=== PATIENT | male | born 1940 | race Caucasian/White ===

== ENCOUNTER 2017-04-14 10:21 | Inpatient (IN) | payer MEDICARE ==
[2017-04-14] VITALS (10 sets, daily range): BP systolic 83–154; BP diastolic 54–81; PULSE 60–87; RESP 16–18; TEMP 97.7–98.2; O2SAT 92–98
[~2017-04-14] VITALS: Ht 185.4 cm; Wt 84.9 kg
[~2017-04-14 10:21] MED LIST: AMLO5TAB96 PO; ATEN25 PO; CHLO10 PO; COMMODE 3:1; COUM2.5T PO; DRON2.5C PO; FLUD.1 PO; FOLI1 PO; LISI-363 PO; LOVA1TAB47 PO; MAGN400 PO; MVI PO; THIA100T PO; Z.0.WALKERFRONT
[2017-04-14] MEDS ORDERED: SODIUM CHLOR 0.9% 1000 ML INJ 1,000 ML IV ONE (10:36)
[2017-04-14] MEDS ORDERED: SODIUM CHLORIDE 0.9% FLUSH 10 ML FLUSH IVF PRN (10:45)
--- NOTE | 2017-04-14 10:58 | PD ---
HPI Chief Complaint: Fall Time Seen by Provider: 10:36 Travel History International Travel<30 days: No Contact w/Intl Traveler<30days: No Traveled to known affect area: No History of Present Illness HPI 77-year-old male with history of atrial fibrillation and hypertension, presents to the ER today because he states that he had stepped down to the family room which was at a different level and his legs gave out and he fell. He fell onto his lower back area. He is complaining of back pain which he states has been going on for several weeks. He also states that recently he has noticed dyspnea on exertion. He denies any chest pains, fevers, vomiting, or any other symptoms. Back pain is currently a 6 out of 10 although it gets to a 10 out 10 when he moves. He states he has had some problems with stool incontinence intermittently but that has been going on for several months. He denies any urinary incontinence. Patient states he did hit his head but had no loss of consciousness. Modifying Factors: None Associated Signs & Symptoms: Fall on back, back pain, leg weakness, dyspnea on exertion Risk Factors: Elderly PFSH Past Medical History Hx Anticoagulant Therapy: Yes Atrial Fibrillation: Yes Blood Disorders: No Heart Rhythm Problems: Yes Cancer: No Cardiovascular Problems: Yes (AFIB) High Cholesterol: Yes Diminished Hearing: No Endocrine: No Gout: Yes Genitourinary: No Hypertension: Yes Immune Disorder: No Implanted Vascular Access Dvce: No Musculoskeletal: No Neurologic: No Psychiatric: No Reproductive: No Respiratory: No Triglycerides - High: Yes Past Surgical History Other Surgery: Yes Social History Alcohol Use: Yes (OCC) Tobacco Use: No Substance Use: No Allergies-Medications (Allergen,Severity, Reaction): Coded Allergies: No Known Allergies (Verified , 12/05/15) Reported Meds & Prescriptions Reported Meds & Active Scripts Active Commode 3:1 (Device) Device 1 Ea Librium 10 mg Cap (Chlordiazepoxide) 10 Mg Cap 10 Mg PO DAILY 3 Days Start on 12/13/15. Atenolol 25 Mg Tab 25 Mg PO DAILY 30 Days Lisinopril 20 mg (Lisinopril) 20 Mg Tab 1 Tab PO DAILY 30 Days Vitamin B1 (Thiamine HCl) 100 Mg Tab 100 Mg PO DAILY Folate 1 Mg Tab (Folic Acid) 1 Mg Tab 1 Mg PO DAILY Theragran (Multivitamins) 1 Tab Tab 1 Tab PO DAILY Mag-Ox 400 Mg Tab (Magnesium Oxide) 400 Mg Tab 400 Mg PO BID@,18 Dronabinol 2.5 Mg Cap 2.5 Mg PO BIDAC Florinef (Fludrocortisone Acetate) 0.1 Mg Tab 0.1 Mg PO DAILY Walker Front Wheel (Walkerfront) Device 1 Unit Use as directed Reported Coumadin 2.5 mg (Warfarin Sodium) Warfarin Sodium 2.5 mg Tab 2.5 Mg PO DAILY Mevacor (Lovastatin) 20 Mg Tab 20 Mg PO DAILY Norvasc (Amlodipine Besylate) 5 Mg Tab 5 Mg PO DAILY Review of Systems Except as stated in HPI: all other systems reviewed are Neg Physical Exam Narrative GENERAL: Well-developed elderly white male patient in moderate distress. Awake and oriented 3. SKIN: Focused skin assessment warm/dry. HEAD: Atraumatic. Normocephalic. EYES: Pupils equal and round. No scleral icterus. No injection or drainage. ENT: No nasal bleeding or discharge. Mucous membranes pink and moist. NECK: Trachea midline. No JVD. CARDIOVASCULAR: Regular rate and rhythm. No murmur appreciated. RESPIRATORY: No accessory muscle use. Clear to auscultation. Breath sounds equal bilaterally. GASTROINTESTINAL: Abdomen soft, non-tender, nondistended. Hepatic and splenic margins not palpable. MUSCULOSKELETAL: No obvious deformities. No clubbing. No cyanosis. No edema. BACK: No CVA tenderness. No rash. Tenderness around the mid spine area on palpation with no point tenderness or deformities identified. NEUROLOGICAL: Awake and alert. No obvious cranial nerve deficits. Motor grossly within normal limits. Normal speech. PSYCHIATRIC: Appropriate mood and affect; insight and judgment normal. Data Data Last Documented VS Vital Signs Date Time Temp Pulse Resp B/P Pulse Ox O2 Delivery O2 Flow Rate FiO2 04/14/17 11:32 72 18 126/76 98 Room Air 04/14/17 10:39 98.1 Orders Electrocardiogram (04/14/17 10:36) Complete Blood Count With Diff (04/14/17 10:36) Comprehensive Metabolic Panel (04/14/17 10:36) Magnesium (Mg) (04/14/17 10:36) Ckmb (Isoenzyme) Profile (04/14/17 10:36) Troponin I (04/14/17 10:36) Act Partial Throm Time (Ptt) (04/14/17 10:36) Prothrombin Time / Inr (Pt) (04/14/17 10:36) Urinalysis - C+S If Indicated (04/14/17 10:36) Chest, Single Ap (04/14/17 10:36) Ct Brain W/O Iv Contrast(Rout) (04/14/17 10:36) Ct Cerv Spine W/O Contrast (04/14/17 10:36) Ecg Monitoring (04/14/17 10:36) Iv Access Insert/Monitor (04/14/17 10:36) Oximetry (04/14/17 10:36) Sodium Chloride 0.9% Flush (Ns Flush) (04/14/17 10:45) Sodium Chlor 0.9% 1000 Ml Inj (Ns 1000 M (04/14/17 10:36) Ct Thor Spine W/O Contrast (04/14/17 10:36) Ct Lumb Spine W/O Contrast (04/14/17 10:36) Ns + Kcl 20 Meq Inj (Ns + Kcl 20 Meq Inj (04/14/17 11:45) Admit Order (Ed Use Only) (04/14/17 13:10) Labs Laboratory Tests Test 04/14/17 04/14/17 10:45 12:30 White Blood Count 12.0 TH/MM3 Red Blood Count 4.71 MIL/MM3 Hemoglobin 14.7 GM/DL Hematocrit 43.9 % Mean Corpuscular Volume 93.2 FL Mean Corpuscular Hemoglobin 31.1 PG Mean Corpuscular Hemoglobin 33.3 % Concent Red Cell Distribution Width 12.2 % Platelet Count 389 TH/MM3 Mean Platelet Volume 9.4 FL Neutrophils (%) (Auto) 75.2 % Lymphocytes (%) (Auto) 11.8 % Monocytes (%) (Auto) 10.3 % Eosinophils (%) (Auto) 2.3 % Basophils (%) (Auto) 0.4 % Neutrophils # (Auto) 9.0 TH/MM3 Lymphocytes # (Auto) 1.4 TH/MM3 Monocytes # (Auto) 1.2 TH/MM3 Eosinophils # (Auto) 0.3 TH/MM3 Basophils # (Auto) 0.1 TH/MM3 CBC Comment DIFF FINAL Differential Comment Prothrombin Time 12.2 SEC Prothromb Time International 1.1 RATIO Ratio Activated Partial 26.0 SEC Thromboplast Time Sodium Level 133 MEQ/L Potassium Level 3.0 MEQ/L Chloride Level 94 MEQ/L Carbon Dioxide Level 24.2 MEQ/L Anion Gap 15 MEQ/L Blood Urea Nitrogen 14 MG/DL Creatinine 1.13 MG/DL Estimat Glomerular Filtration 63 ML/MIN Rate Random Glucose 123 MG/DL Calcium Level 9.9 MG/DL Magnesium Level 1.6 MG/DL Total Bilirubin 0.8 MG/DL Aspartate Amino Transf 66 U/L (AST/SGOT) Alanine Aminotransferase 49 U/L (ALT/SGPT) Alkaline Phosphatase 280 U/L Total Creatine Kinase 33 U/L Troponin I LESS THAN 0.02 NG/ML Total Protein 7.5 GM/DL Albumin 3.4 GM/DL Urine Color YELLOW Urine Turbidity CLEAR Urine pH 5.5 Urine Specific [place] 1.012 Urine Protein NEG mg/dL Urine Glucose (UA) NEG mg/dL Urine Ketones NEG mg/dL Urine Occult Blood NEG Urine Nitrite NEG Urine Bilirubin NEG Urine Urobilinogen 2.0 MG/DL Urine Leukocyte Esterase NEG Urine RBC 1 /hpf Urine WBC 4 /hpf Urine Squamous Epithelial <1 /hpf Cells Urine Hyaline Casts 7 /lpf Microscopic Urinalysis Comment CULT NOT INDICATED MDM Medical Decision Making Medical Screen Exam Complete: Yes Emergency Medical Condition: Yes Medical Record Reviewed: Yes Interpretation(s) EKG shows A. fib at a rate of 70 bpm, no ST elevation or depression, and no arrhythmias. No significant T-wave inversions. Laboratory Tests Test 04/14/17 10:45 White Blood Count 12.0 TH/MM3 (4.0-11.0) Neutrophils (%) (Auto) 75.2 % (16.0-70.0) Monocytes (%) (Auto) 10.3 % (0.0-8.0) Neutrophils # (Auto) 9.0 TH/MM3 (1.8-7.7) Monocytes # (Auto) 1.2 TH/MM3 (0-0.9) Prothrombin Time 12.2 SEC (9.8-11.6) Sodium Level 133 MEQ/L (136-145) Potassium Level 3.0 MEQ/L (3.5-5.1) Chloride Level 94 MEQ/L (98-107) Estimat Glomerular Filtration 63 ML/MIN (>89) Rate Random Glucose 123 MG/DL (74-106) Aspartate Amino Transf 66 U/L (15-37) (AST/SGOT) Alkaline Phosphatase 280 U/L (45-117) Total Creatine Kinase 33 U/L (39-308) Troponin I LESS THAN 0.02 NG/ML (0.02-0.05) Last [address] 04/14/17 1036 Signed Impressions: Service Date/Time: Friday, April 14, 2017 11:08 - CONCLUSION: No acute disease. Monty Jaime MD Chest X-Ray 04/14/17 1036 Signed Impressions: Service Date/Time: Friday, April 14, 2017 10:44 - CONCLUSION: Left basilar subsegmental atelectasis versus scarring. Status post CABG. Jose Stern MD Cervical Spine CT 04/14/17 1036 Signed Impressions: Service Date/Time: Friday, April 14, 2017 11:08 - CONCLUSION: 1. No fracture or subluxation. 2. Degenerative changes. Jose Stern MD Differential Diagnosis Fall, back pain, leg weakness, dyspnea on exertionmetabolic issues versus dehydration versus spinal fractures versus intracranial injuries versus sepsis versus pneumonia Narrative Course CTs did not show any signs of acute intracranial injuries. He does have lower thoracic and lumbar or which fractures as well as retropulse fragment which could be causing some of his back pain symptoms. None of which appear to be new. Lab work shows hypokalemia and potassium was given in the ER. IV fluids were given for hypotension. At this point, my plan would be to admit the patient for further evaluation and treatment. Case was discussed with family practice residents for admission. Diagnosis Primary Impression: Muscle weakness (generalized) Additional Impressions: Fall (on) (from) unspecified stairs and steps, initial encounter Back pain Hypokalemia Admitting Information Admitting Physician Requests: Admit Naomi Kirk MD April 14, 2017 10:58
--- NOTE | 2017-04-14 11:04 | RADRPT ---
EXAM DATE/TIME: 04/14/2017 10:44 [facility] COMPARISON: CHEST SINGLE AP, December 05, 2015, 19:21. INDICATIONS : Posterior chest pain. Evaluate lung status. MEDICAL HISTORY : Hypertension. SURGICAL HISTORY : CABG. ENCOUNTER: Initial ACUITY: 2 days PAIN SCORE: 10/10 LOCATION: Bilateral chest FINDINGS: A single view of the chest demonstrates left basilar atelectasis. Previous median sternotomy. Diminis hed lung volumes. Osseous structures are intact. CONCLUSION: Left basilar subsegmental atelectasis versus scarring. Status post CABG. Jose Stern MD on April 14, 2017 at 11:02 Board Certified Radiologist. This report was verified electronically.
[2017-04-14 11:12] LABS: BASOPHIL # 0.1 TH/MM3 (0-0.2); BASOPHIL % 0.4 % (0.0-2.0); EOSINOPHIL # 0.3 TH/MM3 (0-0.4); EOSINOPHIL % 2.3 % (0.0-4.0); HEMATOCRIT 43.9 % (39.0-51.0); HEMO FLAGS DIFF FINAL; LYMPH % 11.8 % (9.0-44.0); LYMPHOCYTE # 1.4 TH/MM3 (1.0-4.8); MEAN CELL VOLUME 93.2 FL (80.0-100.0); MEAN CORPUSCULAR HEMOGLOBIN 31.1 PG (27.0-34.0); MEAN CORPUSCULAR HGB CONC 33.3 % (32.0-36.0); MONO % 10.3 % (0.0-8.0); NEUT % 75.2 % (16.0-70.0); PLATELET COUNT 389 TH/MM3 (150-450); RED BLOOD COUNT 4.71 MIL/MM3 (4.50-5.90); RED CELL DISTRIBUTION WIDTH 12.2 % (11.6-17.2)
[2017-04-14 11:18] LABS: INTERNATIONAL NORMALIZED RATIO 1.1 RATIO; PROTHROMBIN TIME - PATIENT 12.2 SEC (9.8-11.6)
--- NOTE | 2017-04-14 11:20 | RADRPT ---
EXAM DATE/TIME: 04/14/2017 11:08 [facility] COMPARISON: CT BRAIN W/O CONTRAST, December 05, 2015, 21:19. INDICATIONS : Fall, severe back pain RADIATION DOSE: 69.60 CTDIvol (mGy) MEDICAL HISTORY : Cardiovascular disease. Hypertension. SURGICAL HISTORY : None. ENCOUNTER: Initial ACUITY: 1 day PAIN SCALE: 0/10 LOCATION: cranial TECHNIQUE: Multiple contiguous axial images were obtained of the head. Using automated exposure control and adj ustment of the mA and/or kV according to patient size, radiation dose was kept as low as reasonably a chievable to obtain optimal diagnostic quality images. FINDINGS: There is diffuse atrophy. 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 There is mild periventricular white matter disease. No signs of acute infarct, hemorrhage or mass. No fractures. CONCLUSION: No acute disease. Monty Jaime MD on April 14, 2017 at 11:18 Board Certified Radiologist. This report was verified electronically.
[2017-04-14 11:23] LABS: ALT (GPT) 49 U/L (12-78); ANION GAP 15 MEQ/L (5-15); AST (GOT) 66 U/L (15-37); BICARBONATE 24.2 MEQ/L (21.0-32.0); BLOOD UREA NITROGEN 14 MG/DL (7-18); CHLORIDE 94 MEQ/L (98-107); GLOMERULAR FILTRATION RATE 63 ML/MIN (>89); MAGNESIUM 1.6 MG/DL (1.5-2.5); SODIUM (NA) 133 MEQ/L (136-145)
[2017-04-14 11:26] LABS: ALKALINE PHOSPHATASE 280 U/L (45-117); TOTAL BILIRUBIN ADULT 0.8 MG/DL (0.2-1.0)
[2017-04-14 11:45] LABS: CREATINE KINASE 33 U/L (39-308)
[2017-04-14] MEDS ORDERED: NS + KCL 20 MEQ INJ 1,000 ML IV ONE (11:45)
--- NOTE | 2017-04-14 11:52 | RADRPT ---
EXAM DATE/TIME: 04/14/2017 11:08 [facility] COMPARISON: No previous studies available for comparison. INDICATIONS : Fall, severe back pain RADIATION DOSE: 19.05 CTDIvol (mGy) MEDICAL HISTORY : Cardiovascular disease. Hypertension. SURGICAL HISTORY : None. ENCOUNTER: Initial ACUITY: 1 day PAIN SCALE: 10/10 LOCATION: Paraspinal TECHNIQUE: Volumetric scanning of the cervical spine was performed. Multiplanar reconstructions in the sagittal, coronal and oblique axial planes were performed. Using automated exposure control and adjustment o f the mA and/or kV according to patient size, radiation dose was kept as low as reasonably achievable to obtain optimal diagnostic quality images. FINDINGS: VERTEBRAE: Normal vertebral body height. Advanced multilevel degenerative changes. ALIGNMENT: No evidence of subluxation. There is kyphosis of the upper thoracic spine. C2-C3: The bony spinal canal is normal in size. No evidence of disc bulge or herniation. The neural forami na are bilaterally patent. C3-C4: Mild broad-based protrusion abuts the ventral thecal sac with extruded component extending inferiorly . No canal stenosis. Moderate bilateral neural foraminal narrowing. The neural foramina are bilatera lly patent. C4-C5: Mild broad-based disc bulge abuts the ventral thecal sac without canal stenosis. Moderate bilateral n eural foraminal narrowing. C5-C6: The bony spinal canal is normal in size. No evidence of disc bulge or herniation. The neural forami na are bilaterally patent. C6-C7: The bony spinal canal is normal in size. No evidence of disc bulge or herniation. The neural forami na are bilaterally patent. C7-T1: The bony spinal canal is normal in size. No evidence of disc bulge or herniation. The neural forami na are bilaterally patent. CONCLUSION: 1. No fracture or subluxation. 2. Degenerative changes. Jose Stern MD on April 14, 2017 at 11:45 Board Certified Radiologist. This report was verified electronically.
--- NOTE | 2017-04-14 12:57 | RADRPT ---
EXAM DATE/TIME: 04/14/2017 11:13 [facility] COMPARISON: No previous studies available for comparison. INDICATIONS : Fall, severe back pain RADIATION DOSE: 35.53 CTDIvol (mGy) ; Combined studies MEDICAL HISTORY : Cardiovascular disease. Hypertension. SURGICAL HISTORY : None. ENCOUNTER: Initial ACUITY: 1 day PAIN SCALE: 10/10 LOCATION: Bilateral Paraspinal TECHNIQUE: Volumetric scanning of the thoracic spine was performed. Multiplanar reconstructions in the sagittal , coronal and oblique axial planes were performed. Using automated exposure control and adjustment o f the mA and/or kV according to patient size, radiation dose was kept as low as reasonably achievable to obtain optimal diagnostic quality images. FINDINGS: Sagittal and coronal reconstruction show multilevel degenerative disc disease throughout the thoracol umbar spine. There are compression fractures involving T2, T10 and most severely at L1 where there i s a vertebral plana and severe wedge deformity. However, these all appear to be somewhat chronic. T here is a retropulsed component at the T12-L1 level. I do not see an obvious acute fracture. Despit e the retropulsion at T12-L1, the spinal canal appears to be adequate throughout. Bridging anterior osteophytes are seen at multiple dorsal levels. There is a small right-sided effus ion with some common atelectactic changes. Atelectactic changes are also seen in the left lung base. Old healed rib fracture involving the posterior aspect of number 12 on the right. CONCLUSION: 1. Exaggerated kyphotic curvature with multilevel degenerative disc disease. 2. Multiple chronic appearing fractures involving T2, T10 and most severely at L1 where there is a w edge deformity and a retropulsed fragment. Again, these all appear to be chronic. 3. Old healed fracture deformity of the posterior right twelfth rib. 4. Bibasilar dependent atelectactic changes with a small right-sided effusion. Natanael Marr MD on April 14, 2017 at 12:25 Board Certified Radiologist. This report was verified electronically.
[2017-04-14 13:01] LABS: BLOOD, URINE NEG (NEG); GLUCOSE,URINE NEG (NEG); HYALINE CAST, URINE 7 /lpf (RARE); KETONE, URINE NEG (NEG); NITRITE,URINE NEG (NEG); PH, URINE 5.5 (5.0-8.5); SQUAMOUS EPITHELIAL CELL URINE <1 /hpf (0-5); URINE COLOR YELLOW (YELLW/STRAW)
[2017-04-14 13:02] LABS: COMMENT (UR) CULT NOT INDICATED; CULTURE IF INDICATED CULT NOT INDICATED
--- NOTE | 2017-04-14 13:04 | RADRPT ---
EXAM DATE/TIME: 04/14/2017 11:13 [facility] COMPARISON: No previous studies available for comparison. INDICATIONS : Fall, severe back pain RADIATION DOSE: 35.53 CTDIvol (mGy) ; Combined studies MEDICAL HISTORY : Cardiovascular disease. Hypertension. SURGICAL HISTORY : None. ENCOUNTER: Initial ACUITY: 1 day PAIN SCALE: 10/10 LOCATION: Bilateral Paraspinal TECHNIQUE: Volumetric scanning of the lumbar spine was performed. Multiplanar reconstructions in the sagittal, coronal and oblique axial planes were performed. Using automated exposure control and adjustment of the mA and/or kV according to patient size, radiation dose was kept as low as reasonably achievable t o obtain optimal diagnostic quality images. FINDINGS: Sagittal and coronal reconstruction show diffuse osseous demineralization with severe compression fra ctures at both L1 and L5. There is a wedge deformity with vertebral plana at L1 and a 9 mm retropuls ed fragment. Despite the retropulsion, I believe the spinal canal is adequate at the thoracolumbar j unction. There is some central concavity involving the right side of the L3 vertebral body which als o appears to be chronic. Vacuum disc phenomenon is seen at L2-3, L4-5 and L5-S1. I do not see CT fi ndings of an acute fracture or significant listhesis. On the axial images, the combination of a diffuse disc bulge with facet hypertrophy at L4-5 results i n significant central spinal stenosis which may compromise central nerve root. Spinal canal and neur al foramina appear to be adequate at all remaining levels. There is dense atherosclerotic calcificat ion of the regional vasculature. CONCLUSION: 1. Severe compression fractures at both L1 and L5. Both appears chronic and there is a 9 mm retropu lsed component of the superior end plate of L1. 2. There is also some central concavity on the right side of the L3 vertebral body which may represe nt a prominent Schmorl's node but also appears to be chronic. I do not see an acute fracture or list hesis. 3. Despite the retropulsed fragment at L1, the spinal canal appears to be adequate at this level. 4. However, there is moderately severely central spinal stenosis at L4-5 due to a combination of dif fuse disc bulge and marked facet hypertrophy. Spinal canal is adequate at all remaining levels. Natanael Marr MD on April 14, 2017 at 12:49 Board Certified Radiologist. This report was verified electronically.
--- NOTE | 2017-04-14 13:15 | HHI.HP ---
[facility] Service Family Medicine Primary Care Physician Vita Cooper MD Admission Diagnosis Diagnoses: International Travel<30 Days: No Contact w/Intl Traveler<30days: No Known Affected Area: No History of Present Illness 77-year-old male with history of chronic back pain presents after falling this morning at 7 AM. There is a step between the living room and dining room. The patient was moving from the living room and stepping down, he placed his hand on the wall and slipped backwards. He fell on his bottom. The patient states "more of sitting down and then a fall." The patient has been in 8 out of 10 mid back pain. This is nonradiating. In the hospital, his pain has improved to 4 out of 10. While moving to the CT scanner his pain was a 10 out of 10. Prior to 2 months ago, the patient was driving and walking. He has had worsening back issues over the last 2 months. He has needed to either sit in a recliner to relieve his pain or he walks hunched over his walker. His dependence on his walker is getting worse over the last 2 months. Additionally , he has been having bowel incontinence. He has had 2-3 episodes of losing loose stool when he tries to get up. He denies any loss of bladder function. When he moves, the pain gets worse. Reclining makes the pain feel better. He has not been able to sleep in bed for the last 2 months. He has been sleeping in a chair because of the pain. Not been taking his medications for the last 3 weeks except for 800 mg ibuprofen twice a day. He states he has quit taking medications because "he feels like a pharmacist." (Jama Johnson MD R2) Review of Systems Constitutional: DENIES: Fever, Chills Eyes: DENIES: Blurred vision, Diplopia Ears, nose, mouth, throat: DENIES: Tinnitus, Hearing loss Respiratory: DENIES: Cough, Shortness of breath Cardiovascular: DENIES: Chest pain, Dyspnea on Exertion Gastrointestinal: DENIES: Abdominal pain, Black stools, Bloody stools, Nausea, Vomiting Genitourinary: DENIES: Urinary incontinence, Hematuria Neurologic: COMPLAINS OF: Abnormal gait, Poor Balance Psychiatric: DENIES: Anxiety, Confusion (Jama Johnson MD R2) Past Family Social History Past Medical History Hypertension Atrial fibrillation Hyperlipidemia cards: Dr. Torres Past Surgical History Tonsillectomy Cyst of left shoulder Reported Medications Diltiazem xr are 180 mg daily Mirtazapine 15 mg by mouth at bedtime Famotidine 20 mg daily Folic acid 1 mg daily Potassium 20 mg daily Amlodipine gram daily Lovastatin 20 mg daily Warfarin 5 mg daily Commode 3:1 (Device) Device 1 Ea Walker Front Wheel (Walkerfront) Device 1 Unit Use as directed (Jama oJhnson MD R2) Allergies: Coded Allergies: No Known Allergies (Verified , 12/05/15) Active Ordered Medications Active Medications Potassium Chloride/Sodium Chloride (NS + KCl 20 Meq Inj) 1,000 ml @ 250 mls/hr Q4H ONCE IV Last administered on 04/14/17t 12:19; Admin Dose 250 MLS/HR; Start 04/14/17 at 11:45; Stop 04/14/17 at 15:44 Sodium Chloride 1,000 ml @ 1,000 mls/hr Q1H ONCE IV Last administered on t 10:54; Admin Dose 1,000 MLS/HR; Start 04/14/17 at 10:36; Stop 04/14/17 at 11:35; Status DC Sodium Chloride 2 ml 2 ml UNSCH PRN IVF; Start 04/14/17 at 10:45 Family History Patient was adopted. Social History Tobacco: 17 years; [id number]; 1ppd Alcohol: none recent Illicit: none Lives with and dog. Hasn't driven since . cooks. He bathes , scared to shower for last month. (Jama Johnson MD R2) Physical Exam Vital Signs Vital Signs Date Time Temp Pulse Resp B/P Pulse Ox O2 Delivery O2 Flow Rate FiO2 04/14/17 11:32 72 18 126/76 98 Room Air 04/14/17 11:12 18 97 Room Air 04/14/17 11:12 18 97 Room Air 04/14/17 10:39 98.1 70 18 83/54 96 Room Air 04/14/17 10:30 79 16 83/54 97 04/14/17 10:22 97.7 87 18 92 Room Air Physical Exam GENERAL: This is a pleasant elderly male lying comfortably in bed. No acute distress. SKIN: No rashes, ecchymoses or lesions. Cool and dry. HEAD: Atraumatic. Normocephalic. No temporal or scalp tenderness. EYES: Pupils equal round and reactive. Extraocular motions intact. No scleral icterus. No injection or drainage. ENT: Nose without bleeding, purulent drainage or septal hematoma. Throat without erythema, tonsillar hypertrophy or exudate. Uvula midline. Airway patent. NECK: Trachea midline. No JVD or lymphadenopathy. Supple, nontender, no meningeal signs. CARDIOVASCULAR: Regular rate and rhythm without murmurs, gallops, or rubs. RESPIRATORY: Clear to auscultation. Breath sounds equal bilaterally. No wheezes , rales, or rhonchi. GASTROINTESTINAL: Abdomen soft, non-tender, nondistended. No hepato-splenomegaly , or palpable masses. No guarding. Rectal: Good tone MUSCULOSKELETAL: Low back around L1 tender to palpation. NEUROLOGICAL: Awake and alert. Cranial nerves II through XII intact. Motor and sensory grossly within normal limits. Five out of 5 muscle strength in all muscle groups. Normal speech. Laboratory Laboratory Tests Test 04/14/17 04/14/17 10:45 12:30 White Blood Count 12.0 Red Blood Count 4.71 Hemoglobin 14.7 Hematocrit 43.9 Mean Corpuscular Volume 93.2 Mean Corpuscular Hemoglobin 31.1 Mean Corpuscular Hemoglobin 33.3 Concent Red Cell Distribution Width 12.2 Platelet Count 389 Mean Platelet Volume 9.4 Neutrophils (%) (Auto) 75.2 Lymphocytes (%) (Auto) 11.8 Monocytes (%) (Auto) 10.3 Eosinophils (%) (Auto) 2.3 Basophils (%) (Auto) 0.4 Neutrophils # (Auto) 9.0 Lymphocytes # (Auto) 1.4 Monocytes # (Auto) 1.2 Eosinophils # (Auto) 0.3 Basophils # (Auto) 0.1 CBC Comment DIFF FINAL Differential Comment Prothrombin Time 12.2 Prothromb Time International 1.1 Ratio Activated Partial 26.0 Thromboplast Time Sodium Level 133 Potassium Level 3.0 Chloride Level 94 Carbon Dioxide Level 24.2 Anion Gap 15 Blood Urea Nitrogen 14 Creatinine 1.13 Estimat Glomerular Filtration 63 Rate Random Glucose 123 Calcium Level 9.9 Magnesium Level 1.6 Total Bilirubin 0.8 Aspartate Amino Transf 66 (AST/SGOT) Alanine Aminotransferase 49 (ALT/SGPT) Alkaline Phosphatase 280 Total Creatine Kinase 33 Troponin I LESS THAN 0.02 Total Protein 7.5 Albumin 3.4 Urine Color YELLOW Urine Turbidity CLEAR Urine pH 5.5 Urine Specific [place] 1.012 Urine Protein NEG Urine Glucose (UA) NEG Urine Ketones NEG Urine Occult Blood NEG Urine Nitrite NEG Urine Bilirubin NEG Urine Urobilinogen 2.0 Urine Leukocyte Esterase NEG Urine RBC 1 Urine WBC 4 Urine Squamous Epithelial <1 Cells Urine Hyaline Casts 7 Microscopic Urinalysis Comment CULT NOT INDICATED (Jama Johnson MD R2) Result Diagram: 04/14/17 1045 04/14/17 1045 Imaging Last Impressions Head CT 04/14/17 1036 Signed Impressions: Service Date/Time: Friday, April 14, 2017 11:08 - CONCLUSION: No acute disease. Monty Jaime MD Chest X-Ray 04/14/17 1036 Signed Impressions: Service Date/Time: Friday, April 14, 2017 10:44 - CONCLUSION: Left basilar subsegmental atelectasis versus scarring. Status post CABG. Jose Stern MD Cervical Spine CT 04/14/17 1036 Signed Impressions: Service Date/Time: Friday, April 14, 2017 11:08 - CONCLUSION: 1. No fracture or subluxation. 2. Degenerative changes. Jose Stern MD (Jama Johnson MD R2) Assessment and Plan Assessment and Plan 77-year-old male with history of chronic low back pain and known fractures presents after a fall; CT concerning for severe spinal stenosis at L4-L5. Plan as below. Code Status Full (Jama Johnson MD R2) Attending Attestation Patient seen and examined, discussed with resident team. I agree with assessment and management as documented and discussed with me. The patient has been seen and examined. The chart and all resident notes have been reviewed. I agree that inpatient care is appropriate and that a two midnight stay is expected for the reasons documented in the resident history and physical. I have discussed this with the resident and certify the resident s order for inpatient admission. Bear Gibson is a 77 yo gentleman with medical history significant for A fib and compression fractures admitted for worsening back pain after a fall. Imaging at admission reveals acute lumbar compression fracture and spinal stenosis. Neurosurgery has been consulted; anticipate possible neurosurgical intervention for acute lumbar compression fracture and spinal stenosis. Additionally, patient has stopped all of his medications 3 weeks ago because he was frustrated with taking so many medications. He is amenable to restarting some of these medications postoperatively, including coumadin. Will reevaluate the need for various medications postoperatively. (Janny Lazcano MD) Problem List: (1) Spinal stenosis at L4-L5 level Status: Acute Plan: Neurosurgery consult Case discussed with neurosurgery judicial assistant MRI lumbar spine with and without contrast ordered Nothing by mouth at midnight for possible surgery. (2) Fracture, thoracic vertebra, compression Status: Acute Plan: Neurosurgery consult Pain control morphine 2 mg IV pain 3-5, 4 mg pain 6-10 (3) Fracture, lumbar vertebra, compression Status: Acute Plan: Neurosurgery consult Pain control Vitamin D pending (4) Atrial fibrillation Status: Acute Plan: Patient has not been taking Coumadin for 3 weeks. INR 1.1 Holding Coumadin for possible surgery Heparin as below Diltiazem 180 daily. (5) Hyperlipidemia Status: Acute Plan: Continue statin (6) FEN/PPX Status: Acute Plan: Fluids: Normal saline at 120 mL's per hour Electrolytes: Monitor and replace as needed Nutrition: Regular diet. Nothing by mouth after midnight for possible surgery Prophylaxis: Heparin 5000 units twice a day, bilateral SCDs. (Jama Johnson MD R2) Physician Certification 2 Midnight Certification Type: Admission for Inpatient Services Order for Inpatient Services The services are ordered in accordance with Medicare regulations or non- Medicare payer requirements, as applicable. In the case of services not specified as inpatient-only, they are appropriately provided as inpatient services in accordance with the 2-midnight benchmark. Estimated LOS (days): 2 days is the estimated time the patient will need to remain in the hospital, assuming treatment plan goals are met and no additional complications. Post-Hospital Plan: Not yet determined (Jama Johnson MD R2) Jama Johnson MD R2 April 14, 2017 13:15 Janny Lazcano MD April 14, 2017 20:36
[2017-04-14] MEDS: HEPARIN SODIUM - SQ 10,000 UNITS/ML VIAL SQ SCH (14:30)
[2017-04-14] MEDS ORDERED: MAGNESIUM HYDROXIDE SUSP 30 ML CUP PO PRN (14:30)
[2017-04-14] MEDS ORDERED: BISACODYL 10 MG SUPP RECTAL PRN (14:30)
[2017-04-14] MEDS ORDERED: LACTULOSE SYRUP 20 GM/30 ML CUP PO PRN (14:30)
[2017-04-14] MEDS ORDERED: ACETAMINOPHEN 325 MG TAB PO PRN (14:30)
[2017-04-14] MEDS ORDERED: SENNOSIDES 8.6 MG TAB PO PRN (14:30)
[2017-04-14] MEDS ORDERED: SODIUM CHLORIDE 0.9% FLUSH 10 ML FLUSH IV FLUSH PRN (14:30)
[2017-04-14] MEDS ORDERED: NALOXONE HCL 0.4 MG/ML AMP IV PRN ×2 (14:30→15:30)
[2017-04-14] MEDS ORDERED: ONDANSETRON HCL 4 MG/2 ML VIAL IVP PRN (14:30)
[2017-04-14] MEDS ORDERED: FAMOTIDINE 20 MG TAB PO ONE (15:15)
[2017-04-14] MEDS ORDERED: MORPHINE SULFATE 4 MG/ML INJ IV PUSH ONE (15:15)
[2017-04-14] MEDS ORDERED: MORPHINE SULFATE 4 MG/ML INJ IV PRN (15:30)
--- NOTE | 2017-04-14 16:11 | PD.CONS ---
(Rita Villatoro) [facility] Service Neurosurgery Consult Requested By Dr. Johnson Reason for Consult severe spinal stenosis, loosing bowel function Primary Care Physician Vita Cooper MD History of Present Illness Mr. Gibson is a 77-year-old male who presents to [facility] today with complaints of intractable back pain. Mr. Gibson reports he has suffered from chronic lumbar pain however has gotten progressively worse over the past couple weeks. He reports today his legs gave out and he fell down. His pain is located in the upper lumbar region. He denies any radiating pain, paresthesias , sensory loss, urine incontinence. There is also report of bowel incontinence. The patient says he has sudden urges to move his bowels which then will leak before making it to the bathroom. He complains his legs are also becoming weaker compared to his arms, and he has had more difficulty walking. He rates the pains as a 10/10. A CT of the lumbar spine shows severe fractures at L1 and L5, there is retropulsion of L1 causing severe canal stenosis. A neurosurgical evaluation was requested. (Rita Villatoro) Review of Systems Constitutional: DENIES: Fever, Chills Eyes: DENIES: Diplopia, Vision loss Ears, nose, mouth, throat: DENIES: Vertigo Respiratory: DENIES: Cough, Hemoptysis, Shortness of breath Cardiovascular: DENIES: Chest pain Gastrointestinal: DENIES: Abdominal pain Genitourinary: DENIES: Urinary incontinence Musculoskeletal: COMPLAINS OF: Stiffness, Back pain, DENIES: Neck pain Neurologic: COMPLAINS OF: Abnormal gait, Localized weakness, Poor Balance, DENIES: Headache, Paresthesias Psychiatric: DENIES: Confusion, Hallucinations (Rita Villatoro) Past Family Social History Allergies: Coded Allergies: No Known Allergies (Verified , 12/05/15) Past Medical History Atrial fibrillation Hypertension Hyperlipidemia Past Surgical History Tonsillectomy Reported Medications reviewed in EMR Active Ordered Medications Current Medications Medications (Trade) Dose Ordered Sig/Curt Route PRN Reason Start Time Stop Time Status Last Admin Dose Admin Sodium Chloride 2 ml 2 ml UNSCH PRN IVF FLUSH AFTER USING IV ACCESS 04/14/17 10:45 Sodium Chloride (NS 1000 ml Inj) 1,000 ml @ 120 mls/hr Q8H20M IV 04/14/17 14:23 Sodium Chloride (NS Flush) 2 ml UNSCH PRN IV FLUSH FLUSH AFTER USING IV ACCESS 04/14/17 14:30 Sodium Chloride (NS Flush) 2 ml BID IV FLUSH 04/14/17 21:00 Acetaminophen (Tylenol) 650 mg Q4H PRN PO TEMP > 100.4 04/14/17 14:30 Ondansetron HCl (Zofran Inj) 4 mg Q6H PRN IVP NAUSEA OR VOMITING 04/14/17 14:30 Heparin Sodium (Porcine) (Heparin Inj) 5,000 units Q12H SQ 04/14/17 14:30 Naloxone HCl (Narcan Inj) 0.4 mg UNSCH PRN IV SEE LABEL COMMENTS 04/14/17 14:30 Senna/Docusate Sodium (Teresa-Colace) 1 tab BID PO 04/14/17 21:00 Magnesium Hydroxide (Milk Of Magnesia Liq) 30 ml Q12H PRN PO MILD - MODERATE CONSTIPATION 04/14/17 14:30 Sennosides (Senokot) 17.2 mg Q12H PRN PO MODERATE - SEVERE CONSTIPATION 04/14/17 14:30 Bisacodyl (Dulcolax Supp) 10 mg DAILY PRN RECTAL SEVERE CONSITIPATION 04/14/17 14:30 Lactulose (Lactulose Liq) 30 ml DAILY PRN PO SEVERE CONSITIPATION 04/14/17 14:30 Mirtazapine (Remeron) 15 mg HS PO 04/14/17 21:00 Atorvastatin Calcium (Lipitor) 20 mg HS PO 04/14/17 21:00 Morphine Sulfate (Morphine Inj) 2 mg Q3H PRN IV Pain 3-5; if unable to take PO 04/14/17 15:30 Morphine Sulfate (Morphine Inj) 4 mg Q3H PRN IV Pain 6-10;if unable to take PO 04/14/17 15:30 Diltiazem HCl (Cardizem Cd) 180 mg DAILY PO 04/15/17 09:00 Family History Adopted Social History Denies etoh abuse or illicit drug use. Remote tobacco use of 1 ppd for 17 years. (Rita Villatoro) Physical Exam Vital Signs Vital Signs Date Time Temp Pulse Resp B/P Pulse Ox O2 Delivery O2 Flow Rate FiO2 04/14/17 15:24 69 19 154/81 97 04/14/17 13:52 16 98 Room Air 04/14/17 13:25 60 16 134/69 98 Room Air 04/14/17 11:32 72 18 126/76 98 Room Air 04/14/17 11:12 18 97 Room Air 04/14/17 11:12 18 97 Room Air 04/14/17 10:39 98.1 70 18 83/54 96 Room Air 04/14/17 10:30 79 16 83/54 97 04/14/17 10:22 97.7 87 18 92 Room Air Physical Exam Mr. Gibson is alert, awake and oriented to time, place and person. Speech is fluent. Follows commands well. Cranial nerve examination demonstrates the pupils to be equal, round, and reactive to light. Extra-ocular movements are intact. Facial motor and sensory function are normal and symmetrical. The uvula is midline and elevates symmetrically with the soft palate. Sternocleidomastoid and trapezius muscles have normal and symmetrical strength. Other cranial nerves are intact. Neck is soft and supple. Cervical spine has a full range of motion in anterior flexion, extension, lateral bending, and rotation without pain. Muscle strength is 5/5 in all muscle groups of both upper extremities including deltoid, biceps, triceps and lamp cleaner street light. In the lower extremities, strength is 5/5 in both iliopsoas, quadriceps, hamstrings, plantar flexion, dorsiflexion, and extensor hallicus longus. Sensory examination is intact to light touch in both the upper and lower extremities, symmetrically. Deep tendon reflexes are 2+ and symmetrical in the biceps, triceps, and brachioradialis, bilaterally, in the upper extremities. In the lower extremities , the patellar and Achilles are 1+, bilaterally. There is a bilateral plantar flexion response. Hoffmanns sign is negative. There is no ankle clonus. Pain to palpation over the upper lumbar region. Cerebellar examination is intact to [id number] test Laboratory Laboratory Tests Test 04/14/17 04/14/17 10:45 12:30 White Blood Count 12.0 Red Blood Count 4.71 Hemoglobin 14.7 Hematocrit 43.9 Mean Corpuscular Volume 93.2 Mean Corpuscular Hemoglobin 31.1 Mean Corpuscular Hemoglobin 33.3 Concent Red Cell Distribution Width 12.2 Platelet Count 389 Mean Platelet Volume 9.4 Neutrophils (%) (Auto) 75.2 Lymphocytes (%) (Auto) 11.8 Monocytes (%) (Auto) 10.3 Eosinophils (%) (Auto) 2.3 Basophils (%) (Auto) 0.4 Neutrophils # (Auto) 9.0 Lymphocytes # (Auto) 1.4 Monocytes # (Auto) 1.2 Eosinophils # (Auto) 0.3 Basophils # (Auto) 0.1 CBC Comment DIFF FINAL Differential Comment Prothrombin Time 12.2 Prothromb Time International 1.1 Ratio Activated Partial 26.0 Thromboplast Time Sodium Level 133 Potassium Level 3.0 Chloride Level 94 Carbon Dioxide Level 24.2 Anion Gap 15 Blood Urea Nitrogen 14 Creatinine 1.13 Estimat Glomerular Filtration 63 Rate Random Glucose 123 Calcium Level 9.9 Magnesium Level 1.6 Total Bilirubin 0.8 Aspartate Amino Transf 66 (AST/SGOT) Alanine Aminotransferase 49 (ALT/SGPT) Alkaline Phosphatase 280 Total Creatine Kinase 33 Troponin I LESS THAN 0.02 Total Protein 7.5 Albumin 3.4 Urine Color YELLOW Urine Turbidity CLEAR Urine pH 5.5 Urine Specific [place] 1.012 Urine Protein NEG Urine Glucose (UA) NEG Urine Ketones NEG Urine Occult Blood NEG Urine Nitrite NEG Urine Bilirubin NEG Urine Urobilinogen 2.0 Urine Leukocyte Esterase NEG Urine RBC 1 Urine WBC 4 Urine Squamous Epithelial <1 Cells Urine Hyaline Casts 7 Microscopic Urinalysis Comment CULT NOT INDICATED (Rita Villatoro) Result Diagram: 04/14/17 1045 04/14/17 1045 Imaging Last Impressions Head CT 04/14/17 1036 Signed Impressions: Service Date/Time: Friday, April 14, 2017 11:08 - CONCLUSION: No acute disease. Monty Jaime MD Chest X-Ray 04/14/17 1036 Signed Impressions: Service Date/Time: Friday, April 14, 2017 10:44 - CONCLUSION: Left basilar subsegmental atelectasis versus scarring. Status post CABG. Jose Stern MD Cervical Spine CT 04/14/17 1036 Signed Impressions: Service Date/Time: Friday, April 14, 2017 11:08 - CONCLUSION: 1. No fracture or subluxation. 2. Degenerative changes. Jose Stern MD (Rita Villatoro) Attending Statement L1 fracture. Unstable, retropulsion and cord compression. recommend MRI. He will likely need surgery with an ORIF. We have discussed the details including the [id number] details of the surgical procedure, its indications, alternatives, risks, and potential complications. Risks and potential complications include, but are not limited to, infection, blood loss, CSF leak, partial or complete loss of sight in one or both eyes, paresis, paralysis, permanent pain or difficulty swallowing, loss of bowel or bladder function, complications from anesthesia, blood clot, stroke, myocardial infarction, or even . PT and OT evaluation Nutrition. diet Renal. monitor closely urine output, BUN and creatinine Endocrine. Monitor serial Acu checks and SSI as needed in detail ID monitor for signs of infection Renal. slight acute kidney injury. She again has acute kidney injury with elevated Cr above baseline.. Monitor urine output BUN and creatinine and creatinine Protonix for stress ulcer prophylaxis Thiago hose and SCD's for DVT prophylaxis The exam, history, and the medical decision-making described in the above note were completed with the assistance of the mid-level provider. I reviewed and agree with the findings presented. I attest that I had a [id number] encounter with the patient on the same day, and personally performed and documented my assessment and findings in the medical record. (Hardik Lieberman MD) Rita Villatoro April 14, 2017 16:11 Hardik Lieberman MD April 14, 2017 17:35
[2017-04-14] MEDS ORDERED: AMLO5TAB2 PO (16:22)
[2017-04-14] MEDS ORDERED: LOVA20TA PO (16:22)
[2017-04-14] MEDS ORDERED: BLACK CHERRY PO (16:22)
[2017-04-14] MEDS ORDERED: MULT1TAB PO (16:22)
[2017-04-14] MEDS ORDERED: DILT180C36 PO (16:22)
[2017-04-14] MEDS ORDERED: DRON2.5 PO (16:22)
[2017-04-14] MEDS ORDERED: MAGN400T2 PO (16:22)
[2017-04-14] MEDS ORDERED: COUM2.5T PO (16:22)
[2017-04-14] MEDS ORDERED: FOLI1TAB4 PO (16:22)
[2017-04-14] MEDS ORDERED: POTA1TAB4 PO (16:22)
[2017-04-14] MEDS ORDERED: FAMO1TAB37 PO (16:22)
[2017-04-14] MEDS ORDERED: VITACAP7 PO (16:23)
--- NOTE | 2017-04-14 17:18 | RADRPT ---
EXAM DATE/TIME: 04/14/2017 16:42 [facility] COMPARISON: CT LUMBAR SPINE W/O CONTRAST, April 14, 2017, 11:13. MRI LUMBAR SPINE W/O CONTRAST, December 01, 2014, 7:54. INDICATIONS : HNP. Back pain. MEDICAL HISTORY : Hypertension. Hypercholesterolemia. Gout. A-fib. SURGICAL HISTORY : CABG Tonsillectomy. Cataracts. ENCOUNTER: Subsequent ACUITY: 1 day PAIN SCORE: 7/10 LOCATION: back. TECHNIQUE: Multiplanar multisequence MRI of the lumbar spine was performed without contrast. FINDINGS: The most caudal appearing lumbar vertebra is numbered as L5. There is a remote severe wedge compressi on fracture of L1 again seen with retropulsion unchanged. Conus unremarkable. A severe compression fr acture of the L5 vertebral body is noted. There is bone marrow edema consistent with an acute or suba cute fracture deformity. Diffuse disc desiccation. T12-L1: Mild Canal narrowing secondary to retropulsion of the posterior-superior aspect of L1. L1-L2: The thecal sac has a normal diameter. No evidence of disc bulge or protrusion. The neural foramina are patent bilaterally. L2-L3: Minimal diffuse disc bulge and mild facet hypertrophy. No canal or foraminal narrowing. There is an i ndeterminate T1 hypointense, T2 hyperintense lesion of the L2 vertebral body identified. L3-L4: Mild diffuse disc bulge abuts the L4 nerve roots. Mild foraminal encroachment. No canal stenosis. L4-L5: Diffuse disc bulge impinges upon the L5 nerve roots and abuts the L4 exiting nerves. Mild foraminal e ncroachment. Mild canal narrowing. L5-S1: The diffuse disc bulge is present with mild bilateral foraminal narrowing. Grade 1 anterolisthesis of L5 on S1. CONCLUSION: 1. Non-acute L1 compression fracture. 2. Acute/subacute L5 compression fracture identified with severe loss of vertebral body height. 3. Indeterminate L2 vertebral body lesion. Monty Jaime MD on April 14, 2017 at 17:12 Board Certified Radiologist. This report was verified electronically.
[2017-04-14] MEDS ORDERED: DILTIAZEM HCL 30 MG TAB PO SCH (18:00)
--- NOTE | 2017-04-14 19:18 | EKG ---
Date Performed: 04/14/2017 Time Performed: 10:36:21 PTAGE: 77 years EKG: ATRIAL FIBRILLATION NS ST CHANGES ABNORMAL ECG PREVIOUS TRACING : 12/05/2015 19.01 Compared to prior tracing no significant change DOCTOR: Charley Spann Interpretating Date/Time 04/14/2017 19:17:18
[2017-04-14] MEDS: DOCUSATE SODIUM 50 MG/SENNA 8.6 MG TAB PO SCH (20:33)
[2017-04-14] MEDS: ATORVASTATIN 20 MG TAB PO SCH (20:33)
[2017-04-14] MEDS: MIRTAZAPINE 15 MG TAB PO SCH (20:33)
[2017-04-14] MEDS: SODIUM CHLOR 0.9% 1000 ML INJ 1,000 ML IV SCH (20:34)
[2017-04-14] MEDS: SODIUM CHLORIDE 0.9% FLUSH 10 ML FLUSH IV FLUSH SCH (20:35)
[2017-04-14] MEDS: MORPHINE SULFATE 4 MG/ML INJ IV PRN (20:36)
[2017-04-15] MEDS: HEPARIN SODIUM - SQ 10,000 UNITS/ML VIAL SQ SCH (02:30)
[2017-04-15 07:47] LABS: AUTOMATED NEUTROPHIL # 4.8 TH/MM3 (1.8-7.7); BASOPHIL # 0.1 TH/MM3 (0-0.2); BASOPHIL % 1.1 % (0.0-2.0); EOSINOPHIL # 0.3 TH/MM3 (0-0.4); EOSINOPHIL % 4.1 % (0.0-4.0); HEMATOCRIT 39.2 % (39.0-51.0); HEMO FLAGS DIFF FINAL; LYMPH % 13.9 % (9.0-44.0); MEAN CELL VOLUME 92.9 FL (80.0-100.0); MEAN CORPUSCULAR HEMOGLOBIN 31.5 PG (27.0-34.0); MEAN CORPUSCULAR HGB CONC 33.9 % (32.0-36.0); MONO % 13.8 % (0.0-8.0); NEUT % 67.1 % (16.0-70.0); PLATELET COUNT 272 TH/MM3 (150-450); RED BLOOD COUNT 4.22 MIL/MM3 (4.50-5.90); RED CELL DISTRIBUTION WIDTH 12.1 % (11.6-17.2); WHITE BLOOD COUNT 7.1 TH/MM3 (4.0-11.0)
[2017-04-15 08:23] LABS: ALKALINE PHOSPHATASE 215 U/L (45-117); ALT (GPT) 35 U/L (12-78); ANION GAP 9 MEQ/L (5-15); AST (GOT) 47 U/L (15-37); BICARBONATE 25.9 MEQ/L (21.0-32.0); BLOOD UREA NITROGEN 9 MG/DL (7-18); CHLORIDE 103 MEQ/L (98-107); GLOMERULAR FILTRATION RATE 133 ML/MIN (>89); POTASSIUM 3.4 MEQ/L (3.5-5.1); SODIUM (NA) 138 MEQ/L (136-145); TOTAL BILIRUBIN ADULT 1.1 MG/DL (0.2-1.0)
[2017-04-15 08:25] VITALS: BP 180/101; PULSE 91; RESP 19; TEMP 98.2; O2SAT 97
[2017-04-15] MEDS: SODIUM CHLORIDE 0.9% FLUSH 10 ML FLUSH IV FLUSH SCH ×2 (08:41→21:18)
[2017-04-15] MEDS: DOCUSATE SODIUM 50 MG/SENNA 8.6 MG TAB PO SCH ×2 (08:41→21:19)
[2017-04-15] MEDS: DILTIAZEM-CD 180 MG CAP ER PO SCH (08:41)
[2017-04-15] MEDS: POTASSIUM CHLORIDE 20 MEQ CONTROLLED RELEASE TAB PO SCH ×2 (08:41→21:19)
[2017-04-15] MEDS: SODIUM CHLOR 0.9% 1000 ML INJ 1,000 ML IV SCH ×3 (08:41→23:33)
[2017-04-15] MEDS ORDERED: cloNIDine HCL 0.1 MG TAB PO PRN (08:45)
[2017-04-15] MEDS ORDERED: hydrALAZINE HCL 10 MG TAB PO PRN (08:45)
[2017-04-15] MEDS ORDERED: DILTIAZEM-CD 180 MG CAP ER PO SCH (09:00)
[2017-04-15] MEDS: MAGNESIUM OXIDE 400 MG TAB PO SCH (09:42)
[2017-04-15] MEDS: amLODIPine BESYLATE 5 MG TAB PO SCH (09:42)
[2017-04-15] MEDS ORDERED: VANCOMYCIN INJ 1,000 MG in SODIUM CHLOR 0.9% 250 ML INJ 250 ML IV ONE (10:00)
[2017-04-15] MEDS ORDERED: ceFAZolin 2 GM PREMIX 50 ML IV ONE (10:00)
[2017-04-15] MEDS: MORPHINE SULFATE 4 MG/ML INJ IV PRN ×3 (10:29→18:07)
--- NOTE | 2017-04-15 11:51 | HHI.NSPN ---
(Rita Villatoro) Note Status Status: Progress Note (Rita Villatoro) Interval History Interval History Mr. Gibson is a 77-year-old male who presents to [facility] today with complaints of intractable back pain. Mr. Gibson reports he has suffered from chronic lumbar pain however has gotten progressively worse over the past couple weeks. He reports today his legs gave out and he fell down. His pain is located in the upper lumbar region. He denies any radiating pain, paresthesias , sensory loss, urine incontinence. There is also report of bowel incontinence. The patient says he has sudden urges to move his bowels which then will leak before making it to the bathroom. He complains his legs are also becoming weaker compared to his arms, and he has had more difficulty walking. He rates the pains as a 10/10. A CT of the lumbar spine shows severe fractures at L1 and L5, there is retropulsion of L1 causing severe canal stenosis. A neurosurgical evaluation was requested 04/15: no new complaints, cardiology eval pending. (Rita Villatoro) Labs, Micro, & Vital Signs Results Date Time Temp Pulse Resp B/P Pulse Ox O2 Delivery O2 Flow Rate FiO2 04/15/17 08:25 98.2 91 19 180/101 97 04/14/17 23:51 98.0 74 18 141/77 97 04/14/17 20:11 97.8 72 18 144/81 97 04/14/17 16:10 98.2 68 16 123/75 97 04/14/17 15:24 69 19 154/81 97 04/14/17 13:52 16 98 Room Air 04/14/17 13:25 60 16 134/69 98 Room Air 04/15/17 07:00 Intake Total 1000 ml Balance 1000 ml Constitutional Vital Signs Date Time Temp Pulse Resp B/P Pulse Ox O2 Delivery O2 Flow Rate FiO2 04/15/17 08:25 98.2 91 19 180/101 97 04/14/17 23:51 98.0 74 18 141/77 97 04/14/17 20:11 97.8 72 18 144/81 97 04/14/17 16:10 98.2 68 16 123/75 97 04/14/17 15:24 69 19 154/81 97 04/14/17 13:52 16 98 Room Air 04/14/17 13:25 60 16 134/69 98 Room Air 04/15/17 07:00 Intake Total 1000 ml Balance 1000 ml (Rita Villatoro) Review of Systems/Exam Exam Mr. Gibson is alert, awake and oriented to time, place and person. Speech is fluent. Follows commands well. Cranial nerve examination demonstrates the pupils to be equal, round, and reactive to light. Extra-ocular movements are intact. Facial motor are normal and symmetrical. Neck is soft and supple. Muscle strength is 5/5 in all muscle groups of both upper extremities including deltoid, biceps, triceps and sensory scientist. In the lower extremities, strength is 5/5 in both iliopsoas, quadriceps, hamstrings, plantar flexion, dorsiflexion, and extensor hallicus longus. Sensory examination is intact to light touch in lower extremities, symmetrically. There is a bilateral plantar flexion response. Hoffmanns sign is negative. There is no ankle clonus. Pain to palpation over the upper lumbar region. Cerebellar examination is intact to [id number] test (Rita Villatoro) Medications Current Medications Current Medications Medications (Trade) Dose Ordered Sig/Curt Route PRN Reason Start Time Stop Time Status Last Admin Dose Admin Sodium Chloride 2 ml 2 ml UNSCH PRN IVF FLUSH AFTER USING IV ACCESS 04/14/17 10:45 Sodium Chloride (NS 1000 ml Inj) 1,000 ml @ 120 mls/hr Q8H20M IV 04/14/17 14:23 04/15/17 08:41 Sodium Chloride (NS Flush) 2 ml UNSCH PRN IV FLUSH FLUSH AFTER USING IV ACCESS 04/14/17 14:30 Sodium Chloride (NS Flush) 2 ml BID IV FLUSH 04/14/17 21:00 04/15/17 08:41 Acetaminophen (Tylenol) 650 mg Q4H PRN PO TEMP > 100.4 04/14/17 14:30 Ondansetron HCl (Zofran Inj) 4 mg Q6H PRN IVP NAUSEA OR VOMITING 04/14/17 14:30 Heparin Sodium (Porcine) (Heparin Inj) 5,000 units Q12H SQ 04/14/17 14:30 Hold Naloxone HCl (Narcan Inj) 0.4 mg UNSCH PRN IV SEE LABEL COMMENTS 04/14/17 14:30 Senna/Docusate Sodium (Teresa-Colace) 1 tab BID PO 04/14/17 21:00 04/15/17 08:41 Magnesium Hydroxide (Milk Of Magnesia Liq) 30 ml Q12H PRN PO MILD - MODERATE CONSTIPATION 04/14/17 14:30 Sennosides (Senokot) 17.2 mg Q12H PRN PO MODERATE - SEVERE CONSTIPATION 04/14/17 14:30 Bisacodyl (Dulcolax Supp) 10 mg DAILY PRN RECTAL SEVERE CONSITIPATION 04/14/17 14:30 Lactulose (Lactulose Liq) 30 ml DAILY PRN PO SEVERE CONSITIPATION 04/14/17 14:30 Mirtazapine (Remeron) 15 mg HS PO 04/14/17 21:00 04/14/17 20:33 Atorvastatin Calcium (Lipitor) 20 mg HS PO 04/14/17 21:00 04/14/17 20:33 Morphine Sulfate (Morphine Inj) 2 mg Q3H PRN IV Pain 3-5; if unable to take PO 04/14/17 15:30 Morphine Sulfate (Morphine Inj) 4 mg Q3H PRN IV Pain 6-10;if unable to take PO 04/14/17 15:30 04/15/17 10:29 Diltiazem HCl (Cardizem Cd) 180 mg DAILY PO 04/15/17 09:00 04/15/17 08:41 Magnesium Oxide (Mag-Ox) 400 mg DAILY PO 04/15/17 09:00 04/15/17 09:42 Potassium Chloride (KCl) 20 meq BID PO 04/15/17 09:00 04/15/17 08:41 Amlodipine Besylate (Norvasc) 5 mg DAILY PO 04/15/17 09:00 04/15/17 09:42 Clonidine (Catapres) 0.1 mg Q4H PRN PO SBP> OR = 180, DBP> OR = 100 04/15/17 08:45 Hydralazine HCl 10 mg 10 mg Q4H PRN PO SBP>160, DBP>90 04/15/17 08:45 Sodium Chloride 1,000 ml @ 100 mls/hr Q10H IV 04/16/17 06:00 Cefazolin Sodium/ Dextrose 50 ml @ 100 mls/hr ONCE IV 04/16/17 06:00 04/18/17 05:59 Vancomycin HCl/ Sodium Chloride (Vancomycin Inj/ NS 250 ml Inj) 250 ml @ 250 mls/hr ONCE IV 04/16/17 06:00 04/18/17 05:59 Chlorhexidine Gluconate (Hibiclens 4% Top Soln) 1 applic HS TOP 04/16/17 21:00 04/17/17 21:01 (Rita Villatoro) Medical Decision Making MDM Remarks 77 y/o male with intractable upper lumbar pain and progressive lower extremity weakness MRI with severe L1 fracture with canal retropulsion and cord compression (Rita Villatoro) Plan Plan Remarks to OR tomorrow for ORIF L1 fracture, Cardiology clearance hold anticoagulants, SCDs and TEDs for DVT prophylaxis NPO tonight (Rita Villatoro) Attending Statement I dorothy discussed the details including the [id number] details of the surgical procedure, its indications, alternatives, risks, and potential complications. Risks and potential complications include, but are not limited to, infection, blood loss, CSF leak, partial or complete loss of sight in one or both eyes, paresis, paralysis, permanent pain or difficulty swallowing, loss of bowel or bladder function, complications from anesthesia, blood clot, stroke, myocardial infarction, or even . The exam, history, and the medical decision-making described in the above note were completed with the assistance of the mid-level provider. I reviewed and agree with the findings presented. I attest that I had a [id number] encounter with the patient on the same day, and personally performed and documented my assessment and findings in the medical record. (Hardik Lieberman MD) Rita Villatoro April 15, 2017 11:51 Hardik Lieberman MD April 15, 2017 17:40
[2017-04-15 11:56] VITALS: BP 171/91; PULSE 91; RESP 18; TEMP 98.5; O2SAT 93
--- NOTE | 2017-04-15 12:49 | HHI.FPPN ---
Subjective Remarks Patient is doing well this morning. Has been having intermittent pain on and off. Otherwise he is comfortable. No fever, chills, nausea, vomiting, shortness of breath (Jama Johnson MD R2) Objective Vitals Vital Signs Date Time Temp Pulse Resp B/P Pulse Ox O2 Delivery O2 Flow Rate FiO2 04/15/17 11:56 98.5 91 18 171/91 93 04/15/17 08:25 98.2 91 19 180/101 97 04/14/17 23:51 98.0 74 18 141/77 97 04/14/17 20:11 97.8 72 18 144/81 97 04/14/17 16:10 98.2 68 16 123/75 97 04/14/17 15:24 69 19 154/81 97 04/14/17 13:52 16 98 Room Air 04/14/17 13:25 60 16 134/69 98 Room Air I/O 04/14/17 04/14/17 04/14/17 04/15/17 04/15/17 04/15/17 07:00 15:00 23:00 07:00 15:00 23:00 Intake Total 1000 ml Balance 1000 ml Intake IV Total 1000 ml # Voids 2 (Jama Johnson MD R2) Result Diagram: 04/15/17 0710 04/15/17 0710 Imaging Last Impressions Thoracic Spine CT 04/14/17 1036 Signed Impressions: Service Date/Time: Friday, April 14, 2017 11:13 - CONCLUSION: 1. Exaggerated kyphotic curvature with multilevel degenerative disc disease. 2. Multiple chronic appearing fractures involving T2, T10 and most severely at L1 where there is a wedge deformity and a retropulsed fragment. Again, these all appear to be chronic. 3. Old healed fracture deformity of the posterior right twelfth rib. 4. Bibasilar dependent atelectactic changes with a small right-sided effusion. Natanael Marr MD Lumbar Spine CT 04/14/17 1036 Signed Impressions: Service Date/Time: Friday, April 14, 2017 11:13 - CONCLUSION: 1. Severe compression fractures at both L1 and L5. Both appears chronic and there is a 9 mm retropulsed component of the superior end plate of L1. 2. There is also some central concavity on the right side of the L3 vertebral body which may represent a prominent Schmorl's node but also appears to be chronic. I do not see an acute fracture or listhesis. 3. Despite the retropulsed fragment at L1, the spinal canal appears to be adequate at this level. 4. However, there is moderately severely central spinal stenosis at L4-5 due to a combination of diffuse disc bulge and marked facet hypertrophy. Spinal canal is adequate at all remaining levels. Natanael Marr MD Head CT 04/14/17 1036 Signed Impressions: Service Date/Time: Friday, April 14, 2017 11:08 - CONCLUSION: No acute disease. Monty Jaime MD Chest X-Ray 04/14/171035 Signed Impressions: Service Date/Time: Friday, April 14, 2017 10:44 - CONCLUSION: Left basilar subsegmental atelectasis versus scarring. Status post CABG. Jose Stern MD Cervical Spine CT 04/14/17 1036 Signed Impressions: Service Date/Time: Friday, April 14, 2017 11:08 - CONCLUSION: 1. No fracture or subluxation. 2. Degenerative changes. Jose Stern MD Lumbar Spine MRI 04/14/17 0000 Signed Impressions: Service Date/Time: Friday, April 14, 2017 16:42 - CONCLUSION: 1. Non-acute L1 compression fracture. 2. Acute/subacute L5 compression fracture identified with severe loss of vertebral body height. 3. Indeterminate L2 vertebral body lesion. Monty Jaime MD Objective Remarks GENERAL: This is a pleasant elderly male lying comfortably in bed. No acute distress. SKIN: No rashes, ecchymoses or lesions. Cool and dry. HEAD: Atraumatic. Normocephalic. No temporal or scalp tenderness. EYES: Pupils equal round and reactive. Extraocular motions intact. No scleral icterus. No injection or drainage. ENT: Nose without bleeding, purulent drainage or septal hematoma. Throat without erythema, tonsillar hypertrophy or exudate. Uvula midline. Airway patent. NECK: Trachea midline. No JVD or lymphadenopathy. Supple, nontender, no meningeal signs. CARDIOVASCULAR: Regular rate and rhythm without murmurs, gallops, or rubs. RESPIRATORY: Clear to auscultation. Breath sounds equal bilaterally. No wheezes , rales, or rhonchi. GASTROINTESTINAL: Abdomen soft, non-tender, nondistended. No hepato-splenomegaly , or palpable masses. No guarding. MUSCULOSKELETAL: Low back around L1 tender to palpation. NEUROLOGICAL: Awake and alert. Cranial nerves II through XII intact. Motor and sensory grossly within normal limits. Five out of 5 muscle strength in all muscle groups. Normal speech. (Jama Johnson MD R2) A/P Assessment and Plan 77-year-old male with history of chronic low back pain and known fractures presents after a fall; imaging concerning for fractures at L1, L5. Severe spinal stenosis. Neurosurgery consulted Discharge Planning Pending neurosurgery (Jama Johnson MD R2) Attending Attestation Patient seen, examined, and discussed with resident team. I agree with assessment and management as documented and discussed with me. Await cardiac preop evaluation by cardiology prior to surgery. Anticipate surgery tomorrow. (Janny Lazcano MD) Problem List: (1) Fracture, thoracic vertebra, compression Status: Acute Plan: Neurosurgery consult OR tomorrow for ORIF L1 fracture Cardiology consulted for clearance Hold anticoagulants; SCDs for DVT prophylaxis. Nothing by mouth after midnight Pain control morphine 2 mg IV pain 3-5, 4 mg pain 6-10 Vitamin D low. (2) Spinal stenosis at L4-L5 level Status: Acute Plan: Neurosurgery consult (3) Fracture, lumbar vertebra, compression Status: Acute Plan: Neurosurgery consult Pain control (4) Atrial fibrillation Status: Acute Plan: Patient has not been taking Coumadin for 3 weeks. INR 1.1 Holding Coumadin/anticoagulation for possible surgery Diltiazem 180 daily. (5) Hyperlipidemia Status: Acute Plan: Continue statin (6) Vitamin D deficiency Status: Acute Plan: Treat with cholecalciferol 5000 units daily. (7) FEN/PPX Status: Acute Plan: Fluids: Normal saline at 120 mL's per hour Electrolytes: Monitor and replace as needed Nutrition: Heart healthy diet. Nothing by mouth after midnight for surgery Prophylaxis: Holding DVT prophylaxis in anticipation for surgery., bilateral SCDs. (Jama Johnson MD R2) Jama Johnson MD R2 April 15, 2017 12:49 Janny Lazcano MD April 16, 2017 10:41
[2017-04-15] MEDS ORDERED: POTASSIUM CHLORIDE 10 MEQ CONTROLLED RELEASE TAB PO ONE (13:00)
[2017-04-15] MEDS: CHOLECALCIFEROL (VIT D3) 5000 UNIT CAP PO SCH (14:14)
[2017-04-15 15:12] VITALS: BP 139/82; PULSE 84; RESP 16; TEMP 97.8; O2SAT 95
[2017-04-15 15:45] VITALS: BP 139/79; PULSE 71; RESP 17; TEMP 98.6; O2SAT 95
[2017-04-15 20:04] VITALS: BP 130/86; PULSE 82; RESP 16; TEMP 97.6; O2SAT 96
[2017-04-15] MEDS: MIRTAZAPINE 15 MG TAB PO SCH (21:19)
[2017-04-15] MEDS: ATORVASTATIN 20 MG TAB PO SCH (21:19)
[2017-04-16] VITALS (7 sets, daily range): BP systolic 111–162; BP diastolic 75–95; PULSE 71–98; RESP 13–18; TEMP 95.5–98.6; O2SAT 94–97
[2017-04-16] MEDS: MORPHINE SULFATE 4 MG/ML INJ IV PRN (00:17)
[2017-04-16] MEDS ORDERED: INSULIN HUMAN REGULAR 1,000 UNITS/10 ML VIAL SQ PRN (00:30)
[2017-04-16] MEDS ORDERED: SODIUM CHLORID 0.9% 500 ML IV PRN (00:30)
[2017-04-16] MEDS ORDERED: METOPROLOL TARTRATE 25 MG TAB PO PRN (00:30)
[2017-04-16] MEDS ORDERED: CHLORHEXIDINE GLUCONATE 2 % 1 PACK (2 CLOTHS) TOPICAL PRN (00:30)
[2017-04-16] MEDS ORDERED: LACTATED RINGER'S 1000 ML IV PRN (00:30)
[2017-04-16] MEDS ORDERED: POVIDONE IODINE 5% (ANTISEPSIS KIT) 4 APPLICATIONS EACH NARE PRN (00:30)
[2017-04-16] MEDS ORDERED: SODIUM CHLOR 0.9% 1000 ML INJ 1,000 ML IV SCH (06:00)
[2017-04-16] MEDS ORDERED: BUPIVACAINE/EPINEPHRINE 0.5% PF 30 ML VIAL ONE (07:30)
[2017-04-16] MEDS ORDERED: THROMBIN (TOPICAL) 5,000 UNIT VIAL ONE (07:30)
[2017-04-16] MEDS ORDERED: GELFOAM SIZE 100 ONE (07:30)
[2017-04-16] MEDS ORDERED: GENTAMICIN SULFATE 80 MG/2 ML VIAL ONE (07:30)
[2017-04-16] MEDS ORDERED: GELATIN POWDER 1 GM PACKET ONE (07:30)
[2017-04-16] MEDS: DILTIAZEM-CD 180 MG CAP ER PO SCH (08:38)
[2017-04-16] MEDS: amLODIPine BESYLATE 5 MG TAB PO SCH (08:38)
[2017-04-16] MEDS: SODIUM CHLORIDE 0.9% FLUSH 10 ML FLUSH IV FLUSH SCH (08:39)
[2017-04-16] MEDS: MAGNESIUM OXIDE 400 MG TAB PO SCH (08:39)
[2017-04-16] MEDS: POTASSIUM CHLORIDE 20 MEQ CONTROLLED RELEASE TAB PO SCH ×2 (08:39→21:00)
[2017-04-16] MEDS: SODIUM CHLOR 0.9% 1000 ML INJ 1,000 ML IV SCH (08:39)
[2017-04-16] MEDS: CHOLECALCIFEROL (VIT D3) 5000 UNIT CAP PO SCH (08:40)
[2017-04-16] MEDS: DOCUSATE SODIUM 50 MG/SENNA 8.6 MG TAB PO SCH ×2 (08:40→21:00)
[2017-04-16 11:11] LABS: AUTOMATED NEUTROPHIL # 8.1 TH/MM3 (1.8-7.7); BASOPHIL % 0.3 % (0.0-2.0); EOSINOPHIL # 0.2 TH/MM3 (0-0.4); EOSINOPHIL % 2.2 % (0.0-4.0); HEMATOCRIT 38.4 % (39.0-51.0); HEMO FLAGS DIFF FINAL; LYMPH % 7.4 % (9.0-44.0); LYMPHOCYTE # 0.7 TH/MM3 (1.0-4.8); MEAN CELL VOLUME 93.3 FL (80.0-100.0); MEAN CORPUSCULAR HEMOGLOBIN 32.6 PG (27.0-34.0); MEAN CORPUSCULAR HGB CONC 34.9 % (32.0-36.0); NEUT % 80.1 % (16.0-70.0); PLATELET COUNT 287 TH/MM3 (150-450); RED BLOOD COUNT 4.11 MIL/MM3 (4.50-5.90); RED CELL DISTRIBUTION WIDTH 12.2 % (11.6-17.2); WHITE BLOOD COUNT 10.1 TH/MM3 (4.0-11.0)
--- NOTE | 2017-04-16 11:16 | ECHLIM ---
Study Study Date:04/15/2017 STUDY CONCLUSIONS SUMMARY - Left ventricle: The cavity size was normal. Wall thickness was increased in a pattern of mild LVH. Systolic function was probably normal. The estimated ejection fraction was in the range of 55% to 60%. Wall motion was normal; there were no regional wall motion abnormalities. Features are consistent with a pseudonormal left ventricular filling pattern, with concomitant abnormal relaxation and increased filling pressure (grade 2 diastolic dysfunction). - Aortic valve: Transvalvular velocity was increased less than expected. There was mild stenosis. Valve area: 1.67cm^2(VTI). Valve area: 1.94cm^2 (Vmax). - Mitral valve: Calcified annulus. - Left atrium: The atrium was moderately dilated. - Right atrium: The atrium was moderately dilated. If LV function is below 40, please consider prescribing an ACEI or ARB or document rationale for non-use. PROCEDURE DATA STUDY STATUS: Elective. Procedure: Transthoracic echocardiography. Image quality was suboptimal. The study was technically limited due to poor acoustic window availability. Scanning was performed from the parasternal, apical, and subcostal acoustic windows. Study completion: The patient tolerated the procedure well. Transthoracic echocardiography. M-mode, complete 2D, complete spectral Doppler, and color Doppler. Height: Height: 73in. Weight: Weight: 174.6lb. Body mass index: BMI: 23.1kg/m^2. Body surface area: BSA: 2.03m^2. Patient status: Inpatient. CARDIAC ANATOMY LEFT VENTRICLE: The cavity size was normal. Wall thickness was increased in a pattern of mild LVH. Systolic function was probably normal. The estimated ejection fraction was in the range of 55% to 60%. Wall motion was normal; there were no regional wall motion abnormalities. Features are consistent with a pseudonormal left ventricular filling pattern, with concomitant abnormal relaxation and increased filling pressure (grade 2 diastolic dysfunction). AORTIC VALVE: Poorly visualized. Probably trileaflet; mildly thickened, moderately calcified leaflets. Doppler: Transvalvular velocity was increased less than expected. There was mild stenosis. No regurgitation. Valve area: 1.67cm^2(VTI). Indexed valve area: 0.82cm^2/m^2 (VTI). Valve area: 1.94cm^2 (Vmax). Indexed valve area: 0.96cm^2/m^2 (Vmax). Mean gradient: 3mm Hg (S). AORTA: Aortic root: The aortic root was normal in size. MITRAL VALVE: Calcified annulus. Doppler: Transvalvular velocity was within the normal range. There was no evidence for stenosis. Trace to mild regurgitation. Peak gradient: 6mm Hg (D). LEFT ATRIUM: The atrium was moderately dilated. RIGHT VENTRICLE: The cavity size was normal. Wall thickness was normal. PULMONIC VALVE: Doppler: Transvalvular velocity was within the normal range. There was no evidence for stenosis. No regurgitation. TRICUSPID VALVE: Structurally normal valve. Doppler: Transvalvular velocity was within the normal range. Trace to mild regurgitation. PULMONARY ARTERY: Systolic pressure could not be accurately estimated. RIGHT ATRIUM: The atrium was moderately dilated. PERICARDIUM: There was no pericardial effusion. SYSTEMIC VEINS: Inferior vena cava: The vessel was normal in size. Patient weight: 174.6lb _Ejection fraction:_ 65-75% _Fractional shortening:_ 32% up to 5Kg 5-11.5Kg 11.6-22.9Kg 23-45Kg 45-57Kg Aortic Root 7-13 <17 13-22 17-27 17-27 LA diam 6-13 <23 24-38 33-47 37-40 RVID 10-17 7-15 7-15 7-18 8-17 LVIDd 12-22 <32 24-38 33-47 37-40 LVPW 2-4 3-6 5-7 6-8 7-8 IVS 2-4 3-6 5-7 6-8 7-8 BASIC MEASUREMENTS ADULT NORMAL Left ventricle LV internal dimension, ED, chordal 44.3 mm 43-52 level, PLAX LV internal dimension, ES, chordal 30 mm 23-38 level, PLAX Fractional shortening, chordal level, 32 % >29 PLAX LV posterior wall thickness, ED 10.6 mm IVS/LVPW ratio, ED 0.9 <1.3 Ventricular septum Septal thickness, ED 9.54 mm Aorta Root diameter, ED 26 mm Left atrium Anterior-posterior dimension 40 mm Anterior-posterior dimension index 1.97 cm/m^2 <2.2 DOPPLER MEASUREMENTS ADULT NORMAL Aortic valve Peak velocity, S 126 cm/s Mean velocity, S 79.8 cm/s VTI, S 17.5 cm Mean gradient, S 3 mm Hg Valve area, VTI 1.67 cm^2 Valve area index, VTI 0.82 cm^2/m^2 Valve area, Vmax 1.94 cm^2 Valve area index, Vmax 0.96 cm^2/m^2 Mitral valve Peak E-wave velocity 118 cm/s Deceleration time *99 ms 150-230 Peak gradient, D 6 mm Hg Pulmonic valve Peak velocity, S 53.4 cm/s LEGEND: Mean values are shown as u=mean value. Asterisk (*) king values outside specified normal range. Prepared and signed by Arsalan Flowers [id number]
[2017-04-16] MEDS: ceFAZolin 2 GM PREMIX 50 ML IV SCH ×3 (11:45→20:00)
[2017-04-16 11:47] LABS: ALKALINE PHOSPHATASE 208 U/L (45-117); ALT (GPT) 33 U/L (12-78); ANION GAP 10 MEQ/L (5-15); AST (GOT) 40 U/L (15-37); BICARBONATE 23.8 MEQ/L (21.0-32.0); BLOOD UREA NITROGEN 7 MG/DL (7-18); CHLORIDE 103 MEQ/L (98-107); GLOMERULAR FILTRATION RATE 178 ML/MIN (>89); POTASSIUM 4.2 MEQ/L (3.5-5.1); SODIUM (NA) 137 MEQ/L (136-145); TOTAL BILIRUBIN ADULT 1.7 MG/DL (0.2-1.0)
--- NOTE | 2017-04-16 11:59 | MB ---
cc: JESSICA ANTHONY DATE OF CONSULTATION: 04/16/2017 HISTORY OF PRESENT ILLNESS Mr. Gibson is a 77-year-old white male with a history of chronic back pain, who presented after he tripped and fell backwards in his house. He developed severe midback pain. He has had worsening back issues over the last several months with difficulty walking and stool incontinence. He was seen by neurosurgery and is scheduled for surgical intervention. He had been taking ibuprofen for pain recently. He has a previous history of coronary disease and had coronary bypass last year. He has not had any recent angina. He has no heart failure symptoms. He denies exertional dyspnea or peripheral edema. PAST MEDICAL HISTORY 1. Hypertension. 2. Atrial fibrillation. 3. Dyslipidemia. 4. Coronary artery disease. 5. Coronary bypass last year. PAST SURGICAL HISTORY 1. Tonsillectomy. 2. Left shoulder cyst surgery. MEDICATIONS Medications at home include: 1. Diltiazem. 2. Mirtazapine. 3. Famotidine. 4. Folic acid. 5. Potassium. 6. Amlodipine. 7. Lovastatin. 8. Warfarin. The patient has apparently not been taking his medications recently with exception of the ibuprofen. ALLERGIES None. SOCIAL HISTORY The patient quit smoking in 1973. He does not drink alcohol recently. He lives with his . FAMILY HISTORY Unknown since the patient was adopted. REVIEW OF SYSTEMS Otherwise negative. PHYSICAL EXAMINATION VITAL SIGNS: Blood pressure 160/90, pulse 86 and irregular. HEENT: Negative. NECK: 2+ carotid upstrokes. No bruits. LUNGS: Clear. HEART: Irregularly irregular with no murmur or gallop. ABDOMEN: Soft. No bruit. EXTREMITIES: Without edema. 2+ distal pulses. NEUROLOGIC: Grossly nonfocal. EKG EKG was reviewed and showed atrial fibrillation with controlled ventricular response and mild nonspecific ST changes. LABORATORY Hemoglobin 13.3. Potassium 3.4. Creatinine 0.6. AST 47, ALT 35. Troponin less than 0.02. INR 1.1. DIAGNOSIS 1. Compression fracture of thoracic and lumbar vertebrae. 2. Recent fall. 3. Spinal stenosis. 4. Chronic atrial fibrillation. 5. Coronary artery disease with history of coronary bypass. 6. Dyslipidemia. DISPOSITION Mr. Gibson has not had any recent angina. He has no heart failure symptoms. He has been stable since his bypass last year. He can be cleared for surgery from a cardiac standpoint. I recommend to resume full anticoagulation after his procedure as soon as it is okay with neurosurgery. I also recommend to resume all his cardiac medications including lipid-lowering therapy. This was discussed with the patient and his family. He will follow-up with Dr. Torres, his primary theoretical physicist, in his office after discharge. MD MARIO Guardado/BRIAN /11:12 AM /11:37 AM MEHRAN
[2017-04-16] MEDS ORDERED: NEOSTIGMINE 3 MG/3 ML SYR IV ONE (12:00)
[2017-04-16] MEDS ORDERED: PROPOFOL 200 MG/20 ML AMP IV ONE (12:00)
[2017-04-16] MEDS ORDERED: LACTATED RINGER'S 1000 ML INJ 1,000 ML IV ONE (12:00)
[2017-04-16] MEDS ORDERED: PHENYLEPH/NS 1000 MCG/10 ML SYR IV ONE (12:00)
[2017-04-16] MEDS ORDERED: ONDANSETRON HCL 4 MG/2 ML VIAL IV PUSH ONE (12:00)
[2017-04-16] MEDS: VANCOMYCIN INJ 1,000 MG in SODIUM CHLOR 0.9% 250 ML INJ 250 ML IV SCH ×2 (12:11→12:16)
[2017-04-16] MEDS ORDERED: MORPHINE SULFATE 4 MG/ML INJ IV PUSH PRN ×2 (14:00)
[2017-04-16] MEDS ORDERED: NALOXONE HCL 0.4 MG/ML AMP IV PRN (14:00)
[2017-04-16] MEDS ORDERED: SODIUM CHLORIDE 0.9% FLUSH 5 ML FLUSH IVF PRN (14:00)
[2017-04-16] MEDS ORDERED: ACETAMINOPHEN 325 MG TAB PO PRN (14:00)
[2017-04-16] MEDS ORDERED: diphenhydrAMINE HCL 50 MG/ML VIAL IV PRN (14:00)
[2017-04-16] MEDS ORDERED: HEPARIN SODIUM - SQ 10,000 UNITS/ML VIAL OTHER ONE (14:52)
--- NOTE | 2017-04-16 17:52 | PD.OP ---
Operative Report Date of Surgery: April 16, 2017 Preoperative Diagnosis: L1 burst fracture Postoperative Diagnosis: L1 burst fracture Procedure: Open reduction of L1 burst fracture, T11 to L3 posterolateral fusion using autologous illiac crest bone graft, T11 to L3 segmental istrrumental fixation using transpedicular screws and rods, microsurgical dissection Anesthesia: general Surgeon: Hardik Lieberman Nuclear Control Operator(s): Hayley Labm Operation and Findings: INDICATIONS FOR THE SURGICAL PROCEDURE Mr Gibson is a 77 year-old male who presented with severe mechanical back pain related to an unstable L1 burst spinal fracture. He failed medical nonsurgical management. A surgical decompression with reduction of the fracture and arthrodhesis were indicated as the most appropriate treatment as there was severe bone retropulsion and instability. The [id number] details of the procedure, indications, alternatives, risks and potential complications were fully discussed with the patient. The patient fully understood. All questions were answered. No guarantees were given. The patient voiced requesting the procedure and provided informed consents. The patient had been offered the alternative of delaying the procedure and continuing with nonsurgical management. DETAILS OF THE SURGICAL PROCEDURE Prior to the procedure,the surgical incision was marked in the preoperative surgical holding room, and the procedure, risks, and potential complications revisited with the patient. Placement of electrodes for intraoperative neurophysiological monitoring was completed. The patient was taken to the operative room, and following induction of general anesthesia, endotracheal intubation was performed. A Linares catheter bilateral Thiago and sequential compression devices were placed and kept throughout the procedure. The patient was carefully rolled into the prone position over a Manuel table with a gell rolls. All pressure points were carefully padded with eggcrate mattress. The eyes were tapped shut after ointment was applied by the anesthesiologist to prevent corneal abrasion. A Barron hugger was placed over the expossed lower body to maintain control of the core body temperature. The electrophysiological team placed the needles and electrodes in their proper location and baseline SSEP's and motor evoked potentials were registered. The thoracic lumbar region was prepped and draped in the usual sterile fashion. A localizing X-ray was performed with the C-arm and the fracture was localized. Two paramedian skin incisions were outlined from the spinous process of T11 down to L3. This was started with a Giamshetti needle followed by the use of a louis wire. A tap was used to create the threads for the screws. Finally, bilateral transpedicular screws were carefully placed bilaterally at T11 down to L3 under fluoroscopic visualization. It was possibe to place a solid screw at L1. An appropriate purchase was achieved with all other screws. The position of each screw was assessed anatomically with an AP, lateral, oblique Xrays. An intraoperative scan view of the spine was then performed using the iso-centric c -arm. Each lumbar screw was then assessed electrophysiologically with a nerve stimulator. Open reduction of the fracture Once all screws were in position, the operative microscope was draped in the usual sterile fashion and brought to the field. The rest of the surgical procedure was performed using microdissection technique with the exception of the closure. Under the operative microscope, a laminectomy was performed at L1. It was necessary to drill the facet entrance to the pedicle in order to allow access to the anterior surface of the thecal sac without retraction on the spinal cord. E pidural veins were coagulated with the bipolar and incised with the microscissors. The retropulsed bones were assessed with an nerve hook. They were causing significant compression of the dural sac. A shoe impactor was placed on the anterior epidural space and the bone fragments were impacted back into the vertebral body under fluoroscopic guidance. An excellent decompression was achieved using this technique. HARVESTING OF ILLIAC CREST BONE An incision was then made over the patient's right posterior iliac crest. The fascia was carefully opened with a Bovie and the posterior iliac crest was exposed. A small cortical window was created with an osteotome. Cancellous bone was then harvested, to be used during the interbody arthrodesis and the posterolateral fusion. Once an appropriate amount of bone was obtained, the incision was irrigated with antibiotic solution and hemostasis secured by packing the iliac crest with Surgicel. The cortical window was then repositioned and secured using 0 Vicryl sutures. The incision was irrigated and the fascia was closed with interrupted 0 Vicryl sutures. The subcutaneous tissue was approximated with 3-0 Vicryl sutures. Posterolateral fusion Then, the lateral gutters of the spine, facets and transverse processes were carefully decorticated with a TPS drill in preparation for the posterior lateral fusion. The incision was thoroughly irrigated with antibiotic solution. The posterolateral fusion was performed by carefully packing the gutters of the spine at T11-T12, T12-L1, L1-L2, and L2-L3 with a autologous iliac crest bone graft combined with demineralized bone matrix. Completion of the Procedure The rods were brought to the field. Sequential application of the cap was achieved which allowed for further correction of the kyphosis. Final tightening of all screws was achieved with a torque wrench. The incision was thoroughly irrigated with several liters of antibiotic solution. The decompression was reassessed with an nerve hook and found to be appropriate. Seven mm Manuel-Puri drain was left on the epidural space and was then externalized through a separate stab incision. The incision was then closed in layers. 0 Vicryl with interrupted sutures were used to close the thoracolumbar fascia. The superficial fascia was closed with 0 Vicryl sutures. Three-0 Vicryl was used to close the subcutaneous tissue. The skin was closed with 4-0 running subcuticular Vicryl. Dermabond was applied to the skin. The drain was secured 3-0 nylon. At the end of the procedure the sponges, needles, and instrument counts were all correct. Estimated blood loss was 300 cc's. No complications occurred. The patient received prophylactic antibiotics. The patient was then extubated and transferred to the recovery room in stable condition. The entire procedure was performed using electrophysiological monitor of the electromyogram, evoked potential and sphincters. No intraoperative abnormalities were detected. Hardik Lieberman MD April 16, 2017 17:52 appropriate. Seven mm Manuel-Puri drain was left on the epidural space and was then externalized through a separate stab incision. The incision was then closed in layers. 0 Vicryl with interrupted sutures were used to close the thoracolumbar fascia. The superficial fascia was closed with 0 Vicryl sutures. Three-0 Vicryl was used to close the subcutaneous tissue. The skin was closed with 4-0 running subcuticular Vicryl. Dermabond was applied to the skin. The drain was secured 3-0 nylon. At the end of the procedure the sponges, needles, and instrument counts were all correct. Estimated blood loss was 300 cc's. No complications occurred. The patient received prophylactic antibiotics. The patient was then extubated and transferred to the recovery room in stable condition. The entire procedure was performed using electrophysiological monitor of the electromyogram, evoked potential and sphincters. No intraoperative abnormalities were detected. Hardik Lieberman MD April 16, 2017 17:52
[2017-04-16] MEDS ORDERED: DO NOT ADM ANY ANTICOAGULANT DRUGS PRN (17:57)
[2017-04-16] MEDS: NS + KCL 20 MEQ INJ 1,000 ML IV SCH ×2 (18:00→23:30)
[2017-04-16] MEDS ORDERED: fentaNYL CITRATE 250 MCG/5 ML AMP ONE (18:08)
--- NOTE | 2017-04-16 18:17 | RADRPT ---
EXAM DATE/TIME: 04/16/2017 13:52 [facility] COMPARISON: MRI LUMBAR SPINE W/O CONTRAST, April 14, 2017, 16:42. INDICATIONS : L1 fusion screws and rods from T11 to L3. MEDICAL HISTORY : Hypertension. Hypercholesterolemia. Gout. A-fib. SURGICAL HISTORY : CABG Tonsillectomy. Cataracts. ENCOUNTER: Subsequent ACUITY: 3 days PAIN SCORE: Non-responsive. LOCATION: Thoracolumbar. FINDINGS: 4 magnified C-arm spot views are centered over the thoracolumbar junction. Bilateral transpedicular s crews are seen involving 3 levels spanning a compression deformity. The anchoring screws are felt to be at T11, T12, L2, and L3. The compression deformity is L1. A surgical drain is noted within the isai kolton soft tissues. CONCLUSION: Limited images as detailed above. Khurram Martinez Jr., MD on April 16, 2017 at 18:13 Board Certified Radiologist. This report was verified electronically.
[2017-04-16] MEDS: HYDROmorphone HCL PCA 6 MG/30 ML IV SCH (18:40)
[2017-04-16] MEDS ORDERED: *morphine SULFATE 8 MG/ML PERIprocedure ONLY ONE (18:41)
[2017-04-16 19:04] LABS: AUTOMATED NEUTROPHIL # 11.6 TH/MM3 (1.8-7.7); BASOPHIL % 0.2 % (0.0-2.0); EOSINOPHIL # 0.1 TH/MM3 (0-0.4); EOSINOPHIL % 0.9 % (0.0-4.0); HEMATOCRIT 34.9 % (39.0-51.0); HEMO FLAGS DIFF FINAL; LYMPH % 2.8 % (9.0-44.0); LYMPHOCYTE # 0.4 TH/MM3 (1.0-4.8); MEAN CELL VOLUME 93.6 FL (80.0-100.0); MEAN CORPUSCULAR HEMOGLOBIN 30.8 PG (27.0-34.0); MEAN CORPUSCULAR HGB CONC 32.9 % (32.0-36.0); MONO % 5.4 % (0.0-8.0); NEUT % 90.7 % (16.0-70.0); PLATELET COUNT 247 TH/MM3 (150-450); RED BLOOD COUNT 3.73 MIL/MM3 (4.50-5.90); WHITE BLOOD COUNT 12.8 TH/MM3 (4.0-11.0)
--- NOTE | 2017-04-16 19:10 | PD.CONS ---
HPI Service Critical Care Medicine Consult Requested By Neurosurgery Service Reason for Consult Critical Care Management Primary Care Physician Vita Cooper MD History of Present Illness 77 y/o man immediately s/p lumbar spine surgery for spinal stenosis and acute L1 fracture following a fall. (He fell to a sitting position at home.) I have met him in the PACU where he controls his airway well, has good bilateral air movement, and is warm and well perfused. Morning labs were acceptable, post-op labs are pending. Review of Systems ROS No chest pain or SOB. Still sleepy. No family. Past Family Social History Allergies: Coded Allergies: No Known Allergies (Verified , 12/05/15) Past Medical History Past Medical History Hypertension Atrial fibrillation Hyperlipidemia cards: Dr. Torres Past Surgical History Tonsillectomy Cyst of left shoulder Reported Medications Diltiazem xr are 180 mg daily Mirtazapine 15 mg by mouth at bedtime Famotidine 20 mg daily Folic acid 1 mg daily Potassium 20 mg daily Amlodipine gram daily Lovastatin 20 mg daily Warfarin 5 mg daily Commode 3:1 (Device) Device 1 Ea Walker Front Wheel (Walker-front) Device 1 Unit Use as directed Allergies: Coded Allergies: No Known Allergies (Verified , 12/05/15) Active Ordered Medications Physical Exam Vital Signs Vital Signs Date Time Temp Pulse Resp B/P Pulse Ox O2 Delivery O2 Flow Rate FiO2 04/16/17 11:20 98.1 98 18 162/95 97 04/16/17 08:00 98.6 86 18 161/88 97 04/16/17 04:05 97.0 73 18 147/88 96 04/16/17 00:01 04/16/17 00:00 97.0 86 18 142/90 96 04/15/17 20:04 97.6 82 16 130/86 96 Physical Exam Gen: Lethargic. Head: Normal. Neck: Supple. Airway widely patent. No obstruction. Lungs: Clear, no wheezes or crackles. Good meme air movement. Heart: Irreg Irreg at 72-86. Neck veins are full. Abdomen: Soft, no guarding, BS active, benign. Extremities: Warm, well perfused. Neuro: Sleepy but responsive. Moves 4 limbs to command. Protects airway. Laboratory . Laboratory Tests Test 04/16/17 04/16/17 04/16/17 10:46 13:18 13:19 White Blood Count 10.1 Red Blood Count 4.11 Hemoglobin 13.4 Hematocrit 38.4 Mean Corpuscular Volume 93.3 Mean Corpuscular Hemoglobin 32.6 Mean Corpuscular Hemoglobin 34.9 Concent Red Cell Distribution Width 12.2 Platelet Count 287 Mean Platelet Volume 9.1 Neutrophils (%) (Auto) 80.1 Lymphocytes (%) (Auto) 7.4 Monocytes (%) (Auto) 10.0 Eosinophils (%) (Auto) 2.2 Basophils (%) (Auto) 0.3 Neutrophils # (Auto) 8.1 Lymphocytes # (Auto) 0.7 Monocytes # (Auto) 1.0 Eosinophils # (Auto) 0.2 Basophils # (Auto) 0.0 CBC Comment DIFF FINAL Differential Comment Sodium Level 137 Potassium Level 4.2 Chloride Level 103 Carbon Dioxide Level 23.8 Anion Gap 10 Blood Urea Nitrogen 7 Creatinine 0.46 Estimat Glomerular Filtration 178 Rate Random Glucose 95 Calcium Level 8.9 Total Bilirubin 1.7 Aspartate Amino Transf 40 (AST/SGOT) Alanine Aminotransferase 33 (ALT/SGPT) Alkaline Phosphatase 208 Total Protein 6.6 Albumin 2.8 Blood Type O POSITIVE O POSITIVE Antibody Screen NEGATIVE Crossmatch Leukocyte-Reduced Red Blood Cells Blood Bank Comment Result Diagram: 04/16/17 1046 04/16/17 1046 Assessment and Plan Assessment and Plan Assessment: 1. S/P lumbar spine surgery for acute L1 fracture and spinal stenosis. 2. Atrial fibrillation, permanent. Plan: 1. Continue diltiazem as ordered for rate control. 2. Gentle with fluids - neck veins are full. 3. Hold chemical DVT px until approved by NS Service. 4. IS. Overall impression: Stable respiratory and hemodynamic function s/p lumbar surgery. Volume status may be a little full, watch carefully. Lungs are presently clear. Will follow. Pedro Roy MD April 16, 2017 19:10
[2017-04-16 19:59] LABS: BICARBONATE 20.7 MEQ/L (21.0-32.0); POTASSIUM 3.9 MEQ/L (3.5-5.1)
[2017-04-16] MEDS: CHLORHEXIDINE GLUCONATE 4% SOLN 120 ML BTL TOP SCH (21:00)
[2017-04-16] MEDS: MIRTAZAPINE 15 MG TAB PO SCH (21:00)
[2017-04-16] MEDS: ATORVASTATIN 20 MG TAB PO SCH (21:00)
[2017-04-16] MEDS: SODIUM CHLORIDE 0.9% FLUSH 5 ML FLUSH IVF SCH (21:47)
[2017-04-16] MEDS: PCA - TOTAL MG DILAUDID DELIVERED PER SHIFT SCH (21:57)
[2017-04-17] VITALS (14 sets, daily range): BP systolic 96–134; BP diastolic 54–71; PULSE 64–97; RESP 12–14; TEMP 97.5–98.6; O2SAT 96–100
[2017-04-17] MEDS ORDERED: SODIUM CHLOR 0.9% 1000 ML INJ 1,000 ML IV ONE (03:15)
[2017-04-17] MEDS: ceFAZolin 2 GM PREMIX 50 ML IV SCH ×2 (03:53→11:47)
--- NOTE | 2017-04-17 07:42 | HHI.FPPN ---
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 He had slowed mentation this AM, however seemed to improve throughout the examination and was AOx3. RN had concern that his UOP has not been adequate. Otherwise without concerns. Patient has been afebrile, vitals are stable. Able to move all extremities. Denies fevers or chest pain. (Eugene Campbell MD R1) Objective Vitals Vital Signs Date Time Temp Pulse Resp B/P Pulse Ox O2 Delivery O2 Flow Rate FiO2 04/17/17 06:00 64 04/17/17 04:00 97.5 67 14 98/54 98 04/17/17 04:00 64 04/17/17 02:00 64 04/17/17 00:00 64 04/17/17 00:00 97.5 67 14 96/61 98 04/16/17 22:00 71 04/16/17 21:57 14 04/16/17 20:45 97.3 86 13 111/75 97 04/16/17 20:00 79 17 125/71 99 Nasal Cannula 4 Humidified 04/16/17 19:00 76 12 103/65 94 Nasal Cannula 4 Humidified 04/16/17 18:45 90 13 116/79 94 Nasal Cannula 4 Humidified 04/16/17 18:40 14 04/16/17 18:30 91 16 119/83 97 Blow By 5 Nasal Cannula 04/16/17 18:15 89 16 106/69 96 Blow By 5 Nasal Cannula 04/16/17 18:00 95 12 101/70 95 Blow By 5 Nasal Cannula 04/16/17 17:57 97.6 92 10 106/70 94 T-Piece 04/16/17 11:20 98.1 98 18 162/95 97 04/16/17 08:00 98.6 86 18 161/88 97 I/O 04/16/17 04/16/17 04/16/17 04/17/17 04/17/17 04/17/17 07:00 15:00 23:00 07:00 15:00 23:00 Intake Total 0 ml 3209 ml 1800 ml Output Total 350 ml 1105 ml 120 ml Balance -350 ml 2104 ml 1680 ml Intake Oral 0 ml 0 ml 100 ml IV Total 1109 ml 1700 ml Other 2100 ml Output Urine Total 350 ml 875 ml 120 ml Drainage Total 80 ml Estimated Blood Loss 150 ml # Bowel Movements 0 1 (Eugene Campbell MD R1) Result Diagram: 04/16/17182104/16/171821 Objective Remarks GENERAL: This is a pleasant elderly male lying comfortably in bed. No acute distress. MANJU draining serosanguineous fluid SKIN: No rashes, ecchymoses or lesions. Cool and dry. HEAD: Atraumatic. Normocephalic. No temporal or scalp tenderness. EYES: Extraocular motions intact. No scleral icterus. No injection or drainage. ENT: Nose without bleeding, purulent drainage or septal hematoma. Uvula midline. Airway patent. NECK: Trachea midline. No JVD. Supple, nontender, no meningeal signs. CARDIOVASCULAR: Regular rate and rhythm without murmurs, gallops, or rubs. RESPIRATORY: Clear to auscultation. Breath sounds equal bilaterally. No wheezes , rales, or rhonchi. GASTROINTESTINAL: Abdomen soft, non-tender, nondistended. No hepato-splenomegaly , or palpable masses. No guarding. : Urine slightly concentrated in Linares bag MUSCULOSKELETAL: No edema, cyanosis. NEUROLOGICAL: Awake and alert. Oriented x 3. Cranial nerves II through XII intact. Motor and sensory grossly within normal limits. 4/5 strength throughout. Normal speech. (Eugene Campbell MD R1) A/P Assessment and Plan 77-year-old male with history of chronic low back pain and known fractures presents after a fall; imaging concerning for fractures at L1, L5. Severe spinal stenosis. Neurosurgery consulted Discharge Planning Per neurosurgery recommendations (Eugene Campbell MD R1) Attending Attestation Patient seen, examined, and discussed with Dr. Campbell. I agree with assessment and management as documented and discussed with me. Pt reports some back pain. He is in [facility] for postop management. Monitor UOP closely. Start clear liquid diet - advance as tolerated. (Janny Lazcano MD) Problem List: (1) Fracture, thoracic vertebra, compression Status: Acute Plan: Neurosurgery consult Taken to OR on 04/16 s/p lumbar spine surgery for acute L1 fracture and spinal stenosis Cardiology consulted, cleared patient for surgery Hold anticoagulants; SCDs for DVT prophylaxis. Restart chemical anticoagulation per neurosurgery recommendations Resume CLD and advance as tolerated to heart healthy diet Pain control with SALES AND RETAIL MANAGEMENT RECRUITER vitamin D level low Continue vitamin D3 5000 units daily (2) Spinal stenosis at L4-L5 level Status: Acute Plan: Neurosurgery consult (3) Fracture, lumbar vertebra, compression Status: Acute Plan: Neurosurgery consult Pain control (4) Atrial fibrillation Status: Acute Plan: Patient has not been taking Coumadin for 3 weeks. INR 1.1 Holding Coumadin/anticoagulation for possible surgery Diltiazem 180 daily. (5) Hyperlipidemia Status: Acute Plan: Continue statin (6) Vitamin D deficiency Status: Acute Plan: Treat with cholecalciferol 5000 units daily. (7) FEN/PPX Status: Acute Plan: Fluids: NS at 100 cc/hr Electrolytes: Monitor and replace as needed Nutrition: Advance to HHD if tolerated CLD Prophylaxis: b/l SCDs. Chemical anticoagulation per neurosurgery recs (Eugene Campbell MD R1) Eugene Campbell MD R1 April 17, 2017 07:42 Janny Lazcano MD April 17, 2017 17:24
[2017-04-17] MEDS: PANTOPRAZOLE SODIUM 40 MG VIAL IVP SCH (08:38)
[2017-04-17] MEDS: DOCUSATE SODIUM 50 MG/SENNA 8.6 MG TAB PO SCH ×2 (08:39→21:17)
[2017-04-17] MEDS: POTASSIUM CHLORIDE 20 MEQ CONTROLLED RELEASE TAB PO SCH ×2 (08:39→21:23)
[2017-04-17] MEDS: MAGNESIUM OXIDE 400 MG TAB PO SCH (08:39)
[2017-04-17] MEDS: SODIUM CHLORIDE 0.9% FLUSH 5 ML FLUSH IVF SCH ×2 (08:39→21:00)
[2017-04-17] MEDS: DILTIAZEM-CD 180 MG CAP ER PO SCH (08:39)
[2017-04-17] MEDS: amLODIPine BESYLATE 5 MG TAB PO SCH (09:00)
[2017-04-17] MEDS: CHOLECALCIFEROL (VIT D3) 5000 UNIT CAP PO SCH (09:45)
[2017-04-17] MEDS: NS + KCL 20 MEQ INJ 1,000 ML IV SCH ×3 (09:46→21:24)
[2017-04-17] MEDS: HYDROmorphone HCL PCA 6 MG/30 ML IV SCH (13:33)
[2017-04-17] MEDS: PCA - TOTAL MG DILAUDID DELIVERED PER SHIFT SCH ×2 (14:26→22:00)
[2017-04-17] MEDS ORDERED: SODIUM CHLOR 0.9% 250 ML INJ 250 ML IV ONE (14:30)
--- NOTE | 2017-04-17 15:22 | HHI.CCPN ---
Subjective Remarks/Hospital Course 77 y/o man immediately s/p lumbar spine surgery for spinal stenosis and acute L1 fracture following a fall. (He fell to a sitting position at home.) I have met him in the PACU where he controls his airway well, has good bilateral air movement, and is warm and well perfused. 04/17: Breathing comfortably. 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 Urine low but he' s well perfused and normotensive. Appears adequately hydrated. Renal labs look diluted, further indicating adequate hydration. Objective Vital Signs Date Time Temp Pulse Resp B/P Pulse Ox O2 Delivery O2 Flow Rate FiO2 04/17/17 14:26 20 04/17/17 14:00 84 04/17/17 12:00 98.6 104/65 97 04/17/17 08:43 Nasal Cannula 2.00 Intake and Output 04/16/17 04/16/17 04/17/17 08:00 16:00 00:00 Intake Total 0 ml 3209 ml Output Total 350 ml 300 ml 805 ml Balance -350 ml -300 ml 2404 ml Result Diagram: 04/16/17182104/16/171821 Objective Remarks Gen: Lethargic. Head: Normal. Neck: Supple. Airway widely patent. No obstruction. Lungs: Clear, no wheezes or crackles. Good meme air movement. Few mobile secretions. Heart: Irreg Irreg at 75-88. No JVD. Abdomen: Soft, no guarding, BS active, benign. Extremities: Warm, well perfused. Neuro: Alert, responsive. Moves 4 limbs to command. Protects airway. O X 3 but rambles off point when talking. A/P Assessment and Plan Assessment: 1. S/P lumbar spine surgery for acute L1 fracture and spinal stenosis -> s/p decompression/fixation. 2. Atrial fibrillation, permanent. Plan: 1. Continue diltiazem as ordered for rate control. 2. Gentle with fluids. 3. Hold chemical DVT px until approved by NS Service. 4. IS. 5. Up with assistance. Overall impression: Stable respiratory and hemodynamic function s/p lumbar surgery. Pedro Roy MD April 17, 2017 15:22
[2017-04-17 15:41] LABS: AUTOMATED NEUTROPHIL # 10.2 TH/MM3 (1.8-7.7); BASOPHIL % 0.4 % (0.0-2.0); HEMATOCRIT 32.8 % (39.0-51.0); HEMO FLAGS DIFF FINAL; LYMPH % 3.8 % (9.0-44.0); LYMPHOCYTE # 0.5 TH/MM3 (1.0-4.8); MEAN CELL VOLUME 94.1 FL (80.0-100.0); MEAN CORPUSCULAR HEMOGLOBIN 31.2 PG (27.0-34.0); MEAN CORPUSCULAR HGB CONC 33.2 % (32.0-36.0); MONO % 10.6 % (0.0-8.0); NEUT % 85.2 % (16.0-70.0); PLATELET COUNT 288 TH/MM3 (150-450); RED BLOOD COUNT 3.48 MIL/MM3 (4.50-5.90); RED CELL DISTRIBUTION WIDTH 12.2 % (11.6-17.2)
[2017-04-17 15:59] LABS: ALKALINE PHOSPHATASE 146 U/L (45-117); ALT (GPT) 33 U/L (12-78); ANION GAP 12 MEQ/L (5-15); AST (GOT) 116 U/L (15-37); BICARBONATE 20.7 MEQ/L (21.0-32.0); BLOOD UREA NITROGEN 12 MG/DL (7-18); CHLORIDE 105 MEQ/L (98-107); GLOMERULAR FILTRATION RATE 101 ML/MIN (>89); POTASSIUM 4.8 MEQ/L (3.5-5.1); SODIUM (NA) 138 MEQ/L (136-145); TOTAL BILIRUBIN ADULT 1.1 MG/DL (0.2-1.0)
[2017-04-17] MEDS ORDERED: FUROSEMIDE 20 MG/2 ML VIAL IV PUSH ONE (18:15)
[2017-04-17] MEDS: CHLORHEXIDINE GLUCONATE 4% SOLN 120 ML BTL TOP SCH (21:00)
[2017-04-17] MEDS: MIRTAZAPINE 15 MG TAB PO SCH (21:17)
[2017-04-17] MEDS: ATORVASTATIN 20 MG TAB PO SCH (21:23)
--- NOTE | 2017-04-17 21:51 | HHI.NSPN ---
History Chief Complaint: back pain Interval History 77-year-old male status post ORIF 04/16/17 for L1 fracture. Exam Results Vital Signs Date Time Temp Pulse Resp B/P Pulse Ox O2 Delivery O2 Flow Rate FiO2 04/17/17 20:08 100 Nasal Cannula 2.00 04/17/17 18:00 74 04/17/17 16:00 98.3 12 118/71 Intake and Output 04/16/17 04/16/17 04/17/17 08:00 16:00 00:00 Intake Total 0 ml 3209 ml Output Total 350 ml 300 ml 805 ml Balance -350 ml -300 ml 2404 ml Physical Examination Mr. Gibson is alert, awake and oriented to time, place and person. Speech is fluent. Follows commands well. Cranial nerve examination demonstrates Extra-ocular movements are intact. Facial motor are normal and symmetrical. Muscle strength is 5/5 in all muscle groups of both upper extremities including deltoid, biceps, triceps and vegetables cook. In the lower extremities, strength is 5/5 in both iliopsoas, quadriceps, hamstrings, plantar flexion, dorsiflexion, and extensor hallicus longus. Sensory examination is intact to light touch in lower extremities, symmetrically. There is a bilateral plantar flexion response.There is no ankle clonus. Lumbar drain is in place with moderate output Lab, Micro, Other Results Laboratory Tests Test 04/17/17 04/17/17 15:20 17:20 White Blood Count 12.0 TH/MM3 Red Blood Count 3.48 MIL/MM3 Hemoglobin 10.9 GM/DL Hematocrit 32.8 % Mean Corpuscular Volume 94.1 FL Mean Corpuscular Hemoglobin 31.2 PG Mean Corpuscular Hemoglobin 33.2 % Concent Red Cell Distribution Width 12.2 % Platelet Count 288 TH/MM3 Mean Platelet Volume 9.2 FL Neutrophils (%) (Auto) 85.2 % Lymphocytes (%) (Auto) 3.8 % Monocytes (%) (Auto) 10.6 % Eosinophils (%) (Auto) 0.0 % Basophils (%) (Auto) 0.4 % Neutrophils # (Auto) 10.2 TH/MM3 Lymphocytes # (Auto) 0.5 TH/MM3 Monocytes # (Auto) 1.3 TH/MM3 Eosinophils # (Auto) 0.0 TH/MM3 Basophils # (Auto) 0.0 TH/MM3 CBC Comment DIFF FINAL Differential Comment Sodium Level 138 MEQ/L Potassium Level 4.8 MEQ/L Chloride Level 105 MEQ/L Carbon Dioxide Level 20.7 MEQ/L Anion Gap 12 MEQ/L Blood Urea Nitrogen 12 MG/DL Creatinine 0.75 MG/DL Estimat Glomerular Filtration 101 ML/MIN Rate Random Glucose 141 MG/DL Calcium Level 8.1 MG/DL Total Bilirubin 1.1 MG/DL Aspartate Amino Transf 116 U/L (AST/SGOT) Alanine Aminotransferase 33 U/L (ALT/SGPT) Alkaline Phosphatase 146 U/L Total Protein 5.7 GM/DL Albumin 2.4 GM/DL Urine Random Creatinine 153.6 MG/DL Urine Random Sodium 39 MEQ/L Medical Decision Making Impression and Plan Impression: 1. Stable neurologic exam status post ORIF for L1 fracture. 2. Chronic atrial fibrillation Plan: Discussed with patient and his in the room. Continue close ISC vital signs and neuro checks. Did not do very well trying to mobilize out of bed today. 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 Bear Daniel MD April 17, 2017 21:50
[2017-04-18] VITALS (12 sets, daily range): BP systolic 115–148; BP diastolic 71–94; PULSE 64–100; RESP 10–28; TEMP 97.6–98.3; O2SAT 97–99
[2017-04-18] MEDS: KETOROLAC TROMETHAMINE 30 MG/ML (IVP) VIAL IV PUSH SCH ×5 (00:34→23:39)
[2017-04-18 04:53] LABS: AUTOMATED NEUTROPHIL # 8.1 TH/MM3 (1.8-7.7); BASOPHIL # 0.1 TH/MM3 (0-0.2); BASOPHIL % 0.6 % (0.0-2.0); EOSINOPHIL # 0.1 TH/MM3 (0-0.4); EOSINOPHIL % 0.6 % (0.0-4.0); HEMATOCRIT 34.7 % (39.0-51.0); HEMO FLAGS DIFF FINAL; LYMPH % 8.2 % (9.0-44.0); LYMPHOCYTE # 0.9 TH/MM3 (1.0-4.8); MEAN CELL VOLUME 93.6 FL (80.0-100.0); MEAN CORPUSCULAR HEMOGLOBIN 32.1 PG (27.0-34.0); MEAN CORPUSCULAR HGB CONC 34.3 % (32.0-36.0); MONO % 13.2 % (0.0-8.0); NEUT % 77.4 % (16.0-70.0); PLATELET COUNT 249 TH/MM3 (150-450); RED BLOOD COUNT 3.71 MIL/MM3 (4.50-5.90); RED CELL DISTRIBUTION WIDTH 12.6 % (11.6-17.2)
[2017-04-18 04:54] LABS: WHITE BLOOD COUNT 10.5 TH/MM3 (4.0-11.0)
[2017-04-18] MEDS: PCA - TOTAL MG DILAUDID DELIVERED PER SHIFT SCH ×2 (06:00→14:00)
--- NOTE | 2017-04-18 08:41 | HHI.FPPN ---
Subjective Remarks Patient is doing okay this morning. MEDICAL STENOGRAPHER pump at the bedside. Denies fever, chills, nausea, vomiting. (Jama Johnson MD R2) Objective Vitals Vital Signs Date Time Temp Pulse Resp B/P Pulse Ox O2 Delivery O2 Flow Rate FiO2 04/18/17 07:00 16 04/18/17 06:00 64 04/18/17 06:00 16 04/18/17 04:00 98.2 65 14 141/84 98 04/18/17 04:00 76 04/18/17 02:00 76 04/18/17 00:00 98.0 99 18 99 04/18/17 00:00 76 04/17/17 22:00 22 04/17/17 22:00 76 04/17/17 20:08 100 Nasal Cannula 2.00 04/17/17 20:00 85 04/17/17 20:00 98 Nasal Cannula 3.00 04/17/17 20:00 97.5 97 12 134/69 97 04/17/17 19:00 98 Nasal Cannula 3.00 04/17/17 18:00 74 04/17/17 16:00 80 04/17/17 16:00 98.3 80 12 118/71 100 04/17/17 14:26 20 04/17/17 14:03 20 04/17/17 14:00 84 04/17/17 13:33 15 04/17/17 12:00 98.6 87 14 104/65 97 04/17/17 12:00 87 04/17/17 10:00 89 04/17/17 08:43 97 Nasal Cannula 2.00 I/O 04/17/17 04/17/17 04/17/17 04/18/17 04/18/17 04/18/17 07:00 15:00 23:00 07:00 15:00 23:00 Intake Total 1800 ml 848 ml 1423 ml 1173 ml Output Total 120 ml 190 ml 595 ml 450 ml Balance 1680 ml 658 ml 828 ml 723 ml Intake Oral 100 ml 200 ml 200 ml IV Total 1700 ml 848 ml 1223 ml 973 ml Output Urine Total 120 ml 140 ml 550 ml 400 ml Drainage Total 50 ml 45 ml 50 ml # Bowel Movements 0 0 (Jama Johnson MD R2) Result Diagram: 04/18/17 0411 04/17/17 1520 Objective Remarks GENERAL: This is a pleasant elderly male lying comfortably in bed. No acute distress. MANJU draining serosanguineous fluid SKIN: No rashes, ecchymoses or lesions. Cool and dry. HEAD: Atraumatic. Normocephalic. No temporal or scalp tenderness. EYES: Extraocular motions intact. No scleral icterus. No injection or drainage. ENT: Nose without bleeding, purulent drainage or septal hematoma. Uvula midline. Airway patent. NECK: Trachea midline. No JVD. Supple, nontender, no meningeal signs. CARDIOVASCULAR: Regular rate and rhythm without murmurs, gallops, or rubs. RESPIRATORY: Clear to auscultation. Breath sounds equal bilaterally. No wheezes , rales, or rhonchi. GASTROINTESTINAL: Abdomen soft, non-tender, nondistended. No hepato-splenomegaly , or palpable masses. No guarding. : Urine slightly concentrated in [place] bag MUSCULOSKELETAL: No edema, cyanosis. NEUROLOGICAL: Awake and alert. Oriented x 3. Cranial nerves II through XII intact. Motor and sensory grossly within normal limits. 4/5 strength throughout. Normal speech. Very talkative (Jama Johnson MD R2) A/P Assessment and Plan 77-year-old male with history of chronic low back pain and known fractures presents after a fall; imaging concerning for fractures at L1, L5 and severe spinal stenosis. Neurosurgery consulted Discharge Planning Per neurosurgery recommendations (Jama Johnson MD R2) Attending Attestation Patient seen and examined, discussed with resident team. I agree with assessment and management as documented and discussed with me. Pt seen with at bedside. He reports some confusion overnight which was attributed to pain medication. Encouraged patient to eat to maintain his strength. Hyperkalemia: Potassium elevated today. D/C potassium supplementation. Check EKG. (Janny Lazcano MD) Problem List: (1) Fracture, lumbar vertebra, compression Status: Acute Plan: Neurosurgery consult Taken to OR on 04/16 s/p lumbar spine surgery for acute L1 fracture and spinal stenosis Hold anticoagulants; SCDs for DVT prophylaxis. Restart chemical anticoagulation per neurosurgery recommendations Resume CLD and advance as tolerated to heart healthy diet Pain control with MEDICAL STENOGRAPHER vitamin D level low; treatment as below History: Cardiology consulted, cleared patient for surgery (2) Spinal stenosis at L4-L5 level Status: Acute Plan: Neurosurgery consult (3) Fracture, thoracic vertebra, compression Status: Acute Plan: Neurosurgery consult Pain management (4) Atrial fibrillation Status: Acute Plan: Patient has not been taking Coumadin for 3 weeks. INR 1.1 Anticoagulation per neurosurgery. Diltiazem 180 daily. (5) Hyperlipidemia Status: Acute Plan: Continue statin (6) Vitamin D deficiency Status: Acute Plan: Treat with cholecalciferol 5000 units daily. (7) FEN/PPX Status: Acute Plan: Fluids: NS at 120 mL per hour Electrolytes: Monitor and replace as needed Nutrition: Advance to HHD if tolerated CLD Prophylaxis: b/l SCDs. Chemical anticoagulation per neurosurgery recs (Jama Johnson MD R2) Jama Johnson MD R2 April 18, 2017 08:41 Janny Lazcano MD April 18, 2017 12:22
[2017-04-18] MEDS: DOCUSATE SODIUM 50 MG/SENNA 8.6 MG TAB PO SCH ×2 (09:15→20:24)
[2017-04-18] MEDS: PANTOPRAZOLE SODIUM 40 MG VIAL IVP SCH (09:15)
[2017-04-18] MEDS: CHOLECALCIFEROL (VIT D3) 5000 UNIT CAP PO SCH (09:15)
[2017-04-18] MEDS: POTASSIUM CHLORIDE 20 MEQ CONTROLLED RELEASE TAB PO SCH (09:15)
[2017-04-18] MEDS: MAGNESIUM OXIDE 400 MG TAB PO SCH (09:15)
[2017-04-18] MEDS: amLODIPine BESYLATE 5 MG TAB PO SCH (09:15)
[2017-04-18] MEDS: DILTIAZEM-CD 180 MG CAP ER PO SCH (09:17)
[2017-04-18] MEDS: HYDROmorphone HCL PCA 6 MG/30 ML IV SCH (09:17)
[2017-04-18] MEDS: SODIUM CHLORIDE 0.9% FLUSH 5 ML FLUSH IVF SCH ×2 (09:17→20:33)
[2017-04-18 09:58] LABS: BICARBONATE 17.2 MEQ/L (21.0-32.0); POTASSIUM 6.3 MEQ/L (3.5-5.1)
[2017-04-18] MEDS ORDERED: FUROSEMIDE 20 MG/2 ML VIAL IV ONE (10:20)
--- NOTE | 2017-04-18 14:52 | EKG ---
Date Performed: 04/18/2017 Time Performed: 13:39:15 PTAGE: 77 years EKG: ATRIAL FIBRILLATION LOW QRS VOLTAGE IN EXTREMITY LEADS ABNORMAL RHYTHM ECG NO SIGNIFICANT C HANGE FROM PRIOR ELECTROCARDIOGRAM. PREVIOUS TRACING : 04/14/2017 10.36 DOCTOR: Gianluca Arboleda Interpretating Date/Time 04/18/2017 14:50:16
--- NOTE | 2017-04-18 16:08 | HHI.CCPN ---
Subjective Remarks/Hospital Course 77 y/o man immediately s/p lumbar spine surgery for spinal stenosis and acute L1 fracture following a fall. (He fell to a sitting position at home.) I have met him in the PACU where he controls his airway well, has good bilateral air movement, and is warm and well perfused. 04/17: Breathing comfortably. Some back pain, on dilaudid MOLDER CLOSED MOLDS. Urine low but he' s well perfused and normotensive. Appears adequately hydrated. Renal labs look diluted, further indicating adequate hydration. 04/18: Breathing comfortably. Conversant but pleasantly confused at times. Objective Vital Signs Date Time Temp Pulse Resp B/P Pulse Ox O2 Delivery O2 Flow Rate FiO2 04/18/17 14:00 88 04/18/17 12:00 97.6 26 126/73 98 04/18/17 08:00 Nasal Cannula 3.00 Intake and Output 04/17/17 04/17/17 04/18/17 08:00 16:00 00:00 Intake Total 1800 ml 848 ml 1423 ml Output Total 120 ml 190 ml 595 ml Balance 1680 ml 658 ml 828 ml Result Diagram: 04/18/17 0411 04/18/17 0710 Objective Remarks Gen: Alert, cooperative Head: Normal. Neck: Supple. Airway widely patent. No obstruction. Lungs: Clear, no wheezes or crackles. Good meme air movement. Few mobile secretions. Heart: Irreg Irreg at 75-88. No JVD. Abdomen: Soft, no guarding, BS active, benign. Extremities: Warm, well perfused. Neuro: Alert, responsive. Moves 4 limbs to command. Protects airway. O X 3 but loses track of thoughts. A/P Assessment and Plan Assessment: 1. S/P lumbar spine surgery for acute L1 fracture and spinal stenosis -> s/p decompression/fixation. 2. Atrial fibrillation, permanent. 3. Mild confusion. Plan: 1. Continue diltiazem as ordered for rate control. 2. Gentle with fluids. 3. Hold chemical DVT px until approved by NS Service. 4. IS. 5. Up with assistance. 6. Diuretics. Overall impression: Stable respiratory and hemodynamic function s/p lumbar surgery. Pedro Roy MD April 18, 2017 16:07
--- NOTE | 2017-04-18 16:12 | HHI.NSPN ---
History Chief Complaint: back pain Interval History 77-year-old male status post ORIF 04/16/17 for L1 fracture. System Review Comments Complains of confusion last night. Thought he was back in [place]. Exam Results Vital Signs Date Time Temp Pulse Resp B/P Pulse Ox O2 Delivery O2 Flow Rate FiO2 04/18/17 16:00 98.2 66 10 115/71 99 04/18/17 08:00 Nasal Cannula 3.00 Intake and Output 04/17/17 04/17/17 04/18/17 08:00 16:00 00:00 Intake Total 1800 ml 848 ml 1423 ml Output Total 120 ml 190 ml 595 ml Balance 1680 ml 658 ml 828 ml Physical Examination Respirations clear to auscultation Cardiac exam reveals irregular rhythm without murmur Abdomen is soft without tenderness Mr. Gibson is alert, awake and oriented to time, place and person. Speech is fluent. Follows commands well. Cranial nerve examination demonstrates Extra-ocular movements are intact. Facial motor are normal and symmetrical. Muscle strength is 5/5 in all muscle groups of both upper extremities including deltoid, biceps, triceps and industry segment specialist. In the lower extremities, strength is 5/5 in both iliopsoas, quadriceps, hamstrings, plantar flexion, dorsiflexion, and extensor hallicus longus. Sensory examination is intact to light touch in lower extremities, symmetrically. There is a bilateral plantar flexion response.There is no ankle clonus. Lumbar drain is in place with mild output Medical Decision Making Impression and Plan Impression: 1. Stable neurologic exam status post ORIF for L1 fracture. 2. Chronic atrial fibrillation Plan: Discussed with patient and his in the room again today. Stable for transfer to regular floor from neurosurgery standpoint. Positive hyperkalemia being managed by medicine service. He was able to stand at the bedside today. Continue physical therapy Okay for Lovenox from neurosurgery standpoint Discontinue drain Discontinue [employer] and IV fluids. Adjust pain medications Bear Daniel MD April 18, 2017 16:12
[2017-04-18] MEDS ORDERED: HYDROmorphone HCL PF 1 MG/ML VIAL IV PRN (16:15)
[2017-04-18] MEDS ORDERED: HYDROmorphone HCL 2 MG TAB PO PRN (16:15)
[2017-04-18] MEDS ORDERED: ACETAMINOPHEN/HYDROcodone 325 MG/5 MG TAB PO PRN (16:15)
[2017-04-18] MEDS ORDERED: NALOXONE HCL 0.4 MG/ML AMP IV PRN (16:15)
[2017-04-18] MEDS: ENOXAPARIN SODIUM 40 MG/0.4 ML SYRINGE SQ SCH (20:24)
[2017-04-18] MEDS: ATORVASTATIN 20 MG TAB PO SCH (20:24)
[2017-04-18] MEDS: MIRTAZAPINE 15 MG TAB PO SCH (20:26)
[2017-04-19] VITALS (12 sets, daily range): BP systolic 112–149; BP diastolic 69–94; PULSE 78–100; RESP 15–21; TEMP 98–98.7; O2SAT 93–97
[2017-04-19 05:02] LABS: AUTOMATED NEUTROPHIL # 6.8 TH/MM3 (1.8-7.7); BASOPHIL % 0.4 % (0.0-2.0); EOSINOPHIL # 0.5 TH/MM3 (0-0.4); EOSINOPHIL % 5.6 % (0.0-4.0); HEMATOCRIT 33.6 % (39.0-51.0); HEMO FLAGS DIFF FINAL; LYMPH % 10.3 % (9.0-44.0); MEAN CELL VOLUME 93.3 FL (80.0-100.0); MEAN CORPUSCULAR HEMOGLOBIN 31.6 PG (27.0-34.0); MEAN CORPUSCULAR HGB CONC 33.9 % (32.0-36.0); MONO % 11.3 % (0.0-8.0); NEUT % 72.4 % (16.0-70.0); PLATELET COUNT 311 TH/MM3 (150-450); RED BLOOD COUNT 3.61 MIL/MM3 (4.50-5.90); RED CELL DISTRIBUTION WIDTH 12.4 % (11.6-17.2); WHITE BLOOD COUNT 9.4 TH/MM3 (4.0-11.0)
[2017-04-19 05:29] LABS: ALKALINE PHOSPHATASE 189 U/L (45-117); ALT (GPT) 29 U/L (12-78); ANION GAP 8 MEQ/L (5-15); AST (GOT) 64 U/L (15-37); BICARBONATE 26.2 MEQ/L (21.0-32.0); BLOOD UREA NITROGEN 9 MG/DL (7-18); CHLORIDE 103 MEQ/L (98-107); GLOMERULAR FILTRATION RATE 133 ML/MIN (>89); SODIUM (NA) 137 MEQ/L (136-145); TOTAL BILIRUBIN ADULT 1.4 MG/DL (0.2-1.0)
[2017-04-19] MEDS: KETOROLAC TROMETHAMINE 30 MG/ML (IVP) VIAL IV PUSH SCH (06:11)
[2017-04-19] MEDS: PANTOPRAZOLE SODIUM 40 MG VIAL IVP SCH (08:34)
[2017-04-19] MEDS: MAGNESIUM OXIDE 400 MG TAB PO SCH (08:35)
[2017-04-19] MEDS: CHOLECALCIFEROL (VIT D3) 5000 UNIT CAP PO SCH (08:35)
[2017-04-19] MEDS: amLODIPine BESYLATE 5 MG TAB PO SCH (08:35)
[2017-04-19] MEDS: DOCUSATE SODIUM 50 MG/SENNA 8.6 MG TAB PO SCH ×2 (08:35→20:10)
[2017-04-19] MEDS: DILTIAZEM-CD 180 MG CAP ER PO SCH (08:36)
[2017-04-19] MEDS: SODIUM CHLORIDE 0.9% FLUSH 5 ML FLUSH IVF SCH ×2 (08:36→20:21)
--- NOTE | 2017-04-19 09:31 | HHI.NSPN ---
History Chief Complaint: back pain Interval History 77-year-old male status post ORIF 04/16/17 for L1 fracture 04/19/17: Pt awake and alert. Complains up upper lumbar area back pain. No radiculopathy or paresthesias in LEs. Review of Systems General: Negative for: fever, chills, insomnia Respiratory: Negative for: shortness of breath, cough, sputum Cardiovascular: Negative for: chest pain Gastrointestinal: Negative for: nausea, vomitting, diarrhea, constipation Exam Results Vital Signs Date Time Temp Pulse Resp B/P Pulse Ox O2 Delivery O2 Flow Rate FiO2 04/19/17 08:00 96 04/19/17 08:00 96 04/19/17 08:00 98.1 21 149/94 04/18/17 20:00 Room Air Nasal Cannula 04/18/17 08:00 3.00 Intake and Output 04/18/17 04/18/17 04/19/17 08:00 16:00 00:00 Intake Total 1173 ml 1024 ml 600 ml Output Total 450 ml 615 ml 1200 ml Balance 723 ml 409 ml -600 ml Physical Examination Resp: CTA bilaterally Heart: NSR no murmurs Abd: Soft positive bs Skin: No cyanosis or erythema Muscle: Moves LEs with good strength. Neuro: Pt awake and alert. Follows commands well. Speech clear and appropriate. Lab, Micro, Other Results Last Impressions Thoracolumbar Spine 04/16/17 0000 Signed Impressions: Service Date/Time: Sunday, April 16, 2017 13:52 - CONCLUSION: Limited images as detailed above. Khurram Martinez Jr., MD Thoracic Spine CT 04/14/17 1036 Signed Impressions: Service Date/Time: Friday, April 14, 2017 11:13 - CONCLUSION: 1. Exaggerated kyphotic curvature with multilevel degenerative disc disease. 2. Multiple chronic appearing fractures involving T2, T10 and most severely at L1 where there is a wedge deformity and a retropulsed fragment. Again, these all appear to be chronic. 3. Old healed fracture deformity of the posterior right twelfth rib. 4. Bibasilar dependent atelectactic changes with a small right-sided effusion. Natanael Marr MD Lumbar Spine CT 04/14/171035 Signed Impressions: Service Date/Time: Friday, April 14, 2017 11:13 - CONCLUSION: 1. Severe compression fractures at both L1 and L5. Both appears chronic and there is a 9 mm retropulsed component of the superior end plate of L1. 2. There is also some central concavity on the right side of the L3 vertebral body which may represent a prominent Schmorl's node but also appears to be chronic. I do not see an acute fracture or listhesis. 3. Despite the retropulsed fragment at L1, the spinal canal appears to be adequate at this level. 4. However, there is moderately severely central spinal stenosis at L4-5 due to a combination of diffuse disc bulge and marked facet hypertrophy. Spinal canal is adequate at all remaining levels. Natanael Marr MD Head CT 04/14/171035 Signed Impressions: Service Date/Time: Friday, April 14, 2017 11:08 - CONCLUSION: No acute disease. Monty Jaime MD Chest X-Ray 04/14/171035 Signed Impressions: Service Date/Time: Friday, April 14, 2017 10:44 - CONCLUSION: Left basilar subsegmental atelectasis versus scarring. Status post CABG. Jose Stern MD Cervical Spine CT 04/14/171035 Signed Impressions: Service Date/Time: Friday, April 14, 2017 11:08 - CONCLUSION: 1. No fracture or subluxation. 2. Degenerative changes. Jose Stern MD Lumbar Spine MRI 04/14/17 0000 Signed Impressions: Service Date/Time: Friday, April 14, 2017 16:42 - CONCLUSION: 1. Non-acute L1 compression fracture. 2. Acute/subacute L5 compression fracture identified with severe loss of vertebral body height. 3. Indeterminate L2 vertebral body lesion. Monty Jaime MD Laboratory Tests Test 04/18/17 04/19/17 15:06 03:39 Potassium Level 4.8 MEQ/L 4.0 MEQ/L White Blood Count 9.4 TH/MM3 Red Blood Count 3.61 MIL/MM3 Hemoglobin 11.4 GM/DL Hematocrit 33.6 % Mean Corpuscular Volume 93.3 FL Mean Corpuscular Hemoglobin 31.6 PG Mean Corpuscular Hemoglobin 33.9 % Concent Red Cell Distribution Width 12.4 % Platelet Count 311 TH/MM3 Mean Platelet Volume 9.3 FL Neutrophils (%) (Auto) 72.4 % Lymphocytes (%) (Auto) 10.3 % Monocytes (%) (Auto) 11.3 % Eosinophils (%) (Auto) 5.6 % Basophils (%) (Auto) 0.4 % Neutrophils # (Auto) 6.8 TH/MM3 Lymphocytes # (Auto) 1.0 TH/MM3 Monocytes # (Auto) 1.1 TH/MM3 Eosinophils # (Auto) 0.5 TH/MM3 Basophils # (Auto) 0.0 TH/MM3 CBC Comment DIFF FINAL Differential Comment Sodium Level 137 MEQ/L Chloride Level 103 MEQ/L Carbon Dioxide Level 26.2 MEQ/L Anion Gap 8 MEQ/L Blood Urea Nitrogen 9 MG/DL Creatinine 0.59 MG/DL Estimat Glomerular Filtration 133 ML/MIN Rate Random Glucose 101 MG/DL Calcium Level 8.2 MG/DL Total Bilirubin 1.4 MG/DL Aspartate Amino Transf 64 U/L (AST/SGOT) Alanine Aminotransferase 29 U/L (ALT/SGPT) Alkaline Phosphatase 189 U/L Total Protein 6.0 GM/DL Albumin 2.5 GM/DL 04/18/17 04/18/17 04/19/17 15:00 23:00 07:00 Intake Total 1024 ml 600 ml 350 ml Output Total 615 ml 1200 ml 700 ml Balance 409 ml -600 ml -350 ml Intake Oral 660 ml 600 ml 350 ml IV Total 364 ml Output Urine Total 600 ml 1200 ml 700 ml Drainage Total 15 ml # Bowel Movements 0 Medical Decision Making Impression and Plan A: 77y/o M S/p L1 Fx s/p ORIF. P: Continue with pain control Continue with rehab efforts. Jose Metcalf April 19, 2017 09:31
--- NOTE | 2017-04-19 09:44 | HHI.FPPN ---
Subjective Remarks Patient seen and examined this morning. at bedside. States he is in pain this morning. He just received Morphine IV. He says the pain is "right at the surgery site". Describes it as a sharp shooting pain at 8-9/10 at it's worst, and is in "one place". Sometimes comes down to 5/10 but then goes back up. He says he is not able to adjust the chair at bedside. He states he "was not able to sleep at all last night due to the pain. Denies chest pain or pain anywhere other than the center of the back at surgery site. Denies numbness or tingling of the extremities. Denies fever, chills, nausea, vomiting. Denies confusion. (Elena Sousa MD) Objective Vitals Vital Signs Date Time Temp Pulse Resp B/P Pulse Ox O2 Delivery O2 Flow Rate FiO2 04/19/17 08:00 96 04/19/17 08:00 96 04/19/17 08:00 98.1 96 21 149/94 96 04/19/17 07:11 16 04/19/17 06:00 100 04/19/17 04:00 92 04/19/17 04:00 98.0 97 17 144/75 04/19/17 02:00 85 04/19/17 00:00 84 04/19/17 00:00 98.7 84 16 143/76 95 04/18/17 22:00 88 04/18/17 20:00 78 04/18/17 20:00 97 Room Air Nasal Cannula 04/18/17 20:00 98.0 81 20 98 04/18/17 18:00 86 04/18/17 16:00 98.2 66 10 115/71 99 04/18/17 16:00 66 04/18/17 14:00 88 04/18/17 12:00 92 04/18/17 12:00 97.6 92 26 126/73 98 04/18/17 10:00 100 I/O 04/18/17 04/18/17 04/18/17 04/19/17 04/19/17 04/19/17 07:00 15:00 23:00 07:00 15:00 23:00 Intake Total 1173 ml 1024 ml 600 ml 350 ml Output Total 450 ml 615 ml 1200 ml 700 ml Balance 723 ml 409 ml -600 ml -350 ml Intake Oral 200 ml 660 ml 600 ml 350 ml IV Total 973 ml 364 ml Output Urine Total 400 ml 600 ml 1200 ml 700 ml Drainage Total 50 ml 15 ml # Bowel Movements 0 (Elena Sousa MD) Result Diagram: 04/19/179 04/19/17338 Imaging Last Impressions Thoracolumbar Spine 04/16/17 0000 Signed Impressions: Service Date/Time: Sunday, April 16, 2017 13:52 - CONCLUSION: Limited images as detailed above. Khurram Martinez Jr., MD Thoracic Spine CT 04/14/171035 Signed Impressions: Service Date/Time: Friday, April 14, 2017 11:13 - CONCLUSION: 1. Exaggerated kyphotic curvature with multilevel degenerative disc disease. 2. Multiple chronic appearing fractures involving T2, T10 and most severely at L1 where there is a wedge deformity and a retropulsed fragment. Again, these all appear to be chronic. 3. Old healed fracture deformity of the posterior right twelfth rib. 4. Bibasilar dependent atelectactic changes with a small right-sided effusion. Natanael Marr MD Lumbar Spine CT 04/14/171035 Signed Impressions: Service Date/Time: Friday, April 14, 2017 11:13 - CONCLUSION: 1. Severe compression fractures at both L1 and L5. Both appears chronic and there is a 9 mm retropulsed component of the superior end plate of L1. 2. There is also some central concavity on the right side of the L3 vertebral body which may represent a prominent Schmorl's node but also appears to be chronic. I do not see an acute fracture or listhesis. 3. Despite the retropulsed fragment at L1, the spinal canal appears to be adequate at this level. 4. However, there is moderately severely central spinal stenosis at L4-5 due to a combination of diffuse disc bulge and marked facet hypertrophy. Spinal canal is adequate at all remaining levels. Natanael Marr MD Head CT 04/14/171035 Signed Impressions: Service Date/Time: Friday, April 14, 2017 11:08 - CONCLUSION: No acute disease. Monty Jaime MD Chest X-Ray 04/14/171035 Signed Impressions: Service Date/Time: Friday, April 14, 2017 10:44 - CONCLUSION: Left basilar subsegmental atelectasis versus scarring. Status post CABG. Jose Stern MD Cervical Spine CT 04/14/17 1036 Signed Impressions: Service Date/Time: Friday, April 14, 2017 11:08 - CONCLUSION: 1. No fracture or subluxation. 2. Degenerative changes. Jose Stern MD Lumbar Spine MRI 04/14/17 0000 Signed Impressions: Service Date/Time: Friday, April 14, 2017 16:42 - CONCLUSION: 1. Non-acute L1 compression fracture. 2. Acute/subacute L5 compression fracture identified with severe loss of vertebral body height. 3. Indeterminate L2 vertebral body lesion. Monty Jaime MD Objective Remarks GENERAL: This is a pleasant elderly male lying comfortably in bed. No acute distress. SKIN: No rashes, ecchymoses or lesions. Cool and dry. NECK: Trachea midline. CARDIOVASCULAR: Regular rate and rhythm without murmurs, gallops or rubs. RESPIRATORY: Clear to auscultation. Breath sounds equal bilaterally. No wheezes , rales, or rhonchi. GASTROINTESTINAL: Abdomen soft, non-tender, nondistended. No hepato-splenomegaly , or palpable masses. No guarding. : Urine slightly concentrated in [place] bag MUSCULOSKELETAL: No edema, cyanosis. NEUROLOGICAL: Awake and alert. Oriented x 3. Motor and sensory grossly within normal limits. Normal speech. Very talkative (Elena Sousa MD) A/P Assessment and Plan 77-year-old male with history of chronic low back pain and known fractures presents after a fall found to have fractures at L1, L5 and severe spinal stenosis. Neurosurgery was consulted now POD 3 ORIF on 04/16/17 for L1 fracture. Discharge Planning Per neurosurgery recommendations (Elena Sousa MD) Attending Attestation Patient seen, examined, and discussed with resident team. I agree with assessment and management as documented and discussed with me. pt complains of back pain at incision site - medication changes as documented and ordered. Encouraged patient to eat to maintain strength and be able to participate in PT. (Janny Lazcano MD) Problem List: (1) Fracture, lumbar vertebra, compression Status: Acute Plan: Neurosurgery consulted POD #3 (OR on 04/16) from lumbar spine surgery for acute L1 fracture and spinal stenosis Pain control with [place], changed from PRN to scheduled q4hr to help with better pain control. Continue Morphine IV PRN. D/c'd Dilaudid- patient reported confusion after taking Dilaudid. However was just coming out of anesthesia as well. MANJU drain was d/c'd yesterday Vitamin D level low; treatment as below History: Cardiology consulted, cleared patient for surgery (2) Fracture, thoracic vertebra, compression Status: Acute Plan: Neurosurgery consulted Pain management as above (3) Spinal stenosis at L4-L5 level Status: Acute Plan: Neurosurgery consulted (4) Vitamin D deficiency Status: Acute Plan: Treat with cholecalciferol 5000 units daily. (5) Atrial fibrillation Status: Chronic Plan: Patient has not been taking Coumadin for 3 weeks. INR 1.1 Anticoagulation per neurosurgery. Diltiazem 180 daily. (6) Hyperlipidemia Status: Chronic Plan: Continue statin (7) FEN/PPX Status: Acute Plan: Fluids: SLIV, tolerating PO Electrolytes: WNL. Monitor and replace as needed. K+ was elevated yesterday, normal on BMP today Nutrition: Heart Healthy Diet Prophylaxis: b/l SCDs. Lovenox 40 units SQ daily started 04/18, okay per Neurosurgery (Elena Sousa MD) Problem Qualifiers (1) Fracture, lumbar vertebra, compression: Qualified Code: S32.000A - Fracture, lumbar vertebra, compression, closed, initial encounter (2) Fracture, thoracic vertebra, compression: Qualified Code: S22.000A - Fracture, thoracic vertebra, compression, closed, initial encounter (3) Atrial fibrillation: Qualified Code: I48.91 - Atrial fibrillation, unspecified type (4) Hyperlipidemia: Qualified Code: E78.4 - Other hyperlipidemia Elena Sousa MD April 19, 2017 09:44 Janny Lazcano MD April 19, 2017 12:40
[2017-04-19] MEDS: ACETAMINOPHEN/HYDROcodone 325 MG/5 MG TAB PO SCH ×3 (13:15→21:00)
[2017-04-19] MEDS: MIRTAZAPINE 15 MG TAB PO SCH (20:19)
[2017-04-19] MEDS: ENOXAPARIN SODIUM 40 MG/0.4 ML SYRINGE SQ SCH (20:19)
[2017-04-19] MEDS: ATORVASTATIN 20 MG TAB PO SCH (20:19)
[2017-04-20] VITALS (7 sets, daily range): BP systolic 117–131; BP diastolic 69–99; PULSE 78–92; RESP 14–17; TEMP 98–98.6; O2SAT 94–97
[2017-04-20] MEDS: ACETAMINOPHEN/HYDROcodone 325 MG/5 MG TAB PO SCH ×3 (00:41→10:32)
[2017-04-20 04:39] LABS: AUTOMATED NEUTROPHIL # 6.4 TH/MM3 (1.8-7.7); BASOPHIL % 0.5 % (0.0-2.0); EOSINOPHIL # 0.6 TH/MM3 (0-0.4); EOSINOPHIL % 6.3 % (0.0-4.0); HEMATOCRIT 32.7 % (39.0-51.0); HEMO FLAGS DIFF FINAL; LYMPHOCYTE # 1.2 TH/MM3 (1.0-4.8); MEAN CELL VOLUME 92.7 FL (80.0-100.0); MEAN CORPUSCULAR HEMOGLOBIN 31.9 PG (27.0-34.0); MEAN CORPUSCULAR HGB CONC 34.4 % (32.0-36.0); MONO % 9.9 % (0.0-8.0); NEUT % 70.3 % (16.0-70.0); PLATELET COUNT 261 TH/MM3 (150-450); RED BLOOD COUNT 3.53 MIL/MM3 (4.50-5.90); RED CELL DISTRIBUTION WIDTH 12.4 % (11.6-17.2)
[2017-04-20 04:56] LABS: ALKALINE PHOSPHATASE 188 U/L (45-117); ALT (GPT) 27 U/L (12-78); ANION GAP 8 MEQ/L (5-15); AST (GOT) 51 U/L (15-37); BICARBONATE 24.9 MEQ/L (21.0-32.0); BLOOD UREA NITROGEN 6 MG/DL (7-18); CHLORIDE 103 MEQ/L (98-107); GLOMERULAR FILTRATION RATE 236 ML/MIN (>89); POTASSIUM 3.6 MEQ/L (3.5-5.1); SODIUM (NA) 136 MEQ/L (136-145); TOTAL BILIRUBIN ADULT 1.5 MG/DL (0.2-1.0)
[2017-04-20] MEDS: SODIUM CHLORIDE 0.9% FLUSH 5 ML FLUSH IVF SCH (09:00)
[2017-04-20] MEDS: DOCUSATE SODIUM 50 MG/SENNA 8.6 MG TAB PO SCH (09:00)
[2017-04-20] MEDS: PANTOPRAZOLE SODIUM 40 MG VIAL IVP SCH (09:12)
[2017-04-20] MEDS: POTASSIUM CHLORIDE 20 MEQ CONTROLLED RELEASE TAB PO SCH (09:13)
[2017-04-20] MEDS: amLODIPine BESYLATE 5 MG TAB PO SCH (09:13)
[2017-04-20] MEDS: CHOLECALCIFEROL (VIT D3) 5000 UNIT CAP PO SCH (09:13)
[2017-04-20] MEDS: MAGNESIUM OXIDE 400 MG TAB PO SCH (09:14)
[2017-04-20] MEDS: DILTIAZEM-CD 180 MG CAP ER PO SCH (09:15)
[2017-04-20] MEDS ORDERED: HYDR-3516 PO (09:37)
[2017-04-20] MEDS ORDERED: SENN1TAB PO (09:37)
[2017-04-20] MEDS ORDERED: CHOL5000 PO (09:37)
--- NOTE | 2017-04-20 09:37 | HHI.DCPOC ---
Discharge Care Plan Diagnosis: (1) Fracture, lumbar vertebra, compression (2) Spinal stenosis at L4-L5 level (3) Fracture, thoracic vertebra, compression (4) Vitamin D deficiency Goals to Promote Your Health * To prevent worsening of your condition and complications * To maintain your health at the optimal level Directions to Meet Your Goals Take your medications as prescribed Follow your dietary instruction Follow activity as directed Keep your appointments as scheduled Take your immunizations and boosters as scheduled If your symptoms worsen call your PCP, if no PCP go to Urgent Care Center or Emergency Room Smoking is Dangerous to Your Health. Avoid second hand smoke Call the 24-hour hour crisis hotline for domestic abuse at Jama Johnson MD R2 April 20, 2017 09:37
[2017-04-20] MEDS ORDERED: MIRTA15 PO (09:43)
--- NOTE | 2017-04-20 09:45 | HHI.FPPN ---
Subjective Remarks Case discussed with Dr. Lieberman. Okay from neurosurgery to discharged to [facility]. Patient is doing well this morning. Had a bowel movement without difficulty. His pain is controlled with by mouth medications. Denies fever, chills, nausea, vomiting. (Jama Johnson MD R2) Objective Vitals Vital Signs Date Time Temp Pulse Resp B/P Pulse Ox O2 Delivery O2 Flow Rate FiO2 04/20/17 08:00 98.2 92 14 131/99 96 04/20/17 07:32 14 04/20/17 07:00 94 Room Air Nasal Cannula 04/20/17 06:00 85 04/20/17 04:00 98.0 82 17 121/76 94 04/20/17 04:00 88 04/20/17 02:00 84 04/20/17 00:00 78 04/20/17 00:00 98.3 78 15 122/69 97 04/19/17 22:00 78 04/19/17 20:00 98.3 78 15 112/69 97 04/19/17 20:00 82 04/19/17 19:00 97 Room Air Nasal Cannula 04/19/17 18:00 81 04/19/17 16:00 89 04/19/17 16:00 98.1 89 21 130/82 93 04/19/17 14:00 81 04/19/17 12:00 98.1 79 17 121/80 96 04/19/17 12:00 79 04/19/17 10:09 18 04/19/17 10:00 82 I/O 04/19/17 04/19/17 04/19/17 04/20/17 04/20/17 04/20/17 07:00 15:00 23:00 07:00 15:00 23:00 Intake Total 350 ml 660 ml 500 ml 100 ml Output Total 700 ml 1650 ml 600 ml 650 ml Balance -350 ml -990 ml -100 ml -550 ml Intake Oral 350 ml 660 ml 500 ml 100 ml Output Urine Total 700 ml 1650 ml 600 ml 650 ml # Bowel Movements 1 1 (Jama Johnson MD R2) Result Diagram: 04/20/17 0322 04/20/17 0322 Objective Remarks GENERAL: This is a pleasant elderly male lying comfortably in bed. No acute distress. SKIN: No rashes, ecchymoses or lesions. Cool and dry. NECK: Trachea midline. CARDIOVASCULAR: Regular rate and rhythm without murmurs, gallops or rubs. RESPIRATORY: Clear to auscultation. Breath sounds equal bilaterally. No wheezes , rales, or rhonchi. GASTROINTESTINAL: Abdomen soft, non-tender, nondistended. No hepato-splenomegaly , or palpable masses. No guarding. MUSCULOSKELETAL: No edema, cyanosis. NEUROLOGICAL: Awake and alert. Oriented x 3. Motor and sensory grossly within normal limits. Normal speech. Very talkative (Jama Johnson MD R2) A/P Assessment and Plan 77-year-old male with history of chronic low back pain and known fractures presents after a fall found to have fractures at L1, L5 and severe spinal stenosis. Neurosurgery was consulted now POD 3 ORIF on 04/16/17 for L1 fracture. Discharge Planning Discharged today to [facility]. (Jama Johnson MD R2) Attending Attestation Patient seen and examined, discussed with resident team. I agree with assessment and management as documented and discussed with me. Pt reports pain is better controlled with scheduled pain medication. Discharge to [place] today. Greater than 30 minutes spent personally counselling and coordinating care at discharge. (Janny Lazcano MD) Problem List: (1) Fracture, lumbar vertebra, compression Status: Acute Plan: Neurosurgery consulted Cleared from neurosurgery to be discharged to [place] rehabilitation. POD #4 (OR on 04/16) from lumbar spine surgery for acute L1 fracture and spinal stenosis Pain: [place] one tab by mouth every 4 hours. Vitamin D level low; treatment as below History: Cardiology consulted, cleared patient for surgery (2) Fracture, thoracic vertebra, compression Status: Acute Plan: Neurosurgery consulted Pain management as above (3) Spinal stenosis at L4-L5 level Status: Acute Plan: Neurosurgery consulted Follow-up as an outpatient (4) Vitamin D deficiency Status: Acute Plan: Treat with cholecalciferol 5000 units daily. (5) Atrial fibrillation Status: Chronic Plan: Patient has not been taking Coumadin for 3 weeks. INR 1.1 on admission Will resume Coumadin 2.5 mg daily at 1600 Follow INR and bridge with Lovenox until INR becomes therapeutic 2.0-2.5 Diltiazem 180 daily. (6) Hyperlipidemia Status: Chronic Plan: Continue statin (7) FEN/PPX Status: Acute Plan: Fluids: SLIV, tolerating PO Electrolytes: WNL. Monitor and replace as needed. Continue home potassium 20 mEq twice a day Nutrition: Heart Healthy Diet Prophylaxis: b/l SCDs. Lovenox 40 units SQ; bridge to Coumadin, follow INR (Jama Johnson MD R2) Problem Qualifiers (1) Fracture, lumbar vertebra, compression: Qualified Code: S32.000A - Fracture, lumbar vertebra, compression, closed, initial encounter (2) Fracture, thoracic vertebra, compression: Qualified Code: S22.000A - Fracture, thoracic vertebra, compression, closed, initial encounter (3) Atrial fibrillation: Qualified Code: I48.91 - Atrial fibrillation, unspecified type (4) Hyperlipidemia: Qualified Code: E78.4 - Other hyperlipidemia Jama Johnson MD R2 April 20, 2017 09:45 Janny Lazcano MD April 20, 2017 12:32
[2017-04-20] MEDS ORDERED: ENOX40P SQ (09:51)
--- NOTE | 2017-04-20 10:31 | HHI.NSPN ---
(Rita Villatoro) Note Status Status: Progress Note (Hardik Lieberman MD) Interval History Interval History Mr. Gibson is a 77-year-old male who presents to [place] ED today with complaints of intractable back pain. Mr. Gibson reports he has suffered from chronic lumbar pain however has gotten progressively worse over the past couple weeks. He reports today his legs gave out and he fell down. His pain is located in the upper lumbar region. He denies any radiating pain, paresthesias , sensory loss, urine incontinence. There is also report of bowel incontinence. The patient says he has sudden urges to move his bowels which then will leak before making it to the bathroom. He complains his legs are also becoming weaker compared to his arms, and he has had more difficulty walking. He rates the pains as a 10/10. A CT of the lumbar spine shows severe fractures at L1 and L5, there is retropulsion of L1 causing severe canal stenosis. A neurosurgical evaluation was requested 04/15: no new complaints, cardiology eval pending. (Rita Villatoro) Labs, Micro, & Vital Signs Results Date Time Temp Pulse Resp B/P Pulse Ox O2 Delivery O2 Flow Rate FiO2 04/20/17 08:00 98.2 92 14 131/99 96 04/20/17 08:00 92 04/20/17 07:32 14 04/20/17 07:00 94 Room Air Nasal Cannula 04/20/17 06:00 85 04/20/17 04:00 98.0 82 17 121/76 94 04/20/17 04:00 88 04/20/17 02:00 84 04/20/17 00:00 78 04/20/17 00:00 98.3 78 15 122/69 97 04/19/17 22:00 78 04/19/17 20:00 98.3 78 15 112/69 97 04/19/17 20:00 82 04/19/17 19:00 97 Room Air Nasal Cannula 04/19/17 18:00 81 04/19/17 16:00 89 04/19/17 16:00 98.1 89 21 130/82 93 04/19/17 14:00 81 04/19/17 12:00 98.1 79 17 121/80 96 04/19/17 12:00 79 04/20/17 07:00 Intake Total 1260 ml Output Total 2900 ml Balance -1640 ml Constitutional Vital Signs Date Time Temp Pulse Resp B/P Pulse Ox O2 Delivery O2 Flow Rate FiO2 04/20/17 08:00 98.2 92 14 131/99 96 04/20/17 08:00 92 04/20/17 07:32 14 04/20/17 07:00 94 Room Air Nasal Cannula 04/20/17 06:00 85 04/20/17 04:00 98.0 82 17 121/76 94 04/20/17 04:00 88 04/20/17 02:00 84 04/20/17 00:00 78 04/20/17 00:00 98.3 78 15 122/69 97 04/19/17 22:00 78 04/19/17 20:00 98.3 78 15 112/69 97 04/19/17 20:00 82 04/19/17 19:00 97 Room Air Nasal Cannula 04/19/17 18:00 81 04/19/17 16:00 89 04/19/17 16:00 98.1 89 21 130/82 93 04/19/17 14:00 81 04/19/17 12:00 98.1 79 17 121/80 96 04/19/17 12:00 79 04/20/17 07:00 Intake Total 1260 ml Output Total 2900 ml Balance -1640 ml (Rita Villatoro) Review of Systems/Exam Exam Alert and oriented. CN: pupils equal Motor: moves lower extremities 5/5 Sensory: intact to light touch in LE's Plantars downgoing b/l (Rita Villatoro) Medications Current Medications Current Medications Medications (Trade) Dose Ordered Sig/Curt Route PRN Reason Start Time Stop Time Status Last Admin Dose Admin Ondansetron HCl (Zofran Inj) 4 mg Q6H PRN IVP NAUSEA OR VOMITING 04/14/17 14:30 04/15/17 19:45 Senna/Docusate Sodium (Teresa-Colace) 1 tab BID PO 04/14/17 21:00 04/19/17 08:35 Magnesium Hydroxide (Milk Of Magnesia Liq) 30 ml Q12H PRN PO MILD - MODERATE CONSTIPATION 04/14/17 14:30 Sennosides (Senokot) 17.2 mg Q12H PRN PO MODERATE - SEVERE CONSTIPATION 04/14/17 14:30 Bisacodyl (Dulcolax Supp) 10 mg DAILY PRN RECTAL SEVERE CONSITIPATION 04/14/17 14:30 Lactulose (Lactulose Liq) 30 ml DAILY PRN PO SEVERE CONSITIPATION 04/14/17 14:30 Mirtazapine (Remeron) 15 mg HS PO 04/14/17 21:00 04/19/17 20:19 Atorvastatin Calcium (Lipitor) 20 mg HS PO 04/14/17 21:00 04/19/17 20:19 Diltiazem HCl (Cardizem Cd) 180 mg DAILY PO 04/15/17 09:00 04/20/17 09:15 Magnesium Oxide (Mag-Ox) 400 mg DAILY PO 04/15/17 09:00 04/20/17 09:14 Potassium Chloride (KCl) 20 meq BID PO 04/15/17 09:00 04/20/17 09:13 Amlodipine Besylate (Norvasc) 5 mg DAILY PO 04/15/17 09:00 04/20/17 09:13 Clonidine (Catapres) 0.1 mg Q4H PRN PO SBP> OR = 180, DBP> OR = 100 04/15/17 08:45 Hydralazine HCl (Apresoline) 10 mg Q4H PRN PO SBP>160, DBP>90 04/15/17 08:45 Cholecalciferol (Vitamin D3) 5,000 units DAILY PO 04/15/17 14:00 04/20/17 09:13 IV Flush (NS Flush) 2 ml UNSCH PRN IVF FLUSH AFTER USING IV ACCESS 04/16/17 14:00 IV Flush (NS Flush) 2 ml BID IVF 04/16/17 21:00 04/20/17 09:00 Pantoprazole Sodium (Protonix Inj) 40 mg DAILY IVP 04/17/17 09:00 04/20/17 09:12 Acetaminophen (Tylenol) 650 mg Q4H PRN PO TEMPERATURE > 101.5 F 04/16/17 14:00 Naloxone HCl (Narcan Inj) 0.4 mg UNSCH PRN IV SEE LABEL COMMENTS 04/18/17 16:15 Enoxaparin Sodium (Lovenox Inj) 40 mg Q24H SQ 04/18/17 20:00 04/19/17 20:19 Acetaminophen/ Hydrocodone Bitart ([place] 5-325 Mg) 1 tab Q4H PO 04/19/17 13:00 04/20/17 06:32 Warfarin Sodium (Coumadin) 2.5 mg DAILY@1600 PO 04/20/17 16:00 UNV (Rita Villatoro) Medical Decision Making MDM Remarks 77 y/o male with intractable upper lumbar pain and progressive lower extremity weakness MRI with severe L1 fracture with canal retropulsion and cord compression (Rita Villatoro) Plan Plan Remarks cont pain control with oral pain medications, cont therapy, TLSO when out of bed clear to dc to [facility] re[facility] (Rita Villatoro) Attending Statement I discussed with him the details including the [id number] details of the surgical procedure, its indications, alternatives, risks, and potential complications. Risks and potential complications include, but are not limited to, infection, blood loss, CSF leak, partial or complete loss of sight in one or both eyes, paresis, paralysis, permanent pain or difficulty swallowing, loss of bowel or bladder function, complications from anesthesia, blood clot, stroke , myocardial infarction, or even . The exam, history, and the medical decision-making described in the above note were completed with the assistance of the mid-level provider. I reviewed and agree with the findings presented. I attest that I had a [id number] encounter with the patient on the same day, and personally performed and documented my assessment and findings in the medical record. (Hardik Lieberman MD) Rita Villatoro April 20, 2017 10:31 Hardik Lieberman MD April 20, 2017 16:48
[2017-04-20 11:00] LABS: INTERNATIONAL NORMALIZED RATIO 1.9 RATIO; PROTHROMBIN TIME - PATIENT 21.8 SEC (9.8-11.6)
--- NOTE | 2017-04-20 12:03 | HHI.DS ---
Discharge Summary Admission Date April 14, 2017 at 13:12 Discharge Date: April 20, 2017 Admitting Diagnosis Severe L1, L5 compression fracture Spinal stenosis (1) Fracture, lumbar vertebra, compression Plan: Neurosurgery consulted Cleared from neurosurgery to be discharged to [facility]. POD #4 (OR on 04/16) from lumbar spine surgery for acute L1 fracture and spinal stenosis Pain: [place] one tab by mouth every 4 hours. Vitamin D level low; treatment as below History: Cardiology consulted, cleared patient for surgery (2) Fracture, thoracic vertebra, compression Diagnosis: Principal Plan: Neurosurgery consulted Pain management as above (3) Spinal stenosis at L4-L5 level Diagnosis: Principal Plan: Neurosurgery consulted Follow-up as an outpatient (4) Vitamin D deficiency Diagnosis: Secondary Plan: Treat with cholecalciferol 5000 units daily. (5) Atrial fibrillation Diagnosis: Secondary Plan: Patient has not been taking Coumadin for 3 weeks. INR 1.1 on admission Will resume Coumadin 2.5 mg daily at 1600 Follow INR and bridge with Lovenox until INR becomes therapeutic 2.0-2.5 Diltiazem 180 daily. (6) Hyperlipidemia Diagnosis: Secondary Plan: Continue statin (7) FEN/PPX Diagnosis: Secondary Plan: Fluids: SLIV, tolerating PO Electrolytes: WNL. Monitor and replace as needed. Continue home potassium 20 mEq twice a day Nutrition: Heart Healthy Diet Prophylaxis: b/l SCDs. Lovenox 40 units SQ; bridge to Coumadin, follow INR Consultants Neurosurgery Critical care Procedures L1 ORIF Brief History 77-year-old male with history of chronic back pain presents after falling this morning at 7 AM. There is a step between the living room and dining room. The patient was moving from the living room and stepping down, he placed his hand on the wall and slipped backwards. He fell on his bottom. The patient states "more of sitting down and then a fall." The patient has been in 8 out of 10 mid back pain. This is nonradiating. In the hospital, his pain has improved to 4 out of 10. While moving to the CT scanner his pain was a 10 out of 10. Prior to 2 months ago, the patient was driving and walking. He has had worsening back issues over the last 2 months. He has needed to either sit in a recliner to relieve his pain or he walks hunched over his walker. His dependence on his walker is getting worse over the last 2 months. Additionally , he has been having bowel incontinence. He has had 2-3 episodes of losing loose stool when he tries to get up. He denies any loss of bladder function. When he moves, the pain gets worse. Reclining makes the pain feel better. He has not been able to sleep in bed for the last 2 months. He has been sleeping in a chair because of the pain. Not been taking his medications for the last 3 weeks except for 800 mg ibuprofen twice a day. He states he has quit taking medications because "he feels like a pharmacist. CBC/BMP: 04/20/17 0322 04/20/17 0322 Significant Findings Laboratory Tests Test 04/17/17 04/18/17 04/18/17 04/19/17 15:20 04:11 07:10 03:39 White Blood Count 12.0 TH/MM3 (4.0-11.0) Red Blood Count 3.48 MIL/MM3 3.71 MIL/MM3 3.61 MIL/MM3 (4.50-5.90) (4.50-5.90) (4.50-5.90) Hemoglobin 10.9 GM/DL 11.9 GM/DL 11.4 GM/DL (13.0-17.0) (13.0-17.0) (13.0-17.0) Hematocrit 32.8 % 34.7 % 33.6 % (39.0-51.0) (39.0-51.0) (39.0-51.0) Neutrophils (%) (Auto) 85.2 % 77.4 % 72.4 % (16.0-70.0) (16.0-70.0) (16.0-70.0) Lymphocytes (%) (Auto) 3.8 % 8.2 % (9.0-44.0) (9.0-44.0) Monocytes (%) (Auto) 10.6 % 13.2 % 11.3 % (0.0-8.0) (0.0-8.0) (0.0-8.0) Neutrophils # (Auto) 10.2 TH/MM3 8.1 TH/MM3 (1.8-7.7) (1.8-7.7) Lymphocytes # (Auto) 0.5 TH/MM3 0.9 TH/MM3 (1.0-4.8) (1.0-4.8) Monocytes # (Auto) 1.3 TH/MM3 1.4 TH/MM3 1.1 TH/MM3 (0-0.9) (0-0.9) (0-0.9) Carbon Dioxide Level 20.7 MEQ/L 17.2 MEQ/L (21.0-32.0) (21.0-32.0) Random Glucose 141 MG/DL 128 MG/DL (74-106) (74-106) Calcium Level 8.1 MG/DL 8.2 MG/DL (8.5-10.1) (8.5-10.1) Total Bilirubin 1.1 MG/DL 1.4 MG/DL (0.2-1.0) (0.2-1.0) Aspartate Amino Transf 116 U/L (15-37) 64 U/L (15-37) (AST/SGOT) Alkaline Phosphatase 146 U/L 189 U/L (45-117) (45-117) Total Protein 5.7 GM/DL 6.0 GM/DL (6.4-8.2) (6.4-8.2) Albumin 2.4 GM/DL 2.5 GM/DL (3.4-5.0) (3.4-5.0) Potassium Level 6.3 MEQ/L (3.5-5.1) Chloride Level 110 MEQ/L (98-107) Creatinine 0.59 MG/DL 0.59 MG/DL (0.60-1.30) (0.60-1.30) Eosinophils (%) (Auto) 5.6 % (0.0-4.0) Eosinophils # (Auto) 0.5 TH/MM3 (0-0.4) Test 04/20/17 04/20/17 03:22 10:12 Red Blood Count 3.53 MIL/MM3 (4.50-5.90) Hemoglobin 11.2 GM/DL (13.0-17.0) Hematocrit 32.7 % (39.0-51.0) Neutrophils (%) (Auto) 70.3 % (16.0-70.0) Monocytes (%) (Auto) 9.9 % (0.0-8.0) Eosinophils (%) (Auto) 6.3 % (0.0-4.0) Eosinophils # (Auto) 0.6 TH/MM3 (0-0.4) Blood Urea Nitrogen 6 MG/DL (7-18) Creatinine 0.36 MG/DL (0.60-1.30) Calcium Level 8.0 MG/DL (8.5-10.1) Total Bilirubin 1.5 MG/DL (0.2-1.0) Aspartate Amino Transf 51 U/L (15-37) (AST/SGOT) Alkaline Phosphatase 188 U/L (45-117) Total Protein 5.4 GM/DL (6.4-8.2) Albumin 2.2 GM/DL (3.4-5.0) Prothrombin Time 21.8 SEC (9.8-11.6) Imaging Last Impressions Thoracolumbar Spine 04/16/17 0000 Signed Impressions: Service Date/Time: Sunday, April 16, 2017 13:52 - CONCLUSION: Limited images as detailed above. Khurram Martinez Jr., MD Thoracic Spine CT 04/14/17 1036 Signed Impressions: Service Date/Time: Friday, April 14, 2017 11:13 - CONCLUSION: 1. Exaggerated kyphotic curvature with multilevel degenerative disc disease. 2. Multiple chronic appearing fractures involving T2, T10 and most severely at L1 where there is a wedge deformity and a retropulsed fragment. Again, these all appear to be chronic. 3. Old healed fracture deformity of the posterior right twelfth rib. 4. Bibasilar dependent atelectactic changes with a small right-sided effusion. Natanael Marr MD Lumbar Spine CT 04/14/17 1036 Signed Impressions: Service Date/Time: Friday, April 14, 2017 11:13 - CONCLUSION: 1. Severe compression fractures at both L1 and L5. Both appears chronic and there is a 9 mm retropulsed component of the superior end plate of L1. 2. There is also some central concavity on the right side of the L3 vertebral body which may represent a prominent Schmorl's node but also appears to be chronic. I do not see an acute fracture or listhesis. 3. Despite the retropulsed fragment at L1, the spinal canal appears to be adequate at this level. 4. However, there is moderately severely central spinal stenosis at L4-5 due to a combination of diffuse disc bulge and marked facet hypertrophy. Spinal canal is adequate at all remaining levels. Natanael Marr MD Head CT 04/14/17 1036 Signed Impressions: Service Date/Time: Friday, April 14, 2017 11:08 - CONCLUSION: No acute disease. Monty Jaime MD Chest X-Ray 04/14/17 1036 Signed Impressions: Service Date/Time: Friday, April 14, 2017 10:44 - CONCLUSION: Left basilar subsegmental atelectasis versus scarring. Status post CABG. Jose Stern MD Cervical Spine CT 04/14/17 1036 Signed Impressions: Service Date/Time: Friday, April 14, 2017 11:08 - CONCLUSION: 1. No fracture or subluxation. 2. Degenerative changes. Jose Stern MD Lumbar Spine MRI 04/14/17 0000 Signed Impressions: Service Date/Time: Friday, April 14, 2017 16:42 - CONCLUSION: 1. Non-acute L1 compression fracture. 2. Acute/subacute L5 compression fracture identified with severe loss of vertebral body height. 3. Indeterminate L2 vertebral body lesion. Monty Jaime MD PE at Discharge GENERAL: This is a pleasant elderly male lying comfortably in bed. No acute distress. SKIN: No rashes, ecchymoses or lesions. Cool and dry. NECK: Trachea midline. CARDIOVASCULAR: Regular rate and rhythm without murmurs, gallops or rubs. RESPIRATORY: Clear to auscultation. Breath sounds equal bilaterally. No wheezes , rales, or rhonchi. GASTROINTESTINAL: Abdomen soft, non-tender, nondistended. No hepato-splenomegaly , or palpable masses. No guarding. MUSCULOSKELETAL: No edema, cyanosis. NEUROLOGICAL: Awake and alert. Oriented x 3. Motor and sensory grossly within normal limits. Normal speech. Very talkative Hospital Course Neurosurgery was consulted for lumbar fractures and spinal stenosis. Patient was medically cleared by cardiology to undergo procedure. He underwent ORIF for his L1 fracture on 04/[address] Lieberman. Patient recovered well postoperatively. His pain was controlled with by mouth [place]. He worked with physical therapy and was determined to be appropriate for inpatient [facility] rehabilitation. Incidentally, the patient had not taken his medications 3 weeks prior to admission. He has chronic atrial fibrillation, on Coumadin, his INR was 1.1 on admission. Coumadin was restarted on the day of discharge at 2.5 mg daily. He will need a Lovenox bridge while in the rehabilitation facility until his INR is therapeutic, 2.0-2.5. Patient was also found to have vitamin D deficiency. He was started on cholecalciferol 5000 units daily. Pt Condition on Discharge: Fair Discharge Disposition: Rehab Inpatient Discharge Instructions DIET: Follow Instructions for: As Tolerated, No Restrictions Activities you can perform: See Additionl Instruction Other Activity Instructions: Per PT Follow up Referrals: Neurosurgery - 2 Weeks with Hardik Lieberman MD PCP Follow-up - 1 Week New Orders: PT/INR - Next Day PT/INR - 04/25/17 PT/INR - 04/28/17 New Medications: Cholecalciferol (Vitamin D3) 5,000 Unit Cap 5000 UNITS PO DAILY #30 CAP Enoxaparin Inj (Lovenox Inj) 40 Mg/0.4 Ml Syr 40 MG SQ Q24H #1 INJECTION Hydrocodone-Acetaminophen (Hydrocodone-Acetaminophen) 5-325 mg Tab 1 TAB PO Q4H #30 TAB Mirtazapine (Mirtazapine) 15 Mg Tab 15 MG PO HS #30 TAB Sennosides-Docusate Sodium (Senna Plus 8.6-50 mg) 1 Tab Tab 1 TAB PO BID #30 TAB Continued Medications: Amlodipine (Amlodipine) 5 Mg Tab 5 MG PO DAILY Blood Pressure Management #30 Ref 0 TAB B-Complex Vitamins (B Complex) 1 Cap 1 CAP PO DAILY Nutritional Supplement #30 Ref 0 CAP Diltiazem ER 24 HR (Dilt-Xr) 180 Mg Caper 180 MG PO DAILY #30 Ref 0 CAP Dronabinol (Marinol) 2.5 Mg Cap 2.5 MG PO BIDAC Ref 0 CAP Famotidine (Pepcid) 20 Mg Tab 20 MG PO BID #60 Ref 0 TAB Folic Acid (Folate) 1 Mg Tab 1 MG PO DAILY Nutritional Supplement Ref 0 TAB Lovastatin (Lovastatin) 20 Mg Tab 20 MG PO DAILY Cholesterol Management #30 Ref 0 TAB Magnesium Oxide (Magnesium Oxide) 400 Mg Tab 400 MG PO DAILY Nutritional Supplement Ref 0 TAB Multiple Vitamins W/ Minerals (Centrum Silver Adult 50+) 1 Tab Tab 1 TAB PO DAILY Potassium Chloride ER (K-Tab) 20 Meq Tab 20 MEQ PO BID Electrolyte Replacement #60 Ref 0 TAB Warfarin (Coumadin) 2.5 Mg Tab 2.5 MG PO DAILY@1600 Prevent Blood Clot #30 Ref 0 TAB ([Black [place] Tabs]) 1000 MG PO DAILY Jama Johnson MD R2 April 20, 2017 12:03
[2017-04-20] MEDS ORDERED: FOLI400T PO (14:49)
[2017-04-20] MEDS ORDERED: FAMO20TA2 PO (14:49)
[2017-04-20] MEDS ORDERED: WARFARIN SOD 2.5 MG TAB PO SCH (16:00)
[2017-05-06] MEDS ORDERED: ALLBC PO (14:03)
[2017-05-06] MEDS ORDERED: FOLI1TAB6 PO (14:03)
[2017-05-06] MEDS ORDERED: LACT PO (14:03)
[2017-05-06] MEDS ORDERED: AMLO5 PO (14:03)
[2017-05-06] MEDS ORDERED: HYDR-3583 PO (14:03)
[2017-05-06] MEDS ORDERED: CHOL5000 PO (14:03)
[2017-05-06] MEDS ORDERED: CARD180C5 PO (14:03)
[2017-05-06] MEDS ORDERED: ZINC20OI TOPICAL (14:03)
[2017-05-06] MEDS ORDERED: MIRTA15 PO (14:03)
[2017-05-06] MEDS ORDERED: THERM PO (14:03)
[2017-05-06] MEDS ORDERED: FAMO20TA2 PO (14:03)
[2017-05-06] MEDS ORDERED: PRAV20TA PO (14:03)
[2017-05-06] MEDS ORDERED: ACET1TAB86 PO (14:03)
[2017-05-06] MEDS ORDERED: COUM2TAB PO (14:03)
[2017-05-06] MEDS ORDERED: MAGN400T3 PO (14:03)
[2017-05-06] MEDS ORDERED: SENN1TAB PO (14:03)
[2017-05-06] MEDS ORDERED: ZOSY4.5P IV (14:05)
== END 2017-04-20 14:15 | DRG 460 ==
LOC: NEPE 10:21 → NEDA 13:12 → NEPGCP 15:49 → N06A 04-16 00:01 → UNDODISIN 04-16 15:43 → N03B 04-16 18:22 → N03A 04-16 20:38
PROVIDERS: ADMIT Family Medicine; ATTEND Family Medicine
PROC: 0QS004Z Reposition Lumbar Vertebra with Internal Fixation Device, Open Approach (ICD-10-PCS; principal; 2017-04-17)
PROC: 0RG Upper Joints, Fusion (ICD-10-PCS; 2017-04-17)
PROC: 0SG1371 Fusion of 2 or more Lumbar Vertebral Joints with Autologous Tissue Substitute, Posterior Approach, Posterior Column, Percutaneous Approach (ICD-10-PCS; 2017-04-17)
PROC: 0QB20ZZ Excision of Right Pelvic Bone, Open Approach (ICD-10-PCS; 2017-04-17)
DX: S32.011A Stable burst fracture of first lumbar vertebra, initial encounter for closed fracture (principal); S22.081A Stable burst fracture of T11-T12 vertebra, initial encounter for closed fracture; I48.2 Chronic atrial fibrillation; M48.56XA Collapsed vertebra, not elsewhere classified, lumbar region, initial encounter for fracture; I25.810 Atherosclerosis of coronary artery bypass graft(s) without angina pectoris; E55.9 Vitamin D deficiency, unspecified; I10 Essential (primary) hypertension; M79.1 Myalgia; W01.0XXA Fall on same level from slipping, tripping and stumbling without subsequent striking against object, initial encounter; E78.5 Hyperlipidemia, unspecified; E87.6 Hypokalemia; M10.9 Gout, unspecified; M48.06 Spinal stenosis, lumbar region; Z79.01 Long term (current) use of anticoagulants; Z87.891 Personal history of nicotine dependence; Z95.1 Presence of aortocoronary bypass graft
CPT/HCPCS: 70450; 71010; 72070; 72125; 72128; 72131; 72148; 76000; 80048; 80053; 81001; 82306; 82550; 82570; 82652; 83735; 84132; 84300; 84484; 85025; 85610; 85730; 86850; 86900; 86901; 86920; 87641; 93005; 93308; 94150; 96361; 96365; C1713; C9113; J0690; J1170; J1580; J1644; J1650; J1885; J1940; J2270; J2370; J2405; J2710; J3010; J3370; J3480; J7030; J7050; J7120; L0200; L0484

== ENCOUNTER 2017-05-06 17:51 | Inpatient (IN) | payer MEDICARE ==
[~2017-05-06] VITALS: Ht 180.3 cm; Wt 75.1 kg
[~2017-05-06 17:51] MED LIST changes: +ACET1TAB86 PO; +ALLBC PO; +AMLO5 PO; +AMLO5TAB2 PO; -AMLO5TAB96 PO; -ATEN25 PO; +BLACK CHERRY PO; +CARD180C5 PO; -CHLO10 PO; +CHOL5000 PO; -COMMODE 3:1; +COUM2TAB PO; +DILT180C36 PO; +DRON2.5 PO; -DRON2.5C PO; +ENOX40P SQ; +FAMO20TA2 PO; -FLUD.1 PO; -FOLI1 PO; +FOLI1TAB6 PO; +FOLI400T PO; +HYDR-3516 PO; +HYDR-3583 PO; +LACT PO; -LISI-363 PO; -LOVA1TAB47 PO; +LOVA20TA PO; -MAGN400 PO; +MAGN400T2 PO; +MAGN400T3 PO; +MIRTA15 PO; +MULT1TAB PO; -MVI PO; +POTA1TAB4 PO; +PRAV20TA PO; +SENN1TAB PO; +THERM PO; -THIA100T PO; +VITACAP7 PO; -Z.0.WALKERFRONT; +ZINC20OI TOPICAL; +ZOSY4.5P IV
[2017-05-06 20:00] VITALS: BP 111/69; PULSE 79; RESP 20; TEMP 96.6; O2SAT 98
[2017-05-06] MEDS ORDERED: SENNOSIDES 8.6 MG TAB PO PRN (20:15)
[2017-05-06] MEDS ORDERED: NALOXONE HCL 0.4 MG/ML AMP IV PRN (20:15)
[2017-05-06] MEDS ORDERED: MAGNESIUM HYDROXIDE SUSP 30 ML CUP PO PRN (20:15)
[2017-05-06] MEDS ORDERED: SODIUM CHLORIDE 0.9% FLUSH 10 ML FLUSH IV FLUSH PRN (20:15)
[2017-05-06] MEDS ORDERED: ONDANSETRON HCL 4 MG/2 ML VIAL IVP PRN (20:15)
[2017-05-06] MEDS ORDERED: ACETAMINOPHEN 325 MG TAB PO PRN (20:15)
[2017-05-06] MEDS ORDERED: [UNRECOGNIZED DRUG - CODE] IV (20:19)
[2017-05-06] MEDS ORDERED: SENN8.6T81 PO (20:19)
[2017-05-06] MEDS ORDERED: VANC1000P IV (20:19)
[2017-05-06] MEDS ORDERED: [UNRECOGNIZED DRUG - CODE] IV (20:19)
[2017-05-06] MEDS: LACTOBACILLUS ACIDOPHILUS TAB PO SCH (20:51)
[2017-05-06] MEDS: ACETAMINOPHEN/HYDROcodone 325 MG/10 MG TAB PO PRN (20:51)
[2017-05-06] MEDS: FAMOTIDINE 20 MG TAB PO SCH (20:52)
[2017-05-06] MEDS: MIRTAZAPINE 15 MG TAB PO SCH (20:52)
[2017-05-06] MEDS: SODIUM CHLORIDE 0.9% FLUSH 10 ML FLUSH IV FLUSH SCH (20:56)
[2017-05-06] MEDS: DOCUSATE SODIUM 50 MG/SENNA 8.6 MG TAB PO SCH (21:13)
[2017-05-06] MEDS: PIPERACIL-TAZO 4.5 GM PREMIX 100 ML IV SCH (21:13)
[2017-05-06] MEDS: DRONABINOL 2.5 MG CAP PO SCH (21:16)
[2017-05-06] MEDS ORDERED: diphenhydrAMINE HCL 25 MG CAP PO ONE (23:45)
[2017-05-07] VITALS (8 sets, daily range): BP systolic 104–125; BP diastolic 68–76; PULSE 68–80; RESP 18–20; TEMP 95.8–98; O2SAT 95–99
[2017-05-07] MEDS: ACETAMINOPHEN/HYDROcodone 325 MG/10 MG TAB PO PRN ×4 (00:37→23:07)
[2017-05-07] MEDS: PIPERACIL-TAZO 4.5 GM PREMIX 100 ML IV SCH ×4 (03:45→22:07)
[2017-05-07] MEDS ORDERED: CHLORHEXIDINE GLUCONATE 2 % 1 PACK (2 CLOTHS) TOPICAL PRN (05:30)
[2017-05-07] MEDS ORDERED: INSULIN HUMAN REGULAR 1,000 UNITS/10 ML VIAL SQ PRN (05:30)
[2017-05-07] MEDS ORDERED: LACTATED RINGER'S 1000 ML IV PRN (05:30)
[2017-05-07] MEDS ORDERED: POVIDONE IODINE 5% (ANTISEPSIS KIT) 4 APPLICATIONS EACH NARE PRN (05:30)
[2017-05-07] MEDS ORDERED: PROPOFOL 200 MG/20 ML AMP IV ONE (08:37)
[2017-05-07] MEDS ORDERED: ePHEDrine/NS 25 MG/5 ML SYR IV ONE (08:37)
[2017-05-07] MEDS ORDERED: LACTATED RINGER'S 1000 ML INJ 1,000 ML IV ONE (08:38)
[2017-05-07] MEDS ORDERED: ONDANSETRON HCL 4 MG/2 ML VIAL IV PUSH ONE (08:38)
[2017-05-07] MEDS ORDERED: PHENYLEPH/NS 1000 MCG/10 ML SYR IV ONE (08:38)
[2017-05-07] MEDS: amLODIPine BESYLATE 5 MG TAB PO SCH (09:00)
[2017-05-07] MEDS: ZINC OXIDE 20% OINT 30 GM TUBE TOPICAL SCH (09:00)
[2017-05-07] MEDS: SODIUM CHLORIDE 0.9% FLUSH 10 ML FLUSH IV FLUSH SCH (09:00)
[2017-05-07] MEDS: PRAVASTATIN SOD 20 MG TAB PO SCH (09:00)
[2017-05-07] MEDS: VITAMIN B COMPLEX/VIT C TAB PO SCH (09:06)
[2017-05-07] MEDS: MULTIVITAMINS/MINERALS THERAPEUTIC TAB PO SCH (09:06)
[2017-05-07] MEDS: FAMOTIDINE 20 MG TAB PO SCH ×2 (09:06→21:30)
[2017-05-07] MEDS: DOCUSATE SODIUM 50 MG/SENNA 8.6 MG TAB PO SCH ×2 (09:06→21:00)
[2017-05-07] MEDS: CHOLECALCIFEROL (VIT D3) 5000 UNIT CAP PO SCH (09:06)
[2017-05-07] MEDS: LACTOBACILLUS ACIDOPHILUS TAB PO SCH ×2 (09:06→21:26)
[2017-05-07] MEDS: DILTIAZEM-CD 180 MG CAP ER PO SCH (09:06)
[2017-05-07] MEDS: FOLIC ACID 1 MG TAB PO SCH (09:06)
--- NOTE | 2017-05-07 09:31 | HHI.HP ---
HPI Service [facility] Hospitalists Primary Care Physician No Primary Care Physician Admission Diagnosis Diagnoses: Chief Complaint: Pseudomonas wound infection. Travel History International Travel<30 Days: No Contact w/Intl Traveler <30 Da: No Traveled to Known Affected Are: No History of Present Illness 77 Y/O male with a medical history significant for atrial fibrillation, HTN, CAD s/p CABG admitted back to the hospital for thoracolumbar wound infection. The patient was receiving comprehensive rehabilitation at [facility]. He was initially admitted to [facility] after sustaining lumbar compression fractures from a fall. He underwent open reduction of L1 fracture, T11-L3 posterolateral fusion with autologous iliac crest bone graft. T11 - L3 fixation. His surgical wound appear to be infected. Neurosurgery reconsulted on the patient and recommended readmission to the hospital for debridement and IV antibiotics. Patient was seen by infectious disease. He is seen in his room. States he is doing okay except for significant back pain. No fevers or chills. Review of Systems Constitutional: DENIES: Fever, Chills Cardiovascular: DENIES: Chest pain, Palpitations Gastrointestinal: DENIES: Abdominal pain Musculoskeletal: COMPLAINS OF: Joint pain, Back pain Except as stated in HPI: all other systems reviewed are Neg Past Family Social History Past Medical History Atrial fibrillation HTN CAD s/p CABG Past Surgical History CABG ORIF L1, T11-L3 Fixation and fusion Reported Medications Reported Meds & Active Scripts Active Zosyn Inj (Piperacillin Sod/Tazobactam Sod) 4.5 Gm Inj 4.5 Gm IV Q6HR 1 Days Zinc Oxide (Zinc Oxide (Topical)) 20 % Oin 1 Applic TOPICAL DAILY 1 Days Coumadin (Warfarin) 2 Mg Tab 2 Mg PO DAILY@1600 1 Days Total B/C (Vitamin B Complex/Vit C) 1 Tab Tab 1 Tab PO DAILY 1 Days Senna Plus 8.6-50 mg (Sennosides-Docusate Sodium) 1 Tab Tab 1 Tab PO BID 1 Days Pravachol (Pravastatin) 20 Mg Tab 20 Mg PO DAILY 1 Days Thera M Plus (Multivitamins/Minerals Therapeutic) 1 Tab 1 Tab PO DAILY 1 Days Mirtazapine 15 Mg Tab 15 Mg PO HS 1 Days Magnesium Oxide 241.3 Mg Tab 400 Mg PO DAILY@11 1 Days Acidophilus/l-Sporogenes (Lactobacillus Acidophilus) 1 Tab Tab 1 Tab PO Q12HR 1 Days Hydrocodone-Acetaminophen 10-325 mg Tab 1 Tab PO Q4H PRN Folic Acid 1 Mg Tablet 1 Mg PO DAILY 1 Days Famotidine 20 Mg Tab 20 Mg PO BID 1 Days Cardizem CD 24 HR (Diltiazem CD 24 HR) 180 Mg Caper 180 Mg PO DAILY 1 Days Vitamin D3 (Cholecalciferol) 5,000 Unit Cap 5,000 Units PO DAILY 1 Days Norvasc (Amlodipine Besylate) 5 Mg Tab 5 Mg PO DAILY 1 Days Eq Acetaminophen (Acetaminophen) 325 Mg Tab 650 Mg PO Q4H PRN 1 Days Lovenox Inj (Enoxaparin Sodium) 40 Mg/0.4 Ml Syr 40 Mg SQ Q24H Senna Plus 8.6-50 mg (Sennosides-Docusate Sodium) 1 Tab Tab 1 Tab PO BID Hydrocodone-Acetaminophen 5-325 mg Tab 1 Tab PO Q4H Reported Sennosides 8.6 Mg Tab 17.2 Mg PO Q12HR PRN Metronidazole in NaCl Inj 500 Mg/100 Ml Bag 500 Mg IV Q8HR Ceftazidime Inj (Ceftazidime/Dextrose) 2 Gm/50 Ml Bagp 2 Gm IV Q8H Vancomycin Inj (Vancomycin HCl) 1,000 Mg Inj 1,000 Mg IV Q12HR Marinol (Dronabinol) 2.5 Mg Cap 2.5 Mg PO BIDAC Coumadin (Warfarin) 2.5 Mg Tab 2.5 Mg PO DAILY@1600 [Black [place] Tabs] 1,000 Mg PO DAILY K-Tab (Potassium Chloride) 20 Meq Tab 20 Meq PO BID Allergies: Coded Allergies: No Known Allergies (Verified , 12/05/15) Family History Patient was adopted. Social History No alcohol or tobacco use. Patient lives with his . Physical Exam Vital Signs Vital Signs Date Time Temp Pulse Resp B/P Pulse Ox O2 Delivery O2 Flow Rate FiO2 05/07/17 08:11 97.1 75 20 104/70 95 05/07/17 04:00 98.0 72 18 109/70 95 05/07/17 04:00 98.0 72 18 109/70 95 05/07/17 01:37 18 05/07/17 01:00 80 18 125/76 98 05/06/17 20:00 96.6 79 20 111/69 98 Physical Exam GENERAL: Elderly and frail male. Significant back discomfort with movement in the bed. SKIN: Paraspinal incisions dehiscence noted HEAD: Atraumatic. Normocephalic. No temporal or scalp tenderness. EYES: Pupils equal round and reactive. Extraocular motions intact. No scleral icterus. No injection or drainage. ENT: Nose without bleeding, purulent drainage or septal hematoma. Throat without erythema, tonsillar hypertrophy or exudate. Uvula midline. Airway patent. NECK: Trachea midline. No JVD or lymphadenopathy. Supple, nontender, no meningeal signs. CARDIOVASCULAR: Regular rate and rhythm without murmurs, gallops, or rubs. RESPIRATORY: Clear to auscultation. Breath sounds equal bilaterally. No wheezes , rales, or rhonchi. GASTROINTESTINAL: Abdomen soft, non-tender, nondistended. No hepato-splenomegaly , or palpable masses. No guarding. MUSCULOSKELETAL: Extremities without clubbing, cyanosis, or edema. No joint tenderness, effusion, or edema noted. No calf tenderness. Negative Homans sign bilaterally. NEUROLOGICAL: Awake and alert. Normal speech. Generalized weakness. Assessment and Plan Assessment and Plan 77 Y/O male Status post L1 Open reduction, T11-L3 internal fixation and fusion by Dr. Lieberman on 04/16/17. Surgical wound infection. MRI negative for epidural abscess. Possible superficial fluid collection. - Wound culture grew pseudomonas and group D enterococcus. - Neurosurgery planning for washout today. - ID was following. Reconsult. Continue Zosyn. Atrial fibrillation: Permanent. Rate controlled - Continue oral Cardizem - Continue Coumadin post op once cleared by surgery HTN: Controlled -Continue Amlodipine Bowel incontinence: Neurogenic - Bowel regimen. DVT PPx: On Coumadin. SCDs Discussed Condition With Patient and his family at bedside. Physician Certification 2 Midnight Certification Type: Admission for Inpatient Services Order for Inpatient Services The services are ordered in accordance with Medicare regulations or non- Medicare payer requirements, as applicable. In the case of services not specified as inpatient-only, they are appropriately provided as inpatient services in accordance with the 2-midnight benchmark. Estimated LOS (days): 5 days is the estimated time the patient will need to remain in the hospital, assuming treatment plan goals are met and no additional complications. Post-Hospital Plan: Not yet determined Desire Moore MD May 07, 2017 09:31
[2017-05-07] MEDS: MAGNESIUM OXIDE 400 MG TAB PO SCH (10:30)
[2017-05-07] MEDS: DRONABINOL 2.5 MG CAP PO SCH ×2 (10:31→21:31)
[2017-05-07] MEDS ORDERED: MIDAZOLAM HCL 2 MG/2 ML VIAL ONE (10:58)
[2017-05-07] MEDS ORDERED: ceFAZolin INJ 1,000 MG VIAL IV ONE (11:01)
[2017-05-07] MEDS ORDERED: VANCOMYCIN HCL 1000 MG VIAL OTHER ONE (11:05)
[2017-05-07] MEDS ORDERED: THROMBIN (TOPICAL) 5,000 UNIT VIAL ONE (12:00)
[2017-05-07] MEDS ORDERED: GELFOAM SIZE 100 OTHER ONE (12:00)
[2017-05-07] MEDS ORDERED: GENTAMICIN SULFATE 80 MG/2 ML VIAL IRRIGATION ONE (12:00)
[2017-05-07] MEDS ORDERED: DO NOT ADM ANY ANTICOAGULANT DRUGS PRN (12:30)
[2017-05-07] MEDS ORDERED: KETAMINE HCL 500 MG/5 ML VIAL ONE (12:42)
[2017-05-07] MEDS ORDERED: SODIUM CHLORIDE 0.9% FLUSH 5 ML FLUSH IVF PRN (13:45)
[2017-05-07] MEDS: SODIUM CHLORIDE 0.9% FLUSH 5 ML FLUSH IVF SCH ×2 (14:00→21:28)
[2017-05-07] MEDS: MORPHINE SULFATE 4 MG/ML INJ IV PUSH PRN ×2 (15:56→21:28)
[2017-05-07 16:14] LABS: INTERNATIONAL NORMALIZED RATIO 1.8 RATIO; PROTHROMBIN TIME - PATIENT 20.4 SEC (9.8-11.6)
[2017-05-07 16:15] LABS: AUTOMATED NEUTROPHIL # 5.7 TH/MM3 (1.8-7.7); BASOPHIL % 0.4 % (0.0-2.0); EOSINOPHIL # 0.5 TH/MM3 (0-0.4); EOSINOPHIL % 6.5 % (0.0-4.0); HEMATOCRIT 32.3 % (39.0-51.0); HEMO FLAGS DIFF FINAL; LYMPH % 13.7 % (9.0-44.0); LYMPHOCYTE # 1.1 TH/MM3 (1.0-4.8); MEAN CELL VOLUME 93.6 FL (80.0-100.0); MEAN CORPUSCULAR HEMOGLOBIN 31.4 PG (27.0-34.0); MEAN CORPUSCULAR HGB CONC 33.6 % (32.0-36.0); MONO % 11.2 % (0.0-8.0); NEUT % 68.2 % (16.0-70.0); PLATELET COUNT 452 TH/MM3 (150-450); RED BLOOD COUNT 3.45 MIL/MM3 (4.50-5.90); RED CELL DISTRIBUTION WIDTH 13.3 % (11.6-17.2); WHITE BLOOD COUNT 8.3 TH/MM3 (4.0-11.0)
[2017-05-07 16:19] LABS: ALT (GPT) 26 U/L (12-78); ANION GAP 9 MEQ/L (5-15); AST (GOT) 58 U/L (15-37); BICARBONATE 26.4 MEQ/L (21.0-32.0); BLOOD UREA NITROGEN 4 MG/DL (7-18); CHLORIDE 102 MEQ/L (98-107); GLOMERULAR FILTRATION RATE 165 ML/MIN (>89); POTASSIUM 3.2 MEQ/L (3.5-5.1); SODIUM (NA) 137 MEQ/L (136-145)
[2017-05-07 16:21] LABS: ALKALINE PHOSPHATASE 575 U/L (45-117); TOTAL BILIRUBIN ADULT 1.3 MG/DL (0.2-1.0)
--- NOTE | 2017-05-07 16:21 | HHI.IDPN ---
Subjective Subjective Remarks Patient is a 77-year-old male, who has had problem with chronic back pain, he fell and had worsening back pain and presented to the hospital on April 14, 2017. He was found to have some chronic compression fracture, and a more subacute fracture and L5 with severe loss of vertebral body height. Neurosurgery saw the patient, and he underwent open reduction of L1 burst fracture, T11 to L3 posterolateral fusion using an iliac crest bone graft, instrumentation fixation with screws and rods, and microsurgical dissection. He had an unremarkable postoperative course, and was transferred to [facility] inpatient rehabilitation one April 20. Patient has been progressing with his physical therapy. His main complain is pain along his surgical incision whenever he wears his brace which is usually when his doing physical therapy, upright, doing transfers and any kind of ambulation. About several days ago, he was noted to have some drainage from his wound. Cultures were obtained from the wound and it is growing enterococcus and Pseudomonas. Patient has not had any fever. He has no GI or urinary complaints. Patient was initially seen May 06 for evaluation due to positive wound culture with Pseudomonas and enterococcus. He had an MRI of the lumbar spine which showed a small fluid collection in the soft tissue posterior to the right L2 screw. I started him on IV Zosyn yesterday. The neurosurgery decided to admit the patient to the hospital today and the patient underwent debridement of the wound. The operative note is not available for review at this time. Patient is being seen postoperatively, and he is complaining of pain at the surgical site. He has not had any fever or chills or sweats. Review of Systems: Constitutional: Denies fever, chills or night sweats Eyes, Ears, Nose, Mouth, Throat: No eye pain, no ear pain. Denies nasal discharge, oral lesions. No sore throat. No sinus pain. Respiratory: Denies cough or shortness of breath Cardiovascular: Has some dyspnea on exertion. Denies chest pain or palpitation. Gastrointestinal: Denies abdominal pain, diarrhea, nausea or vomiting. Denies difficulty swallowing Genitourinary: No dysuria or hematuria. Musculoskeletal: Complains of back pain. No joint pain or swelling or neck pain. INtegumentary: No rash or itching Neurologic: Denies any headache or paresthesia Psychiatric: No hallucination Antibiotics Ancef Vancomycin Zosyn Lines Peripheral IV Past Medical History Hypertension Atrial fibrillation Hyperlipidemia Past Surgical History Tonsillectomy Cyst of left shoulder Social History: Ex-smoker quit years ago No recent alcohol use No illicit drugs Family History: Non contributory to currend ID problem Allergies: Coded Allergies: No Known Allergies (Verified , 12/05/15) Objective . Vital Signs Date Time Temp Pulse Resp B/P Pulse Ox O2 Delivery O2 Flow Rate FiO2 05/07/17 15:31 99 Nasal Cannula 4.00 05/07/17 14:00 97.4 78 16 112/64 100 Nasal Cannula 2 05/07/17 13:45 78 16 112/64 100 Nasal Cannula 2 05/07/17 13:30 65 16 126/62 100 Nasal Cannula 2 05/07/17 13:15 66 16 122/76 100 Nasal Cannula 2 05/07/17 13:00 77 16 131/76 99 Nasal Cannula 2 05/07/17 12:45 79 16 148/75 98 Nasal Cannula 2 05/07/17 12:34 97.7 89 16 135/80 97 Nasal Cannula 2 05/07/17 11:43 69 05/07/17 08:11 97.1 75 20 104/70 95 05/07/17 04:00 98.0 72 18 109/70 95 05/07/17 04:00 98.0 72 18 109/70 95 05/07/17 01:37 18 05/07/17 01:00 80 18 125/76 98 05/06/17 20:00 96.6 79 20 111/69 98 05/06/17 05/06/17 05/07/17 15:00 23:00 07:00 Output Total 800 ml Balance -800 ml Output Urine Total 800 ml . Microbiology Date/Time Procedure Status Source Growth 05/07/17 12:00 Gram Stain Received Wound Other Pending 05/07/17 12:00 Wound Culture Received Wound Other Pending 05/07/17 12:00 Fungal Smear Received Wound Other Pending 05/07/17 12:00 Fungal Culture Received Wound Other Pending 05/07/17 12:00 Gram Stain Received Wound Other Pending 05/07/17 12:00 Wound Culture Received Wound Other Pending 05/07/17 12:00 Fungal Smear Received Wound Other Pending 05/07/17 12:00 Fungal Culture Received Wound Other Pending Imaging Imaging studies done during his stay in [facility] has been reviewed Physical Exam GENERAL: Patient is a well-nourished, well-developed CM, awake and alert, not in respiratory distress. Complaining of pain in his back. SKIN: Warm and dry. No generalized rash, no ecchymoses and no evidence of embolic lesions. HEAD: Atraumatic. Normocephalic. No temporal wasting, or tenderness. EYES: [place] conjunctiva. No petechia or hemorrhage. Pupils equal, round and reactive to light. Extraocular movements full and intact. No scleral icterus. No injection or drainage. EARS, NOSE AND THROAT: Nose without bleeding or purulent nasal discharge. No sinus tenderness. Mucous membranes pink and moist. No oral lesions noted. No exudate. No oral thrush. NECK: Trachea midline. Supple and not tender, no meningeal signs CARDIOVASCULAR: Regular rate and rhythm. No murmurs, rubs or gallops heard RESPIRATORY: Clear to auscultation. Breath sounds equal bilaterally. No rales , wheezing or rhonchi ABDOMEN: Soft, non-tender, nondistended. Bowel sounds present and normoactive. No guarding. No rebound. No organomegaly. EXTREMITIES: No clubbing, cyanosis, or edema. No joint effusion, has good ROM. No calf tenderness. Well perfused and warm. BACK: Has an intact dry dressing to his wound attached to vac dressing. NEUROLOGICAL: Awake and alert. Cranial nerves grossly intact. Motor grossly within normal limits. PSYCHIATRIC: Normal affect, calm and cooperative. LINE: No evidence of infection. Assessment & Plan Remarks IMPRESSION Lumbar wound infection, S/P laminectomy, C/S with PSAE and Enterococcus - has fluid collection in soft tissue, no deeper infection seen on MRI - S/P wound debridement Has multiple compression fractures in L spine, with chronic back pain RECOMMENDATION Get baseline ESR and CRP Continue Zosyn - will cover PSAE and Enterococcus Patient also on Vanco and Ancef - periop prophylaxis Follow new C/S Will determine course of Abx once work-up completed and after discussion with neurosurgery Will likely need longer course of Abx because of proximity of fluid collection to one of the screws Monitor progress I will follow along with you Explained plan to he patient and Mraia G Nuno MD May 07, 2017 16:21
[2017-05-07] MEDS: MIRTAZAPINE 15 MG TAB PO SCH (21:27)
[2017-05-07] MEDS: ceFAZolin 2 GM PREMIX 50 ML IV SCH (21:30)
[2017-05-07] MEDS ORDERED: POTASSIUM CHLORIDE 25 MEQ EFFERVESCENT TAB PO ONE (23:00)
[2017-05-08] VITALS (11 sets, daily range): BP systolic 100–130; BP diastolic 64–73; PULSE 57–83; RESP 16–22; TEMP 95.8–97.5; O2SAT 93–97
[2017-05-08 00:39] LABS: MAGNESIUM 1.5 MG/DL (1.5-2.5); POTASSIUM 3.1 MEQ/L (3.5-5.1)
--- NOTE | 2017-05-08 00:57 | HHI.PR ---
Addendum to Inpatient Note Addendum Reason: Additional Documentation Additional Information At 2250, Mr. Gibson had a 10 beat run of V. tach that was completely asymptomatic with stable vital signs. Hypokalemia was noted on a.m. labs at 3.2 , by mouth potassium 50 mEq was ordered. Potassium was rechecked and resulted at 3.1, will also add IV replacement. Troponin I was negative at less than 0.02. Magnesium was on the low end of normal at 1.5 and will order IV replacement. . Tanesha Richey May 08, 2017 00:57
[2017-05-08] MEDS ORDERED: MAGNESIUM SULFATE 1 GM PREMIX 100 ML IV ONE (01:00)
[2017-05-08] MEDS: POTASSIUM CHLOR 10 MEQ PREMIX 100 ML IV SCH ×3 (02:28→08:00)
[2017-05-08] MEDS: PIPERACIL-TAZO 4.5 GM PREMIX 100 ML IV SCH ×4 (02:28→20:52)
[2017-05-08] MEDS: ACETAMINOPHEN/HYDROcodone 325 MG/10 MG TAB PO PRN ×4 (03:41→20:52)
[2017-05-08] MEDS: ceFAZolin 2 GM PREMIX 50 ML IV SCH ×2 (04:30→12:23)
[2017-05-08] MEDS: SODIUM CHLORIDE 0.9% FLUSH 5 ML FLUSH IVF SCH ×2 (09:00→20:52)
[2017-05-08] MEDS: amLODIPine BESYLATE 5 MG TAB PO SCH (09:00)
[2017-05-08] MEDS: ZINC OXIDE 20% OINT 30 GM TUBE TOPICAL SCH (09:28)
[2017-05-08] MEDS: LACTOBACILLUS ACIDOPHILUS TAB PO SCH ×2 (09:28→20:53)
[2017-05-08] MEDS: FOLIC ACID 1 MG TAB PO SCH (09:29)
[2017-05-08] MEDS: CHOLECALCIFEROL (VIT D3) 5000 UNIT CAP PO SCH (09:30)
[2017-05-08] MEDS: DOCUSATE SODIUM 50 MG/SENNA 8.6 MG TAB PO SCH ×2 (09:30→20:52)
[2017-05-08] MEDS: DILTIAZEM-CD 180 MG CAP ER PO SCH (09:30)
[2017-05-08] MEDS: PRAVASTATIN SOD 20 MG TAB PO SCH (09:30)
[2017-05-08] MEDS: VITAMIN B COMPLEX/VIT C TAB PO SCH (09:30)
[2017-05-08] MEDS: MULTIVITAMINS/MINERALS THERAPEUTIC TAB PO SCH (09:31)
[2017-05-08] MEDS: FAMOTIDINE 20 MG TAB PO SCH ×2 (09:31→20:52)
[2017-05-08 10:50] LABS: HEMATOCRIT 34.7 % (39.0-51.0); MEAN CELL VOLUME 93.7 FL (80.0-100.0); MEAN CORPUSCULAR HEMOGLOBIN 30.5 PG (27.0-34.0); MEAN CORPUSCULAR HGB CONC 32.6 % (32.0-36.0); PLATELET COUNT 443 TH/MM3 (150-450); RED CELL DISTRIBUTION WIDTH 13.1 % (11.6-17.2); REVIEW FLAG FINAL; WHITE BLOOD COUNT 6.9 TH/MM3 (4.0-11.0)
[2017-05-08 10:52] LABS: INTERNATIONAL NORMALIZED RATIO 1.6 RATIO; PROTHROMBIN TIME - PATIENT 18.2 SEC (9.8-11.6)
[2017-05-08] MEDS: MAGNESIUM OXIDE 400 MG TAB PO SCH (11:00)
[2017-05-08 11:15] LABS: BICARBONATE 28.7 MEQ/L (21.0-32.0)
--- NOTE | 2017-05-08 11:23 | HHI.PR ---
Subjective Remarks Patient reports he is feeling better today. He is eating better and his pain is better controlled. He wants clearance from neurosurgery before starting PT. Objective Vitals Vital Signs Date Time Temp Pulse Resp B/P Pulse Ox O2 Delivery O2 Flow Rate FiO2 05/08/17 11:06 93 21 05/08/17 09:01 95.8 67 16 113/73 94 05/08/17 04:00 97.0 65 22 115/65 94 05/08/17 03:45 83 05/08/17 00:07 18 05/08/17 00:00 97.0 80 20 111/66 95 05/07/17 21:06 96.7 71 20 112/70 95 05/07/17 19:19 99 Nasal Cannula 2.00 05/07/17 16:54 95.8 68 20 106/68 99 05/07/17 15:31 99 Nasal Cannula 4.00 05/07/17 14:00 97.4 78 16 112/64 100 Nasal Cannula 2 05/07/17 13:45 78 16 112/64 100 Nasal Cannula 2 05/07/17 13:30 65 16 126/62 100 Nasal Cannula 2 05/07/17 13:15 66 16 122/76 100 Nasal Cannula 2 05/07/17 13:00 77 16 131/76 99 Nasal Cannula 2 05/07/17 12:45 79 16 148/75 98 Nasal Cannula 2 05/07/17 12:34 97.7 89 16 135/80 97 Nasal Cannula 2 05/07/17 11:43 69 I/O 05/07/17 05/07/17 05/07/17 05/08/17 05/08/17 05/08/17 07:00 15:00 23:00 07:00 15:00 23:00 Intake Total 1000 ml 220 ml Output Total 800 ml 575 ml 500 ml 450 ml Balance -800 ml 425 ml -500 ml -230 ml Intake Oral 220 ml IV Total 100 ml Other 900 ml Output Urine Total 800 ml 175 ml 500 ml 450 ml Other 400 ml # Bowel Movements 1 0 Result Diagram: 05/08/1752 05/08/17951 Objective Remarks GENERAL: Elderly male in no acute distress. SKIN: Back postsurgical dressing appear intact. CARDIOVASCULAR: Regular rate and rhythm without murmurs, gallops, or rubs. RESPIRATORY: Clear to auscultation. Breath sounds equal bilaterally. No wheezes , rales, or rhonchi. GASTROINTESTINAL: Abdomen soft, non-tender, nondistended. No hepato-splenomegaly , or palpable masses. No guarding. MUSCULOSKELETAL: Extremities without clubbing, cyanosis, or edema. NEUROLOGICAL: Awake and alert. Normal speech. Generalized weakness. A/P Assessment and Plan 77 Y/O male Status post L1 Open reduction, T11-L3 internal fixation and fusion by Dr. Lieberman on 04/16/17. Patient readmitted for Surgical wound infection. MRI negative for epidural abscess. - Wound culture grew pseudomonas and group D enterococcus. - Patient is status post wound debridement by Neurosurgery on 05/07/17 - ID following. Continue Zosyn. Atrial fibrillation: Permanent. Rate controlled - Continue oral Cardizem - Plan to resume Coumadin tomorrow if no objection from Surgery HTN: Controlled -Continue Amlodipine Bowel incontinence: Neurogenic - Bowel regimen. DVT PPx: On Coumadin. SCDs Desire Moore MD May 08, 2017 11:23
[2017-05-08] MEDS: MORPHINE SULFATE 4 MG/ML INJ IV PUSH PRN (15:10)
--- NOTE | 2017-05-08 15:35 | HHI.NSPN ---
History Chief Complaint: back pain Interval History 77-year-old male previously presented to [facility] by 11/03/17 with progressive back pain. Found to have L1 fracture for which he underwent ORIF per Dr. Lieberman Subsequently discharged to [facility] 04/20/17. More recently readmitted due to drainage from the wound site, and her crock as an Pseudomonas and initial cultures. 05/07/17 underwent debridement of the wound overlying the L2 screw. Exam Results Vital Signs Date Time Temp Pulse Resp B/P Pulse Ox O2 Delivery O2 Flow Rate FiO2 05/08/17 12:53 95.9 65 16 104/64 95 05/08/17 11:06 21 05/07/17 19:19 Nasal Cannula 2.00 Intake and Output 05/07/17 05/07/17 05/08/17 08:00 16:00 00:00 Intake Total 1000 ml Output Total 800 ml 1075 ml Balance -800 ml -75 ml Physical Examination Extremities sensation to light touch and motor strength intact. Lumbar wound dressing dry and intact Lab, Micro, Other Results Microbiology Date/Time Procedure Status Source Growth 05/07/17 12:00 Gram Stain - Final Resulted Wound Other 05/07/17 12:00 Wound Culture - Preliminary Resulted Wound Other NO GROWTH IN 24 HOURS. 05/07/17 12:00 Fungal Smear - Final Resulted Wound Other NO FUNGAL ELEMENTS SEEN. 05/07/17 12:00 Fungal Culture Resulted Wound Other Pending 05/07/17 12:00 Gram Stain - Final Resulted Wound Other 05/07/17 12:00 Wound Culture - Preliminary Resulted Pseudomonas Species 05/07/17 12:00 Fungal Smear - Final Resulted Wound Other NO FUNGAL ELEMENTS SEEN. 05/07/17 12:00 Fungal Culture Resulted Wound Other Pending Medical Decision Making Impression and Plan Impression: 1. Neurologic exam stable following debridement wound site overlying the L2 pedicle screw. Initial follow-up cultures 05/07/17 no growth to date Plan: Discussed with the patient Continuing regular dressing changes. Patient advised to stay off of his back as much as possible Mobilized out of bed with brace Infectious disease following Bear Daniel MD May 08, 2017 15:35
[2017-05-08] MEDS: DRONABINOL 2.5 MG CAP PO SCH (16:00)
[2017-05-08] MEDS: MIRTAZAPINE 15 MG TAB PO SCH (20:53)
[2017-05-09] VITALS (9 sets, daily range): BP systolic 117–145; BP diastolic 67–83; PULSE 68–100; RESP 16–18; TEMP 97.3–98.6; O2SAT 93–99
[2017-05-09] MEDS: PIPERACIL-TAZO 4.5 GM PREMIX 100 ML IV SCH ×4 (03:00→21:42)
[2017-05-09] MEDS: DRONABINOL 2.5 MG CAP PO SCH ×2 (06:09→16:00)
[2017-05-09] MEDS: FAMOTIDINE 20 MG TAB PO SCH ×2 (08:19→21:43)
[2017-05-09] MEDS: LACTOBACILLUS ACIDOPHILUS TAB PO SCH ×2 (08:19→21:43)
[2017-05-09] MEDS: DILTIAZEM-CD 180 MG CAP ER PO SCH (08:20)
[2017-05-09] MEDS: FOLIC ACID 1 MG TAB PO SCH (08:21)
[2017-05-09] MEDS: CHOLECALCIFEROL (VIT D3) 5000 UNIT CAP PO SCH (08:22)
[2017-05-09] MEDS: DOCUSATE SODIUM 50 MG/SENNA 8.6 MG TAB PO SCH ×2 (08:23→21:43)
[2017-05-09] MEDS: PRAVASTATIN SOD 20 MG TAB PO SCH (08:23)
[2017-05-09] MEDS: MULTIVITAMINS/MINERALS THERAPEUTIC TAB PO SCH (08:23)
[2017-05-09] MEDS: VITAMIN B COMPLEX/VIT C TAB PO SCH (08:23)
[2017-05-09] MEDS: SODIUM CHLORIDE 0.9% FLUSH 5 ML FLUSH IVF SCH ×2 (08:24→21:00)
[2017-05-09] MEDS: ZINC OXIDE 20% OINT 30 GM TUBE TOPICAL SCH (08:30)
[2017-05-09] MEDS: amLODIPine BESYLATE 5 MG TAB PO SCH (08:30)
--- NOTE | 2017-05-09 09:03 | HHI.PR ---
Subjective Remarks Patient reports is feeling better. Pain is controlled. He worked with physical therapy yesterday. He is eating well. Objective Vitals Vital Signs Date Time Temp Pulse Resp B/P Pulse Ox O2 Delivery O2 Flow Rate FiO2 05/09/17 08:00 97.4 68 16 122/70 93 05/09/17 04:00 97.7 75 18 132/67 96 05/09/17 00:30 97.5 100 18 145/75 96 05/08/17 21:15 97.5 79 19 130/70 97 05/08/17 21:06 96 21 05/08/17 19:00 80 05/08/17 17:43 57 05/08/17 16:18 97.0 62 16 100/67 97 05/08/17 12:53 95.9 65 16 104/64 95 05/08/17 11:06 93 21 I/O 05/08/17 05/08/17 05/08/17 05/09/17 05/09/17 05/09/17 07:00 15:00 23:00 07:00 15:00 23:00 Intake Total 220 ml 1036 ml 975 ml Output Total 450 ml 900 ml 550 ml Balance -230 ml 136 ml 425 ml Intake Oral 220 ml 1036 ml 975 ml Output Urine Total 450 ml 900 ml 550 ml # Bowel Movements 0 0 0 Result Diagram: 05/08/17 0952 05/08/17 0952 Objective Remarks GENERAL: Elderly male in no acute distress. SKIN: Back postsurgical dressing appear intact. CARDIOVASCULAR: Regular rate and rhythm without murmurs, gallops, or rubs. RESPIRATORY: Clear to auscultation. Breath sounds equal bilaterally. No wheezes , rales, or rhonchi. GASTROINTESTINAL: Abdomen soft, non-tender, nondistended. No hepato-splenomegaly , or palpable masses. No guarding. MUSCULOSKELETAL: Extremities without clubbing, cyanosis, or edema. NEUROLOGICAL: Awake and alert. Normal speech. Generalized weakness. A/P Assessment and Plan 77 Y/O male Status post L1 Open reduction, T11-L3 internal fixation and fusion by Dr. Lieberman on 04/16/17. Patient readmitted for Surgical wound infection. MRI negative for epidural abscess. - Wound culture grew pseudomonas and group D enterococcus. - Patient is status post wound debridement by Neurosurgery on 6/16/17 - ID following. Continue Zosyn. Further plans per infectious disease regarding long-term antibiotics. Atrial fibrillation: Permanent. Rate controlled - Continue oral Cardizem - Resume Coumadin. Follow INR HTN: Controlled -Continue Amlodipine Bowel incontinence: Neurogenic - Bowel regimen. DVT PPx: On Coumadin. Desire Hall MD May 09, 2017 09:03
[2017-05-09 09:21] LABS: HEMATOCRIT 34.5 % (39.0-51.0); MEAN CELL VOLUME 92.2 FL (80.0-100.0); MEAN CORPUSCULAR HEMOGLOBIN 31.3 PG (27.0-34.0); PLATELET COUNT 409 TH/MM3 (150-450); RED BLOOD COUNT 3.74 MIL/MM3 (4.50-5.90); RED CELL DISTRIBUTION WIDTH 13.2 % (11.6-17.2); REVIEW FLAG FINAL; WHITE BLOOD COUNT 6.9 TH/MM3 (4.0-11.0)
[2017-05-09 09:29] LABS: INTERNATIONAL NORMALIZED RATIO 1.7 RATIO; PROTHROMBIN TIME - PATIENT 19.4 SEC (9.8-11.6)
[2017-05-09 09:51] LABS: BICARBONATE 25.6 MEQ/L (21.0-32.0); POTASSIUM 3.6 MEQ/L (3.5-5.1)
[2017-05-09] MEDS: MAGNESIUM OXIDE 400 MG TAB PO SCH (11:00)
[2017-05-09] MEDS: WARFARIN SOD 2 MG TAB PO SCH (17:10)
[2017-05-09] MEDS: MIRTAZAPINE 15 MG TAB PO SCH (21:42)
[2017-05-09] MEDS: ACETAMINOPHEN/HYDROcodone 325 MG/10 MG TAB PO PRN (21:43)
[2017-05-10] VITALS (8 sets, daily range): BP systolic 112–151; BP diastolic 69–92; PULSE 78–96; RESP 18–20; TEMP 96.2–97.6; O2SAT 92–97
[2017-05-10] MEDS: PIPERACIL-TAZO 4.5 GM PREMIX 100 ML IV SCH ×4 (03:18→21:24)
[2017-05-10] MEDS: DRONABINOL 2.5 MG CAP PO SCH ×3 (05:45→19:34)
[2017-05-10] MEDS: FOLIC ACID 1 MG TAB PO SCH (08:36)
[2017-05-10] MEDS: LACTOBACILLUS ACIDOPHILUS TAB PO SCH ×2 (08:36→21:24)
[2017-05-10] MEDS: CHOLECALCIFEROL (VIT D3) 5000 UNIT CAP PO SCH (08:36)
[2017-05-10] MEDS: PRAVASTATIN SOD 20 MG TAB PO SCH (08:37)
[2017-05-10] MEDS: MULTIVITAMINS/MINERALS THERAPEUTIC TAB PO SCH (08:37)
[2017-05-10] MEDS: VITAMIN B COMPLEX/VIT C TAB PO SCH (08:37)
[2017-05-10] MEDS: DILTIAZEM-CD 180 MG CAP ER PO SCH (08:38)
[2017-05-10] MEDS: amLODIPine BESYLATE 5 MG TAB PO SCH (08:39)
[2017-05-10] MEDS: FAMOTIDINE 20 MG TAB PO SCH ×2 (08:40→21:24)
[2017-05-10] MEDS: SODIUM CHLORIDE 0.9% FLUSH 5 ML FLUSH IVF SCH ×2 (08:40→21:00)
[2017-05-10] MEDS: DOCUSATE SODIUM 50 MG/SENNA 8.6 MG TAB PO SCH ×2 (08:40→21:24)
[2017-05-10] MEDS: ZINC OXIDE 20% OINT 30 GM TUBE TOPICAL SCH (08:41)
[2017-05-10 09:45] LABS: HEMATOCRIT 35.9 % (39.0-51.0); MEAN CELL VOLUME 93.8 FL (80.0-100.0); MEAN CORPUSCULAR HEMOGLOBIN 30.2 PG (27.0-34.0); MEAN CORPUSCULAR HGB CONC 32.2 % (32.0-36.0); PLATELET COUNT 385 TH/MM3 (150-450); RED BLOOD COUNT 3.83 MIL/MM3 (4.50-5.90); RED CELL DISTRIBUTION WIDTH 13.2 % (11.6-17.2); REVIEW FLAG FINAL; WHITE BLOOD COUNT 6.8 TH/MM3 (4.0-11.0)
[2017-05-10 09:51] LABS: INTERNATIONAL NORMALIZED RATIO 1.8 RATIO; PROTHROMBIN TIME - PATIENT 20.7 SEC (9.8-11.6)
[2017-05-10 10:09] LABS: BICARBONATE 26.1 MEQ/L (21.0-32.0); POTASSIUM 3.4 MEQ/L (3.5-5.1)
[2017-05-10] MEDS: MAGNESIUM OXIDE 400 MG TAB PO SCH (11:00)
--- NOTE | 2017-05-10 14:22 | HHI.PR ---
Subjective Remarks Patient reports he is feeling ok today. Pain is controlled. Wondering when he can go back to rehab. Objective Vitals Vital Signs Date Time Temp Pulse Resp B/P Pulse Ox O2 Delivery O2 Flow Rate FiO2 05/10/17 12:37 96.2 96 18 112/69 95 05/10/17 09:55 93 21 05/10/17 08:39 96.7 94 18 151/92 96 05/10/17 04:00 97.6 86 18 139/72 96 05/09/17 20:00 98.6 95 18 117/79 99 05/09/17 19:00 82 05/09/17 16:00 98.4 84 16 122/83 93 I/O 05/09/17 05/09/17 05/09/17 05/10/17 05/10/17 05/10/17 07:00 15:00 23:00 07:00 15:00 23:00 Intake Total 975 ml 700 ml 240 ml 340 ml Output Total 550 ml 1275 ml 200 ml 100 ml Balance 425 ml -575 ml 40 ml 240 ml Intake Oral 975 ml 700 ml 240 ml 340 ml Output Urine Total 550 ml 1275 ml 200 ml 100 ml # Bowel Movements 0 Result Diagram: 05/10/1790505/10/17905 Objective Remarks GENERAL: Elderly male in no acute distress. SKIN: Back postsurgical dressing appear intact. CARDIOVASCULAR: Regular rate and rhythm without murmurs, gallops, or rubs. RESPIRATORY: Clear to auscultation. Breath sounds equal bilaterally. No wheezes , rales, or rhonchi. GASTROINTESTINAL: Abdomen soft, non-tender, nondistended. No hepato-splenomegaly , or palpable masses. No guarding. MUSCULOSKELETAL: Extremities without clubbing, cyanosis, or edema. NEUROLOGICAL: Awake and alert. Normal speech. Generalized weakness. A/P Assessment and Plan 77 Y/O male Status post L1 Open reduction, T11-L3 internal fixation and fusion by Dr. Lieberman on 04/16/17. Patient readmitted for Surgical wound infection. MRI negative for epidural abscess. - Wound culture grew pseudomonas and group D enterococcus. - Patient is status post wound debridement by Neurosurgery on 05/07/17 - ID following. Continue Zosyn. DW with ID, PICC ordered for antibiotics Atrial fibrillation: Permanent. Rate controlled - Continue oral Cardizem - Continue Coumadin. Follow INR HTN: Controlled -Continue Amlodipine Bowel incontinence: Neurogenic - Bowel regimen. DVT PPx: On Coumadin. SCDs Discharge Planning Planning for DC to [facility] tomorrow. Appreciate input from Neurosurgery. Desire Moore MD May 10, 2017 14:22
[2017-05-10] MEDS: WARFARIN SOD 2 MG TAB PO SCH (15:49)
[2017-05-10] MEDS ORDERED: POTASSIUM CHLORIDE 10 MEQ CONTROLLED RELEASE TAB PO ONE (16:15)
--- NOTE | 2017-05-10 17:37 | HHI.IDPN ---
Subjective Subjective Remarks Patient is a 77-year-old male, who has had problem with chronic back pain, he fell and had worsening back pain and presented to the hospital on April 14, 2017. He was found to have some chronic compression fracture, and a more subacute fracture and L5 with severe loss of vertebral body height. Neurosurgery saw the patient, and he underwent open reduction of L1 burst fracture, T11 to L3 posterolateral fusion using an iliac crest bone graft, instrumentation fixation with screws and rods, and microsurgical dissection. He had an unremarkable postoperative course, and was transferred to [place] inpatient rehabilitation one April 20. Patient has been progressing with his physical therapy. His main complain is pain along his surgical incision whenever he wears his brace which is usually when his doing physical therapy, upright, doing transfers and any kind of ambulation. About several days ago, he was noted to have some drainage from his wound. Cultures were obtained from the wound and it is growing enterococcus and Pseudomonas. Patient has not had any fever. He has no GI or urinary complaints. Patient was initially seen May 06 for evaluation due to positive wound culture with Pseudomonas and enterococcus. He had an MRI of the lumbar spine which showed a small fluid collection in the soft tissue posterior to the right L2 screw. I started him on IV Zosyn yesterday. The neurosurgery decided to admit the patient to the hospital today and the patient underwent debridement of the wound. The operative note is not available for review at this time. Patient is being seen postoperatively, and he is complaining of pain at the surgical site. He has not had any fever or chills or sweats. Notes reviewed S/P surgery to the back Infection right where L2 screw is located OR C/S PSAE and Enterococcus ESR 38 CRP 2.8 Patient to go back to [address] Having PICC placement Antibiotics Zosyn Lines Peripheral IV Past Medical History Hypertension Atrial fibrillation Hyperlipidemia Past Surgical History Tonsillectomy Cyst of left shoulder Social History: Ex-smoker quit years ago No recent alcohol use No illicit drugs Family History: Non contributory to currend ID problem Allergies: Coded Allergies: No Known Allergies (Verified , 12/05/15) Objective . Vital Signs Date Time Temp Pulse Resp B/P Pulse Ox O2 Delivery O2 Flow Rate FiO2 05/10/17 17:19 97.1 78 20 114/72 97 05/10/17 12:37 96.2 96 18 112/69 95 05/10/17 09:55 93 21 05/10/17 08:39 96.7 94 18 151/92 96 05/10/17 04:00 97.6 86 18 139/72 96 05/09/17 20:00 98.6 95 18 117/79 99 05/09/17 19:00 82 05/09/17 05/09/17 05/10/17 15:00 23:00 07:00 Intake Total 700 ml 240 ml 340 ml Output Total 1275 ml 200 ml 100 ml Balance -575 ml 40 ml 240 ml Intake Oral 700 ml 240 ml 340 ml Output Urine Total 1275 ml 200 ml 100 ml . Laboratory Tests Test 05/09/17 05/10/17 08:09 09:06 White Blood Count 6.9 TH/MM3 6.8 TH/MM3 Red Blood Count 3.74 MIL/MM3 3.83 MIL/MM3 Hemoglobin 11.7 GM/DL 11.6 GM/DL Hematocrit 34.5 % 35.9 % Mean Corpuscular Volume 92.2 FL 93.8 FL Mean Corpuscular Hemoglobin 31.3 PG 30.2 PG Mean Corpuscular Hemoglobin 34.0 % 32.2 % Concent Red Cell Distribution Width 13.2 % 13.2 % Platelet Count 409 TH/MM3 385 TH/MM3 Mean Platelet Volume 8.6 FL 8.3 FL Laboratory Tests Test 05/09/17 05/10/17 08:09 09:06 Sodium Level 136 MEQ/L 135 MEQ/L Potassium Level 3.6 MEQ/L 3.4 MEQ/L Chloride Level 100 MEQ/L 98 MEQ/L Carbon Dioxide Level 25.6 MEQ/L 26.1 MEQ/L Anion Gap 10 MEQ/L 11 MEQ/L Blood Urea Nitrogen 6 MG/DL 7 MG/DL Creatinine 0.50 MG/DL 0.49 MG/DL Estimat Glomerular Filtration 161 ML/MIN 165 ML/MIN Rate Random Glucose 96 MG/DL 105 MG/DL Calcium Level 8.6 MG/DL 9.0 MG/DL Imaging Imaging studies done during his stay in [facility] has been reviewed Physical Exam GENERAL: awake and alert, not in respiratory distress. SKIN: Warm and dry. No generalized rash, no ecchymoses and no evidence of embolic lesions. HEENT: [place] conjunctiva. No petechia or hemorrhage. No scleral icterus. No injection or drainage. Mucous membranes pink and moist. No oral lesions noted. No exudate. No oral thrush. NECK: Trachea midline. Supple and not tender, no meningeal signs CARDIOVASCULAR: Regular rate and rhythm. No murmurs, rubs or gallops heard RESPIRATORY: Clear to auscultation. Breath sounds equal bilaterally. No rales , wheezing or rhonchi ABDOMEN: Soft, non-tender, nondistended. Bowel sounds present and normoactive. No guarding. No rebound. No organomegaly. EXTREMITIES: No clubbing, cyanosis, or edema. No joint effusion, has good ROM. No calf tenderness. Well perfused and warm. BACK: Has an intact dry dressing to his wound NEUROLOGICAL: Non-focal. PSYCHIATRIC: Normal affect, calm and cooperative. LINE: No evidence of infection. Assessment & Plan Remarks IMPRESSION Lumbar wound infection, S/P laminectomy, C/S with PSAE and Enterococcus - has fluid collection in soft tissue, no deeper infection seen on MRI - S/P wound debridement, infection right on top of his L2 screw, very worrisome that the screw could be involved Has multiple compression fractures in L spine, with chronic back pain RECOMMENDATION Continue Zosyn - will cover PSAE and Enterococcus PICC Will Rx longer 6-8 weeks - follow ESR and CRP during Rx Monitor labs weekly while on IV Abx: CBC, creat and LFT Monitor progress D/W Maria G Parham MD May 10, 2017 17:36
[2017-05-10] MEDS: ACETAMINOPHEN/HYDROcodone 325 MG/10 MG TAB PO PRN ×2 (18:04→23:20)
--- NOTE | 2017-05-10 18:34 | RADRPT ---
EXAM DATE/TIME: 05/10/2017 18:01 [facility] COMPARISON: CHEST SINGLE AP, April 14, 2017, 10:44. INDICATIONS : PICC line placement. MEDICAL HISTORY : None. SURGICAL HISTORY : CABG. ENCOUNTER: Initial ACUITY: 1 day PAIN SCORE: 0/10 LOCATION: Bilateral chest FINDINGS: Portable AP view of the chest demonstrates a normal-sized cardiac silhouette in this patient post med brigido sternotomy. Right upper cavity PICC distal tip is in the SVC. Lungs are underinflated. There is a moderate size right pleural-parenchymal opacity. There is retrocardiac opacity on the left. No pneum othorax is visualized. Thoracolumbar spine hardware is present. CONCLUSION: 1. Right upper extremity PICC distal tip is in appropriate position in the SVC. 2. Moderate size right pleural effusion with associated volume loss and/or consolidation. 3. Small left retrocardiac opacity could represent atelectasis, consolidation, and/or effusion. Arjun Montenegro MD on May 10, 2017 at 18:31 Board Certified Radiologist. This report was verified electronically.
[2017-05-10] MEDS ORDERED: SODIUM CHLORIDE 0.9% FLUSH 10 ML FLUSH IV FLUSH PRN (21:00)
[2017-05-10] MEDS: MIRTAZAPINE 15 MG TAB PO SCH (21:24)
[2017-05-11 00:09] VITALS: BP 146/92; PULSE 92; RESP 18; TEMP 96.4; O2SAT 96
[2017-05-11] MEDS: PIPERACIL-TAZO 4.5 GM PREMIX 100 ML IV SCH ×2 (03:00→09:13)
[2017-05-11 04:49] VITALS: BP 118/73; PULSE 95; RESP 18; TEMP 96.3; O2SAT 96
[2017-05-11 04:51] VITALS: BP 120/74; PULSE 85; RESP 18; TEMP 96.5; O2SAT 94
[2017-05-11 05:54] VITALS: PULSE 70
[2017-05-11 08:15] VITALS: BP 129/78; PULSE 86; RESP 18; TEMP 96.2; O2SAT 94
[2017-05-11 08:30] VITALS: O2SAT 94
[2017-05-11] MEDS: SODIUM CHLORIDE 0.9% FLUSH 5 ML FLUSH IVF SCH (09:00)
[2017-05-11] MEDS ORDERED: SODIUM CHLORIDE 0.9% FLUSH 10 ML FLUSH IV FLUSH SCH (09:00)
[2017-05-11] MEDS: LACTOBACILLUS ACIDOPHILUS TAB PO SCH (09:14)
[2017-05-11] MEDS: DOCUSATE SODIUM 50 MG/SENNA 8.6 MG TAB PO SCH (09:14)
[2017-05-11] MEDS: CHOLECALCIFEROL (VIT D3) 5000 UNIT CAP PO SCH (09:14)
[2017-05-11] MEDS: FOLIC ACID 1 MG TAB PO SCH (09:14)
[2017-05-11] MEDS: MULTIVITAMINS/MINERALS THERAPEUTIC TAB PO SCH (09:14)
[2017-05-11] MEDS: PRAVASTATIN SOD 20 MG TAB PO SCH (09:15)
[2017-05-11] MEDS: DILTIAZEM-CD 180 MG CAP ER PO SCH (09:15)
[2017-05-11] MEDS: FAMOTIDINE 20 MG TAB PO SCH (09:15)
[2017-05-11] MEDS: VITAMIN B COMPLEX/VIT C TAB PO SCH (09:15)
[2017-05-11] MEDS: amLODIPine BESYLATE 5 MG TAB PO SCH (09:15)
[2017-05-11] MEDS: ZINC OXIDE 20% OINT 30 GM TUBE TOPICAL SCH (09:17)
[2017-05-11] MEDS: ACETAMINOPHEN/HYDROcodone 325 MG/10 MG TAB PO PRN (09:31)
[2017-05-11] MEDS: MAGNESIUM OXIDE 400 MG TAB PO SCH (11:00)
--- NOTE | 2017-05-11 11:26 | HHI.DS ---
Discharge Summary Admission Date May 06, 2017 at 19:17 Discharge Date: May 11, 2017 Admitting Diagnosis (1) Compression fracture of L1 lumbar vertebra ICD Code: S32.010A (2) Compression fracture of L5 lumbar vertebra ICD Code: S32.050A (3) Wound infection after surgery ICD Code: T81.4XXA (4) Anticoagulation goal of INR 2.0 to 2.5 ICD Code: Z51.81 (5) Atrial fibrillation ICD Code: I48.91 Procedures Irrigation and debridement of postsurgical wound lumbar/thoracic spine Brief History - From Admission 77 Y/O male with a medical history significant for atrial fibrillation, HTN, CAD s/p CABG admitted back to the hospital for thoracolumbar wound infection. The patient was receiving comprehensive rehabilitation at [facility]. He was initially admitted to [place] after sustaining lumbar compression fractures from a fall. He underwent open reduction of L1 fracture, T11-L3 posterolateral fusion with autologous iliac crest bone graft. T11 - L3 fixation. His surgical wound appear to be infected. Neurosurgery reconsulted on the patient and recommended readmission to the hospital for debridement and IV antibiotics. Patient was seen by infectious disease. He is seen in his room. States he is doing okay except for significant back pain. No fevers or chills. CBC/BMP: 05/10/17 0906 05/10/17 0906 Significant Findings Laboratory Tests Test 05/09/17 05/10/17 08:09 09:06 Red Blood Count 3.74 MIL/MM3 3.83 MIL/MM3 (4.50-5.90) (4.50-5.90) Hemoglobin 11.7 GM/DL 11.6 GM/DL (13.0-17.0) (13.0-17.0) Hematocrit 34.5 % 35.9 % (39.0-51.0) (39.0-51.0) Prothrombin Time 19.4 SEC 20.7 SEC (9.8-11.6) (9.8-11.6) Blood Urea Nitrogen 6 MG/DL (7-18) Creatinine 0.50 MG/DL 0.49 MG/DL (0.60-1.30) (0.60-1.30) Sodium Level 135 MEQ/L (136-145) Potassium Level 3.4 MEQ/L (3.5-5.1) Imaging Last Impressions Chest X-Ray 05/10/17 0000 Signed Impressions: Service Date/Time: Wednesday, May 10, 2017 18:01 - CONCLUSION: 1. Right upper extremity PICC distal tip is in appropriate position in the SVC. 2. Moderate size right pleural effusion with associated volume loss and/or consolidation. 3. Small left retrocardiac opacity could represent atelectasis, consolidation, and/or effusion. Arjun Montenegor MD PE at Discharge GENERAL: Elderly male in no acute distress. SKIN: Back postsurgical dressing appear intact. CARDIOVASCULAR: Regular rate and rhythm without murmurs, gallops, or rubs. RESPIRATORY: Clear to auscultation. Breath sounds equal bilaterally. No wheezes , rales, or rhonchi. GASTROINTESTINAL: Abdomen soft, non-tender, nondistended. No hepato-splenomegaly , or palpable masses. No guarding. MUSCULOSKELETAL: Extremities without clubbing, cyanosis, or edema. NEUROLOGICAL: Awake and alert. Normal speech. Generalized weakness. Pt update on day of discharge Patient reports is feeling great. He is anxious to go to rehabilitation. Pain is controlled. Hospital Course 77 Y/O male readmitted to the hospital for surgical wound infection. Patient underwent irrigation and debridement of wound. He is to remain on antibiotics. He will return to inpatient rehabilitation. Evaluation and treatment course detailed below: Status post L1 Open reduction, T11-L3 internal fixation and fusion by Dr. Lieberman on 04/16/17. Patient readmitted for Surgical wound infection. MRI negative for epidural abscess. - Wound culture grew pseudomonas and group D enterococcus. - Patient is status post wound debridement by Neurosurgery on 05/07/17 - ID following. Continue Zosyn for 6-8 weeks[address] PICC [address] for antibiotics. Infectious disease will follow in rehab. Atrial fibrillation: Permanent. Rate controlled - Continue oral Cardizem - Continue Coumadin. Follow INR HTN: Controlled -Continue Amlodipine Bowel incontinence: Neurogenic - Bowel regimen. Patient needs follow up with ID and Neurosurgery at [place]. Discussed with Dr. Silver. Pt Condition on Discharge: Good Discharge Disposition: Rehab Inpatient Discharge Time: > 30 minutes Discharge Instructions DIET: Follow Instructions for: Heart Healthy Diet Activities you can perform: See Additionl Instruction Other Activity Instructions: Per Neurosurgery and PT New Medications: Piperacillin-Tazobactam Inj (Zosyn Inj) 4.5 Gm Inj 4.5 GM IV Q6HR Infection Days 56 Ref 0 BAG Continued Medications: Amlodipine (Norvasc) 5 Mg Tab 5 MG PO DAILY Days 1 TAB Cholecalciferol (Vitamin D3) 5,000 Unit Cap 5000 UNITS PO DAILY Days 1 CAP Diltiazem CD 24 HR (Cardizem CD 24 HR) 180 Mg Caper 180 MG PO DAILY Days 1 CAP Dronabinol (Marinol) 2.5 Mg Cap 2.5 MG PO BIDAC Ref 0 CAP Famotidine (Famotidine) 20 Mg Tab 20 MG PO BID Days 1 TAB Folic Acid (Folic Acid) 1 Mg Tablet 1 MG PO DAILY Days 1 Hydrocodone-Acetaminophen (Hydrocodone-Acetaminophen) 10-325 mg Tab 1 TAB PO Q4H PRN pain 6-10 #1 TAB Lactobacillus Acidophilus (Acidophilus/l-Sporogenes) 1 Tab Tab 1 TAB PO Q12HR Days 1 TAB Magnesium Oxide (Magnesium Oxide) 241.3 Mg Tab 400 MG PO DAILY@11 Days 1 TAB Mirtazapine (Mirtazapine) 15 Mg Tab 15 MG PO HS Days 1 TAB Multiple Vitamins W/ Minerals (Thera M Plus) 1 Tab 1 TAB PO DAILY Days 1 TAB Pravastatin (Pravachol) 20 Mg Tab 20 MG PO DAILY Days 1 TAB Sennosides (Sennosides) 8.6 Mg Tab 17.2 MG PO Q12HR PRN Constipation TAB Sennosides-Docusate Sodium (Senna Plus 8.6-50 mg) 1 Tab Tab 1 TAB PO BID #30 TAB Vitamin B Complex/Vit C (Total B/C) 1 Tab Tab 1 TAB PO DAILY Days 1 TAB Warfarin (Coumadin) 2.5 Mg Tab 2.5 MG PO DAILY@1600 Prevent Blood Clot #30 Ref 0 TAB Warfarin (Coumadin) 2 Mg Tab 2 MG PO DAILY@1600 Days 1 TAB Zinc Oxide (Topical) (Zinc Oxide) 20 % Oin 1 APPLIC TOPICAL DAILY Days 1 TUBE ([Black Arredondo Tabs]) 1000 MG PO DAILY Discontinued Medications: Acetaminophen (Eq Acetaminophen) 325 Mg Tab 650 MG PO Q4H PRN pain 1-5 Days 1 TAB Ceftazidime Inj (Ceftazidime Inj) 2 Gm/50 Ml Bagp 2 GM IV Q8H Infection Ref 0 BAG Enoxaparin Inj (Lovenox Inj) 40 Mg/0.4 Ml Syr 40 MG SQ Q24H #1 INJECTION Hydrocodone-Acetaminophen (Hydrocodone-Acetaminophen) 5-325 mg Tab 1 TAB PO Q4H #30 TAB Metronidazole in NaCl Inj (Metronidazole in NaCl Inj) 500 Mg/100 Ml Bag 500 MG IV Q8HR BAG Piperacillin-Tazobactam Inj (Zosyn Inj) 4.5 Gm Inj 4.5 GM IV Q6HR Infection Days 1 Ref 0 BAG Potassium Chloride ER (K-Tab) 20 Meq Tab 20 MEQ PO BID Electrolyte Replacement #60 Ref 0 TAB Sennosides-Docusate Sodium (Senna Plus 8.6-50 mg) 1 Tab Tab 1 TAB PO BID Days 1 TAB Vancomycin Inj (Vancomycin Inj) 1,000 Mg Inj 1000 MG IV Q12HR Infection Ref 0 BAG Desire Moore MD May 11, 2017 11:26
[2017-05-11] MEDS ORDERED: ZOSY4.5P IV (12:05)
--- NOTE | 2017-05-26 15:53 | PD.OP ---
Operative Report Date of Surgery: May 13, 2017 Preoperative Diagnosis: superficial wound dehiscence Postoperative Diagnosis: superficial wound dehiscence Procedure: Irrigation and debridement of superficial wound Anesthesia: mac Surgeon: Hardik Lieberman Certified Nurse Practitioner(s): Hayley Operation and Findings: INDICATIONS FOR THE PROCEDURE mr cavazos is a 77 year old male who underwent a laminectomy and posterolateral fusion. he did well postoperatively and lumbar incision was examined and healing without complications. He went to rehab. No proper wound care in rehab. he developed a superficial dehiscence. A surgical irrigation and debridement were indicated. The [id number] details of the procedure, indications, alternatives, risks and potential complications were fully discussed with the patient. The patient fully understood. All her questions were answered. No guarantees were given. She voiced requesting the procedure and provided informed consents. The patient was offered the alternative of delaying the procedure and continuing with nonsurgical management. DETAILS OF THE PROCEDURE After the induction of anesthesia, he was positioned prone on a Manuel table over a Serafin frame. All pressure points were carefully padded with eggcrate mattress. The eyes were tapped shut after ointment was applied by the anesthesiologist to prevent corneal abrasion. A Barron hugger was placed over the exposed lower body to maintain control of the core body temperature. The lower lumbar region was prepped and draped in the usual sterile fashion. The wound was irrigated with double basic ortho solution The white granulation tissue was debrided using curettes. cultures were sent to the lab. The incision was then packed open using a glen wound vac. At the end of the procedure, the sponge, needle and instrument counts were all correct. The estimated blood loss was minimal. No intraoperative complications occurred. The patient received prophylactic antibiotics. The patient was then extubated and transferred to the recovery room in stable condition. Hardik Lieberman MD May 26, 2017 15:53
--- NOTE | 2017-05-26 15:55 | PD.OP ---
Operative Report Date of Surgery: May 13, 2017 Preoperative Diagnosis: superficial wound dehiscence Postoperative Diagnosis: superficial wound dehiscence Procedure: Irrigation and debridement of superficial wound Anesthesia: general Surgeon: Hardik Lieberman Timber Buyer(s): Hayley Operation and Findings: INDICATIONS FOR THE PROCEDURE mr cavazos is a 77 year old male who underwent a laminectomy and posterolateral fusion. he did well postoperatively and lumbar incision was examined and healing without complications. He went to rehab. No proper wound care in rehab. he developed a superficial dehiscence. A surgical irrigation and debridement were indicated. The [id number] details of the procedure, indications, alternatives, risks and potential complications were fully discussed with the patient. The patient fully understood. All her questions were answered. No guarantees were given. She voiced requesting the procedure and provided informed consents. The patient was offered the alternative of delaying the procedure and continuing with nonsurgical management. DETAILS OF THE PROCEDURE After the induction of anesthesia, he was positioned prone on a Manuel table over a Serafin frame. All pressure points were carefully padded with eggcrate mattress. The eyes were tapped shut after ointment was applied by the anesthesiologist to prevent corneal abrasion. A Barron hugger was placed over the exposed lower body to maintain control of the core body temperature. The lower lumbar region was prepped and draped in the usual sterile fashion. The wound was irrigated with double basic ortho solution The white granulation tissue was debrided using curettes. cultures were sent to the lab. The incision was then packed open using a glen wound vac. At the end of the procedure, the sponge, needle and instrument counts were all correct. The estimated blood loss was minimal. No intraoperative complications occurred. The patient received prophylactic antibiotics. The patient was then extubated and transferred to the recovery room in stable condition. Hardik Lieberman MD May 26, 2017 15:55
== END 2017-05-11 13:59 | DRG 863 ==
LOC: N05B 19:17
PROVIDERS: ADMIT Family Medicine; ATTEND Family Medicine
PROC: 0HD6XZZ Extraction of Back Skin, External Approach (ICD-10-PCS; principal; 2017-05-07 11:02)
PROC: 02HV33Z Insertion of Infusion Device into Superior Vena Cava, Percutaneous Approach (ICD-10-PCS; 2017-05-10)
DX: T81.4XXA Infection following a procedure, initial encounter (principal); I47.2 Ventricular tachycardia; I48.2 Chronic atrial fibrillation; I10 Essential (primary) hypertension; Y83.8 Other surgical procedures as the cause of abnormal reaction of the patient, or of later complication, without mention of misadventure at the time of the procedure; B95.2 Enterococcus as the cause of diseases classified elsewhere; I25.10 Atherosclerotic heart disease of native coronary artery without angina pectoris; R15.9 Full incontinence of feces; E87.6 Hypokalemia; E78.5 Hyperlipidemia, unspecified; Z79.01 Long term (current) use of anticoagulants; Z95.1 Presence of aortocoronary bypass graft; Z98.1 Arthrodesis status; Z87.891 Personal history of nicotine dependence
CPT/HCPCS: 36569; 71010; 76937; 80048; 80053; 83735; 84132; 84484; 85025; 85027; 85610; 85652; 86140; 87070; 87077; 87102; 87186; 87205; 87206; 94150; J0690; J1580; J1642; J2250; J2270; J2370; J2405; J2543; J3010; J3370; J3475; J3480; J7120

== ENCOUNTER 2017-06-14 02:57 | Inpatient (IN) | payer MEDICARE ==
[2017-06-14] VITALS (26 sets, daily range): BP systolic 64–115; BP diastolic 45–73; PULSE 73–111; RESP 20–24; TEMP 98.9–100.4; O2SAT 0–100
[~2017-06-14] VITALS: Ht 182.9 cm; Wt 95.8 kg
[~2017-06-14 02:57] MED LIST changes: -AMLO5TAB2 PO; +BISA10R RECTAL; -DILT180C36 PO; -DRON2.5 PO; -ENOX40P SQ; -FOLI400T PO; +GNP5TAB6 PO; -HYDR-3516 PO; -HYDR-3583 PO; -LOVA20TA PO; +MAGN400S PO; -MAGN400T2 PO; +METR-1 PO; -MIRTA15 PO; -MULT1TAB PO; +OXYC-392 PO; -POTA1TAB4 PO; -SENN1TAB PO; +SENN8.6T81 PO; +SENS113T TOPICAL; +VANC1000P IV; -VITACAP7 PO; -ZINC20OI TOPICAL; -ZOSY4.5P IV; +[UNRECOGNIZED DRUG - CODE] IV
[2017-06-14] MEDS ORDERED: ETOMIDATE 20 MG/10 ML VIAL ONE (03:04)
[2017-06-14] MEDS ORDERED: fentaNYL DRIP 250 ML ONE (03:24)
[2017-06-14] MEDS ORDERED: MIDAZOLAM 100 MG/ML INJ 100 ML ONE (03:24)
[2017-06-14] MEDS ORDERED: SODIUM CHLOR 0.9% 1000 ML INJ 1,000 ML IV SCH (03:29)
[2017-06-14] MEDS ORDERED: SODIUM CHLORIDE 0.9% FLUSH 10 ML FLUSH IVF PRN (03:30)
[2017-06-14] MEDS ORDERED: SENNOSIDES 8.6 MG TAB PO PRN (03:30)
[2017-06-14] MEDS ORDERED: SODIUM CHLOR 0.9% 1000 ML INJ 1,000 ML IV ONE ×3 (03:30→10:45)
[2017-06-14] MEDS ORDERED: MIDAZOLAM 100 MG/ML INJ 100 ML IV SCH (03:30)
[2017-06-14] MEDS ORDERED: MIDAZOLAM HCL 2 MG/2 ML VIAL IV PRN (03:30)
[2017-06-14] MEDS ORDERED: BISACODYL 10 MG SUPP RECTAL PRN (03:30)
[2017-06-14] MEDS ORDERED: RESP: ALBUTEROL 2.5 MG/IPRATROPIUM 0.5 MG NEB (PRN) INH (03:30)
[2017-06-14] MEDS ORDERED: CHLORHEXIDINE GLUCONATE 2 % 1 PACK (2 CLOTHS) TOP PRN (03:30)
[2017-06-14] MEDS ORDERED: MORPHINE SULFATE 4 MG/ML INJ IV PRN (03:30)
[2017-06-14] MEDS ORDERED: ACETAMINOPHEN 325 MG TAB PO PRN ×2 (03:30)
[2017-06-14] MEDS ORDERED: Vancomycin Consult Pharmacy 1 EA OTHER SCH (03:30)
[2017-06-14] MEDS ORDERED: ONDANSETRON HCL 4 MG/2 ML VIAL IV PRN (03:30)
[2017-06-14] MEDS ORDERED: LACTULOSE SYRUP 20 GM/30 ML CUP PO PRN (03:30)
[2017-06-14] MEDS ORDERED: MAGNESIUM HYDROXIDE SUSP 30 ML CUP PO PRN (03:30)
[2017-06-14] MEDS ORDERED: SODIUM CHLORIDE 0.9% FLUSH 10 ML FLUSH PRN (03:30)
[2017-06-14] MEDS ORDERED: MISCELLANEOUS NURSING INFORMATION XX SCH (03:30)
[2017-06-14 03:47] LABS: AUTOMATED NEUTROPHIL # 10.6 TH/MM3 (1.8-7.7); BASOPHIL # 0.1 TH/MM3 (0-0.2); BASOPHIL % 0.5 % (0.0-2.0); EOSINOPHIL # 0.1 TH/MM3 (0-0.4); EOSINOPHIL % 0.5 % (0.0-4.0); HEMATOCRIT 34.2 % (39.0-51.0); HEMO FLAGS DIFF FINAL; LYMPH % 5.7 % (9.0-44.0); LYMPHOCYTE # 0.7 TH/MM3 (1.0-4.8); MEAN CELL VOLUME 98.3 FL (80.0-100.0); MEAN CORPUSCULAR HEMOGLOBIN 31.9 PG (27.0-34.0); MEAN CORPUSCULAR HGB CONC 32.5 % (32.0-36.0); MONO % 9.2 % (0.0-8.0); NEUT % 84.1 % (16.0-70.0); PLATELET COUNT 465 TH/MM3 (150-450); RED BLOOD COUNT 3.48 MIL/MM3 (4.50-5.90); WHITE BLOOD COUNT 12.6 TH/MM3 (4.0-11.0)
[2017-06-14] MEDS: CHLORHEXIDINE GLUCONATE 2 % 1 PACK (2 CLOTHS) TOP SCH (04:00)
[2017-06-14 04:02] LABS: APTT (PATIENT) 43.1 SEC (24.3-30.1); INTERNATIONAL NORMALIZED RATIO 3.1 RATIO; PROTHROMBIN TIME - PATIENT 35.8 SEC (9.8-11.6)
[2017-06-14] MEDS: RESP: ALBUTEROL 2.5 MG/IPRATROPIUM 0.5 MG NEB (SCH) INH ×4 (04:10→23:11)
[2017-06-14] MEDS: fentaNYL DRIP 250 ML IV SCH ×2 (04:13→21:03)
[2017-06-14] MEDS: AZTREONAM INJ 2,000 MG in SODIUM CHLORIDE 0.9% INJ 100 ML IV SCH ×3 (04:29→21:04)
[2017-06-14] MEDS ORDERED: ETOMIDATE 20 MG/10 ML VIAL IV PUSH ONE (04:30)
[2017-06-14] MEDS ORDERED: SUCCINYLCHOLINE CHLORIDE 200 MG/10 ML VIAL IV PUSH ONE (04:30)
--- NOTE | 2017-06-14 04:35 | RADRPT ---
EXAM DATE/TIME: 06/14/2017 03:22 [facility] COMPARISON: CHEST SINGLE AP, May 24, 2017, 15:17. INDICATIONS : Shortness of breath. MEDICAL HISTORY : Cardiovascular disease SURGICAL HISTORY : Lumbar. ENCOUNTER: Initial ACUITY: 1 day PAIN SCORE: 0/10 LOCATION: Bilateral chest FINDINGS: Rotated and underinflated AP view of the chest demonstrates a normal-sized cardiac silhouette in this patient post median sternotomy. Right upper extremity PICC remains present and nasogastric tube dist al tip just barely passes beyond the GE junction was in normal mid-distal esophagus. There is a small right basilar pleural-parenchymal opacity and there is hazy airspace opacity at the left lung base. No pneumothorax is visualized. CONCLUSION: 1. Stable right lower lung zone airspace consolidation and small right pleural effusion. 2. Hazy opacity at the left lung base is stable representing either atelectasis or consolidation. 3. Nasogastric tube tip barely passes beyond the GE junction and should be advanced. Arjun Montenegro MD on June 14, 2017 at 4:32 Board Certified Radiologist. This report was verified electronically.
--- NOTE | 2017-06-14 04:40 | PD ---
HPI Chief Complaint: Respiratory Distress Time Seen by Provider: 03:18 Travel History International Travel<30 days: No Contact w/Intl Traveler<30days: No Traveled to known affect area: No History of Present Illness HPI 77yo M with PMH of HTN, HLD, afib, CAD s/p CABG brought in from senior living for sob. The nurse who came on at 11pm noticed pt was having difficulty breathing. Pt was hypoxic with saturations in the 80s on 100% nonrebreather. Pt is answering questions but becoming very tired and less responsive. He is not a candidate for BIPAP at this time. History is limited. I discussed with and patient and he is full code. Pt was recently discharged on 06/04/17 from inpatient rehab after a long hospital course that started when he fell on and had compression fractures that were repaired by Dr. Lieberman. Pt has subsequently developed wound infection and has a PICC line placed on 05/10/17 for 6-8 weeks of zosyn. PFSH Past Medical History Hx Anticoagulant Therapy: Yes Arthritis: No Asthma: No Atrial Fibrillation: Yes Autoimmune Disease: No Blood Disorders: No Anxiety: No Depression: No Heart Rhythm Problems: Yes Cancer: No Cardiovascular Problems: Yes (AFIB) High Cholesterol: Yes Chemotherapy: No Chest Pain: Yes Congestive Heart Failure: No COPD: No Cerebrovascular Accident: No Diabetes: No Diminished Hearing: No Endocrine: No GERD: No Gout: Yes Genitourinary: No Hiatal Hernia: No Hypertension: Yes Immune Disorder: No Implanted Vascular Access Dvce: No Kidney Stones: No Musculoskeletal: Yes Neurologic: No Psychiatric: No Reproductive: No Respiratory: No Migraines: No Radiation Therapy: No Renal Failure: No Seizures: No Sickle Cell Disease: No Sleep Apnea: No Thyroid Disease: No Triglycerides - High: Yes Ulcer: No Tetanus Vaccination: Unknown Influenza Vaccination: Yes Past Surgical History Abdominal Surgery: No AICD: No Arteriovenous Shunt: No Cardiac Surgery: Yes (CABG) Ear Surgery: No Endocrine Surgery: No Eye Surgery: No Genitourinary Surgery: No Gynecologic Surgery: No Insulin Pump: No Joint Replacement: No Oral Surgery: No Pacemaker: No Thoracic Surgery: No Other Surgery: Yes Social History Alcohol Use: Yes (OCC) Tobacco Use: No Substance Use: No Allergies-Medications (Allergen,Severity, Reaction): Coded Allergies: Zosyn (Verified Allergy, Unknown, rash, 06/14/17) Reported Meds & Prescriptions Reported Meds & Active Scripts Active Vancomycin Inj (Vancomycin HCl) 1,000 Mg Inj 1,750 Mg IV Q48H 27 Days Azactam Inj (Aztreonam) 1 Gm Inj 1,000 Mg IV Q8HR 27 Days Sensi-Care Protective Bar 49-15 % (Petrolatum/Zinc Oxide) 120 Applic/120 Gm Oin 1 Applic TOPICAL BID 10 Days Oxycodone (Oxycodone HCl) 5 Mg Tab 2.5 Mg PO Q4H PRN Oxycodone (Oxycodone HCl) 5 Mg Tab 5 Mg PO Q4H PRN Flagyl (Metronidazole) 500 Mg Tab 500 Mg PO Q8HR 4 Days stop on 06/07/17 per ID instructions no more loose stool cont contact preucations Gnp Melatonin Maximum Str (Melatonin) 5 Mg Tab 5 Mg PO HS 30 Days Eq Milk of Magnesia (Magnesium Hydroxide) 1,200 Mg/15 Ml Barbara 30 Ml PO Q12H PRN 30 Days Acidophilus/l-Sporogenes (Lactobacillus Acidophilus) 1 Tab Tab 1 Tab PO DAILY 7 Days Bisac-Evac Supp (Bisacodyl) 10 Mg Supp 10 Mg RECTAL DAILY PRN 10 Days Eq Acetaminophen (Acetaminophen) 325 Mg Tab 650 Mg PO Q4H PRN 30 Days Sennosides 8.6 Mg Tab 17.2 Mg PO Q12HR PRN 30 Days Total B/C (Vitamin B Complex/Vit C) 1 Tab Tab 1 Tab PO DAILY 1 Days Pravachol (Pravastatin) 20 Mg Tab 20 Mg PO DAILY 1 Days Thera M Plus (Multivitamins/Minerals Therapeutic) 1 Tab 1 Tab PO DAILY 1 Days Magnesium Oxide 241.3 Mg Tab 400 Mg PO DAILY@11 1 Days Folic Acid 1 Mg Tablet 1 Mg PO DAILY 1 Days Famotidine 20 Mg Tab 20 Mg PO BID 1 Days Cardizem CD 24 HR (Diltiazem CD 24 HR) 180 Mg Caper 180 Mg PO DAILY 1 Days Vitamin D3 (Cholecalciferol) 5,000 Unit Cap 5,000 Units PO DAILY 1 Days Norvasc (Amlodipine Besylate) 5 Mg Tab 5 Mg PO DAILY 1 Days Coumadin (Warfarin) 2.5 Mg Tab 2.5 Mg PO DAILY@1600 INR goal 2-2.5 monitor INR daily until theraputic range stable Coumadin (Warfarin) 2 Mg Tab 2 Mg PO DAILY@1600 1 Days Review of Systems Except as stated in HPI: all other systems reviewed are Neg Physical Exam Narrative GENERAL: 77yo M in severe distress. SKIN: Focused skin assessment warm/dry. HEAD: Atraumatic. Normocephalic. EYES: Pupils equal and round. No scleral icterus. No injection or drainage. ENT: No nasal bleeding or discharge. Mucous membranes pink and moist. NECK: Trachea midline. No JVD. CARDIOVASCULAR: Irregular rate and rhythm. RESPIRATORY: + accessory muscle use. Decreased breath sounds on right lung. GASTROINTESTINAL: Abdomen soft, non-tender, nondistended. MUSCULOSKELETAL: No obvious deformities. No clubbing. No cyanosis. + edema. NEUROLOGICAL: Awake and Data Data Last Documented VS Vital Signs Date Time Temp Pulse Resp B/P Pulse Ox O2 Delivery O2 Flow Rate FiO2 06/14/17 04:35 92 100 06/14/17 04:34 99.9 73 22 86/52 Auto-Vent 06/14/17 03:00 15 Orders Etomidate Inj (Amidate Inj) (06/14/17 03:04) Complete Blood Count With Diff (06/14/17 03:18) Basic Metabolic Panel (Bmp) (06/14/17 03:18) B-Type Natriuretic Peptide (06/14/17 03:18) Act Partial Throm Time (Ptt) (06/14/17 03:18) Prothrombin Time / Inr (Pt) (06/14/17 03:18) Ckmb (Isoenzyme) Profile (06/14/17 03:18) Troponin I (06/14/17 03:18) Arterial Blood Gas (Abg) (06/14/17 03:18) Blood Culture (06/14/17 03:18) Iv Access Insert/Monitor (06/14/17 03:18) Electrocardiogram (06/14/17 03:18) Ecg Monitoring (06/14/17 03:18) Oximetry (06/14/17 03:18) Oxygen Administration (06/14/17 03:18) Chest, Single Ap (06/14/17 03:18) Sodium Chloride 0.9% Flush (Ns Flush) (06/14/17 03:30) Lactic Acid Sepsis Protocol (06/14/17 03:19) Sodium Chlor 0.9% 1000 Ml Inj (Ns 1000 M (06/14/17 03:30) Midazolam 100 Mg/Ml Inj (Versed 100 Mg/M (06/14/17 03:30) Fentanyl Drip (Fentanyl Drip) (06/14/17 03:30) Midazolam 100 Mg/Ml Inj (Versed 100 Mg/M (06/14/17 03:24) Fentanyl Drip (Fentanyl Drip) (06/14/17 03:24) Acetaminophen (Tylenol) (06/14/17 03:30) Amlodipine (Norvasc) (06/14/17 09:00) Cholecalciferol (Vitamin D3) (06/14/17 09:00) Diltiazem Cd (Cardizem Cd) (06/14/17 09:00) Famotidine (Pepcid) (06/14/17 09:00) Folic Acid (Folate) (06/14/17 09:00) Lactobacillus Acidophilus (Lactinex) (06/14/17 09:00) Magnesium Oxide (Mag-Ox) (06/14/17 11:00) Melatonin (Melatonin) (06/14/17 21:00) Metronidazole (Flagyl) (06/14/17 06:00) Multivitamins-Minerals Therap (Theragran (06/14/17 09:00) Oxycodone (Roxicodone) (06/14/17 03:30) Oxycodone (Roxicodone) (06/14/17 03:30) Petrolat-Zinc Barrier Oint (Sensi-Care P (06/14/17 09:00) Pravastatin (Pravachol) (06/14/17 09:00) Vitamin B Complex-Vit C (Allbee C) (06/14/17 09:00) Warfarin (Coumadin) (06/14/17 16:00) Warfarin (Coumadin) (06/14/17 16:00) Vancomycin Consult Pharmacy (Vancomycin (06/14/17 03:30) Vancomycin Inj (Vancomycin Inj) (06/14/17 05:00) Aztreonam Inj (Azactam Inj) (06/14/17 04:00) Warfarin Consult Pharmacy (Coumadin Cons (06/14/17 03:30) Equip, Isolation Cart (06/14/17 03:30) Admit To Inpatient (06/14/17 ) Code Status (06/14/17 03:29) Vital Signs (Adult) ANALISA.Q1H (06/14/17 03:29) Elevate Head Of Bed (06/14/17 03:29) Activity Oob With Assistance (06/14/17 03:29) Neuro Checks . ORDERED (06/14/17 03:29) Intake + Output Q1H (06/14/17 03:29) Bedside Glucose ANALISA.BGM (06/14/17 03:29) Diet Tube Feed Only (06/14/17 Breakfast) Sodium Chlor 0.9% 1000 Ml Inj (Ns 1000 M (06/14/17 03:29) Sodium Chloride 0.9% Flush (Ns Flush) (06/14/17 03:30) Sodium Chloride 0.9% Flush (Ns Flush) (06/14/17 09:00) Acetaminophen (Tylenol) (06/14/17 03:30) Morphine Inj (Morphine Inj) (06/14/17 03:30) Famotidine (Pepcid) (06/14/17 09:00) Midazolam Inj (Versed Inj) (06/14/17 03:30) Ondansetron Inj (Zofran Inj) (06/14/17 03:30) Albuterol-Ipratropium Neb (Duoneb Neb) (06/14/17 04:00) Albuterol-Ipratropium Neb (Duoneb Neb) (06/14/17 03:30) Complete Blood Count With Diff (06/15/17 04:00) Comprehensive Metabolic Panel (06/15/17 04:00) Troponin I (06/14/17 03:29) Troponin I (06/14/17 09:29) Magnesium (Mg) (06/15/17 04:00) Phosphorus (Po4) (06/15/17 04:00) Sputum Culture And Gram Stain (06/14/17 03:29) Urine Culture (06/14/17 03:29) Chest, Single Ap (06/15/17 ) Pt Request For Service (06/14/17 03:29) Services Tech / Telemetry ANALISA.Q8H (06/14/17 03:29) Scd Bilateral/Knee High ANALISA.BID (06/14/17 03:29) Thiago Bilateral/Knee High ANALISA.QSHIFT (06/14/17 03:29) ^ Initiate Protocol (06/14/17 03:29) Instruction (06/14/17 03:29) Misc Nursing Information (06/14/17 03:30) Chlorhexidine 2% Cloth (Chlorhexidine 2% (06/14/17 04:00) Chlorhexidine 2% Cloth (Chlorhexidine 2% (06/14/17 03:30) Mrsa Pcr Surveillance (06/14/17 03:29) Docusate Sodium-Senna (Teresa-Colace) (06/14/17 09:00) Magnesium Hydroxide Liq (Milk Of Magnesi (06/14/17 03:30) Sennosides (Senokot) (06/14/17 03:30) Bisacodyl Supp (Dulcolax Supp) (06/14/17 03:30) Lactulose Liq (Lactulose Liq) (06/14/17 03:30) Inpatient Certification (06/14/17 ) Tube Feeding 08,20 (06/14/17 03:29) Sodium Chlor 0.9% 1000 Ml Inj (Ns 1000 M (06/14/17 04:15) Restraints Non-Violent ANALISA.Q3H (06/14/17 04:21) Urinary Catheter Insert/Apply (06/14/17 04:21) Succinylcholine Inj (Quelicin Inj) (06/14/17 04:30) Etomidate Inj (Amidate Inj) (06/14/17 04:30) Admit Order (Ed Use Only) (06/14/17 04:46) Labs Laboratory Tests Test 06/14/17 06/14/17 03:30 04:20 White Blood Count 12.6 TH/MM3 Red Blood Count 3.48 MIL/MM3 Hemoglobin 11.1 GM/DL Hematocrit 34.2 % Mean Corpuscular Volume 98.3 FL Mean Corpuscular Hemoglobin 31.9 PG Mean Corpuscular Hemoglobin 32.5 % Concent Red Cell Distribution Width 18.0 % Platelet Count 465 TH/MM3 Mean Platelet Volume 9.2 FL Neutrophils (%) (Auto) 84.1 % Lymphocytes (%) (Auto) 5.7 % Monocytes (%) (Auto) 9.2 % Eosinophils (%) (Auto) 0.5 % Basophils (%) (Auto) 0.5 % Neutrophils # (Auto) 10.6 TH/MM3 Lymphocytes # (Auto) 0.7 TH/MM3 Monocytes # (Auto) 1.2 TH/MM3 Eosinophils # (Auto) 0.1 TH/MM3 Basophils # (Auto) 0.1 TH/MM3 CBC Comment DIFF FINAL Differential Comment Prothrombin Time 35.8 SEC Prothromb Time International 3.1 RATIO Ratio Activated Partial 43.1 SEC Thromboplast Time Sodium Level 136 MEQ/L Potassium Level 4.2 MEQ/L Chloride Level 102 MEQ/L Carbon Dioxide Level 22.6 MEQ/L Anion Gap 11 MEQ/L Blood Urea Nitrogen 24 MG/DL Creatinine 1.49 MG/DL Estimat Glomerular Filtration 46 ML/MIN Rate Random Glucose 143 MG/DL Lactic Acid Level 1.7 mmol/L Calcium Level 9.2 MG/DL Total Creatine Kinase 27 U/L Troponin I LESS THAN 0.02 NG/ML B-Type Natriuretic Peptide 381 PG/ML Blood Gas Puncture Site RT FEMORAL Blood Gas Patient Temperature 98.6 Blood Gas HCO3 20 mmol/L Blood Gas Base Excess -3.5 mmol/L Blood Gas Oxygen Saturation 92 % Arterial Blood pH 7.44 Arterial Blood Partial 30 mmHg Pressure CO2 Arterial Blood Partial 67 mmHG Pressure O2 Arterial Blood Oxygen Content 21.6 Vol % Arterial Blood 1.2 % Carboxyhemoglobin Arterial Blood Methemoglobin 0.4 % Blood Gas Hemoglobin 16.6 G/DL Oxygen Delivery Device VENTILATOR Blood Gas Ventilator Setting Blood Gas Inspired Oxygen 100 % MDM Medical Decision Making Medical Screen Exam Complete: Yes Emergency Medical Condition: Yes Interpretation(s) EKG: Afib at 83bpm. Low voltage. Differential Diagnosis Pneumonia vs. pleural effusion vs. pulmonary edema Narrative Course 77yo M in respiratory distress. Pt hypoxic even on 100% nonrebreather and is getting fatigued so emergently intubated in the ED. Labs reviewed, leukocytosis at 12.6. INR therapeutic at 3.1. CXR showed stable right lower lung zone airspace consolidation and small right pleural effusion. Hazy opacity at left lung base is stable. Pt is hypotensive, NS IVF ordered. Discussed with Dr. Nieves and accepted to his service. Critical Care Narrative Aggregate critical care time was 50 minutes. Time to perform other separately billable procedures was not included in the critical care time. My time did not include minutes spent treating any other patients simultaneously or on activities that did not directly contribute to the patient's treatment. The services I provided to this patient were to treat and/or prevent clinically significant deterioration that could result in: cardiovascular collapse or . I provided critical care services requiring my management, as noted below: Chart data review, documentation time, medication orders and management, vital sign assessments/reviewing monitor data, ordering and reviewing lab tests, ordering and interpreting/reviewing x-rays and diagnostic studies, care of the patient and discussion of the patient with the admitting physicians. Procedures Procedure Narrative The patient was put in optimal position for the procedure. Rapid sequence intubation was initiated by me using 20 milligrams of etomidate IV and 100 milligrams of succinylcholine IV. The patient was intubated with a 8.0 cuffed endotracheal tube. Tube placement was confirmed by visualization of the tube and balloon passing through the cords, capnometry and subsequent chest x-ray. Breath sounds were equal and well aerated bilaterally postintubation. No breath sounds over stomach. Patient tolerated procedure well. Diagnosis Primary Impression: Acute respiratory failure with hypoxia Admitting Information Admitting Physician Requests: Lyndsey Kuhn DO Jun 14, 2017 04:40
[2017-06-14 04:57] LABS: ANION GAP 11 MEQ/L (5-15); BICARBONATE 22.6 MEQ/L (21.0-32.0); BLOOD UREA NITROGEN 24 MG/DL (7-18); CHLORIDE 102 MEQ/L (98-107); GLOMERULAR FILTRATION RATE 46 ML/MIN (>89); POTASSIUM 4.2 MEQ/L (3.5-5.1); SODIUM (NA) 136 MEQ/L (136-145)
[2017-06-14 05:00] LABS: BLOOD GAS BASE EXCESS -3.5 mmol/L (-2-2); BLOOD GAS CARBOXYHEMOGLOBIN 1.2 % (0-4); BLOOD GAS HCO3 20 mmol/L (22-26); BLOOD GAS METHEMOGLOBIN 0.4 % (0-2); BLOOD GAS O2 HGB SATURATION 92 % (90-100); BLOOD GAS OXYGEN CONTENT 21.6 Vol % (12.0-20.0); BLOOD GAS PCO2 30 mmHg (38-42); BLOOD GAS PO2 67 mmHG (61-120); BLOOD GAS TOTAL HGB 16.6 G/DL (12.0-16.0); CRITICAL VALUE NO; OXYGEN DEVICE VENTILATOR; TEMP CORR TO 98.6
[2017-06-14] MEDS ORDERED: VANCOMYCIN INJ 1,000 MG in SODIUM CHLOR 0.9% 250 ML INJ 250 ML IV ONE (05:00)
[2017-06-14 05:01] LABS: DRAW SITE RT FEMORAL; FIO2 100 %; NUMBER OF ARTERIAL PUNCTURES 1; STAT YES
[2017-06-14 05:08] LABS: CREATINE KINASE 27 U/L (39-308)
--- NOTE | 2017-06-14 05:40 | HHI.HP ---
HPI Service Critical Care Medicine Primary Care Physician Vita Cooper MD Admission Diagnosis Acute hypoxic respiratory failure Diagnosis: Travel History International Travel<30 Days: No Contact w/Intl Traveler <30 Da: No Traveled to Known Affected Are: No History of Present Illness 77-year-old male with past medical history of hypertension hyperlipidemia atrial fibrillation coronary artery disease status post CABG surgery he was brought from alf where he resides after spinal surgery, for shortness of breath. The nursing staff noticed around 11 PM the patient was having difficulty to breathe. He was hypoxic with saturations in the 80s on 100% nonrebreather. He was recently discharged on 06/04/17 from inpatient rehab after a long hospital course that started when he fell on 04/14/17 and had compression fractures that were repaired by Dr. Lieberman. He has subsequently developed wound infection and has a PICC line placed on 05/10/17 for 6-8 weeks of zosyn. He was intubated by ER attending for an respiratory distress and failure. Review of Systems ROS Unobtainable patient is sedated and intubated Past Family Social History Allergies: Coded Allergies: No Known Allergies (Verified , 06/14/17) Past Medical History Atrial fibrillation HTN CAD s/p CABG Pseudomonas wound infection Past Surgical History CABG ORIF L1, T11-L3 Fixation and fusion Reported Medications Reported Meds & Active Scripts Active Vancomycin Inj (Vancomycin HCl) 1,000 Mg Inj 1,750 Mg IV Q48H 27 Days Azactam Inj (Aztreonam) 1 Gm Inj 1,000 Mg IV Q8HR 27 Days Sensi-Care Protective Bar 49-15 % (Petrolatum/Zinc Oxide) 120 Applic/120 Gm Oin 1 Applic TOPICAL BID 10 Days Oxycodone (Oxycodone HCl) 5 Mg Tab 2.5 Mg PO Q4H PRN Oxycodone (Oxycodone HCl) 5 Mg Tab 5 Mg PO Q4H PRN Flagyl (Metronidazole) 500 Mg Tab 500 Mg PO Q8HR 4 Days stop on 06/07/17 per ID instructions no more loose stool cont contact preucations Gnp Melatonin Maximum Str (Melatonin) 5 Mg Tab 5 Mg PO HS 30 Days Eq Milk of Magnesia (Magnesium Hydroxide) 1,200 Mg/15 Ml Barbara 30 Ml PO Q12H PRN 30 Days Acidophilus/l-Sporogenes (Lactobacillus Acidophilus) 1 Tab Tab 1 Tab PO DAILY 7 Days Bisac-Evac Supp (Bisacodyl) 10 Mg Supp 10 Mg RECTAL DAILY PRN 10 Days Eq Acetaminophen (Acetaminophen) 325 Mg Tab 650 Mg PO Q4H PRN 30 Days Sennosides 8.6 Mg Tab 17.2 Mg PO Q12HR PRN 30 Days Total B/C (Vitamin B Complex/Vit C) 1 Tab Tab 1 Tab PO DAILY 1 Days Pravachol (Pravastatin) 20 Mg Tab 20 Mg PO DAILY 1 Days Thera M Plus (Multivitamins/Minerals Therapeutic) 1 Tab 1 Tab PO DAILY 1 Days Magnesium Oxide 241.3 Mg Tab 400 Mg PO DAILY@11 1 Days Folic Acid 1 Mg Tablet 1 Mg PO DAILY 1 Days Famotidine 20 Mg Tab 20 Mg PO BID 1 Days Cardizem CD 24 HR (Diltiazem CD 24 HR) 180 Mg Caper 180 Mg PO DAILY 1 Days Vitamin D3 (Cholecalciferol) 5,000 Unit Cap 5,000 Units PO DAILY 1 Days Norvasc (Amlodipine Besylate) 5 Mg Tab 5 Mg PO DAILY 1 Days Coumadin (Warfarin) 2.5 Mg Tab 2.5 Mg PO DAILY@1600 INR goal 2-2.5 monitor INR daily until theraputic range stable Coumadin (Warfarin) 2 Mg Tab 2 Mg PO DAILY@1600 1 Days Active Ordered Medications Current Medications Medications (Trade) Dose Ordered Sig/Curt Route PRN Reason Start Time Stop Time Status Last Admin Dose Admin Sodium Chloride 2 ml 2 ml UNSCH PRN IVF FLUSH AFTER USING IV ACCESS 06/14/17 03:30 Midazolam HCl 100 ml @ 0 mls/hr CONTINUOUS IV 06/14/17 03:30 06/14/17 04:13 Fentanyl Citrate (fentaNYL DRIP) 250 ml @ 0 mls/hr CONTINUOUS IV 06/14/17 03:30 06/14/17 04:13 Acetaminophen (Tylenol) 650 mg Q4H PRN PO Fever 06/14/17 03:30 Amlodipine Besylate (Norvasc) 5 mg DAILY PO 06/14/17 09:00 Cholecalciferol (Vitamin D3) 5,000 units DAILY PO 06/14/17 09:00 Diltiazem HCl (Cardizem Cd) 180 mg DAILY PO 06/14/17 09:00 Famotidine (Pepcid) 20 mg BID PO 06/14/17 09:00 Folic Acid (Folate) 1 mg DAILY PO 06/14/17 09:00 Lactobacillus Acidophilus (Lactinex) 1 tab DAILY PO 06/14/17 09:00 Magnesium Oxide (Mag-Ox) 400 mg DAILY@11 PO 06/14/17 11:00 Melatonin (Melatonin) 5 mg HS PO 06/14/17 21:00 Metronidazole (Flagyl) 500 mg Q8HR PO 06/14/17 06:00 Multivitamins/ Minerals Therapeutic (Theragran M Tab) 1 tab DAILY PO 06/14/17 09:00 Oxycodone HCl (Roxicodone) 2.5 mg Q4H PRN PO PAIN SCALE 3 TO 5 06/14/17 03:30 Oxycodone HCl (Roxicodone) 5 mg Q4H PRN PO PAIN SCALE 6 TO 10 06/14/17 03:30 Petrolatum/Zinc Oxide (Sensi-Care Protective Barrier Oint) 1 applic BID TOPICAL 06/14/17 09:00 Pravastatin Sodium (Pravachol) 20 mg DAILY PO 06/14/17 09:00 Vitamin B Complex/ Vitamin C (Allbee C) 1 tab DAILY PO 06/14/17 09:00 Warfarin Sodium (Coumadin) 2 mg DAILY@1600 PO 06/14/17 16:00 UNV Warfarin Sodium 2.5 mg 2.5 mg DAILY@1600 PO 06/14/17 16:00 UNV Pharmacy Profile Note 0 ml @ 0 mls/hr UNSCH OTHER 06/14/17 03:30 Vancomycin HCl 1000 mg/Sodium Chloride 250 ml @ 250 mls/hr ONCE ONCE IV 06/14/17 05:00 06/14/17 05:59 06/14/17 04:57 Aztreonam 2000 mg/ Sodium Chloride 100 ml @ 200 mls/hr Q6H IV 06/14/17 04:00 06/14/17 04:29 Pharmacy Profile Note 0 ml @ 0 mls/hr UNSCH OTHER 06/14/17 03:30 Sodium Chloride (NS 1000 ml Inj) 1,000 ml @ 84 mls/hr [id number] IV 06/14/17 03:29 06/14/17 04:11 Sodium Chloride (NS Flush) 2 ml UNSCH PRN .XX FLUSH AFTER USING IV ACCESS 06/14/17 03:30 Sodium Chloride (NS Flush) 2 ml BID .XX 06/14/17 09:00 Acetaminophen (Tylenol) 650 mg Q6H PRN PO PAIN 1-10 06/14/17 03:30 Morphine Sulfate (Morphine Inj) 2 mg Q2H PRN IV PAIN SCALE 6 TO 10 06/14/17 03:30 Midazolam HCl (Versed Inj) 2 mg Q1H PRN IV SEDATION 06/14/17 03:30 Ondansetron HCl (Zofran Inj) 4 mg Q6H PRN IV NAUSEA OR VOMITING 06/14/17 03:30 Miscellaneous Information 1 [id number] XX 06/14/17 03:30 Chlorhexidine Gluconate (Chlorhexidine 2% Cloth) 3 pack Taper DAILY@04 TOP 06/14/17 04:00 06/10/18 03:59 Chlorhexidine Gluconate (Chlorhexidine 2% Cloth) 3 pack UNSCH PRN TOP HYGIENIC CARE 06/14/17 03:30 Senna/Docusate Sodium (Teresa-Colace) 1 tab BID PO 06/14/17 09:00 Magnesium Hydroxide (Milk Of Magnesia Liq) 30 ml Q12H PRN PO MILD - MODERATE CONSTIPATION 06/14/17 03:30 Sennosides (Senokot) 17.2 mg Q12H PRN PO MODERATE - SEVERE CONSTIPATION 06/14/17 03:30 Bisacodyl (Dulcolax Supp) 10 mg DAILY PRN RECTAL SEVERE CONSITIPATION 06/14/17 03:30 Lactulose (Lactulose Liq) 30 ml DAILY PRN PO SEVERE CONSITIPATION 06/14/17 03:30 Family History No family history of early coronary artery disease or cancer Social History No alcohol or tobacco use. Patient lives with his . Physical Exam Vital Signs Vital Signs Date Time Temp Pulse Resp B/P Pulse Ox O2 Delivery O2 Flow Rate FiO2 06/14/17 05:14 99.5 93 20 110/54 96 Auto-Vent 100 06/14/17 04:58 99.5 95 20 95/68 95 Auto-Vent 100 06/14/17 04:35 92 100 06/14/17 04:34 99.9 73 22 86/52 100 Auto-Vent 100 06/14/17 04:06 99.9 93 22 84/56 100 Auto-Vent 100 06/14/17 03:15 0 100 06/14/17 03:15 100 06/14/17 03:00 99.6 93 24 106/67 92 06/14/17 03:00 100 Auto-Vent 100 06/14/17 03:00 100.2 100 22 95/52 100 Auto-Vent 100 06/14/17 03:00 111 26 92 Non-Rebreather 15 Physical Exam GENERAL: Well-nourished, well-developed patient. SKIN: Warm and dry. HEAD: Normocephalic. EYES: No scleral icterus. No injection or drainage. NECK: Supple, trachea midline. No JVD or lymphadenopathy. CARDIOVASCULAR: Regular rate and rhythm without murmurs, gallops, or rubs. RESPIRATORY: + accessory muscle use. Decreased breath sounds on right lung. GASTROINTESTINAL: Abdomen soft, non-tender, nondistended. MUSCULOSKELETAL: No cyanosis, or edema. BACK: Nontender without obvious deformity. No CVA tenderness. EXTREMITIES: No clubbing cyanosis or edema Laboratory Laboratory Tests Test 06/14/17 06/14/17 03:30 04:20 White Blood Count 12.6 Red Blood Count 3.48 Hemoglobin 11.1 Hematocrit 34.2 Mean Corpuscular Volume 98.3 Mean Corpuscular Hemoglobin 31.9 Mean Corpuscular Hemoglobin 32.5 Concent Red Cell Distribution Width 18.0 Platelet Count 465 Mean Platelet Volume 9.2 Neutrophils (%) (Auto) 84.1 Lymphocytes (%) (Auto) 5.7 Monocytes (%) (Auto) 9.2 Eosinophils (%) (Auto) 0.5 Basophils (%) (Auto) 0.5 Neutrophils # (Auto) 10.6 Lymphocytes # (Auto) 0.7 Monocytes # (Auto) 1.2 Eosinophils # (Auto) 0.1 Basophils # (Auto) 0.1 CBC Comment DIFF FINAL Differential Comment Prothrombin Time 35.8 Prothromb Time International 3.1 Ratio Activated Partial 43.1 Thromboplast Time Sodium Level 136 Potassium Level 4.2 Chloride Level 102 Carbon Dioxide Level 22.6 Anion Gap 11 Blood Urea Nitrogen 24 Creatinine 1.49 Estimat Glomerular Filtration 46 Rate Random Glucose 143 Lactic Acid Level 1.7 Calcium Level 9.2 Total Creatine Kinase 27 Troponin I LESS THAN 0.02 B-Type Natriuretic Peptide 381 Blood Gas Puncture Site RT FEMORAL Blood Gas Patient Temperature 98.6 Blood Gas HCO3 20 Blood Gas Base Excess -3.5 Blood Gas Oxygen Saturation 92 Arterial Blood pH 7.44 Arterial Blood Partial 30 Pressure CO2 Arterial Blood Partial 67 Pressure O2 Arterial Blood Oxygen Content 21.6 Arterial Blood 1.2 Carboxyhemoglobin Arterial Blood Methemoglobin 0.4 Blood Gas Hemoglobin 16.6 Oxygen Delivery Device VENTILATOR Blood Gas Ventilator Setting Blood Gas Inspired Oxygen 100 Date/Time Procedure Status Source Growth 06/14/17 03:35 Aerobic Blood Culture Received Blood Peripheral Pending 06/14/17 03:35 Anaerobic Blood Culture Received Blood Peripheral Pending Result Diagram: 06/14/17 0330 06/14/17 0330 Imaging Last 24 hours Impressions Chest X-Ray 06/14/178 Signed Impressions: Service Date/Time: Wednesday, June 14, 2017 03:22 - CONCLUSION: 1. Stable right lower lung zone airspace consolidation and small right pleural effusion. 2. Hazy opacity at the left lung base is stable representing either atelectasis or consolidation. 3. Nasogastric tube tip barely passes beyond the GE junction and should be advanced. Arjun Montenegro MD Assessment and Plan Assessment and Plan Respiratory failure - Underlying pulmonary consolidation - Mechanical ventilation - Repeat CXR a.m. - Follow-up ABG - DuoNeb scheduled and when necessary - Empiric antibiotics Wound infection - Continue outpatient antibiotics - Infectious disease consult Atrial fibrillation - Diltiazem - Coumadin Hypertension - Norvasc and diltiazem DVT GI prophylaxis - Coumadin - Teds SCDs - Pepcid Critical Care: The total critical care time was 35 minutes. Time to perform other separately billable procedures was not included in the critical care time. Silas Nieves MD Jun 14, 2017 05:40
[2017-06-14] MEDS: metroNIDAZOLE 500 MG TAB PO SCH ×3 (06:00→21:04)
--- NOTE | 2017-06-14 08:39 | EKG ---
Date Performed: 06/14/2017 Time Performed: 04:41:02 PTAGE: 77 years EKG: ATRIAL FIBRILLATION LOW QRS VOLTAGE IN EXTREMITY LEADS NONSPECIFIC T-WAVE ABNORMALITY ABNOR MAL RHYTHM ECG NO PREVIOUS TRACING DOCTOR: Jose Francisco Miller Interpretating Date/Time 06/14/2017 08:39:01
--- NOTE | 2017-06-14 08:40 | EKG ---
Date Performed: 06/14/2017 Time Performed: 03:00:59 PTAGE: 77 years EKG: ATRIAL FIBRILLATION LOW QRS VOLTAGE IN EXTREMITY LEADS BASELINE ARTEFACT ABNORMAL ECG PREVIOUS TRACING : 04/18/2017 13.39 Compared to previous tracing, baseline artefact is now pres ent. DOCTOR: Jose Francisco Miller Interpretating Date/Time 06/14/2017 08:40:37
[2017-06-14] MEDS: CHOLECALCIFEROL (VIT D3) 5000 UNIT CAP PO SCH (09:00)
[2017-06-14] MEDS: SODIUM CHLORIDE 0.9% FLUSH 10 ML FLUSH SCH ×2 (09:00→21:00)
[2017-06-14] MEDS ORDERED: FAMOTIDINE 20 MG TAB PO SCH (09:00)
[2017-06-14] MEDS: FAMOTIDINE 20 MG TAB PO SCH ×2 (09:00→21:04)
[2017-06-14] MEDS ORDERED: DILTIAZEM-CD 180 MG CAP ER PO SCH (09:00)
[2017-06-14] MEDS ORDERED: amLODIPine BESYLATE 5 MG TAB PO SCH (09:00)
[2017-06-14] MEDS: FOLIC ACID 1 MG TAB PO SCH (09:00)
[2017-06-14] MEDS: LACTOBACILLUS ACIDOPHILUS TAB PO SCH (09:00)
[2017-06-14] MEDS: MULTIVITAMINS/MINERALS THERAPEUTIC TAB PO SCH (09:00)
[2017-06-14] MEDS: PRAVASTATIN SOD 20 MG TAB PO SCH (09:00)
[2017-06-14] MEDS: DOCUSATE SODIUM 50 MG/SENNA 8.6 MG TAB PO SCH ×2 (09:00→21:04)
[2017-06-14] MEDS: VITAMIN B COMPLEX/VIT C TAB PO SCH (09:00)
[2017-06-14] MEDS ORDERED: TERBUTALINE INJ 1 MG/ML AMP SQ PRN (10:45)
[2017-06-14] MEDS ORDERED: GLUCAGON 1 MG/ML VIAL OTHER PRN (10:45)
[2017-06-14] MEDS ORDERED: DEXTROSE 50% IN WATER 50 ML VIAL(D50) IV PRN (10:45)
[2017-06-14] MEDS: MAGNESIUM OXIDE 400 MG TAB PO SCH (11:00)
[2017-06-14 11:10] LABS: BLOOD GAS BASE EXCESS -5.3 mmol/L (-2-2); BLOOD GAS CARBOXYHEMOGLOBIN 1.3 % (0-4); BLOOD GAS HCO3 18 mmol/L (22-26); BLOOD GAS METHEMOGLOBIN 0.4 % (0-2); BLOOD GAS O2 HGB SATURATION 98 % (90-100); BLOOD GAS OXYGEN CONTENT 14.2 Vol % (12.0-20.0); BLOOD GAS PCO2 26 mmHg (38-42); BLOOD GAS PO2 138 mmHG (61-120); BLOOD GAS TOTAL HGB 10.1 G/DL (12.0-16.0); CRITICAL VALUE NO; DRAW SITE LT RADIAL; FIO2 100 %; NUMBER OF ARTERIAL PUNCTURES 1; OXYGEN DEVICE VENTILATOR; STAT NO; TEMP CORR TO 98.6; VENT SETTINGS SEE COMMENTS
[2017-06-14] MEDS: PETROLATUM 49%/ZINC OXIDE 15% 4 OUNCE TUBE TOPICAL SCH ×2 (11:10→21:00)
[2017-06-14 11:30] LABS: AUTOMATED NEUTROPHIL # 7.7 TH/MM3 (1.8-7.7); BASOPHIL # 0.1 TH/MM3 (0-0.2); BASOPHIL % 0.9 % (0.0-2.0); EOSINOPHIL # 0.2 TH/MM3 (0-0.4); EOSINOPHIL % 1.6 % (0.0-4.0); HEMATOCRIT 30.3 % (39.0-51.0); HEMO FLAGS DIFF FINAL; LYMPH % 9.7 % (9.0-44.0); MEAN CELL VOLUME 97.6 FL (80.0-100.0); MEAN CORPUSCULAR HEMOGLOBIN 32.1 PG (27.0-34.0); MEAN CORPUSCULAR HGB CONC 32.9 % (32.0-36.0); MONO % 12.1 % (0.0-8.0); NEUT % 75.7 % (16.0-70.0); PLATELET COUNT 386 TH/MM3 (150-450); RED BLOOD COUNT 3.11 MIL/MM3 (4.50-5.90); RED CELL DISTRIBUTION WIDTH 17.5 % (11.6-17.2); WHITE BLOOD COUNT 10.2 TH/MM3 (4.0-11.0)
[2017-06-14] MEDS: HYDROCORTISONE SOD SUCCINATE 100 MG VIAL IV PUSH SCH ×2 (11:32→21:04)
[2017-06-14 11:33] LABS: ALT (GPT) 61 U/L (12-78); ANION GAP 12 MEQ/L (5-15); AST (GOT) 213 U/L (15-37); BICARBONATE 20.4 MEQ/L (21.0-32.0); BLOOD UREA NITROGEN 25 MG/DL (7-18); CHLORIDE 107 MEQ/L (98-107); GLOMERULAR FILTRATION RATE 45 ML/MIN (>89); MAGNESIUM 1.6 MG/DL (1.5-2.5); POTASSIUM 3.8 MEQ/L (3.5-5.1); SODIUM (NA) 139 MEQ/L (136-145)
[2017-06-14] MEDS: DEXT 5%-NACL 0.9% 1000 ML INJ 1,000 ML IV SCH ×2 (11:33→21:06)
[2017-06-14] MEDS: NOREPINEPHRINE-DEXTROSE DRIP 250 ML IV SCH ×2 (11:33→21:03)
[2017-06-14 11:46] LABS: ALKALINE PHOSPHATASE 1048 U/L (45-117); TOTAL BILIRUBIN ADULT 1.1 MG/DL (0.2-1.0)
[2017-06-14 11:50] LABS: BACTERIA, URINE MOD /hpf; BLOOD, URINE LARGE (NEG); COMMENT (UR) CATH-CULTURE IND; CULTURE IF INDICATED CATH CULTURE IND; GLUCOSE,URINE NEG (NEG); HYALINE CAST, URINE 8 /lpf (RARE); KETONE, URINE TRACE mg/dL (NEG); NITRITE,URINE NEG (NEG); SQUAMOUS EPITHELIAL CELL URINE 1 /hpf (0-5)
[2017-06-14 11:53] LABS: URINE COLOR DARK-BROWN (YELLW/STRAW)
[2017-06-14] MEDS: INSULIN NovoLIN REGULAR SUPPLEMENTAL SCALE SQ SCH ×4 (11:56→23:00)
--- NOTE | 2017-06-14 13:16 | RADRPT ---
EXAM DATE/TIME: 06/14/2017 12:29 [facility] COMPARISON: No previous studies available for comparison. INDICATIONS : Acute renal failure. Elevated liver function tests. MEDICAL HISTORY : Hypercholesterolemia. Afib. Hyperlipidemia. Chest pain. Gout. Cdiff. Anticoagulant therapy. SURGICAL HISTORY : CABG. ENCOUNTER: Subsequent ACUITY: 1 day PAIN SCORE: Nonresponsive. LOCATION: Bilateral Abdomen. MEASUREMENTS: LIVER: 14.1 cm length COMMON DUCT: 3 mm RIGHT KIDNEY: 11.0 x 5.5 x 4.6 cm LEFT KIDNEY: 12.6 x 5.5 x 6.4 cm SPLEEN: 9.4 cm length AORTA: 1.6cm maximal FINDINGS: LIVER: Exam is limited by the patient's body habitus. There is no ductal dilatation. Small bilateral pleur al effusions are noted. COMMON DUCT: No intraluminal mass or stone visualized. GALLBLADDER: Contains no stones, demonstrates no wall thickening or pericholecystic fluid. PANCREAS: Unable to visualize. RIGHT KIDNEY: There is no hydronephrosis. LEFT KIDNEY: Small renal cysts without hydronephrosis. SPLEEN: No focal lesion. AORTA: Unable to visualize IVC: Unable to visualize CONCLUSION: 1. Limited exam without intrapelvic duct dilatation 2. Small bilateral pleural effusions 3. Normal-sized kidneys without hydronephrosis. Andrés Candelaria MD FACR on June 14, 2017 at 13:13 Board Certified Radiologist. This report was verified electronically.
--- NOTE | 2017-06-14 15:12 | PD.CONS ---
History of Present Illness Service Infectious disease Consult Requested By Dr Nieves Reason for Consult Evaluate patient with septic shock Primary Care Physician Vita Cooper MD Diagnoses: History of Present Illness Patient seen and examined. Records reviewed. History also obtained from the patient's . Patient is a 77-year-old male, known to me from his previous hospitalization, brought into the hospital after he was found to be in severe respiratory distress in the [facility] where he is currently staying. His sats where in the 80s on a nonrebreather mask. Patient was initially in the hospital in March after he fell. He has chronic back pain, but after the fall he had worsening back pain. He was found to have compression fracture, and he underwent open reduction of that fracture in L1, and had fusion T11 to L3. He had instrumentation with screws and rods and microsurgical dissection. After that hospitalization, he went to [facility], and was there he started having purulent drainage from his lumbar wound. Infectious disease consultation was requested at that time and I saw him initially around the second week of April. Cultures of the wound grew Pseudomonas and enterococcus. He was transferred back to the [facility] on May 19 and underwent I and D of the wound. Culture again grew pseudomonas and enterococcus. He was discharged back to the rehabilitation on May 11, and he was on IV Zosyn at that time, with plans to give him 6-8 weeks total antibiotics from the date of his surgery. While in [facility] he developed C. difficile colitis, and he also developed a rash which was felt to be due to Zosyn. His C. difficile symptoms improved. His antibiotic was changed to Azactam and vancomycin, and he was discharged to the [facility] on June 04. According to the since he was in the rehabilitation, he is been complaining a lot about worsening back pain. He has not really been doing any kind of physical therapy , and has been bedridden during the whole time in the [facility]. His by mouth intake has been very poor. His diarrhea has resolved. The also noted that he was short of breath, and the day prior to admission he had 2 episodes of vomiting, and he also started having some cough. The night of admission he was noted to be in severe respiratory distress and he was transferred to the hospital. Patient is currently intubated, and on Levophed. His sedation is on and off due to the hypotension. His creatinine also is elevated. Linares was inserted and there was minimal urine output. Infectious disease consultation requested to evaluate the patient. Review of Systems Constitutional: COMPLAINS OF: Fatigue, DENIES: Fever, Chills Eyes: DENIES: Eye pain Ears, nose, mouth, throat: DENIES: Nasal discharge, Oral lesions, Throat pain Respiratory: COMPLAINS OF: Cough, Shortness of breath, DENIES: Sputum production Cardiovascular: COMPLAINS OF: Dyspnea on Exertion, DENIES: Chest pain Gastrointestinal: COMPLAINS OF: Vomiting, DENIES: Abdominal pain, Diarrhea, Difficulty Swallowing Musculoskeletal: COMPLAINS OF: Back pain Integumentary: DENIES: Rash Psychiatric: COMPLAINS OF: Depression, DENIES: Hallucinations Past Family Social History Allergies: Coded Allergies: Zosyn (Verified Allergy, Unknown, rash, 06/14/17) Past Medical History Hypertension Atrial fibrillation Hyperlipidemia L1 burst fracture C difficile colitis Abnormal LFT Past Surgical History Open reduction of L1 burst fracture, T11 to L3 posterolateral fusion using an iliac crest bone graft, instrumentation fixation with screws and rods, and microsurgical dissection March 2014. I and D lumbar wound May 08, 2017, C/S PSAE and Enterococcus Active Ordered Medications Albuterol Azactam Vancomycin Dulcolax Cholecalciferol Pepcid Fentanyl Folic acid Solucortef Insulin Lactinex Lactulose MOM Magnesium Melatonin Versed Morphine Levophed MVI Zofran Oxycodone Pravachol Pericolace [place] Coumadin Family History Non-contributory Social History Ex-smoker quit years ago No recent alcohol use No illicit drugs Physical Exam Vital Signs Vital Signs Date Time Temp Pulse Resp B/P Pulse Ox O2 Delivery O2 Flow Rate FiO2 06/14/17 13:43 93 20 93/65 97 Auto-Vent 06/14/17 12:42 111 20 88/67 95 Auto-Vent 06/14/17 12:00 96 20 97/59 94 Auto-Vent 06/14/17 11:53 95 60 06/14/17 11:51 84 20 106/56 99 Auto-Vent 06/14/17 10:30 99 20 77/52 100 Auto-Vent 06/14/17 09:09 93 20 85/52 100 Auto-Vent 06/14/17 08:49 82 20 71/52 99 Auto-Vent 06/14/17 08:31 100.4 87 20 64/49 81 Auto-Vent 06/14/17 07:43 98 100 06/14/17 07:34 86 20 72/45 98 Auto-Vent 06/14/17 06:11 96 20 99/64 96 Auto-Vent 100 06/14/17 05:14 99.5 93 20 110/54 96 Auto-Vent 100 06/14/17 04:58 99.5 95 20 95/68 95 Auto-Vent 100 06/14/17 04:35 92 100 06/14/17 04:34 99.9 73 22 86/52 100 Auto-Vent 100 06/14/17 04:06 99.9 93 22 84/56 100 Auto-Vent 100 06/14/17 03:15 0 100 06/14/17 03:15 100 06/14/17 03:00 99.6 93 24 106/67 92 06/14/17 03:00 100 Auto-Vent 100 06/14/17 03:00 100.2 100 22 95/52 100 Auto-Vent 100 06/14/17 03:00 111 26 92 Non-Rebreather 15 Physical Exam GENERAL: Patient is a sedated on the vent, well-nourished, well-developed male , not in respiratory distress. SKIN: Cool and dry. No generalized rash, no ecchymoses and no evidence of embolic lesions. Has decreased turgor HEAD: Atraumatic. Normocephalic. No temporal wasting, or tenderness. EYES: [place] conjunctiva. No petechia or hemorrhage. Pupils equal, round and reactive to light. No scleral icterus. No injection or drainage. EARS, NOSE AND THROAT: Nose without bleeding or purulent nasal discharge. ET in mouth NECK: Trachea midline. Supple and not tender, no meningeal signs CARDIOVASCULAR: Regular rate and rhythm. No murmurs, rubs or gallops heard RESPIRATORY: Coarse breath sounds bilaterally, decreased at the bases. ABDOMEN: Distended, bowel sounds present and hypoactive. No reaction to palpation, tympanitic on percussion. No guarding. No rebound. No organomegaly. EXTREMITIES: No clubbing, cyanosis. Has pitting edema in both UA and LE. Cool feet, no mottling. Knees both swollen, R looks worse than L NEUROLOGICAL: Sedated. No babinski, no clonus PSYCHIATRIC: Unable to assess LINE: PICC RUE with no evidence of infection : Linares in place, urine dark and concentrated, little UO Laboratory Laboratory Tests Test 06/14/17 06/14/17 06/14/17 06/14/17 03:30 04:20 10:20 10:53 White Blood Count 12.6 10.2 Red Blood Count 3.48 3.11 Hemoglobin 11.1 10.0 Hematocrit 34.2 30.3 Mean Corpuscular Volume 98.3 97.6 Mean Corpuscular Hemoglobin 31.9 32.1 Mean Corpuscular Hemoglobin 32.5 32.9 Concent Red Cell Distribution Width 18.0 17.5 Platelet Count 465 386 Mean Platelet Volume 9.2 9.1 Neutrophils (%) (Auto) 84.1 75.7 Lymphocytes (%) (Auto) 5.7 9.7 Monocytes (%) (Auto) 9.2 12.1 Eosinophils (%) (Auto) 0.5 1.6 Basophils (%) (Auto) 0.5 0.9 Neutrophils # (Auto) 10.6 7.7 Lymphocytes # (Auto) 0.7 1.0 Monocytes # (Auto) 1.2 1.2 Eosinophils # (Auto) 0.1 0.2 Basophils # (Auto) 0.1 0.1 CBC Comment DIFF FINAL DIFF FINAL Differential Comment Prothrombin Time 35.8 Prothromb Time International 3.1 Ratio Activated Partial 43.1 Thromboplast Time Sodium Level 136 139 Potassium Level 4.2 3.8 Chloride Level 102 107 Carbon Dioxide Level 22.6 20.4 Anion Gap 11 12 Blood Urea Nitrogen 24 25 Creatinine 1.49 1.52 Estimat Glomerular Filtration 46 45 Rate Random Glucose 143 122 Lactic Acid Level 1.7 Calcium Level 9.2 8.5 Total Creatine Kinase 27 Troponin I LESS THAN 0.02 LESS THAN 0.02 B-Type Natriuretic Peptide 381 Blood Gas Puncture Site RT FEMORAL Blood Gas Patient Temperature 98.6 Blood Gas HCO3 20 Blood Gas Base Excess -3.5 Blood Gas Oxygen Saturation 92 Arterial Blood pH 7.44 Arterial Blood Partial 30 Pressure CO2 Arterial Blood Partial 67 Pressure O2 Arterial Blood Oxygen Content 21.6 Arterial Blood 1.2 Carboxyhemoglobin Arterial Blood Methemoglobin 0.4 Blood Gas Hemoglobin 16.6 Oxygen Delivery Device VENTILATOR Blood Gas Ventilator Setting Blood Gas Inspired Oxygen 100 Phosphorus Level 3.1 Magnesium Level 1.6 Total Bilirubin 1.1 Aspartate Amino Transf 213 (AST/SGOT) Alanine Aminotransferase 61 (ALT/SGPT) Alkaline Phosphatase 1048 Total Protein 4.9 Albumin 1.6 Test 06/14/17 06/14/17 10:57 10:59 Urine Color DARK-BROWN Urine Turbidity CLOUDY Urine pH 5.0 Urine Specific [place] 1.030 Urine Protein 30 Urine Glucose (UA) NEG Urine Ketones TRACE Urine Occult Blood LARGE Urine Nitrite NEG Urine Bilirubin SMALL Urine Urobilinogen 2.0 Urine Leukocyte Esterase MOD Urine RBC Urine WBC 5 Urine Squamous Epithelial 1 Cells Urine Amorphous Sediment RARE Urine Bacteria MOD Urine Hyaline Casts 8 Microscopic Urinalysis Comment CATH-CULTURE IND Blood Gas Puncture Site LT RADIAL Blood Gas Patient Temperature 98.6 Blood Gas HCO3 18 Blood Gas Base Excess -5.3 Blood Gas Oxygen Saturation 98 Arterial Blood pH 7.45 Arterial Blood Partial 26 Pressure CO2 Arterial Blood Partial 138 Pressure O2 Arterial Blood Oxygen Content 14.2 Arterial Blood 1.3 Carboxyhemoglobin Arterial Blood Methemoglobin 0.4 Blood Gas Hemoglobin 10.1 Oxygen Delivery Device VENTILATOR Blood Gas Ventilator Setting SEE COMMENTS Blood Gas Inspired Oxygen 100 Date/Time Procedure Status Source Growth 06/14/17 10:57 Urine Culture Received Urine Catheterized Urine Pending 06/14/17 10:57 Legionella Antigen - Final Complete Urine Catheterized Urine PRESUMPTIVE NEGATIVE FOR LEGIONELLA P... 06/14/17 10:57 Streptococcus pneumoniae Antigen (M - Final Complete Urine Catheterized Urine PRESUMPTIVE NEGATIVE FOR STREPTOCOCCU... 06/14/17 03:35 Aerobic Blood Culture Received Blood Peripheral Pending 06/14/17 03:35 Anaerobic Blood Culture Received Blood Peripheral Pending Result Diagram: 06/14/17 1053 06/14/17 1053 Imaging RADIOLOGY STUDIES/FILMS REVIEWED Last Impressions Chest X-Ray 06/14/17 0318 Signed Impressions: Service Date/Time: Wednesday, June 14, 2017 03:22 - CONCLUSION: 1. Stable right lower lung zone airspace consolidation and small right pleural effusion. 2. Hazy opacity at the left lung base is stable representing either atelectasis or consolidation. 3. Nasogastric tube tip barely passes beyond the GE junction and should be advanced. Arjun Montenegro MD Abdomen Ultrasound 06/14/17 0000 Signed Impressions: Service Date/Time: Wednesday, June 14, 2017 12:29 - CONCLUSION: 1. Limited exam without intrapelvic duct dilatation 2. Small bilateral pleural effusions 3. Normal-sized kidneys without hydronephrosis. Andrés Candelaria MD FACR Assessment and Plan Assessment and Plan IMPRESSION Sepsis with shock - has SOB and hypoxemia, CXR stable, ?aspiration has had nausea, ?PE, ? fluid - has PICC - on Rx for PSAE and Enterococcus wound infection in back - recent C diff colitis, symptoms better Acute renal failure, ?due to fluid status, low BP, ?Abx Recent lumbar wound infection PSAE and Enterococcus S/P I and D of wound Rash with Zosyn Abnormal LFT Last lumbar spine MRI, abnormal lesions, ?mets RECOMMENDATION Follow Vanco levels and redose Adjust Azactam dose Check C/S: sputum, BC and Urine ?Reimage back when more stable to evaluate worsening back pain Urine for eosinophils Follow C/S and adjust Abx Monitor progress I will follow along with you Thank you for this consultation Discussed Condition With Spoke with D/W Maria G Ramirez MD Jun 14, 2017 15:12 without intrapelvic duct dilatation 2. Small bilateral pleural effusions 3. Normal-sized kidneys without hydronephrosis. Andrés Candelaria MD FACR Assessment and Plan Assessment and Plan IMPRESSION Sepsis with shock - has SOB and hypoxemia, CXR stable, ?aspiration has had nausea, ?PE, ? fluid - has PICC - on Rx for PSAE and Enterococcus wound infection in back - recent C diff colitis, symptoms better Acute renal failure, ?due to fluid status, low BP, ?Abx Recent lumbar wound infection PSAE and Enterococcus S/P I and D of wound Rash with Zosyn Abnormal LFT Last lumbar spine MRI, abnormal lesions, ?mets RECOMMENDATION Follow Vanco levels and redose Adjust Azactam dose Check C/S: sputum, BC and Urine ?Reimage back when more stable to evaluate worsening back pain Urine for eosinophils Follow C/S and adjust Abx Monitor progress I will follow along with you Thank you for this consultation Discussed Condition With Spoke with D/W Maria G Ramirez MD Jun 14, 2017 15:12
[2017-06-14] MEDS ORDERED: WARFARIN SOD 2 MG TAB PO SCH (16:00)
[2017-06-14] MEDS ORDERED: WARFARIN SOD 2.5 MG TAB PO SCH (16:00)
[2017-06-14] MEDS: MELATONIN 5 MG TAB PO SCH (21:00)
[2017-06-15] VITALS (17 sets, daily range): BP systolic 96–144; BP diastolic 60–83; PULSE 89–122; RESP 20–26; TEMP 98.6–99.3; O2SAT 98–100
[2017-06-15] MEDS: INSULIN NovoLIN REGULAR SUPPLEMENTAL SCALE SQ SCH ×6 (03:00→22:45)
[2017-06-15] MEDS: HYDROCORTISONE SOD SUCCINATE 100 MG VIAL IV PUSH SCH ×3 (03:38→19:57)
[2017-06-15] MEDS: CHLORHEXIDINE GLUCONATE 2 % 1 PACK (2 CLOTHS) TOP SCH (04:00)
[2017-06-15 04:05] LABS: BASOPHIL % 0.1 % (0.0-2.0); EOSINOPHIL % 0.1 % (0.0-4.0); HEMO FLAGS DIFF FINAL; LYMPH % 4.4 % (9.0-44.0); LYMPHOCYTE # 0.5 TH/MM3 (1.0-4.8); MEAN CELL VOLUME 95.4 FL (80.0-100.0); MEAN CORPUSCULAR HEMOGLOBIN 32.4 PG (27.0-34.0); MONO % 8.8 % (0.0-8.0); NEUT % 86.6 % (16.0-70.0); PLATELET COUNT 414 TH/MM3 (150-450); RED BLOOD COUNT 3.15 MIL/MM3 (4.50-5.90); RED CELL DISTRIBUTION WIDTH 17.6 % (11.6-17.2); WHITE BLOOD COUNT 11.6 TH/MM3 (4.0-11.0)
[2017-06-15 04:09] LABS: INTERNATIONAL NORMALIZED RATIO 3.8 RATIO; PROTHROMBIN TIME - PATIENT 44.3 SEC (9.8-11.6)
[2017-06-15] MEDS: RESP: ALBUTEROL 2.5 MG/IPRATROPIUM 0.5 MG NEB (SCH) INH ×4 (04:29→21:25)
[2017-06-15] MEDS: DEXT 5%-NACL 0.9% 1000 ML INJ 1,000 ML IV SCH (04:37)
[2017-06-15] MEDS: NOREPINEPHRINE-DEXTROSE DRIP 250 ML IV SCH (04:37)
[2017-06-15] MEDS: metroNIDAZOLE 500 MG TAB PO SCH ×3 (04:37→19:58)
[2017-06-15 04:39] LABS: ALKALINE PHOSPHATASE 1056 U/L (45-117); ALT (GPT) 80 U/L (12-78); ANION GAP 11 MEQ/L (5-15); AST (GOT) 268 U/L (15-37); BICARBONATE 19.7 MEQ/L (21.0-32.0); BLOOD UREA NITROGEN 29 MG/DL (7-18); CHLORIDE 107 MEQ/L (98-107); GLOMERULAR FILTRATION RATE 36 ML/MIN (>89); MAGNESIUM 1.8 MG/DL (1.5-2.5); POTASSIUM 3.5 MEQ/L (3.5-5.1); SODIUM (NA) 138 MEQ/L (136-145); TOTAL BILIRUBIN ADULT 0.9 MG/DL (0.2-1.0)
--- NOTE | 2017-06-15 04:42 | RADRPT ---
EXAM DATE/TIME: 06/15/2017 03:46 [facility] COMPARISON: CHEST SINGLE AP, June 14, 2017, 3:22. INDICATIONS : Shortness of breath. MEDICAL HISTORY : Cardiovascular disease. SURGICAL HISTORY : Lumbar. ENCOUNTER: Subsequent ACUITY: 2 days PAIN SCORE: 0/10 LOCATION: Bilateral chest FINDINGS: Rotated and underinflated AP view of the chest demonstrates cardiac silhouette size is normal. Median sternotomy wires are present. There is a moderate size right pleural parenchymal opacity, stable fro m the prior study. There is hazy opacity at the left base. No definite pneumothorax is seen. PICC, NG tube, and ET tube remain present. CONCLUSION: Stable chest x-ray with marked rotation and underinflation. Right lung airspace consolidation and ple ural effusion is stable. Nonspecific hazy opacity at the left lung base is also unchanged. Arjun Montenegro MD on June 15, 2017 at 4:39 Board Certified Radiologist. This report was verified electronically.
[2017-06-15] MEDS: PETROLATUM 49%/ZINC OXIDE 15% 4 OUNCE TUBE TOPICAL SCH ×2 (09:00→19:57)
[2017-06-15] MEDS: LACTOBACILLUS ACIDOPHILUS TAB PO SCH (09:37)
[2017-06-15] MEDS: FAMOTIDINE 20 MG TAB PO SCH (09:38)
[2017-06-15] MEDS: FOLIC ACID 1 MG TAB PO SCH (09:38)
[2017-06-15] MEDS: PRAVASTATIN SOD 20 MG TAB PO SCH (09:38)
[2017-06-15] MEDS: DOCUSATE SODIUM 50 MG/SENNA 8.6 MG TAB PO SCH ×2 (09:38→19:57)
[2017-06-15] MEDS: SODIUM CHLORIDE 0.9% FLUSH 10 ML FLUSH SCH ×2 (09:38→19:55)
[2017-06-15] MEDS: MULTIVITAMINS/MINERALS THERAPEUTIC TAB PO SCH (09:38)
[2017-06-15] MEDS: CHOLECALCIFEROL (VIT D3) 5000 UNIT CAP PO SCH (09:38)
[2017-06-15] MEDS ORDERED: DEXTROSE 50% IN WATER 50 ML VIAL(D50) IV PRN (10:45)
[2017-06-15] MEDS ORDERED: GLUCAGON 1 MG/ML VIAL OTHER PRN (10:45)
--- NOTE | 2017-06-15 11:00 | HHI.CCPN ---
Subjective Remarks/Hospital Course 77-year-old male with past medical history of hypertension hyperlipidemia atrial fibrillation coronary artery disease status post CABG surgery he was brought from [facility] where he resides after spinal surgery, for shortness of breath. The nursing staff noticed around 11 PM the patient was having difficulty to breathe. He was hypoxic with saturations in the 80s on 100% nonrebreather. He was recently discharged on 06/04/17 from inpatient rehab after a long hospital course that started when he fell on 04/14/17 and had compression fractures that were repaired by Dr. Lieberman. He has subsequently developed wound infection and has a PICC line placed on 05/10/17 for 6-8 weeks of zosyn. He was intubated by ER attending for an respiratory distress and failure. 06/14 Patient remains intubated and sedated with Fentanyl. Off Levophed this morning. Afebrile. Objective Vital Signs Date Time Temp Pulse Resp B/P Pulse Ox O2 Delivery O2 Flow Rate FiO2 06/15/17 10:00 111 06/15/17 08:31 99 40 06/15/17 08:00 99.0 20 96/63 06/14/17 17:40 Auto-Vent 06/14/17 03:00 15 Intake and Output 06/14/17 06/14/17 06/15/17 08:00 16:00 00:00 Intake Total 573 ml Output Total 1500 ml 150 ml Balance -1500 ml 423 ml Result Diagram: 06/15/17 0345 06/15/17 0345 Other Results Laboratory Tests Test 06/14/17 06/14/17 06/14/17 06/14/17 10:53 10:57 10:59 15:50 White Blood Count 10.2 TH/MM3 Red Blood Count 3.11 MIL/MM3 Hemoglobin 10.0 GM/DL Hematocrit 30.3 % Mean Corpuscular Volume 97.6 FL Mean Corpuscular Hemoglobin 32.1 PG Mean Corpuscular Hemoglobin 32.9 % Concent Red Cell Distribution Width 17.5 % Platelet Count 386 TH/MM3 Mean Platelet Volume 9.1 FL Neutrophils (%) (Auto) 75.7 % Lymphocytes (%) (Auto) 9.7 % Monocytes (%) (Auto) 12.1 % Eosinophils (%) (Auto) 1.6 % Basophils (%) (Auto) 0.9 % Neutrophils # (Auto) 7.7 TH/MM3 Lymphocytes # (Auto) 1.0 TH/MM3 Monocytes # (Auto) 1.2 TH/MM3 Eosinophils # (Auto) 0.2 TH/MM3 Basophils # (Auto) 0.1 TH/MM3 CBC Comment DIFF FINAL Differential Comment Sodium Level 139 MEQ/L Potassium Level 3.8 MEQ/L Chloride Level 107 MEQ/L Carbon Dioxide Level 20.4 MEQ/L Anion Gap 12 MEQ/L Blood Urea Nitrogen 25 MG/DL Creatinine 1.52 MG/DL Estimat Glomerular Filtration 45 ML/MIN Rate Random Glucose 122 MG/DL Calcium Level 8.5 MG/DL Phosphorus Level 3.1 MG/DL Magnesium Level 1.6 MG/DL Total Bilirubin 1.1 MG/DL Aspartate Amino Transf 213 U/L (AST/SGOT) Alanine Aminotransferase 61 U/L (ALT/SGPT) Alkaline Phosphatase 1048 U/L Total Protein 4.9 GM/DL Albumin 1.6 GM/DL Urine Color DARK-BROWN Urine Turbidity CLOUDY Urine pH 5.0 Urine Specific [place] 1.030 Urine Protein 30 mg/dL Urine Glucose (UA) NEG mg/dL Urine Ketones TRACE mg/dL Urine Occult Blood LARGE Urine Nitrite NEG Urine Bilirubin SMALL Urine Urobilinogen 2.0 MG/DL Urine Leukocyte Esterase MOD Urine RBC /hpf Urine WBC 5 /hpf Urine Squamous Epithelial 1 /hpf Cells Urine Amorphous Sediment RARE Urine Bacteria MOD /hpf Urine Hyaline Casts 8 /lpf Microscopic Urinalysis Comment CATH-CULTURE IND Blood Gas Puncture Site LT RADIAL Blood Gas Patient Temperature 98.6 Blood Gas HCO3 18 mmol/L Blood Gas Base Excess -5.3 mmol/L Blood Gas Oxygen Saturation 98 % Arterial Blood pH 7.45 Arterial Blood Partial 26 mmHg Pressure CO2 Arterial Blood Partial 138 mmHG Pressure O2 Arterial Blood Oxygen Content 14.2 Vol % Arterial Blood 1.3 % Carboxyhemoglobin Arterial Blood Methemoglobin 0.4 % Blood Gas Hemoglobin 10.1 G/DL Oxygen Delivery Device VENTILATOR Blood Gas Ventilator Setting SEE COMMENTS Blood Gas Inspired Oxygen 100 % Lactic Acid Level 1.3 mmol/L Test 06/14/17 06/14/17 06/15/17 18:37 21:06 03:45 Nasal Screen MRSA (PCR) MRSA NOT DETECTED Troponin I 0.02 NG/ML White Blood Count 11.6 TH/MM3 Red Blood Count 3.15 MIL/MM3 Hemoglobin 10.2 GM/DL Hematocrit 30.0 % Mean Corpuscular Volume 95.4 FL Mean Corpuscular Hemoglobin 32.4 PG Mean Corpuscular Hemoglobin 34.0 % Concent Red Cell Distribution Width 17.6 % Platelet Count 414 TH/MM3 Mean Platelet Volume 9.1 FL Neutrophils (%) (Auto) 86.6 % Lymphocytes (%) (Auto) 4.4 % Monocytes (%) (Auto) 8.8 % Eosinophils (%) (Auto) 0.1 % Basophils (%) (Auto) 0.1 % Neutrophils # (Auto) 10.0 TH/MM3 Lymphocytes # (Auto) 0.5 TH/MM3 Monocytes # (Auto) 1.0 TH/MM3 Eosinophils # (Auto) 0.0 TH/MM3 Basophils # (Auto) 0.0 TH/MM3 CBC Comment DIFF FINAL Differential Comment Prothrombin Time 44.3 SEC Prothromb Time International 3.8 RATIO Ratio Sodium Level 138 MEQ/L Potassium Level 3.5 MEQ/L Chloride Level 107 MEQ/L Carbon Dioxide Level 19.7 MEQ/L Anion Gap 11 MEQ/L Blood Urea Nitrogen 29 MG/DL Creatinine 1.83 MG/DL Estimat Glomerular Filtration 36 ML/MIN Rate Random Glucose 241 MG/DL Calcium Level 8.4 MG/DL Phosphorus Level 2.8 MG/DL Magnesium Level 1.8 MG/DL Total Bilirubin 0.9 MG/DL Aspartate Amino Transf 268 U/L (AST/SGOT) Alanine Aminotransferase 80 U/L (ALT/SGPT) Alkaline Phosphatase 1056 U/L Total Protein 5.0 GM/DL Albumin 1.5 GM/DL Random Vancomycin Level 21.0 COMMENT Imaging Last Impressions Chest X-Ray 06/15/17 0000 Signed Impressions: Service Date/Time: Thursday, June 15, 2017 03:46 - CONCLUSION: Stable chest x-ray with marked rotation and underinflation. Right lung airspace consolidation and pleural effusion is stable. Nonspecific hazy opacity at the left lung base is also unchanged. Arjun Montenegro MD Abdomen Ultrasound 06/14/17 0000 Signed Impressions: Service Date/Time: Wednesday, June 14, 2017 12:29 - CONCLUSION: 1. Limited exam without intrapelvic duct dilatation 2. Small bilateral pleural effusions 3. Normal-sized kidneys without hydronephrosis. Andrés Candelaria MD FACR Objective Remarks GENERAL: Well-nourished, well-developed patient intubated and sedated SKIN: Warm and dry. HEAD: Normocephalic. EYES: No scleral icterus. No injection or drainage. NECK: Supple, trachea midline. No JVD or lymphadenopathy. CARDIOVASCULAR: Regular rate and rhythm without murmurs, gallops, or rubs. RESPIRATORY: + accessory muscle use. Decreased breath sounds on right lung. GASTROINTESTINAL: Abdomen soft, non-tender, nondistended. MUSCULOSKELETAL: No cyanosis, or edema. BACK: Nontender without obvious deformity. No CVA tenderness. Neuro: Sedated A/P Assessment and Plan 1)VDRF 2)HCAP 3)Afib 4)LOUIE 5)Coagulopathy 6)Recent lumbar wound infection PSAE and Enterococcus S/P I and D of wound 7)Elevated LFT 8)Anemia 9)Malnutrition 10)Recent C-diff infections in April Plan Neuro: On Fentanyl infusion for sedation. Daily sedation vacation. Pulm: Continue with vent support keep sat >92% Bronchodilators, ICU vent bundle, SBT trials as amanda CV: Off Levophed Monitor HR and BP keep MAP>65mmHg Lactic acid 1.3 : Monitor renal function, I/O's, avoid nephrotoxins Cr: 1.83 today from 1.52, change IVF NS@100ml/hr US abdomen: No hydronephrosis GI: Continue tube feeds- Two graciela HN @65ml/hr Protonix 40mg IV for GI prophylaxis Monitor LFT's, US abdomen: ID: Continue with abx per ID ( Azactam, Vanco) On Flagyl for recent C-diff infection. Monitor for signs of infections ( Fever, WBC) 06/14 BC GPC 11/25 bottles 06/14: Sputum, Urine: NGTD 06/14: Strep pneumonia and Legionella urinary Ag negative Heme: Monitor CBC, coags- INR 3.8 today Endo: change to medium SSI with accuchecks GI prophylaxis- Protonix 40mg daily DVT prophylaxis- SCD, Coumadin on hold, INR 3.8 today Lines: Peripheral IV, PICC line CCT 30 mins Critical Care: The total critical care time was 30 minutes. Time to perform other separately billable procedures was not included in the critical care time. Wallace Boyer MD Jun 15, 2017 11:00
[2017-06-15] MEDS: VITAMIN B COMPLEX/VIT C TAB PO SCH (11:28)
[2017-06-15] MEDS: MAGNESIUM OXIDE 400 MG TAB PO SCH (11:28)
[2017-06-15] MEDS: AZTREONAM INJ 2,000 MG in SODIUM CHLORIDE 0.9% INJ 100 ML IV SCH ×2 (11:29→19:58)
[2017-06-15] MEDS: PANTOPRAZOLE SODIUM 40 MG VIAL IV PUSH SCH (11:42)
[2017-06-15] MEDS: SODIUM CHLOR 0.9% 1000 ML INJ 1,000 ML IV SCH ×2 (11:42→19:57)
--- NOTE | 2017-06-15 12:03 | EKG ---
Date Performed: 06/14/2017 Time Performed: 10:30:50 PTAGE: 77 years EKG: ATRIAL FIBRILLATION LOW QRS VOLTAGE IN EXTREMITY LEADS NONSPECIFIC T-WAVE ABNORMALITY ABNOR MAL RHYTHM ECG PREVIOUS TRACING : 06/14/2017 04.41 Compared to prior tracing no significant change DOCTOR: Jace Betancourt Interpretating Date/Time 06/15/2017 12:02:02
--- NOTE | 2017-06-15 13:36 | PD.WCN.NOT ---
Wound Consult Description: Consult for Wound Management of sacral, heel per Dr Boyer on 06/14/17 Communicated with: KAIA Somers Dr Recommendation: Calazime BID and PRN to bilateral buttocks and sacral wound Continue to reposition patient Q2H Right heel callus: leave open to air and float off mattress surface Continue to float heels by placing feet in heel raiser boots Additional Information: *Late entry* Patient seen earlier today ~1130 for sacral and heel wounds with KAIA Somers at bedside for assistance. Tube feeding placed on hold prior to assessment. Right heel was removed from heel raiser boot to reveal a callus measuring ~0.4cm circumferentially that was left open to air and placed back into heel raiser boot. Left foot was removed from heel raiser boot and is unremarkable, heel raiser boot replaced. Patient positioned to his left side to reveal a full thickness wound noted to left inner buttock within the perianal area with 100% dried yellow possible adipose tissue, jagged wound margins, and blanching periwound. Left inner buttock wound appears to be moisture related and measures 1cm x 2cm x 0.1cm. Sacral area visualized with blanching erythema and partial thickness skin loss noted measuring ~1cm x 2cm x <0.1cm and appears to be shape of the left inner buttock wound indicating moisture etiology as well. Calazime was applied to bilateral buttocks and sacral area. Patient is noted to be weeping from his upper extremities and ultrasorbs were placed under each arm to collect fluid. Patient was positioned to his left with assistance from KAIA Somers. Silvia Dixon [facility] Jun 15, 2017 13:36
--- NOTE | 2017-06-15 14:00 | HHI.IDPN ---
Subjective Subjective Remarks Patient is a 77-year-old male, known to me from his previous hospitalization, brought into the hospital after he was found to be in severe respiratory distress in the residential where he is currently staying. His sats where in the 80s on a nonrebreather mask. Patient was initially in the hospital in March after he fell. He has chronic back pain, but after the fall he had worsening back pain. He was found to have compression fracture, and he underwent open reduction of that fracture in L1, and had fusion T11 to L3. He had instrumentation with screws and rods and microsurgical dissection. After that hospitalization, he went to [facility], and was there he started having purulent drainage from his lumbar wound. Infectious disease consultation was requested at that time and I saw him initially around the second week of April. Cultures of the wound grew Pseudomonas and enterococcus. He was transferred back to the [facility] hospital on May 19 and underwent I and D of the wound. Culture again grew pseudomonas and enterococcus. He was discharged back to the rehabilitation on May 11, and he was on IV Zosyn at that time, with plans to give him 6-8 weeks total antibiotics from the date of his surgery. While in [facility] he developed C. difficile colitis, and he also developed a rash which was felt to be due to Zosyn. His C. difficile symptoms improved. His antibiotic was changed to Azactam and vancomycin, and he was discharged to the residential on June 04. According to the since he was in the rehabilitation, he is been complaining a lot about worsening back pain. He has not really been doing any kind of physical therapy , and has been bedridden during the whole time in the residential. His by mouth intake has been very poor. His diarrhea has resolved. The also noted that he was short of breath, and the day prior to admission he had 2 episodes of vomiting, and he also started having some cough. The night of admission he was noted to be in severe respiratory distress and he was transferred to the hospital. Patient is currently intubated, and on Levophed. His sedation is on and off due to the hypotension. His creatinine also is elevated. Linares was inserted and there was minimal urine output. Notes reviewed Temps low grade On vent - on CPAP since noon, trying to reach his tubes Awake and responding BP better, off pressors Making urine, creatinine better Vanco level 21 Antibiotics Azactam Vanco Flagyl Lines PICC PIV Past Medical History Hypertension Atrial fibrillation Hyperlipidemia L1 burst fracture C difficile colitis Abnormal LFT Past Surgical History Open reduction of L1 burst fracture, T11 to L3 posterolateral fusion using an iliac crest bone graft, instrumentation fixation with screws and rods, and microsurgical dissection March 2014. I and D lumbar wound May 08, 2017, C/S PSAE and Enterococcus Allergies: Coded Allergies: Zosyn (Verified Allergy, Unknown, rash, 06/14/17) Objective . Vital Signs Date Time Temp Pulse Resp B/P Pulse Ox O2 Delivery O2 Flow Rate FiO2 06/15/17 12:06 100 40 06/15/17 12:06 40 06/15/17 12:05 100 40 06/15/17 12:00 105 06/15/17 12:00 98.6 105 21 115/71 100 06/15/17 10:00 111 06/15/17 08:31 99 40 06/15/17 08:00 99.0 96 20 96/63 98 06/15/17 08:00 96 06/15/17 05:32 99 50 06/15/17 04:00 99.3 114 26 144/83 99 06/15/17 02:55 100 50 06/15/17 00:00 99.3 89 22 112/60 100 06/14/17 23:11 100 50 06/14/17 20:00 98.9 97 20 115/58 100 06/14/17 17:40 98 20 94/68 96 Auto-Vent 06/14/17 16:43 90 20 98/64 98 Auto-Vent 06/14/17 15:43 98 20 89/64 96 Auto-Vent 06/14/17 14:43 92 20 102/73 97 Auto-Vent 06/14/17 14:18 98 60 06/14/17 06/14/17 06/15/17 15:00 23:00 07:00 Intake Total 573 ml 1265 ml Output Total 700 ml 150 ml 110 ml Balance -700 ml 423 ml 1155 ml Intake Oral 0 ml 0 ml IV Total 473 ml 842 ml Tube Feeding 40 ml 363 ml Other 60 ml 60 ml Output Urine Total 700 ml 150 ml 110 ml # Voids 0 0 # Bowel Movements 1 0 . Laboratory Tests Test 06/14/17 06/14/17 06/15/17 03:30 10:53 03:45 White Blood Count 12.6 TH/MM3 10.2 TH/MM3 11.6 TH/MM3 Red Blood Count 3.48 MIL/MM3 3.11 MIL/MM3 3.15 MIL/MM3 Hemoglobin 11.1 GM/DL 10.0 GM/DL 10.2 GM/DL Hematocrit 34.2 % 30.3 % 30.0 % Mean Corpuscular Volume 98.3 FL 97.6 FL 95.4 FL Mean Corpuscular Hemoglobin 31.9 PG 32.1 PG 32.4 PG Mean Corpuscular Hemoglobin 32.5 % 32.9 % 34.0 % Concent Red Cell Distribution Width 18.0 % 17.5 % 17.6 % Platelet Count 465 TH/MM3 386 TH/MM3 414 TH/MM3 Mean Platelet Volume 9.2 FL 9.1 FL 9.1 FL Neutrophils (%) (Auto) 84.1 % 75.7 % 86.6 % Lymphocytes (%) (Auto) 5.7 % 9.7 % 4.4 % Monocytes (%) (Auto) 9.2 % 12.1 % 8.8 % Eosinophils (%) (Auto) 0.5 % 1.6 % 0.1 % Basophils (%) (Auto) 0.5 % 0.9 % 0.1 % Neutrophils # (Auto) 10.6 TH/MM3 7.7 TH/MM3 10.0 TH/MM3 Lymphocytes # (Auto) 0.7 TH/MM3 1.0 TH/MM3 0.5 TH/MM3 Monocytes # (Auto) 1.2 TH/MM3 1.2 TH/MM3 1.0 TH/MM3 Eosinophils # (Auto) 0.1 TH/MM3 0.2 TH/MM3 0.0 TH/MM3 Basophils # (Auto) 0.1 TH/MM3 0.1 TH/MM3 0.0 TH/MM3 CBC Comment DIFF FINAL DIFF FINAL DIFF FINAL Differential Comment Laboratory Tests Test 06/14/17 06/14/17 06/14/17 06/14/17 03:30 10:20 10:53 15:50 Sodium Level 136 MEQ/L 139 MEQ/L Potassium Level 4.2 MEQ/L 3.8 MEQ/L Chloride Level 102 MEQ/L 107 MEQ/L Carbon Dioxide Level 22.6 MEQ/L 20.4 MEQ/L Anion Gap 11 MEQ/L 12 MEQ/L Blood Urea Nitrogen 24 MG/DL 25 MG/DL Creatinine 1.49 MG/DL 1.52 MG/DL Estimat Glomerular Filtration 46 ML/MIN 45 ML/MIN Rate Random Glucose 143 MG/DL 122 MG/DL Lactic Acid Level 1.7 mmol/L 1.3 mmol/L Calcium Level 9.2 MG/DL 8.5 MG/DL Total Creatine Kinase 27 U/L Troponin I LESS THAN 0.02 LESS THAN 0.02 NG/ML NG/ML B-Type Natriuretic Peptide 381 PG/ML Phosphorus Level 3.1 MG/DL Magnesium Level 1.6 MG/DL Total Bilirubin 1.1 MG/DL Aspartate Amino Transf 213 U/L (AST/SGOT) Alanine Aminotransferase 61 U/L (ALT/SGPT) Alkaline Phosphatase 1048 U/L Total Protein 4.9 GM/DL Albumin 1.6 GM/DL Test 06/14/17 06/15/17 21:06 03:45 Troponin I 0.02 NG/ML Sodium Level 138 MEQ/L Potassium Level 3.5 MEQ/L Chloride Level 107 MEQ/L Carbon Dioxide Level 19.7 MEQ/L Anion Gap 11 MEQ/L Blood Urea Nitrogen 29 MG/DL Creatinine 1.83 MG/DL Estimat Glomerular Filtration 36 ML/MIN Rate Random Glucose 241 MG/DL Calcium Level 8.4 MG/DL Phosphorus Level 2.8 MG/DL Magnesium Level 1.8 MG/DL Total Bilirubin 0.9 MG/DL Aspartate Amino Transf 268 U/L (AST/SGOT) Alanine Aminotransferase 80 U/L (ALT/SGPT) Alkaline Phosphatase 1056 U/L Total Protein 5.0 GM/DL Albumin 1.5 GM/DL Microbiology Date/Time Procedure Status Source Growth 06/14/17 03:30 Aerobic Blood Culture - Preliminary Resulted Blood Peripheral NO GROWTH IN 1 DAY 06/14/17 03:30 Anaerobic Blood Culture - Preliminary Resulted Blood Peripheral NO GROWTH IN 1 DAY 06/14/17 03:35 Aerobic Blood Culture - Preliminary Resulted Blood Peripheral NO GROWTH IN 1 DAY 06/14/17 03:35 Anaerobic Blood Culture - Preliminary Resulted Staphylococcus Epidermidis 06/14/17 07:00 Urine Culture Received Urine Clean Catch Pending 06/14/17 10:57 Legionella Antigen - Final Complete Urine Catheterized Urine PRESUMPTIVE NEGATIVE FOR LEGIONELLA P... 06/14/17 10:57 Streptococcus pneumoniae Antigen (M - Final Complete Urine Catheterized Urine PRESUMPTIVE NEGATIVE FOR STREPTOCOCCU... 06/14/17 10:57 Urine Culture Received Urine Catheterized Urine Pending 06/14/17 23:00 Gram Stain - Final Resulted Sputum Endotracheal 06/14/17 23:00 Sputum Culture - Preliminary Resulted Sputum Endotracheal NO GROWTH IN 24 HOURS. 06/15/17 12:55 Aerobic Blood Culture Received Blood Peripheral Pending 06/15/17 12:55 Anaerobic Blood Culture Received Blood Peripheral Pending 06/15/17 13:05 Aerobic Blood Culture Received Blood Peripheral Pending 06/15/17 13:05 Anaerobic Blood Culture Received Blood Peripheral Pending Physical Exam GENERAL: Awake, responding,. on CPAP, NAD SKIN: Cool and dry. No generalized rash, no ecchymoses and no evidence of embolic lesions. Has decreased turgor HEAD: Atraumatic. Normocephalic. No temporal wasting, or tenderness. EYES: [place] conjunctiva. No petechia or hemorrhage. Pupils equal, round and reactive to light. No scleral icterus. No injection or drainage. EARS, NOSE AND THROAT: Nose without bleeding or purulent nasal discharge. ET in mouth NECK: Trachea midline. Supple and not tender, no meningeal signs CARDIOVASCULAR: Regular rate and rhythm. No murmurs, rubs or gallops heard RESPIRATORY: Coarse breath sounds bilaterally, decreased at the bases. ABDOMEN: Distended, bowel sounds present and hypoactive. No reaction to palpation, tympanitic on percussion. No guarding. No rebound. No organomegaly. EXTREMITIES: No clubbing, cyanosis. Has pitting edema in both UE and LE. Knees both swollen, R looks worse than L NEUROLOGICAL: Awake, responding PSYCHIATRIC: Currently calm, has restraints of both wrists LINE: PICC RUE with no evidence of infection : Linares in place, urine dark and concentrated Assessment & Plan Remarks IMPRESSION Sepsis with shock, BP better - has SOB and hypoxemia, CXR stable, ?aspiration has had nausea, ?PE, ? fluid - has PICC - on Rx for PSAE and Enterococcus wound infection in back - recent C diff colitis, symptoms better Acute renal failure, ?due to fluid status, low BP, ?Abx - improving Recent lumbar wound infection PSAE and Enterococcus S/P I and D of wound Rash with Zosyn Abnormal LFT Last lumbar spine MRI, abnormal lesions, ?mets One BC with Staph epi, ?significance RECOMMENDATION Follow Vanco levels and redose Continue Azactam Check C/S: sputum, BC and Urine ?Reimage back when more stable to evaluate worsening back pain Urine for eosinophils Follow C/S and adjust Abx Monitor progress Spoke with Maria G Nuno MD Jun 15, 2017 14:00
[2017-06-15] MEDS ORDERED: SODIUM CHLORID 0.9% 500 ML INJ 500 ML IV ONE (15:15)
[2017-06-15 16:43] LABS: BICARBONATE 18.7 MEQ/L (21.0-32.0); POTASSIUM 3.4 MEQ/L (3.5-5.1)
[2017-06-15] MEDS ORDERED: POTASSIUM CHLOR 20 MEQ PREMIX 100 ML IV ONE (17:30)
[2017-06-15] MEDS: MELATONIN 5 MG TAB PO SCH (19:57)
[2017-06-16] VITALS (16 sets, daily range): BP systolic 99–149; BP diastolic 56–86; PULSE 100–121; RESP 18–28; TEMP 98.5–99.1; O2SAT 92–100
[2017-06-16] MEDS: INSULIN NovoLIN REGULAR SUPPLEMENTAL SCALE SQ SCH ×6 (02:45→22:45)
[2017-06-16] MEDS: HYDROCORTISONE SOD SUCCINATE 100 MG VIAL IV PUSH SCH ×3 (03:00→14:55)
[2017-06-16] MEDS: RESP: ALBUTEROL 2.5 MG/IPRATROPIUM 0.5 MG NEB (SCH) INH ×4 (03:31→20:52)
[2017-06-16] MEDS: CHLORHEXIDINE GLUCONATE 2 % 1 PACK (2 CLOTHS) TOP SCH (03:45)
[2017-06-16 04:40] LABS: ANION GAP 13 MEQ/L (5-15); AST (GOT) 208 U/L (15-37); BICARBONATE 16.9 MEQ/L (21.0-32.0); BLOOD UREA NITROGEN 40 MG/DL (7-18); CHLORIDE 109 MEQ/L (98-107); GLOMERULAR FILTRATION RATE 33 ML/MIN (>89); INTERNATIONAL NORMALIZED RATIO 1.8 RATIO; POTASSIUM 3.8 MEQ/L (3.5-5.1); PROTHROMBIN TIME - PATIENT 20.9 SEC (9.8-11.6); SODIUM (NA) 139 MEQ/L (136-145)
[2017-06-16 04:41] LABS: ALT (GPT) 89 U/L (12-78)
[2017-06-16 04:46] LABS: AUTOMATED NEUTROPHIL # 8.7 TH/MM3 (1.8-7.7); BASOPHIL % 0.1 % (0.0-2.0); EOSINOPHIL % 0.2 % (0.0-4.0); HEMATOCRIT 30.9 % (39.0-51.0); HEMO FLAGS DIFF FINAL; LYMPH % 4.2 % (9.0-44.0); LYMPHOCYTE # 0.4 TH/MM3 (1.0-4.8); MEAN CELL VOLUME 97.6 FL (80.0-100.0); MEAN CORPUSCULAR HEMOGLOBIN 31.7 PG (27.0-34.0); MEAN CORPUSCULAR HGB CONC 32.5 % (32.0-36.0); MONO % 10.5 % (0.0-8.0); PLATELET COUNT 386 TH/MM3 (150-450); RED BLOOD COUNT 3.16 MIL/MM3 (4.50-5.90); RED CELL DISTRIBUTION WIDTH 17.6 % (11.6-17.2); WHITE BLOOD COUNT 10.2 TH/MM3 (4.0-11.0)
[2017-06-16 04:55] LABS: ALKALINE PHOSPHATASE 1325 U/L (45-117); TOTAL BILIRUBIN ADULT 0.8 MG/DL (0.2-1.0)
[2017-06-16] MEDS: SODIUM CHLOR 0.9% 1000 ML INJ 1,000 ML IV SCH (04:56)
[2017-06-16] MEDS: metroNIDAZOLE 500 MG TAB PO SCH ×3 (04:56→20:20)
[2017-06-16] MEDS: PANTOPRAZOLE SODIUM 40 MG VIAL IV PUSH SCH (08:04)
[2017-06-16] MEDS: fentaNYL DRIP 250 ML IV SCH (08:04)
[2017-06-16] MEDS: FOLIC ACID 1 MG TAB PO SCH (08:04)
[2017-06-16] MEDS: VITAMIN B COMPLEX/VIT C TAB PO SCH (08:05)
[2017-06-16] MEDS: SODIUM CHLORIDE 0.9% FLUSH 10 ML FLUSH SCH ×2 (08:05→20:20)
[2017-06-16] MEDS: PRAVASTATIN SOD 20 MG TAB PO SCH (08:05)
[2017-06-16] MEDS: DOCUSATE SODIUM 50 MG/SENNA 8.6 MG TAB PO SCH ×2 (08:05→20:20)
[2017-06-16] MEDS: LACTOBACILLUS ACIDOPHILUS TAB PO SCH (08:05)
[2017-06-16] MEDS: CHOLECALCIFEROL (VIT D3) 5000 UNIT CAP PO SCH (08:05)
[2017-06-16] MEDS: MULTIVITAMINS/MINERALS THERAPEUTIC TAB PO SCH (08:05)
[2017-06-16] MEDS: PETROLATUM 49%/ZINC OXIDE 15% 4 OUNCE TUBE TOPICAL SCH ×2 (09:00→20:20)
[2017-06-16] MEDS: AZTREONAM INJ 2,000 MG in SODIUM CHLORIDE 0.9% INJ 100 ML IV SCH ×2 (10:41→20:19)
[2017-06-16] MEDS: MAGNESIUM OXIDE 400 MG TAB PO SCH (10:41)
[2017-06-16] MEDS ORDERED: MICAFUNGIN INJ 100 MG in SODIUM CHLORIDE 0.9% INJ 100 ML IV SCH (11:00)
--- NOTE | 2017-06-16 12:25 | HHI.IDPN ---
Subjective Subjective Remarks Patient is a 77-year-old male, known to me from his previous hospitalization, brought into the hospital after he was found to be in severe respiratory distress in the half-way where he is currently staying. His sats where in the 80s on a nonrebreather mask. Patient was initially in the hospital in March after he fell. He has chronic back pain, but after the fall he had worsening back pain. He was found to have compression fracture, and he underwent open reduction of that fracture in L1, and had fusion T11 to L3. He had instrumentation with screws and rods and microsurgical dissection. After that hospitalization, he went to [facility], and was there he started having purulent drainage from his lumbar wound. Infectious disease consultation was requested at that time and I saw him initially around the second week of April. Cultures of the wound grew Pseudomonas and enterococcus. He was transferred back to the [facility] hospital on May 19 and underwent I and D of the wound. Culture again grew pseudomonas and enterococcus. He was discharged back to the rehabilitation on May 11, and he was on IV Zosyn at that time, with plans to give him 6-8 weeks total antibiotics from the date of his surgery. While in [facility] he developed C. difficile colitis, and he also developed a rash which was felt to be due to Zosyn. His C. difficile symptoms improved. His antibiotic was changed to Azactam and vancomycin, and he was discharged to the half-way on June 04. According to the since he was in the rehabilitation, he is been complaining a lot about worsening back pain. He has not really been doing any kind of physical therapy , and has been bedridden during the whole time in the half-way. His by mouth intake has been very poor. His diarrhea has resolved. The also noted that he was short of breath, and the day prior to admission he had 2 episodes of vomiting, and he also started having some cough. The night of admission he was noted to be in severe respiratory distress and he was transferred to the hospital. Patient is currently intubated, and on Levophed. His sedation is on and off due to the hypotension. His creatinine also is elevated. Linares was inserted and there was minimal urine output. Notes reviewed Temps better Off pressors On the vent One BC on admission with Staph epi, second set with yeast PICC removed - send for C/S Awake and responding Making urine, creatinine slightly higher Vanco level 18 Antibiotics Azactam Vanco Flagyl Lines PICC - removed today PIV Past Medical History Hypertension Atrial fibrillation Hyperlipidemia L1 burst fracture C difficile colitis Abnormal LFT Past Surgical History Open reduction of L1 burst fracture, T11 to L3 posterolateral fusion using an iliac crest bone graft, instrumentation fixation with screws and rods, and microsurgical dissection March 2014. I and D lumbar wound May 08, 2017, C/S PSAE and Enterococcus Allergies: Coded Allergies: Zosyn (Verified Allergy, Unknown, rash, 06/14/17) Objective . Vital Signs Date Time Temp Pulse Resp B/P Pulse Ox O2 Delivery O2 Flow Rate FiO2 06/16/17 12:00 98.5 116 22 131/63 99 06/16/17 12:00 121 06/16/17 11:34 92 40 06/16/17 10:00 115 06/16/17 08:00 112 06/16/17 08:00 98.7 109 20 128/56 99 06/16/17 07:31 96 40 06/16/17 04:00 98.6 101 18 99/67 99 06/16/17 03:31 100 40 06/16/17 00:17 100 40 06/16/17 00:00 98.8 102 28 108/78 100 06/15/17 21:26 100 40 06/15/17 20:00 99.0 104 20 121/82 100 06/15/17 18:00 103 06/15/17 16:06 99 40 06/15/17 16:00 104 06/15/17 16:00 99.1 105 21 115/71 100 06/15/17 14:26 100 40 06/15/17 14:00 122 06/15/17 06/15/17 06/16/17 15:00 23:00 07:00 Intake Total 1312 ml 2113 ml 1289 ml Output Total 100 ml 65 ml 95 ml Balance 1212 ml 2048 ml 1194 ml Intake Oral 0 ml 0 ml IV Total 872 ml 1635 ml 836 ml Tube Feeding 380 ml 418 ml 393 ml Other 60 ml 60 ml 60 ml Output Urine Total 100 ml 65 ml 95 ml Tube Feeding Residual Discard 0 ml # Bowel Movements 0 1 0 . Laboratory Tests Test 06/15/17 06/16/17 03:45 03:50 White Blood Count 11.6 TH/MM3 10.2 TH/MM3 Red Blood Count 3.15 MIL/MM3 3.16 MIL/MM3 Hemoglobin 10.2 GM/DL 10.0 GM/DL Hematocrit 30.0 % 30.9 % Mean Corpuscular Volume 95.4 FL 97.6 FL Mean Corpuscular Hemoglobin 32.4 PG 31.7 PG Mean Corpuscular Hemoglobin 34.0 % 32.5 % Concent Red Cell Distribution Width 17.6 % 17.6 % Platelet Count 414 TH/MM3 386 TH/MM3 Mean Platelet Volume 9.1 FL 9.1 FL Neutrophils (%) (Auto) 86.6 % 85.0 % Lymphocytes (%) (Auto) 4.4 % 4.2 % Monocytes (%) (Auto) 8.8 % 10.5 % Eosinophils (%) (Auto) 0.1 % 0.2 % Basophils (%) (Auto) 0.1 % 0.1 % Neutrophils # (Auto) 10.0 TH/MM3 8.7 TH/MM3 Lymphocytes # (Auto) 0.5 TH/MM3 0.4 TH/MM3 Monocytes # (Auto) 1.0 TH/MM3 1.1 TH/MM3 Eosinophils # (Auto) 0.0 TH/MM3 0.0 TH/MM3 Basophils # (Auto) 0.0 TH/MM3 0.0 TH/MM3 CBC Comment DIFF FINAL DIFF FINAL Differential Comment Laboratory Tests Test 06/14/17 06/14/17 06/15/17 06/15/17 15:50 21:06 03:45 15:15 Lactic Acid Level 1.3 mmol/L Troponin I 0.02 NG/ML Sodium Level 138 MEQ/L 139 MEQ/L Potassium Level 3.5 MEQ/L 3.4 MEQ/L Chloride Level 107 MEQ/L 109 MEQ/L Carbon Dioxide Level 19.7 MEQ/L 18.7 MEQ/L Anion Gap 11 MEQ/L 11 MEQ/L Blood Urea Nitrogen 29 MG/DL 34 MG/DL Creatinine 1.83 MG/DL 1.98 MG/DL Estimat Glomerular Filtration 36 ML/MIN 33 ML/MIN Rate Random Glucose 241 MG/DL 179 MG/DL Calcium Level 8.4 MG/DL 8.2 MG/DL Phosphorus Level 2.8 MG/DL Magnesium Level 1.8 MG/DL Total Bilirubin 0.9 MG/DL Aspartate Amino Transf 268 U/L (AST/SGOT) Alanine Aminotransferase 80 U/L (ALT/SGPT) Alkaline Phosphatase 1056 U/L B-Type Natriuretic Peptide 341 PG/ML Total Protein 5.0 GM/DL Albumin 1.5 GM/DL Test 06/16/17 03:50 Sodium Level 139 MEQ/L Potassium Level 3.8 MEQ/L Chloride Level 109 MEQ/L Carbon Dioxide Level 16.9 MEQ/L Anion Gap 13 MEQ/L Blood Urea Nitrogen 40 MG/DL Creatinine 1.97 MG/DL Estimat Glomerular Filtration 33 ML/MIN Rate Random Glucose 205 MG/DL Calcium Level 8.2 MG/DL Total Bilirubin 0.8 MG/DL Aspartate Amino Transf 208 U/L (AST/SGOT) Alanine Aminotransferase 89 U/L (ALT/SGPT) Alkaline Phosphatase 1325 U/L Total Protein 4.9 GM/DL Albumin 1.5 GM/DL Microbiology Date/Time Procedure Status Source Growth 06/14/17 03:30 Aerobic Blood Culture - Preliminary Resulted Blood Peripheral Yeast Species 06/14/17 03:30 Anaerobic Blood Culture - Preliminary Resulted Blood Peripheral NO GROWTH IN 2 DAYS 06/14/17 03:35 Aerobic Blood Culture - Preliminary Resulted Blood Peripheral NO GROWTH IN 2 DAYS 06/14/17 03:35 Anaerobic Blood Culture - Preliminary Resulted Staphylococcus Epidermidis 06/14/17 07:00 Urine Culture - Final Complete Urine Clean Catch NO GROWTH IN 48 HOURS. 06/14/17 10:57 Legionella Antigen - Final Complete Urine Catheterized Urine PRESUMPTIVE NEGATIVE FOR LEGIONELLA P... 06/14/17 10:57 Streptococcus pneumoniae Antigen (M - Final Complete Urine Catheterized Urine PRESUMPTIVE NEGATIVE FOR STREPTOCOCCU... 06/14/17 10:57 Urine Culture - Final Complete Urine Catheterized Urine NO GROWTH IN 48 HOURS. 06/14/17 23:00 Gram Stain - Final Complete Sputum Endotracheal 06/14/17 23:00 Sputum Culture - Final Complete Sputum Endotracheal LIGHT GROWTH NORMAL RESPIRATORY LUIS 06/15/17 12:55 Aerobic Blood Culture - Preliminary Resulted Blood Peripheral NO GROWTH IN 1 DAY 06/15/17 12:55 Anaerobic Blood Culture - Preliminary Resulted Blood Peripheral NO GROWTH IN 1 DAY 06/15/17 13:05 Aerobic Blood Culture - Preliminary Resulted Blood Peripheral NO GROWTH IN 1 DAY 06/15/17 13:05 Anaerobic Blood Culture - Preliminary Resulted Blood Peripheral NO GROWTH IN 1 DAY Imaging Chest X-Ray 06/15/17 0000 Signed Impressions: Service Date/Time: Thursday, June 15, 2017 03:46 - CONCLUSION: Stable chest x-ray with marked rotation and underinflation. Right lung airspace consolidation and pleural effusion is stable. Nonspecific hazy opacity at the left lung base is also unchanged. Arjun Monetnegro MD Abdomen Ultrasound 06/14/17 0000 Signed Impressions: Service Date/Time: Wednesday, June 14, 2017 12:29 - CONCLUSION: 1. Limited exam without intrapelvic duct dilatation 2. Small bilateral pleural effusions 3. Normal-sized kidneys without hydronephrosis. Andrés Candelaria MD FACR Physical Exam GENERAL: Awake, responding, on the vent, NAD SKIN: Cool and dry. No generalized rash, no ecchymoses and no evidence of embolic lesions. HEAD: Atraumatic. Normocephalic. No temporal wasting, or tenderness. EYES: [place] conjunctiva. No petechia or hemorrhage. Pupils equal, round and reactive to light. No scleral icterus. No injection or drainage. EARS, NOSE AND THROAT: Nose without bleeding or purulent nasal discharge. ET in mouth NECK: Trachea midline. Supple and not tender, no meningeal signs CARDIOVASCULAR: Regular rate and rhythm. No murmurs, rubs or gallops heard RESPIRATORY: Coarse breath sounds bilaterally, decreased at the bases. ABDOMEN: Less distended, bowel sounds present and hypoactive. Not tender, tympanitic on percussion. No guarding. No rebound. No organomegaly. EXTREMITIES: No clubbing, cyanosis. Has pitting edema in both UE and LE. Knees both swollen, R looks worse than L NEUROLOGICAL: Awake, responding PSYCHIATRIC: Currently calm, has restraints of both wrists LINE: PIV with no evidence of infection : Linares in place, urine dark and concentrated Assessment & Plan Remarks IMPRESSION Sepsis with shock, BP better - has SOB and hypoxemia, CXR stable, ?aspiration has had nausea, ?PE, ? fluid - has PICC - on Rx for PSAE and Enterococcus wound infection in back - recent C diff colitis, symptoms better - has yeast in BC, likely line Acute renal failure, ?due to fluid status, low BP, ?Abx - stable Recent lumbar wound infection PSAE and Enterococcus S/P I and D of wound Rash with Zosyn Abnormal LFT Last lumbar spine MRI, abnormal lesions, ?mets One BC with Staph epi, ?significance RECOMMENDATION Follow Vanco levels and redose Continue Azactam Follow C/S urine for eos ?Reimage back when more stable to evaluate worsening back pain Add Micafungin Monitor progress Spoke with D/W Maria G Ramirez MD Jun 16, 2017 12:25
[2017-06-16] MEDS ORDERED: VANCOMYCIN INJ 1,000 MG in SODIUM CHLOR 0.9% 250 ML INJ 250 ML IV ONE (13:00)
--- NOTE | 2017-06-16 18:19 | HHI.CCPN ---
Subjective Remarks/Hospital Course 77-year-old male with past medical history of hypertension hyperlipidemia atrial fibrillation coronary artery disease status post CABG surgery he was brought from sn[facility] where he resides after spinal surgery, for shortness of breath. The nursing staff noticed around 11 PM the patient was having difficulty to breathe. He was hypoxic with saturations in the 80s on 100% nonrebreather. He was recently discharged on 06/04/17 from inpatient rehab after a long hospital course that started when he fell on 04/14/17 and had compression fractures that were repaired by Dr. Lieberman. He has subsequently developed wound infection and has a PICC line placed on 05/10/17 for 6-8 weeks of zosyn. He was intubated by ER attending for an respiratory distress and failure. 06/14 Patient remains intubated and sedated with Fentanyl. Off Levophed this morning. Afebrile. 06/16: patient still intubated and sedated. blood with yeast. PICC line removed. somnolent this morning but now on SBT trial. off levophed. Objective Vital Signs Date Time Temp Pulse Resp B/P Pulse Ox O2 Delivery O2 Flow Rate FiO2 06/16/17 15:56 96 40 06/16/17 14:00 121 06/16/17 12:00 98.5 22 131/63 06/14/17 17:40 Auto-Vent 06/14/17 03:00 15 Intake and Output 06/15/17 06/15/17 06/15/17 07:59 15:59 23:59 Intake Total 1265 ml 1312 ml 2113 ml Output Total 110 ml 100 ml 65 ml Balance 1155 ml 1212 ml 2048 ml Result Diagram: 06/16/17 0350 06/16/17 0350 Other Results Microbiology Date/Time Procedure Status Source Growth 06/14/17 07:00 Urine Culture - Final Complete Urine Clean Catch NO GROWTH IN 48 HOURS. 06/14/17 10:57 Legionella Antigen - Final Complete Urine Catheterized Urine PRESUMPTIVE NEGATIVE FOR LEGIONELLA P... 06/14/17 10:57 Streptococcus pneumoniae Antigen (M - Final Complete Urine Catheterized Urine PRESUMPTIVE NEGATIVE FOR STREPTOCOCCU... 06/14/17 10:57 Urine Culture - Final Complete Urine Catheterized Urine NO GROWTH IN 48 HOURS. 06/14/17 23:00 Gram Stain - Final Complete Sputum Endotracheal 06/14/17 23:00 Sputum Culture - Final Complete Sputum Endotracheal LIGHT GROWTH NORMAL RESPIRATORY [facility] Last Impressions Chest X-Ray 06/15/17 0000 Signed Impressions: Service Date/Time: Thursday, June 15, 2017 03:46 - CONCLUSION: Stable chest x-ray with marked rotation and underinflation. Right lung airspace consolidation and pleural effusion is stable. Nonspecific hazy opacity at the left lung base is also unchanged. Arjun Montenegro MD Abdomen Ultrasound 06/14/17 0000 Signed Impressions: Service Date/Time: Wednesday, June 14, 2017 12:29 - CONCLUSION: 1. Limited exam without intrapelvic duct dilatation 2. Small bilateral pleural effusions 3. Normal-sized kidneys without hydronephrosis. Andrés Candelaria MD FACR Objective Remarks GENERAL: elderly, cachectic, chronically ill patient intubated sedated and critically ill. SKIN: Warm and dry. HEAD: Normocephalic. EYES: No scleral icterus. No injection or drainage. NECK:trachea midline. No JVD CARDIOVASCULAR: tachycardic rate, irregularly irregular rhythm. afib by tele. HR in 110s. RESPIRATORY: PRVC 40% fio2, equal chest rise. GASTROINTESTINAL: Abdomen soft, non-tender, nondistended. no guarding. MUSCULOSKELETAL: No cyanosis, 1+ peripheral edema. Neuro: Sedated, intubated, RASS -2. CAM+. fc x 4. A/P Assessment and Plan Assessment: 77yM with complicated history including post-operative spinal infection with pseudomonas and recurrent infections now with fungemia and resolving septic shock. his hypoxic respiratory failure persists. we will start SBTs but he is clearly off pathway. He may not be able to improve overall given his acute on chronic deconditioning. Remains critically ill today with new fungemia and off pathway with persistent respiratory failure. 1)VDRF 2)HCAP 3)Afib with intermittent RVR 4)LOUIE 5)Coagulopathy 6)Recent lumbar wound infection PSAE and Enterococcus S/P I and D of wound 7)Elevated LFT 8)Anemia 9)Malnutrition 10)Recent C-diff infections in April 11) fungemia 12) intravascular volume overload 13) acute protein calorie malnutrition- severe Plan Neuro: On Fentanyl infusion for sedation. Daily sedation vacation. continue melatonin for sleep-wake cycle reorientation Pulm: Continue with vent support keep sat >92% Bronchodilators, ICU vent bundle, SBT trials daily. failing for mental status and hypoxia. CV: Off Levophed Monitor HR and BP keep MAP>65mmHg Lactic acid 1.3 start cardizem 30mg po q6h for Hr control : Monitor renal function, I/O's, avoid nephrotoxins Cr: louie stable. will start forced diuresis as patient is clinically volume overloaded. louie is likely atn secondary to septic shock. SLIVF. US abdomen: No hydronephrosis GI: Continue tube feeds- Two graciela HN @65ml/hr Protonix 40mg IV for GI prophylaxis Monitor LFT's, US abdomen: ID: Continue with abx per ID ( Azactam, Vanco) On Flagyl for recent C-diff infection. Monitor for signs of infections ( Fever, WBC) 06/14 BC GPC / bottles 06/14: Sputum, Urine: NGTD 06/14: Strep pneumonia and Legionella urinary Ag negative Heme: Monitor CBC, coags- INR 1.8 today Endo: medium SSI with accuchecks GI prophylaxis- Protonix 40mg daily, change to po DVT prophylaxis- SCD, Coumadin on hold, INR 1.8 today, pharmacy dosing assistance. Lines: Peripheral IV, PICC line removed today. CCT 32 mins, exclusive of separately billable procedures. Critical Care: The total critical care time was 30 minutes. Time to perform other separately billable procedures was not included in the critical care time. Manan Cotto MD Jun 16, 2017 18:18
[2017-06-16] MEDS ORDERED: FUROSEMIDE 40 MG/4 ML VIAL IV PUSH ONE (19:00)
[2017-06-16] MEDS ORDERED: ACETAMINOPHEN 325 MG TAB PO PRN (19:00)
[2017-06-16] MEDS ORDERED: ALBUMIN HUMAN 25% 25 GM/100 ML BAGP IV ONE (19:00)
[2017-06-16] MEDS: DILTIAZEM HCL 30 MG TAB PO SCH (20:20)
[2017-06-16] MEDS: MELATONIN 5 MG TAB PO SCH (20:20)
[2017-06-16] MEDS ORDERED: HYDROCORTISONE SOD SUCCINATE 100 MG VIAL IV PUSH SCH (21:00)
[2017-06-17] VITALS: BP 108/73; PULSE 111; RESP 40; TEMP 98.6; O2SAT 100
[2017-06-17] MEDS: DILTIAZEM HCL 30 MG TAB PO SCH ×2 (01:33→05:21)
[2017-06-17 02:14] VITALS: O2SAT 99
[2017-06-17] MEDS: INSULIN NovoLIN REGULAR SUPPLEMENTAL SCALE SQ SCH ×2 (02:45→05:21)
[2017-06-17] MEDS: CHLORHEXIDINE GLUCONATE 2 % 1 PACK (2 CLOTHS) TOP SCH (03:07)
[2017-06-17] MEDS: RESP: ALBUTEROL 2.5 MG/IPRATROPIUM 0.5 MG NEB (SCH) INH (03:31)
[2017-06-17 04:00] VITALS: BP 104/63; PULSE 97; RESP 19; TEMP 99.2; O2SAT 98
[2017-06-17 04:18] VITALS: O2SAT 98
[2017-06-17 05:19] LABS: INTERNATIONAL NORMALIZED RATIO 1.7 RATIO; PROTHROMBIN TIME - PATIENT 18.9 SEC (9.8-11.6)
[2017-06-17] MEDS: metroNIDAZOLE 500 MG TAB PO SCH (05:21)
[2017-06-17] MEDS ORDERED: ETOMIDATE 20 MG/10 ML VIAL ONE (06:14)
[2017-06-17] MEDS ORDERED: SUCCINYLCHOLINE CHLORIDE 200 MG/10 ML VIAL ONE (06:14)
[2017-06-17] MEDS ORDERED: DEXAMETHASONE SOD PHOS 20 MG/5 ML VIAL ONE (06:16)
[2017-06-17] MEDS ORDERED: ROCURONIUM INJ 50 MG/5 ML VIAL ONE (06:27)
[2017-06-17] MEDS ORDERED: EPINEPHrine HCL (1:10,000) 1 MG/10 ML SYRINGE ONE ×3 (07:19→07:37)
--- NOTE | 2017-06-17 07:36 | RADRPT ---
EXAM DATE/TIME: 06/17/2017 07:05 [facility] COMPARISON: CHEST SINGLE AP, June 15, 2017, 3:46. INDICATIONS : Evaluate intubation Respiratory failure MEDICAL HISTORY : Cardiovascular disease. SURGICAL HISTORY : Lumbar ENCOUNTER: Subsequent ACUITY: 4 - 6 days PAIN SCORE: Non-responsive. LOCATION: chest FINDINGS: Limited examination due to patient motion. ET tube is not well demonstrated. Redemonstration of right mid to lower lung zone airspace consolidation. Hazy left sided opacity not as well demonstrated and partially extruded the patient's hand. Cardiomediastinal contours are stable. Remainder of the exam i s unchanged. CONCLUSION: 1. Limited examination due to patient motion. 2. Patient's endotracheal tube is not well demonstrated. 3. Grossly stable extensive airspace consolidation throughout the right mid to lower lung zones. 4. Probable left pleural effusion not as well-demonstrated on current exam. Todd Alfaro MD on June 17, 2017 at 7:30 Board Certified Radiologist. This report was verified electronically.
[2017-06-17 07:56] LABS: BLOOD GAS VENOUS HCO3 13 mmol/L (22-26); BLOOD GAS VENOUS O2 CONTENT 13.5 Vol % (9.0-17.0); BLOOD GAS VENOUS O2 HGB SAT 98 % (70-76); BLOOD GAS VENOUS PCO2 57 mmHg (44-48); BLOOD GAS VENOUS PO2 400 mmHg (35-40); CRITICAL VALUE YES; TEMP CORR TO 98.6
[2017-06-17] MEDS ORDERED: SODIUM BICARBONATE 8.4% INJ 50 ML ONE (07:56)
[2017-06-17] MEDS ORDERED: SODIUM BICARBONATE 8.4% INJ 50 MEQ/50 ML SYR ONE (07:56)
[2017-06-17 07:57] LABS: DRAW SITE IV; LITER FLOW 15 L/M; OXYGEN DEVICE BiPAP; STAT YES; VENT SETTINGS AMBU
[2017-06-17 08:20] LABS: BLOOD GAS CARBOXYHEMOGLOBIN 1.1 % (0-4); BLOOD GAS HCO3 16 mmol/L (22-26); BLOOD GAS METHEMOGLOBIN 0.9 % (0-2); BLOOD GAS O2 HGB SATURATION 98 % (90-100); BLOOD GAS OXYGEN CONTENT 13.7 Vol % (12.0-20.0); BLOOD GAS PCO2 50 mmHg (38-42); BLOOD GAS PO2 462 mmHg (61-120); CRITICAL VALUE YES; DRAW SITE ART LINE; FIO2 100 %; OXYGEN DEVICE VENTILATOR; TEMP CORR TO 98.6; VENT SETTINGS PRVC 24/550/1.0/10+
[2017-06-17 08:21] LABS: STAT YES
[2017-06-17 08:26] VITALS: O2SAT 0
[2017-06-17] MEDS ORDERED: EPINEPHrine HCL (1:10,000) 1 MG/10 ML SYRINGE IV ONE (08:30)
[2017-06-17] MEDS ORDERED: VASOPRESSIN 40 U/D5W 100 ML Hypotension, do NOT titrate (enter ordered rate) IV SCH ×2 (09:00)
[2017-06-17] MEDS ORDERED: PANTOPRAZOLE SOD 40 MG DELAYED RELEASE TAB PO SCH (09:00)
[2017-06-17] MEDS ORDERED: NOREPINEPHRINE 4 MG/D5W 250 ML IV SCH (09:00)
[2017-06-17] MEDS ORDERED: MORPHINE SULFATE 8 MG/ML INJ ONE (09:16)
[2017-06-17] MEDS ORDERED: LORazepam 2 MG/ML VIAL ONE (09:17)
--- NOTE | 2017-06-17 09:32 | PD.PROCEDR ---
Central Line Procedure REASON FOR PROCEDURE Central venous access PROCEDURE PERFORMED Central line placement: R femoral cordis placed during Code Blue DESCRIPTION OF THE PROCEDURE I did not have time for extensive sterile prep as the patient was coding. On single attempt, the introducer needle was inserted with negative pressure in syringe and venous flash was obtained. The guide wire was then advanced without any restriction and the needle was removed. The dilator was used without any complications. Using Seldinger technique the introducer catheter with dilator was advanced over the guide wire. The guide wire was removed. Ports were aspirated with venous blood return and flushed easily with sterile saline. The central line was secured to the skin with one interrupted 2.0 silk sutures. COMPLICATIONS: No apparent complications ESTIMATED BLOOD LOSS: Less than 1 cc. Vani Díaz MD Jun 17, 2017 09:32
[2017-06-17] MEDS ORDERED: MORPHINE SULFATE 8 MG/ML INJ IV PUSH ONE (09:45)
--- NOTE | 2017-06-17 09:46 | RADRPT ---
EXAM DATE/TIME: 06/17/2017 08:27 [facility] COMPARISON: CHEST SINGLE AP, June 17, 2017, 7:05. INDICATIONS : Bilat chest tube placement. MEDICAL HISTORY : Cardiovascular disease.Hypercholesterolemia. Afib. Hyperlipidemia. Chest pain. Gout. Cdiff. SURGICAL HISTORY : CABG. ENCOUNTER: Subsequent ACUITY: 1 week PAIN SCORE: Non-responsive. LOCATION: Bilateral chest FINDINGS: A single view of the chest demonstrates persistent airspace disease predominantly in the right mid an d lower lung redding. No associated effusion. Left lung appears clear. There are bilateral thoracostom y tubes with some deep tissue emphysematous changes about the hemithoraces, left greater than right. Endotracheal tube is identified and appropriately positioned above the andrea. Nasogastric tube is ab ove the GE junction the side-port in the mid thoracic esophagus. This should probably be advanced at least 10-15 cm further into the stomach. Transpedicular posterior fixation at multiple thoracic and l umbar levels. Intact median sternotomy wires. Osseous structures are grossly intact. CONCLUSION: 1. Bilateral thoracostomy tubes, the left projects over the lower hemithorax. There are no pneumothor aces or significant effusions 2. Bilateral deep tissue emphysematous changes associated with the thoracostomy tubes, left greater t mcdonald right. 3. Nasogastric tube is shallow with the tip above the GE junction. The side-port is in the mid thorac ic esophagus. This needs to be advanced 10-15 cm further into the stomach. 4. Stable right middle and lower lung field infiltrate. Left lung is clear. Natanael Marr MD on June 17, 2017 at 9:40 Board Certified Radiologist. This report was verified electronically.
--- NOTE | 2017-06-17 09:48 | PD.CONS ---
Consult Service Palliative Care Consult Requested By Dr. Cotto Primary Care Physician Vita Cooper MD Reason for Consultation a. To assist with evaluation and management of symptoms including:dyspnea, anxiety b. To assist medical decision maker(s) with: better understanding of current medical conditions; weighing benefits/burdens of medical treatment options; making medical treatment decisions. HPI History of Present Illness 77-year-old with a past medical history of hypertension, hyperlipidemia, A. fib , coronary artery disease status post CABG was brought in from the snf where he resides after sinus surgery and shortness of breath. The patient was hypoxic and sent it in the 80s. Previous hospitalization include, 1 in March where he fell and had worsening back pain. Patient was found to have compression fracture and underwent open reduction of the fracture in L1 and fusion of T11 and L3. He had instrumentation with screws and rods and microsurgery. Patient after hospitalization went to [facility] where he began to have purulent drainage from his lumbar wound. Cultures grew out Pseudomonas enterococcus and he was transferred back to the main hospital from [place] on May 19 and 1 underwent I&D of the wound. Patient was discharged back to rehabilitation in May 11 and he was on IV solution at that time and was to be given 6-8 weeks of total antibiotics. In [facility] patient medical condition complicated by C. difficile, and rash which may be due to the antibiotics that was given. Antibiotics was change. He continued to have worsening back pain. In June 14, 2017 patient return to the hospital due to respiratory distress with hypoxemia and O2 sats in the 80s. Patient subsequently was intubated and transferred to the ICU, as he is seen was in sepsis. He required pressor support, and ventilator support. Tube feedings sedation for comfort, and renal function were monitored. Infectious disease was consulted and antibiotics were started. Cultures shows staph epidermidis, M.D. species. Patient eventually was off the Levophed, but remained somnolent. Despite resolving septic shock, patient hypoxic respiratory failure persists. Patient self extubated, went into code blue and have to be reintubated. Pt have massive aspiration. Chest x-ray shows extensive airspace consolidation throughout the mid right and lower lung zones. There is a left pleural effusion. Renal function is 1.97. Family members present, and discussed with medical team as patient respiratory failure persists, despite aggressive treatment. Family members endorse transition to comfort measures only. Palliative care was consulted to assist in management of symptoms and vent withdrawal. Function/Cognitive Trajectory Since back surgery, patient has been in and out of the hospital, and rehabilitation. Patient throughout this became more more deconditioned, suffered from colitis fatigue. Review of Systems ROS Limitations: Clinical Condition Past Family Social History Coded Allergies: Zosyn (Verified Allergy, Unknown, rash, 06/14/17) Past Medical History Hypertension Atrial fibrillation Hyperlipidemia L1 burst fracture C difficile colitis Abnormal LFT Past Surgical History Open reduction of L1 burst fracture, T11 to L3 posterolateral fusion using an iliac crest bone graft, instrumentation fixation with screws and rods, and microsurgical dissection March 2014. I and D lumbar wound May 08, 2017, C/S PSAE and Enterococcus Reported Medications Albuterol Azactam Vancomycin Dulcolax Cholecalciferol Pepcid Fentanyl Folic acid Solucortef Insulin Lactinex Lactulose MOM Magnesium Melatonin Versed Morphine Levophed MVI Zofran Oxycodone Pravachol Pericolace Senokot [place]-C Coumadin Current Medications Medications (Trade) Dose Ordered Sig/Curt Route Start Time Stop Time Status Last Admin (fentaNYL DRIP) 250 ml @ 0 mls/hr CONTINUOUS IV 06/14/17 03:30 06/16/17 08:04 (Vitamin D3) 5,000 units DAILY PO 06/14/17 09:00 06/16/17 08:05 (Folate) 1 mg DAILY PO 06/14/17 09:00 06/16/17 08:04 (Lactinex) 1 tab DAILY PO 06/14/17 09:00 06/16/17 08:05 (Mag-Ox) 400 mg DAILY@11 PO 06/14/17 11:00 06/16/17 10:41 (Melatonin) 5 mg HS PO 06/14/17 21:00 (Flagyl) 500 mg Q8HR PO 06/14/17 06:00 06/17/17 05:21 (Theragran M Tab) 1 tab DAILY PO 06/14/17 09:00 06/16/17 08:05 (Roxicodone) 2.5 mg Q4H PRN PO 06/14/17 03:30 (Roxicodone) 5 mg Q4H PRN PO 06/14/17 03:30 06/17/17 05:23 (Sensi-Care Protective Barrier Oint) 1 applic BID TOPICAL 7/24/17 09:00 06/16/17 20:20 (Pravachol) 20 mg DAILY PO 06/14/17 09:00 06/16/17 08:05 (Allbee C) 1 tab DAILY PO 06/14/17 09:00 06/16/17 08:05 Warfarin Sodium 2.5 mg 2.5 mg DAILY@1600 PO 06/14/17 16:00 06/16/17 17:38 (Coumadin Consult Pharmacy) 0 ml @ 0 mls/hr UNSCH OTHER 06/14/17 03:30 (NS Flush) 2 ml UNSCH PRN .XX 06/14/17 03:30 06/15/17 09:38 (NS Flush) 2 ml BID .XX 06/14/17 09:00 06/16/17 20:20 (Morphine Inj) 2 mg Q2H PRN IV 06/14/17 03:30 (Zofran Inj) 4 mg Q6H PRN IV 06/14/17 03:30 Miscellaneous Information 1 Q361D XX 06/14/17 03:30 (Chlorhexidine 2% Cloth) 3 pack Taper DAILY@04 TOP 06/14/17 04:00 06/10/18 03:59 06/17/17 03:07 (Chlorhexidine 2% Cloth) 3 pack UNSCH PRN TOP 06/14/17 03:30 (Teresa-Colace) 1 tab BID PO 06/14/17 09:00 06/16/17 20:20 (Milk Of Magnesia Liq) 30 ml Q12H PRN PO 06/14/17 03:30 (Senokot) 17.2 mg Q12H PRN PO 06/14/17 03:30 (Dulcolax Supp) 10 mg DAILY PRN RECTAL 06/14/17 03:30 Lactulose 30 ml 30 ml DAILY PRN PO 06/14/17 03:30 (Azactam Inj/NS Inj) 100 ml @ 200 mls/hr Q12H IV 06/14/17 22:00 06/16/17 20:19 (D50w (Vial) Inj) 50 ml UNSCH PRN IV 06/15/17 10:45 (Glucagon Inj) 1 mg UNSCH PRN OTHER 06/15/17 10:45 Insulin Human Regular 1 1 Q4H SQ 06/15/17 10:45 06/16/17 18:45 (Mycamine Inj/NS Inj) 100 ml @ 100 mls/hr Q24H IV 06/16/17 11:00 06/16/17 10:40 (SoluCORTEF INJ) 50 mg Taper Q12H IV PUSH 06/16/17 21:00 06/19/17 20:59 06/16/17 20:19 (Cardizem) 30 mg Q6HR PO 06/16/17 19:00 06/17/17 05:21 (Protonix) 40 mg DAILY PO 06/17/17 09:00 Acetaminophen 650 mg 650 mg Q6HR PRN PO 06/16/17 19:00 Norepinephrine Bitartrate 250 ml @ 0 mls/hr TITRATE IV 06/17/17 09:00 (Pitressin Inj/ D5W 100 ml Inj) 100 ml @ 1.5 mls/hr Q24H IV 06/17/17 09:00 Family History unable to elicit Substance Use Tobacco:ex smoker quit years ago Alcohol:no Prescription med abuse:no Illicits:no Psychosocial History to Miladis Gibson Multiple children 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 Physical Exam Vital Signs Date Time Temp Pulse Resp B/P Pulse Ox O2 Delivery O2 Flow Rate FiO2 06/17/17 08:26 0 60 06/17/17 04:18 98 40 06/17/17 04:00 99.2 97 19 104/63 98 06/17/17 02:14 99 40 06/17/17 00:00 98.6 111 40 108/73 100 06/16/17 23:29 100 40 06/16/17 20:52 97 40 06/16/17 20:00 06/16/17 20:00 99.1 100 20 145/78 100 06/16/17 18:00 117 06/16/17 16:00 99.0 117 22 149/86 95 06/16/17 16:00 111 06/16/17 15:56 96 40 06/16/17 14:00 121 06/16/17 12:00 98.5 116 22 131/63 99 06/16/17 12:00 121 06/16/17 11:34 92 40 06/16/17 10:00 115 06/16/17 06/17/17 19:00 07:00 Intake Total 1955 ml 1731 ml Output Total 250 ml 275 ml Balance 1705 ml 1456 ml Intake Oral 0 ml 0 ml IV Total 1365 ml 706 ml Tube Feeding 530 ml 865 ml Albumin 100 ml Other 60 ml 60 ml Output Urine Total 250 ml 275 ml # Bowel Movements 1 3 Exam CONSTITUTIONAL/GENERAL: Elderly gentleman unresponsive, intubated SKIN: No jaundice, rashes, or lesions Skin temperature appropriate. Not diaphoretic. HEAD: Atraumatic. Normocephalic. EYES: No scleral icterus. No injection or drainage. Fundi not examined. ENT: Nose without bleeding or purulent drainage. Throat ET tube NECK: Trachea midline.. No palpable thyroid enlargement or nodularity. CARDIOVASCULAR: tachycardic, gallops, or rubs. No JVD. Peripheral pulses symmetric. RESPIRATORY/CHEST: Symmetric,decrease chest sound bilaterally.. GASTROINTESTINAL: Abdomen soft, non-tender, nondistended. GENITOURINARY: Without palpable bladder distension. Linares catheter in place. MUSCULOSKELETAL: Extremities without clubbing, cyanosis, or 1+edema. LYMPHATICS: No palpable cervical or supraclavicular adenopathy. NEUROLOGICAL: sedated, PSYCHIATRIC: unresponsive, could not examine Diagnostic Tests Laboratory Laboratory Tests Test 06/14/17 06/14/17 06/14/17 06/14/17 10:20 10:53 10:57 10:59 Troponin I LESS THAN 0.02 NG/ML (0.02-0.05) White Blood Count 10.2 TH/MM3 (4.0-11.0) Red Blood Count 3.11 MIL/MM3 (4.50-5.90) Hemoglobin 10.0 GM/DL (13.0-17.0) Hematocrit 30.3 % (39.0-51.0) Mean Corpuscular Volume 97.6 FL (80.0-100.0) Mean Corpuscular Hemoglobin 32.1 PG (27.0-34.0) Mean Corpuscular Hemoglobin 32.9 % Concent (32.0-36.0) Red Cell Distribution Width 17.5 % (11.6-17.2) Platelet Count 386 TH/MM3 (150-450) Mean Platelet Volume 9.1 FL (7.0-11.0) Neutrophils (%) (Auto) 75.7 % (16.0-70.0) Lymphocytes (%) (Auto) 9.7 % (9.0-44.0) Monocytes (%) (Auto) 12.1 % (0.0-8.0) Eosinophils (%) (Auto) 1.6 % (0.0-4.0) Basophils (%) (Auto) 0.9 % (0.0-2.0) Neutrophils # (Auto) 7.7 TH/MM3 (1.8-7.7) Lymphocytes # (Auto) 1.0 TH/MM3 (1.0-4.8) Monocytes # (Auto) 1.2 TH/MM3 (0-0.9) Eosinophils # (Auto) 0.2 TH/MM3 (0-0.4) Basophils # (Auto) 0.1 TH/MM3 (0-0.2) CBC Comment DIFF FINAL Differential Comment Sodium Level 139 MEQ/L (136-145) Potassium Level 3.8 MEQ/L (3.5-5.1) Chloride Level 107 MEQ/L (98-107) Carbon Dioxide Level 20.4 MEQ/L (21.0-32.0) Anion Gap 12 MEQ/L (5-15) Blood Urea Nitrogen 25 MG/DL (7-18) Creatinine 1.52 MG/DL (0.60-1.30) Estimat Glomerular Filtration 45 ML/MIN (>89) Rate Random Glucose 122 MG/DL (74-106) Calcium Level 8.5 MG/DL (8.5-10.1) Phosphorus Level 3.1 MG/DL (2.5-4.9) Magnesium Level 1.6 MG/DL (1.5-2.5) Total Bilirubin 1.1 MG/DL (0.2-1.0) Aspartate Amino Transf 213 U/L (15-37) (AST/SGOT) Alanine Aminotransferase 61 U/L (12-78) (ALT/SGPT) Alkaline Phosphatase 1048 U/L (45-117) Total Protein 4.9 GM/DL (6.4-8.2) Albumin 1.6 GM/DL (3.4-5.0) Urine Color DARK-BROWN (YELLW/STRAW) Urine Turbidity CLOUDY (CLEAR) Urine pH 5.0 (5.0-8.5) Urine Specific Ong 1.030 (1.002-1.035) Urine Protein 30 mg/dL (NEG-TRACE) Urine Glucose (UA) NEG mg/dL (NEG) Urine Ketones TRACE mg/dL (NEG) Urine Occult Blood LARGE (NEG) Urine Nitrite NEG (NEG) Urine Bilirubin SMALL (NEG) Urine Urobilinogen 2.0 MG/DL (LESS THAN 2.0) Urine Leukocyte Esterase MOD (NEG) Urine RBC /hpf (0-3) Urine WBC 5 /hpf (0-5) Urine Squamous Epithelial 1 /hpf (0-5) Cells Urine Amorphous Sediment RARE Urine Bacteria MOD /hpf (NONE) Urine Hyaline Casts 8 /lpf (RARE) Microscopic Urinalysis Comment CATH-CULTURE IND Blood Gas Puncture Site LT RADIAL Blood Gas Patient Temperature 98.6 Blood Gas HCO3 18 mmol/L (22-26) Blood Gas Base Excess -5.3 mmol/L (-2-2) Blood Gas Oxygen Saturation 98 % (90-100) Arterial Blood pH 7.45 (7.380-7.420) Arterial Blood Partial 26 mmHg (38-42) Pressure CO2 Arterial Blood Partial 138 mmHG Pressure O2 (61-120) Arterial Blood Oxygen Content 14.2 Vol % (12.0-20.0) Arterial Blood 1.3 % (0-4) Carboxyhemoglobin Arterial Blood Methemoglobin 0.4 % (0-2) Blood Gas Hemoglobin 10.1 G/DL (12.0-16.0) Oxygen Delivery Device VENTILATOR Blood Gas Ventilator Setting SEE COMMENTS Blood Gas Inspired Oxygen 100 % Test 06/14/17 06/14/17 06/14/17 06/15/17 15:50 18:37 21:06 03:45 Lactic Acid Level 1.3 mmol/L (0.4-2.0) Nasal Screen MRSA (PCR) MRSA NOT DETECTED (NOT DETECT) Troponin I 0.02 NG/ML (0.02-0.05) White Blood Count 11.6 TH/MM3 (4.0-11.0) Red Blood Count 3.15 MIL/MM3 (4.50-5.90) Hemoglobin 10.2 GM/DL (13.0-17.0) Hematocrit 30.0 % (39.0-51.0) Mean Corpuscular Volume 95.4 FL (80.0-100.0) Mean Corpuscular Hemoglobin 32.4 PG (27.0-34.0) Mean Corpuscular Hemoglobin 34.0 % Concent (32.0-36.0) Red Cell Distribution Width 17.6 % (11.6-17.2) Platelet Count 414 TH/MM3 (150-450) Mean Platelet Volume 9.1 FL (7.0-11.0) Neutrophils (%) (Auto) 86.6 % (16.0-70.0) Lymphocytes (%) (Auto) 4.4 % (9.0-44.0) Monocytes (%) (Auto) 8.8 % (0.0-8.0) Eosinophils (%) (Auto) 0.1 % (0.0-4.0) Basophils (%) (Auto) 0.1 % (0.0-2.0) Neutrophils # (Auto) 10.0 TH/MM3 (1.8-7.7) Lymphocytes # (Auto) 0.5 TH/MM3 (1.0-4.8) Monocytes # (Auto) 1.0 TH/MM3 (0-0.9) Eosinophils # (Auto) 0.0 TH/MM3 (0-0.4) Basophils # (Auto) 0.0 TH/MM3 (0-0.2) CBC Comment DIFF FINAL Differential Comment Prothrombin Time 44.3 SEC (9.8-11.6) Prothromb Time International 3.8 RATIO Ratio Sodium Level 138 MEQ/L (136-145) Potassium Level 3.5 MEQ/L (3.5-5.1) Chloride Level 107 MEQ/L (98-107) Carbon Dioxide Level 19.7 MEQ/L (21.0-32.0) Anion Gap 11 MEQ/L (5-15) Blood Urea Nitrogen 29 MG/DL (7-18) Creatinine 1.83 MG/DL (0.60-1.30) Estimat Glomerular Filtration 36 ML/MIN (>89) Rate Random Glucose 241 MG/DL (74-106) Calcium Level 8.4 MG/DL (8.5-10.1) Phosphorus Level 2.8 MG/DL (2.5-4.9) Magnesium Level 1.8 MG/DL (1.5-2.5) Total Bilirubin 0.9 MG/DL (0.2-1.0) Aspartate Amino Transf 268 U/L (15-37) (AST/SGOT) Alanine Aminotransferase 80 U/L (12-78) (ALT/SGPT) Alkaline Phosphatase 1056 U/L (45-117) B-Type Natriuretic Peptide 341 PG/ML (0-100) Total Protein 5.0 GM/DL (6.4-8.2) Albumin 1.5 GM/DL (3.4-5.0) Random Vancomycin Level 21.0 COMMENT Test 06/15/17 06/16/17 06/16/17 06/17/17 15:15 03:50 18:45 04:21 Sodium Level 139 MEQ/L 139 MEQ/L (136-145) (136-145) Potassium Level 3.4 MEQ/L 3.8 MEQ/L (3.5-5.1) (3.5-5.1) Chloride Level 109 MEQ/L 109 MEQ/L (98-107) (98-107) Carbon Dioxide Level 18.7 MEQ/L 16.9 MEQ/L (21.0-32.0) (21.0-32.0) Anion Gap 11 MEQ/L (5-15) 13 MEQ/L (5-15) Blood Urea Nitrogen 34 MG/DL (7-18) 40 MG/DL (7-18) Creatinine 1.98 MG/DL 1.97 MG/DL (0.60-1.30) (0.60-1.30) Estimat Glomerular Filtration 33 ML/MIN (>89) 33 ML/MIN (>89) Rate Random Glucose 179 MG/DL 205 MG/DL (74-106) (74-106) Calcium Level 8.2 MG/DL 8.2 MG/DL (8.5-10.1) (8.5-10.1) White Blood Count 10.2 TH/MM3 (4.0-11.0) Red Blood Count 3.16 MIL/MM3 (4.50-5.90) Hemoglobin 10.0 GM/DL (13.0-17.0) Hematocrit 30.9 % (39.0-51.0) Mean Corpuscular Volume 97.6 FL (80.0-100.0) Mean Corpuscular Hemoglobin 31.7 PG (27.0-34.0) Mean Corpuscular Hemoglobin 32.5 % Concent (32.0-36.0) Red Cell Distribution Width 17.6 % (11.6-17.2) Platelet Count 386 TH/MM3 (150-450) Mean Platelet Volume 9.1 FL (7.0-11.0) Neutrophils (%) (Auto) 85.0 % (16.0-70.0) Lymphocytes (%) (Auto) 4.2 % (9.0-44.0) Monocytes (%) (Auto) 10.5 % (0.0-8.0) Eosinophils (%) (Auto) 0.2 % (0.0-4.0) Basophils (%) (Auto) 0.1 % (0.0-2.0) Neutrophils # (Auto) 8.7 TH/MM3 (1.8-7.7) Lymphocytes # (Auto) 0.4 TH/MM3 (1.0-4.8) Monocytes # (Auto) 1.1 TH/MM3 (0-0.9) Eosinophils # (Auto) 0.0 TH/MM3 (0-0.4) Basophils # (Auto) 0.0 TH/MM3 (0-0.2) CBC Comment DIFF FINAL Differential Comment Prothrombin Time 20.9 SEC 18.9 SEC (9.8-11.6) (9.8-11.6) Prothromb Time International 1.8 RATIO 1.7 RATIO Ratio Total Bilirubin 0.8 MG/DL (0.2-1.0) Aspartate Amino Transf 208 U/L (15-37) (AST/SGOT) Alanine Aminotransferase 89 U/L (12-78) (ALT/SGPT) Alkaline Phosphatase 1325 U/L (45-117) Total Protein 4.9 GM/DL (6.4-8.2) Albumin 1.5 GM/DL (3.4-5.0) Random Vancomycin Level 18.0 COMMENT Urine Eosinophils 0-2 /HPF (NONE SEEN) Test 06/17/17 06/17/17 06/17/17 04:24 07:43 08:17 Random Vancomycin Level 24.6 COMMENT Blood Gas Puncture Site IV ART LINE Blood Gas Patient Temperature 98.6 98.6 Venous Blood pH 7.00 (7.360-7.400) Venous Blood Partial Pressure 57 mmHg (44-48) CO2 Venous Blood Partial Pressure 400 mmHg O2 (35-40) Venous Blood HCO3 13 mmol/L (22-26) Venous Blood Oxygen Saturation 98 % (70-76) Venous Blood Oxygen Content 13.5 Vol % (9.0-17.0) Venous Blood Base Excess -16.0 mmol/L (-2-2) Oxygen Delivery Device BiPAP VENTILATOR Blood Gas Liter Flow 15 L/M Blood Gas Ventilator Setting AMBU PRVC 24/550/1.0/10+ Blood Gas HCO3 16 mmol/L (22-26) Blood Gas Base Excess -12.0 mmol/L (-2-2) Blood Gas Oxygen Saturation 98 % (90-100) Arterial Blood pH 7.12 (7.380-7.420) Arterial Blood Partial 50 mmHg (38-42) Pressure CO2 Arterial Blood Partial 462 mmHg Pressure O2 (61-120) Arterial Blood Oxygen Content 13.7 Vol % (12.0-20.0) Arterial Blood 1.1 % (0-4) Carboxyhemoglobin Arterial Blood Methemoglobin 0.9 % (0-2) Blood Gas Hemoglobin 9.0 G/DL (12.0-16.0) Blood Gas Inspired Oxygen 100 % Result Diagram: 06/16/17 0350 06/16/17 0350 Microbiology Microbiology Date/Time Procedure Status Source Growth 06/14/17 10:57 Legionella Antigen - Final Complete Urine Catheterized Urine PRESUMPTIVE NEGATIVE FOR LEGIONELLA P... 06/14/17 10:57 Streptococcus pneumoniae Antigen (M - Final Complete Urine Catheterized Urine PRESUMPTIVE NEGATIVE FOR STREPTOCOCCU... 06/14/17 10:57 Urine Culture - Final Complete Urine Catheterized Urine NO GROWTH IN 48 HOURS. 06/14/17 23:00 Gram Stain - Final Complete Sputum Endotracheal 06/14/17 23:00 Sputum Culture - Final Complete Sputum Endotracheal LIGHT GROWTH NORMAL RESPIRATORY LUIS 06/15/17 12:55 Aerobic Blood Culture - Preliminary Resulted Blood Peripheral NO GROWTH IN 1 DAY 06/15/17 12:55 Anaerobic Blood Culture - Preliminary Resulted Blood Peripheral NO GROWTH IN 1 DAY 06/15/17 13:05 Aerobic Blood Culture - Preliminary Resulted Blood Peripheral NO GROWTH IN 1 DAY 06/15/17 13:05 Anaerobic Blood Culture - Preliminary Resulted Blood Peripheral NO GROWTH IN 1 DAY 06/16/17 12:00 Wound Culture Received Catheter Tip Other Pending Imaging Last Impressions Chest X-Ray 06/17/17 0000 Signed Impressions: Service Date/Time: May 08:27 - CONCLUSION: 1. Bilateral thoracostomy tubes, the left projects over the lower hemithorax. There are no pneumothoraces or significant effusions 2. Bilateral deep tissue emphysematous changes associated with the thoracostomy tubes, left greater than right. 3. Nasogastric tube is shallow with the tip above the GE junction. The side-port is in the mid thoracic esophagus. This needs to be advanced 10-15 cm further into the stomach. 4. Stable right middle and lower lung field infiltrate. Left lung is clear. Natanael Marr MD Abdomen Ultrasound 06/14/17 0000 Signed Impressions: Service Date/Time: Wednesday, June 14, 2017 12:29 - CONCLUSION: 1. Limited exam without intrapelvic duct dilatation 2. Small bilateral pleural effusions 3. Normal-sized kidneys without hydronephrosis. Andrés Candelaria MD FACR Patient/Family Conference Present at Family Conference: pt's , and son Family Conference Time (mins): 40 Family Conference Location: Bedside Issues Discussed: * Palliative care role, purpose, approach * Additional medical, psychosocial, and spiritual history * Patients general health, functional status, and cognitive changes in the months leading up to the current hospitalization * Patient/family understanding of the current medical problems * Patient/family understanding of prognosis * Patients goals of care as best understood from advance directives and/or conversations and/or values * Current medical treatment options and benefits/burdens of those options * Likely scenarios comparing ongoing aggressive care with a transition to comfort measures only * Questions answered to the best of my ability * Palliative care contact information provided Assessment and Plan Disease Oriented Problem List: (1) Acute respiratory failure with hypoxia Comment: persistent. pneumothorax, chest tube, self extubate and could not tolerate (2) Fungemia (3) A-fib (4) Anemia (5) Coagulopathy (6) LOUIE (acute kidney injury) (7) Elevated LFTs (8) C. difficile colitis (9) Compression fracture of L1 lumbar vertebra (10) Compression fracture of L5 lumbar vertebra Symptom Scale: (1) Anxiety 0-10 Scale: Unable to quantify Comment: due to dyspnea and deblilty (2) Dyspnea 0-10 Scale: Unable to quantify (3) Pain 0-10 Scale: Unable to quantify Pertinent Non-Medical Issues Psychosocial: Spiritual: Legal: Ethical issues impacting care: Important Contacts Miladis Gibson [phone] Bear Gibson II [phone] Prognosis Case d/w with inspectors and regulatory officers. Pt respiratory failure persist, and chances of improving overall again given acute and chronic deconditioning is poor. Code Status: No Code Plan == Code: No code == no capacity to make decision. == by [place] statutes Proxy is Miladis Gibson. == Goals of care: transition to comfort measures only == exhibits completed both Miladis Gibosn, and Bear Gibson signed ==symptom, dyspnea/ anxiety- reviewed with multiple family members in the room about comfort meds, which they are amenable to. == Palliative Care will continue to follow. case d/w inspectors and regulatory officers. Time Spent Total Floor Time (mins): 66 Face to Face Time (mins): 44 >50% Counseling/Coord of Care: Yes Thank you for the opportunity to participate in the care of Mr. Gibson. Attestation To help prompt me to consider important information that might be impacting today's encounter and assessment, information from prior notes written by myself or my colleagues may have been "brought forward" into today's note. My signature on this note, however, is an attestation that I personally performed the exam, history, and/or decision-making noted today, and, unless otherwise indicated, the interactions with patient, family, and staff as well as the review of records all occurred today. I also attest that the listed assessment and stated plan reflect my best clinical judgment today based on the combination of historical information, prior notes, and today's exam/ interactions. When time spent is documented, it refers only to time spent today by the signer, or if indicated, combined time spent today by collaborating physician/nurse practitioner. Chilo Gutierrez MD Jun 17, 2017 09:48
[2017-06-17] MEDS ORDERED: HYOSCYAMINE 0.125 MG TAB PO/SL ONE (10:00)
[2017-06-17] MEDS ORDERED: LORazepam 2 MG/ML VIAL IV ONE ×3 (10:00→10:45)
[2017-06-17] MEDS ORDERED: SODIUM BICARBONATE 8.4% INJ 150 MEQ in SODIUM CHLOR 0.9% 1000 ML INJ 1,000 ML IV SCH (10:00)
[2017-06-17] MEDS ORDERED: SODIUM CHLOR 0.9% 1000 ML INJ 1,000 ML IV SCH (10:00)
[2017-06-17] MEDS ORDERED: EPINEPHrine 2 MG/D5W 250 ML IV SCH ×2 (10:00)
[2017-06-17] MEDS ORDERED: HYDROmorphone HCL PF 2 MG/ML VIAL IV ONE ×2 (10:30→10:45)
[2017-06-17] MEDS ORDERED: ACETAMINOPHEN 650 MG SUPP RECTAL PRN (10:30)
[2017-06-17] MEDS ORDERED: HYDROmorphone HCL PF 2 MG/ML VIAL IV PRN ×2 (11:00)
[2017-06-17] MEDS ORDERED: LORazepam 2 MG/ML VIAL IVS PRN (11:00)
[2017-06-17] MEDS ORDERED: LORazepam 2 MG/ML VIAL IV PRN ×2 (11:00)
[2017-06-17] MEDS ORDERED: HYDROmorphone HCL PF 2 MG/ML VIAL IV SCH (12:00)
[2017-06-17] MEDS ORDERED: LORazepam 2 MG/ML VIAL IV SCH (12:00)
[2017-06-17] MEDS: SODIUM CHLORIDE 0.9% FLUSH 10 ML FLUSH SCH (12:17)
--- NOTE | 2017-06-17 14:58 | EKG ---
Date Performed: 06/17/2017 Time Performed: 07:53:04 PTAGE: 77 years EKG: --- Warning: Data quality may affect interpretation --- --- Recording unsuitable for analys is - please repeat --- Analysis error PREVIOUS TRACING : 06/14/2017 10.30 DOCTOR: Gianluca Arboleda Interpretating Date/Time 06/17/2017 14:56:58
--- NOTE | 2017-06-17 20:32 | PD.PROCEDR ---
Procedure Note Procedure Central Line Procedure Note Left femoral 7 [place]an triple lumen catheter Diagnosis: Status post PEA arrest secondary to hypoxic respiratory failure Indications: Need for highly potent vasoactive substances Consent: Consent is deemed emergent or medically necessary Anesthesia: None. Description of the Procedure: The central line was placed under profound hemodynamic instability. The sterility this line cannot be guaranteed. The patient was placed in the supine, mild-Trendelenburg position. The area was prepped and draped sterilely. A 19g needle was inserted under negative pressure aspiration and dark venous blood was obtained. A guidewire was inserted easily without resistance. A small incision was made using a #11 blade. Using a modified Seldinger technique, the dilator and 7 [place]an, 20 cm catheter were advanced over the guidewire without resistance. All ports were aspirated and flushed, and had brisk blood return. The line was secured at the skin using 2-0 silk interrupted sutures. A Biopatch and Transparent sterile dressing were applied. There were no immediate complications noted. There was minimal EBL. Ultrasound Guidance: Ultrasound guidance was used to identify the left femoral vein. The vascular anatomy of the left groin was normal. The vessel was cannulated under direct, real-time ultrasound visualization. After placement of the guidewire, confirmation of the guidewire in the lumen of the vessel was made using ultrasound visualization, before dilation of the tract. I personally performed the procedure. Manan Cotto MD Jun 17, 2017 20:32
--- NOTE | 2017-06-17 20:35 | PD.PROCEDR ---
Procedure Note Procedure Tube Thoracostomy Procedure Note Emergent right 28 Luxembourgish tube thoracostomy placement Diagnosis: PEA arrest Indications: PEA arrest with ongoing CPR for greater than 20 minutes, decreased breath sounds, concern for tension pneumothorax Consent: And is deemed emergent Anesthesia: None Description of the Procedure: The patient was placed in the supine position. Active CPR was in progress. The right lateral chest was prepped. The 5th intercostal space was identified. A small incision was made using a #11 blade. At the mid-axillary line, blunt dissection was performed until the rib was palpated. A Adali clamp was used to bluntly enter the pleura immediately above the adjacent rib. The space was opened bluntly with the Adali clamp. An immediate gush of air was felt. A finger was inserted and lung and pleura were felt. A 28 Fr chest tube was inserted along the course of the finger and into the pleural cavity easily and without resistance. The chest tube was connected to a Pleur-o-vac and connected to [id number] suction. The catheter was sutured to the skin using a 0 silk sandal suture and an occlusive dressing was applied. CPR was ongoing Chest Tube output: 800mL serosanguinous output. Positive air leak. A Chest x-ray has been ordered. I personally performed the procedure. Manan Cotto MD Jun 17, 2017 20:35
--- NOTE | 2017-06-17 20:35 | PD.PROCEDR ---
Procedure Note Procedure Tube Thoracostomy Procedure Note Emergent left 32 Thai tube thoracostomy placement Diagnosis: PEA arrest Indications: PEA arrest with ongoing CPR for greater than 20 minutes, decreased breath sounds, concern for tension pneumothorax Consent: And is deemed emergent Anesthesia: None Description of the Procedure: The patient was placed in the supine position. Active CPR was in progress. The left lateral chest was prepped. The 5th intercostal space was identified. A small incision was made using a #11 blade. At the mid-axillary line, blunt dissection was performed until the rib was palpated. A Adali clamp was used to bluntly enter the pleura immediately above the adjacent rib. The space was opened bluntly with the Adali clamp. An immediate gush of air was felt. A finger was inserted and lung and pleura were felt. A 32 Fr chest tube was inserted along the course of the finger and into the pleural cavity easily and without resistance. The chest tube was connected to a Pleur-o-vac and connected to [id number] suction. The catheter was sutured to the skin using a 0 silk sandal suture and an occlusive dressing was applied. CPR was ongoing Chest Tube output: 600mL serous output. Positive air leak. A Chest x-ray has been ordered. I personally performed the procedure. Manan Cotto MD Jun 17, 2017 20:35
--- NOTE | 2017-06-17 20:37 | HHI.DS ---
Summary Note Date of : Jun 17, 2017 Time Of : 1021 Admission Date Jun 14, 2017 at 04:48 Admitting Diagnosis Acute hypoxic respiratory failure Diagnosis at Time of : Brief History 77-year-old male with past medical history of hypertension hyperlipidemia atrial fibrillation coronary artery disease status post CABG surgery he was brought from long-term where he resides after spinal surgery, for shortness of breath. The nursing staff noticed around 11 PM the patient was having difficulty to breathe. He was hypoxic with saturations in the 80s on 100% nonrebreather. He was recently discharged on 06/04/17 from inpatient rehab after a long hospital course that started when he fell on 04/14/17 and had compression fractures that were repaired by Dr. Lieberman. He has subsequently developed wound infection and has a PICC line placed on 05/10/17 for 6-8 weeks of zosyn. He was intubated by ER attending for an respiratory distress and failure. CBC/BMP: 06/16/17 0350 06/16/17 0350 Significant Findings Laboratory Tests Test 06/15/17 06/15/17 06/16/17 06/16/17 03:45 15:15 03:50 18:45 White Blood Count 11.6 TH/MM3 (4.0-11.0) Red Blood Count 3.15 MIL/MM3 3.16 MIL/MM3 (4.50-5.90) (4.50-5.90) Hemoglobin 10.2 GM/DL 10.0 GM/DL (13.0-17.0) (13.0-17.0) Hematocrit 30.0 % 30.9 % (39.0-51.0) (39.0-51.0) Red Cell Distribution Width 17.6 % 17.6 % (11.6-17.2) (11.6-17.2) Neutrophils (%) (Auto) 86.6 % 85.0 % (16.0-70.0) (16.0-70.0) Lymphocytes (%) (Auto) 4.4 % 4.2 % (9.0-44.0) (9.0-44.0) Monocytes (%) (Auto) 8.8 % (0.0-8.0) 10.5 % (0.0-8.0) Neutrophils # (Auto) 10.0 TH/MM3 8.7 TH/MM3 (1.8-7.7) (1.8-7.7) Lymphocytes # (Auto) 0.5 TH/MM3 0.4 TH/MM3 (1.0-4.8) (1.0-4.8) Monocytes # (Auto) 1.0 TH/MM3 1.1 TH/MM3 (0-0.9) (0-0.9) Prothrombin Time 44.3 SEC 20.9 SEC (9.8-11.6) (9.8-11.6) Carbon Dioxide Level 19.7 MEQ/L 18.7 MEQ/L 16.9 MEQ/L (21.0-32.0) (21.0-32.0) (21.0-32.0) Blood Urea Nitrogen 29 MG/DL (7-18) 34 MG/DL (7-18) 40 MG/DL (7-18) Creatinine 1.83 MG/DL 1.98 MG/DL 1.97 MG/DL (0.60-1.30) (0.60-1.30) (0.60-1.30) Estimat Glomerular Filtration 36 ML/MIN (>89) 33 ML/MIN (>89) 33 ML/MIN (>89) Rate Random Glucose 241 MG/DL 179 MG/DL 205 MG/DL (74-106) (74-106) (74-106) Calcium Level 8.4 MG/DL 8.2 MG/DL 8.2 MG/DL (8.5-10.1) (8.5-10.1) (8.5-10.1) Aspartate Amino Transf 268 U/L (15-37) 208 U/L (15-37) (AST/SGOT) Alanine Aminotransferase 80 U/L (12-78) 89 U/L (12-78) (ALT/SGPT) Alkaline Phosphatase 1056 U/L 1325 U/L (45-117) (45-117) B-Type Natriuretic Peptide 341 PG/ML (0-100) Total Protein 5.0 GM/DL 4.9 GM/DL (6.4-8.2) (6.4-8.2) Albumin 1.5 GM/DL 1.5 GM/DL (3.4-5.0) (3.4-5.0) Potassium Level 3.4 MEQ/L (3.5-5.1) Chloride Level 109 MEQ/L 109 MEQ/L (98-107) (98-107) Urine Eosinophils 0-2 /HPF (NONE SEEN) Test 06/17/17 06/17/17 06/17/17 04:21 07:43 08:17 Prothrombin Time 18.9 SEC (9.8-11.6) Venous Blood pH 7.00 (7.360-7.400) Venous Blood Partial Pressure 57 mmHg (44-48) CO2 Venous Blood Partial Pressure 400 mmHg O2 (35-40) Venous Blood HCO3 13 mmol/L (22-26) Venous Blood Oxygen Saturation 98 % (70-76) Venous Blood Base Excess -16.0 mmol/L (-2-2) Blood Gas HCO3 16 mmol/L (22-26) Blood Gas Base Excess -12.0 mmol/L (-2-2) Arterial Blood pH 7.12 (7.380-7.420) Arterial Blood Partial 50 mmHg (38-42) Pressure CO2 Arterial Blood Partial 462 mmHg Pressure O2 (61-120) Blood Gas Hemoglobin 9.0 G/DL (12.0-16.0) Imaging Last Impressions Chest X-Ray 06/15/17 0000 Signed Impressions: Service Date/Time: Thursday, June 15, 2017 03:46 - CONCLUSION: Stable chest x-ray with marked rotation and underinflation. Right lung airspace consolidation and pleural effusion is stable. Nonspecific hazy opacity at the left lung base is also unchanged. Arjun Montenegro MD Abdomen Ultrasound 06/14/17 0000 Signed Impressions: Service Date/Time: Wednesday, June 14, 2017 12:29 - CONCLUSION: 1. Limited exam without intrapelvic duct dilatation 2. Small bilateral pleural effusions 3. Normal-sized kidneys without hydronephrosis. Andrés Candelaria MD FACR Hospital Course 77-year-old male with past medical history of hypertension hyperlipidemia atrial fibrillation coronary artery disease status post CABG surgery he was brought from long-term where he resides after spinal surgery, for shortness of breath. The nursing staff noticed around 11 PM the patient was having difficulty to breathe. He was hypoxic with saturations in the 80s on 100% nonrebreather. He was recently discharged on 06/04/17 from inpatient rehab after a long hospital course that started when he fell on 04/14/17 and had compression fractures that were repaired by Dr. Lieberman. He has subsequently developed wound infection and has a PICC line placed on 05/10/17 for 6-8 weeks of zosyn. He was intubated by ER attending for an respiratory distress and failure. 06/14 Patient remains intubated and sedated with Fentanyl. Off Levophed this morning. Afebrile. 06/16: patient still intubated and sedated. blood with yeast. PICC line removed. somnolent this morning but now on SBT trial. off levophed. On the morning of 06/17 the patient experienced self extubation event followed by massive aspiration which decompensated into hypoxic respiratory failure, rest her arrest, PEA arrest. Greater than 30 minutes of CPR was done with compilations including bilateral tension pneumothoraces, arterial placement of the 8.5 Tristan[place] right Cordis introducer sheath. Although ROSC was obtained, the patient remained severely unstable and despite our best efforts, the patient . Manan Cotto MD Jun 17, 2017 20:37
--- NOTE | 2017-06-17 21:51 | HHI.CCPN ---
Subjective Remarks/Hospital Course 77-year-old male with past medical history of hypertension hyperlipidemia atrial fibrillation coronary artery disease status post CABG surgery he was brought from skilled nursing where he resides after spinal surgery, for shortness of breath. The nursing staff noticed around 11 PM the patient was having difficulty to breathe. He was hypoxic with saturations in the 80s on 100% nonrebreather. He was recently discharged on 06/04/17 from inpatient rehab after a long hospital course that started when he fell on 04/14/17 and had compression fractures that were repaired by Dr. Lieberman. He has subsequently developed wound infection and has a PICC line placed on 05/10/17 for 6-8 weeks of zosyn. He was intubated by ER attending for an respiratory distress and failure. 06/14 Patient remains intubated and sedated with Fentanyl. Off Levophed this morning. Afebrile. 06/16: patient still intubated and sedated. blood with yeast. PICC line removed. somnolent this morning but now on SBT trial. off levophed. 06/17: Called to bedside at 0608 am (by Call Center), the patient had self extubated on a fentanyl infusion at 50 mcgs and 2 point wrist restraints,2 attempts had been made by respiratory therapist to intubate the patient, prior to notification of physicians. Upon arrival 2 attempts had been made by Respiratory therapists . Informed by respiratory therapist and RIGHT OF WAY SUPERVISOR that patient's self extubated and O2 sat dropped to 89% and intubation attempts were made at that point .The patient had notably aspirated copious biliary and tube feeds were noted upon entering the room. The patient was noted to have an O2 sat at that time of 60%, significantly hypotensive with a systolic blood pressure in the 60s, alcohol respirations were noted as the patient was being actively ambued by the additional respiratory therapist in the room. The patient was suctioned, rapid sequence induction with cricoid pressure was attempted ,etomidate and succinylcholine were given intravenously. However was noted that both IVs were infiltrated, and there was no IV access. Concurrently attempts were being made to obtain IV access by multiple RN's. Without delay, cricoid pressure, and a glide scope 4, the patient was successfully intubated 1 attempt. Upon visualization it was noted copious amounts of fluid bilious and tube feeds were emanating from the trachea and the esophagus pooling, requiring aggressive suctioning during the intubation. An 8.0 ETT at 26 cm at the lip, was placed, with direct visualization with the glide scope and reconfirmed. The patient was noted to have positive end tidal CO2 capnography, bilateral breath sounds (coarse) 100% O2 Ambu bag with PEEP and resulted in initial O2 saturation of 98%. As x-ray was called and pending. Automatic blood pressure monitoring, was increased to cycle every 1-2.5 minutes. Central line cart was obtained, the patient continued to be 100% ambued, and with ultrasound guidance , attempts [address] a right IJ, difficulty in placement secondary to continuous patient movement of agonal respirations and no IV resulted in difficult placement, initial puncture right carotid, with immediate removal of needle and placement of pressure 10 minutes. Right groin area was exposed for preparation for central line placement in the right femoral . It was noted that the patient's oxygenation level was decreasing, O2 sat in the 86-89% on mechanical ventilation. Intermittent aggressive suctioning of the oropharynx and ET tube was performed secondary to copious volume of aspirate contents. 0658 Dr. Cotto was notified/ updated of patient's condition by phone, as he was enroute from [facility]. Stat chest x-ray was again ordered, ABG was ordered. At approximately 0709, respiratory therapist arrive to perform ABG , and shift change report, the patient continued to be 100% ambued. With bag- valve-mask, at 0711 the patient was noted not to have a blood pressure, pulse checks revealed no pulse and CPR was initiated.( Please refer to code sheet). Objective Vital Signs Date Time Temp Pulse Resp B/P Pulse Ox O2 Delivery O2 Flow Rate FiO2 06/17/17 10:03 Room Air 06/17/17 08:26 0 60 06/17/17 04:00 99.2 97 19 104/63 06/14/17 03:00 15 Intake and Output 06/16/17 06/16/17 06/16/17 07:59 15:59 23:59 Intake Total 1289 ml 1955 ml 1226 ml Output Total 95 ml 250 ml 150 ml Balance 1194 ml 1705 ml 1076 ml Result Diagram: 06/16/17 0350 06/16/17 0350 Other Results Microbiology Date/Time Procedure Status Source Growth 06/14/17 23:00 Gram Stain - Final Complete Sputum Endotracheal 06/14/17 23:00 Sputum Culture - Final Complete Sputum Endotracheal LIGHT GROWTH NORMAL RESPIRATORY [facility]IS Laboratory Tests Test 06/17/17 06/17/17 07:43 08:17 Blood Gas Puncture Site IV ART LINE Blood Gas Patient Temperature 98.6 98.6 Venous Blood pH 7.00 (7.360-7.400) Venous Blood Partial Pressure 57 mmHg (44-48) CO2 Venous Blood Partial Pressure 400 mmHg O2 (35-40) Venous Blood HCO3 13 mmol/L (22-26) Venous Blood Oxygen Saturation 98 % (70-76) Venous Blood Oxygen Content 13.5 Vol % (9.0-17.0) Venous Blood Base Excess -16.0 mmol/L (-2-2) Oxygen Delivery Device BiPAP VENTILATOR Blood Gas Liter Flow 15 L/M Blood Gas Ventilator Setting AMBU PRVC 24/550/1.0/10+ Blood Gas HCO3 16 mmol/L (22-26) Blood Gas Base Excess -12.0 mmol/L (-2-2) Blood Gas Oxygen Saturation 98 % (90-100) Arterial Blood pH 7.12 (7.380-7.420) Arterial Blood Partial 50 mmHg (38-42) Pressure CO2 Arterial Blood Partial 462 mmHg Pressure O2 (61-120) Arterial Blood Oxygen Content 13.7 Vol % (12.0-20.0) Arterial Blood 1.1 % (0-4) Carboxyhemoglobin Arterial Blood Methemoglobin 0.9 % (0-2) Blood Gas Hemoglobin 9.0 G/DL (12.0-16.0) Blood Gas Inspired Oxygen 100 % Imaging Last Impressions Chest X-Ray 06/15/17 0000 Signed Impressions: Service Date/Time: Thursday, June 15, 2017 03:46 - CONCLUSION: Stable chest x-ray with marked rotation and underinflation. Right lung airspace consolidation and pleural effusion is stable. Nonspecific hazy opacity at the left lung base is also unchanged. Arjun Montenegro MD Abdomen Ultrasound 06/14/17 0000 Signed Impressions: Service Date/Time: Wednesday, June 14, 2017 12:29 - CONCLUSION: 1. Limited exam without intrapelvic duct dilatation 2. Small bilateral pleural effusions 3. Normal-sized kidneys without hydronephrosis. Andrés Candelaria MD FACR Objective Remarks GENERAL: elderly, obese chronically ,critically ill male with agonal respirations SKIN: Cool and mottled HEAD: Normocephalic. EYES: No scleral icterus. No injection or drainage. NECK:trachea midline. No JVD CARDIOVASCULAR: tachycardic rate, irregularly irregular rhythm. afib by tele. HR in 110s. RESPIRATORY: Coarse , rhonchorous, copious aspirant contents emanating from oropharynx, trachea and esophagus GASTROINTESTINAL: Abdomen soft, protuberant , MUSCULOSKELETAL: No cyanosis, 1+ peripheral edema. Neuro: GCS 3T. Procedures Intubation- Dr. Mcghee Right femoral arterial line placement Dr Díaz Left femoral central line placement Dr. Cotto A/P Assessment and Plan Assessment: 77year old male patient critically ill, with multiple comorbidities - status post self extubation, obvious copious aspiration and 2 previous unsuccessful attempts intubation by [employer] respiratory personnel with undetermined time duration of hypoxemia, now with agonal respirations, now with hypotension , subsequent hemodynamic instability and resultant cardiac arrest. self extubation-respiratory arrest with significant aspiration Hypoxemia ( O2 Saturation 60%) initially prior to reintubation Cardiac arrest Plan 0711- CPR initiated per ACLS protocol.( Please refer to Code sheet for detailed description) Initial dose epinephrine 2.5 mg via ETT, concurrently right femoral line placed. Subsequent dosing of all ACLS drugs per right femoral line. Stat chest x-ray performed, ABGs performed. CPR continued , stat TTE, pleural effusions noted PEA rhythm noted , right and left thoracentesis approximately 600 cc each side, upon placement of chest tube with resolution of heart rate and blood pressure at 0747, positive pulses, stat 12-lead EKGobtained, epinephrine infusion initiated stat ABG, obtained. Subsequent bicarbonate infusion. Confirmed placement of ETT, and bilateral chest tubes via radiographic imaging .Subsequent discussion with family upon arrival per Dr. Cotto, CODE STATUS changed to DNR, subsequent episode of CPR required. The patient was maintained on sodium bicarbonate and epinephrine, and levophed infusions. Code ended 0817 Upon arrival of all family, decision made for compassionate withdrawal. Time of 1447. Critical Care Total critical care time 2.25 hours. This is excluding critical care procedures . Physician Hali Brown MD Jun 17, 2017 21:51
--- NOTE | 2017-06-17 21:57 | PD.PROCEDR ---
Procedure Note Procedure Endotracheal Intubation Diagnosis: Severe hypoxemia Indications: Severe hypoxemia, respiratory arrest Consent: Emergent-status post self extubation Anesthesia: None Description of the Procedure: The patient was positioned in the sniffing position. Pre-oxygenation was performed using a 100% BVM. Anesthesia was induced via rapid sequence ( Etomidate and Succinylcholine, IV's infiltrated). A Glidescope 4 was used for laryngoscopy and a Grade 1 view was obtained, and with cricoid pressure noted copious amounts of aspiration contents emanating from trachea, lungs and esophagus. An 8.0 cuffed endotracheal tube was inserted atraumatically through the vocal cords. Confirmation of correct endotracheal tube placement was made by equal and bilateral breath sounds and colorimetric CO2 detection, and reconfirmation via glide scope. The endotracheal tube was secured at 26 cm at the teeth. There were no immediate complications noted. The patient remained hemodynamically stable throughout the procedure. A chest x-ray has been ordered. I personally performed the procedure. Hali Mcghee MD Jun 17, 2017 21:57
== END 2017-06-17 10:21 | disposition expired | DRG 871 ==
LOC: NEPC 02:57 → NEDA 04:48 → HIMN 18:20
PROVIDERS: ADMIT Internal Medicine Critical Care Medicine; ATTEND Internal Medicine Critical Care Medicine
PROC: 0BH17EZ Insertion of Endotracheal Airway into Trachea, Via Natural or Artificial Opening (ICD-10-PCS; principal; 2017-06-14)
PROC: 5A1945Z Respiratory Ventilation, 24-96 Consecutive Hours (ICD-10-PCS; 2017-06-14)
PROC: 03HY32Z Insertion of Monitoring Device into Upper Artery, Percutaneous Approach (ICD-10-PCS; 2017-06-17)
PROC: 06HY33Z Insertion of Infusion Device into Lower Vein, Percutaneous Approach (ICD-10-PCS; 2017-06-17)
PROC: 0W9B30Z Drainage of Left Pleural Cavity with Drainage Device, Percutaneous Approach (ICD-10-PCS; 2017-06-17)
PROC: 5A12012 Performance of Cardiac Output, Single, Manual (ICD-10-PCS; 2017-06-17)
PROC: 0W9930Z Drainage of Right Pleural Cavity with Drainage Device, Percutaneous Approach (ICD-10-PCS; 2017-06-17)
PROC: 0BH17EZ Insertion of Endotracheal Airway into Trachea, Via Natural or Artificial Opening (ICD-10-PCS; 2017-06-17)
DX: A41.9 Sepsis, unspecified organism (principal); J96.01 Acute respiratory failure with hypoxia; N17.0 Acute kidney failure with tubular necrosis; R65.21 Severe sepsis with septic shock; E43 Unspecified severe protein-calorie malnutrition; J18.9 Pneumonia, unspecified organism; J90 Pleural effusion, not elsewhere classified; D68.9 Coagulation defect, unspecified; E87.70 Fluid overload, unspecified; B49 Unspecified mycosis; J93.9 Pneumothorax, unspecified; I48.91 Unspecified atrial fibrillation; D64.9 Anemia, unspecified; I10 Essential (primary) hypertension; E78.5 Hyperlipidemia, unspecified; I25.10 Atherosclerotic heart disease of native coronary artery without angina pectoris; G89.29 Other chronic pain; M54.9 Dorsalgia, unspecified; I46.9 Cardiac arrest, cause unspecified; Y95 Nosocomial condition; Z51.5 Encounter for palliative care; Z95.1 Presence of aortocoronary bypass graft; Z87.891 Personal history of nicotine dependence
CPT/HCPCS: 31500; 36600; 71010; 76700; 76937; 80048; 80053; 80202; 81001; 82550; 82805; 82948; 83605; 83735; 83880; 84100; 84484; 85025; 85610; 85730; 87040; 87070; 87071; 87086; 87106; 87186; 87205; 87449; 87641; 92950; 93005; 94002; 94003; 94640; 94664; C9113; J0171; J0330; J1100; J1720; J1940; J2060; J2248; J2250; J2270; J3010; J3370; J3480; J7030; J7040; J7042; J7050; P9047